=== PATIENT | female | born 1945 | race Caucasian/White ===

== ENCOUNTER 2016-04-16 12:53 | Inpatient (IN) | payer OTHER ==
[2016-04-16] MEDS ORDERED: NS 500 ML IV ONE (13:19)
--- NOTE | 2016-04-16 13:23 | EDPHY ---
H & P HPI/ROS: CHIEF COMPLAINT: Generalized weakness HISTORY OF PRESENT ILLNESS: 70-year-old female with diabetes presents with generalized weakness. 2 week history of gradually increasing generalized weakness. She now is having difficulty getting out of her wheelchair and few days ago required assistance to get out of her car. She has not fallen within the last 2 weeks. She is supposed to use oxygen around the clock, but only uses oxygen at night, because her tends to trip on the oxygen tubing. No recent illness or injury. 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 He usually makes their meals, but they have not been eating much recently. She is receiving twice weekly wound care for ulcerations on her left lower extremity. The wounds seem to be healing and are not worse recently. REVIEW OF SYSTEMS: Constitutional: No fever, no chills Eyes: No visual changes ENT: No sore throat Respiratory: No cough, no shortness of breath Cardiac: problem with thoracic aorta (unable to explain), No chest pain Gastrointestinal: No nausea, no vomiting, no abdominal pain Genitourinary: no dysuria Musculoskeletal: chronic left shoulder pain/injury, has decided against surgical repair Skin: skin ulceration Neurological: No headache Psychiatric: No anxiety Past Medical/Surgical History: Diabetes Hypertension Social History: Smoking Status: Never smoked Physical Exam: General Appearance: Alert, pleasant and talkative Eyes: Pupils equal and round, no conjunctival pallor or injection ENT, Mouth: Mucous membranes moist Neck: Normal inspection Respiratory: Lungs are clear to auscultation Cardiovascular: irregular rhythm Gastrointestinal: Abdomen is obese, soft and nontender Neurological: A&O, motor 5/5 throughout, sensory intact to light touch, gait not assessed Skin: Warm and dry Extremities: bandage left lower extremity, left toes are erythematous Psychiatric: Mood and affect normal Constitutional: Initial Vital Signs Temperature (C) 36.7 C 04/16/16 13:03 Heart Rate 76 04/16/16 13:03 Respiratory Rate 18 04/16/16 13:03 Blood Pressure 114/65 04/16/16 13:03 O2 Sat (%) 88 L 04/16/16 13:03 O2 Delivery Mode Nasal Cannula O2 (L/minute) 3 Allergies/Adverse Reactions: sandyl cream Allergy (Uncoded 04/16/16 12:59) tape Allergy (Uncoded 04/16/16 15:29) Home Medications: Medication Instructions Recorded Acetaminophen [Acetaminophen Extra 500 mg PO HS 04/16/16 Strength] Aspirin EC [Aspirin EC 81 mg (*)] 81 mg PO HS 04/16/16 Atenolol [Tenormin 25 mg (*)] 25 mg PO HS 04/16/16 Atorvastatin Calcium [Lipitor 40 40 mg PO HS 04/16/16 mg (*)] Clopidogrel Bisulfate [Plavix (*)] 75 mg PO HS 04/16/16 Hydrochlorothiazide [HCTZ (*)] 25 mg PO HS 04/16/16 Lantus 100 UNITS/ML (*) 40 units SQ HS 04/16/16 Metformin HCl [Metformin 1000 mg] 1,000 mg PO HS 04/16/16 Novolin R 0 - 14 units SQ BID 04/16/16 amLODIPine BESYLATE [Norvasc 10 mg 10 mg PO HS 04/16/16 (*)] Medical Decision Making - Diagnostics EKG Interpretation: EKG interpreted by me reveals ST, rate 101, lateral non-specific T wave changes. Imaging: Chest x-ray independently reviewed by me reveals a wide mediastinum, otherwise unremarkable. ED Course/Re-evaluation: This pt presents with generalized weakness, and certainly is a fall risk. Despite the results of our testing today, she will clearly require hospital admission for failure to thrive and inability to care for herself. The LE ulceration does not appear to be infected, and the source of her new weakness is otherwise unclear, so she will need labs/CXR/UA to further elucidate the cause of her weakness. Workup reveals a UTI. Urine cx sent and pt given Keflex 500mg orally. Pt informed. Dr. Duffy was consulted for admission. 1520: pt now in rapid Afib. No prior history of atrial fibrillation. Stat EKG reveals atrial fibrillation, with ventricular rate of 145. Diltiazem 10 mg IV ordered, but pt converted back to NSR at 1340 and did not require diltiazem. BP remained adequate. Paroxysmal Afib certainly could contribute to her generalized weakness. She will be placed in the PCU for close monitoring. Differential Diagnosis: includes though not limited to pneumonia, hyponatremia, CVA, ACS, dysrhythmia, cellulitis, wound infection. - Data Points Laboratory Results: Laboratory Results 04/17/16 05:06 04/17/16 05:06 Medications Given: Discontinued Medications Cephalexin HCl (Keflex) 500 mg PO EDNOW ONE PRN Reason: Protocol Stop: 04/16/16 15:07 Last Admin: 04/16/16 15:20 Dose: 500 mg Digoxin (Lanoxin Injections) 250 mcg IVP ONCE ONE Stop: 04/24/16 09:04 Last Admin: 04/24/16 09:30 Dose: 250 mcg Diltiazem HCl (Cardizem 25 Mg/5 Ml Vial) 10 mg IVP EDNOW ONE Stop: 04/16/16 15:28 Last Admin: 04/16/16 17:19 Dose: Not Given Diltiazem HCl (Cardizem 25 Mg/5 Ml Vial) 10 mg IVP ONCE BENJA Stop: 10/20/16 05:59 Last Admin: 04/23/16 06:25 Dose: 10 mg Sodium Chloride (Ns) 500 mls @ 0 mls/hr IV ONCE ONE PRN Reason: As Directed Stop: 04/16/16 13:20 Last Admin: 04/16/16 13:30 Dose: 500 mls Diltiazem HCl 125 mg/ Dextrose 150 mls @ 0 mls/hr IV CONT ONE; Per Protocol PRN Reason: Protocol Stop: 04/16/16 15:28 Last Admin: 04/16/16 17:19 Dose: Not Given Ceftriaxone Sodium/Dextrose (Rocephin 1 Gm (Premix)) 50 mls @ 100 mls/hr IV DAILY [facility] Stop: 05/16/16 16:59 Last Admin: 04/17/16 09:15 Dose: 50 mls Vancomycin/Sodium Chloride (Vancomycin 1 Gm (Premix)) 250 mls @ 250 mls/hr IV Q12H BENAJ PRN Reason: Protocol Stop: 05/17/16 14:59 Last Admin: 04/19/16 04:00 Dose: 250 mls Sodium Chloride (Ns) 500 mls @ 1,500 mls/hr IV ONCE ONE Stop: 04/21/16 10:46 Last Admin: 04/21/16 10:42 Dose: 500 mls Diltiazem HCl 125 mg/ Dextrose 150 mls @ 0 mls/hr IV CONT BENJA; Per Protocol PRN Reason: Protocol Stop: 10/20/16 05:59 Last Admin: 04/23/16 06:42 Dose: 150 mls Sodium Chloride (Ns) 1,000 mls @ 0 mls/hr IV ONCE ONE PRN Reason: As Directed Stop: 04/23/16 08:01 Last Admin: 04/23/16 07:51 Dose: 1,000 mls Sodium Chloride (Ns) 500 mls @ 1,500 mls/hr IV ONCE ONE Stop: 04/23/16 11:01 Last Admin: 04/23/16 10:47 Dose: 500 mls Amiodarone HCl (Amiodarone Hcl) 100 mls @ 600 mls/hr IV ONCE ONE Stop: 04/24/16 10:19 Last Admin: 04/24/16 10:44 Dose: 100 mls Amiodarone HCl (Amiodarone Hcl) 200 mls @ 33.333 mls/hr IV ONCE ONE Stop: 04/24/16 16:09 Last Admin: 04/24/16 11:32 Dose: 200 mls Sodium Chloride (Ns) 500 mls @ 1,500 mls/hr IV ONCE ONE Stop: 04/24/16 10:29 Last Admin: 04/24/16 10:44 Dose: 500 mls Sodium Chloride (Ns) 1,000 mls @ 3,000 mls/hr IV ONCE ONE Stop: 04/24/16 17:50 Last Admin: 04/24/16 18:00 Dose: 1,000 mls Insulin Glargine (Lantus) 40 unit SC [facility] Stop: 10/13/16 20:59 Last Admin: 04/19/16 00:00 Dose: Not Given Insulin Glargine (Lantus) 30 unit SC [facility] Stop: 10/13/16 20:59 Last Admin: 04/19/16 23:15 Dose: 30 units Metformin HCl (Glucophage) 1,000 mg PO [facility] Stop: 10/13/16 20:59 Last Admin: 04/16/16 20:25 Dose: 1,000 mg Morphine Sulfate (Morphine) 4 mg IVP EDNOW ONE Stop: 04/16/16 13:56 Last Admin: 04/16/16 14:00 Dose: 4 mg Morphine Sulfate (Morphine) 2 mg IVP ONCE ONE Stop: 04/21/16 06:31 Last Admin: 04/21/16 06:10 Dose: 2 mg Morphine Sulfate (Morphine) 2 mg IVP ONCE ONE Stop: 04/22/16 06:31 Last Admin: 04/22/16 06:21 Dose: 2 mg Morphine Sulfate (Morphine) 2 mg IVP ONCE ONE Stop: 04/22/16 16:01 Last Admin: 04/22/16 15:45 Dose: 2 mg Morphine Sulfate (Morphine) 2 mg IVP ONCE ONE Stop: 04/22/16 16:31 Last Admin: 04/22/16 16:30 Dose: 2 mg Potassium Chloride (Klor-Con) 40 meq PO ONCE ONE PRN Reason: Protocol Stop: 04/23/16 21:40 Last Admin: 04/23/16 23:02 Dose: 40 meq Departure - Departure Disposition: [facility] Inpatient Acute Clinical Impression: Paroxysmal atrial fibrillation Urinary tract infection Qualifiers: Qualifier Code: (N30.00) Acute cystitis without hematuria Condition: Fair
[2016-04-16 13:25] LABS: % IMMATURE GRANULYOCYTES 0.5 % (0.0-1.1); ABSOLUTE IMMATURE GRANULOCYTES 0.07 10^3/uL (0.00-0.10); ADD DIFF? NO; ADD MORPH? NO; ADD SCAN? NO; ATYPICAL LYMPHOCYTE FLAG 0 (0-99); FRAGMENT RBC FLAG 0 (0-99); HEMATOCRIT 47.5 % (38.0-47.0); HEMOGLOBIN 15.2 g/dL (12.6-16.3); LEFT SHIFT FLG 0 (0-99); LIPEMIA HEMOLYSIS FLAG 80 (0-99); MEAN CELL HEMOGLOBIN 29.3 pg (27.9-34.1); MEAN CELL VOLUME 91.5 fL (81.5-99.8); MEAN PLATELET VOLUME 12.8 fL (8.7-11.7); PLATELET CLUMPS FLAG 10 (0-99); PLATELET COUNT 273 10^3/uL (150-400); RED BLOOD CELL COUNT 5.19 10^6/uL (4.18-5.33); RED CELL DISTRIBUTION WIDTH 15.1 % (11.5-15.2)
--- NOTE | 2016-04-16 14:04 | DX ---
AP Upright and Lateral Views of the Chest - April 16, 2016, at 1:10 p.m. Clinical History: 70-year-old female in the Emergency Department with a suspected infection, meeting sepsis criteria and also complaining of leg weakness and back pain. Comparison Study: None. Findings: Oxygen tubing and telemetry monitoring lead lines are noted. There are mild hypoventilatory features. The AP hypoventilatory change augments the cardiac and mediastinal silhouette. There is mi ld peribronchial thickening. There is no convincing evidence of a focal infiltrate. There is no pleur al effusion, peripheral interstitial edema, or pneumothorax. The patient's arms obscure the anterior and central mediastinal structures on the lateral view. The osseous structures are age-appropriate. Impression: Mild hypoventilatory features, with no convincing focal infiltrate.
[2016-04-16 14:34] LABS: ALANINE AMINOTRANSFERASE 34 IU/L (9-52); ALBUMIN 3.2 g/dL (3.5-5.0); ALKALINE PHOSPHATASE 128 IU/L (38-126); ANION GAP 19 mEq/L (8-20); ASPARTATE AMINOTRANSFERASE 31 IU/L (14-46); BILIRUBIN,TOTAL 0.9 mg/dL (0.1-1.4); BILIRUBIN-CONJUGATED 0.4 mg/dL (0.0-0.5); BILIRUBIN-UNCONJUGATED 0.5 mg/dL (0.0-1.1); CALCIUM 9.5 mg/dL (8.5-10.4); CARBON DIOXIDE 25 mEq/l (22-31); CHLORIDE 99 mEq/L (97-110); CREATININE 1.1 mg/dL (0.6-1.0); GLOMERULAR FILTRATION RATE 49; GLUCOSE 247 mg/dL (70-100); POTASSIUM 4.1 mEq/L (3.5-5.2); SODIUM 139 mEq/L (134-144); TOTAL PROTEIN 6.9 g/dL (6.3-8.2)
[2016-04-16 14:46] LABS: COLOR AMBER; LEUKOCYTE ESTERASE,URINE 3+ (NEGATIVE); NITRITE,URINE NEGATIVE (NEGATIVE)
[2016-04-16 14:51] LABS: BACTERIA 4+ /hpf (NONE SEEN); RBC,URINE 25-50 /hpf (0-3); WBC,URINE 50-182 /hpf (0-3)
--- NOTE | 2016-04-16 14:55 | CPEKG ---
Heart Rate: 101 RR Interval: 594 P-R Interval: 156 QRSD Interval: 78 QT Interval: 356 QTC Interval: 462 P [place]igg[place]: 45 QRS [place]: 14 T Wave [place]: 144 EKG Severity - ABNORMAL ECG - EKG Impression: SINUS TACHYCARDIA EKG Impression: NONSPECIFIC T ABNORMALITIES, LATERAL LEADS Electronically Signed By: Mary Jane Gamino 16-Apr-2016 16:57:05
[2016-04-16] MEDS ORDERED: CEPHALEXIN 500 MG CAP PO ONE (15:06)
--- NOTE | 2016-04-16 15:26 | CPEKG ---
Heart Rate: 145 RR Interval: 414 QRSD Interval: 86 QT Interval: 316 QTC Interval: 491 QRS [place]: 19 T Wave [place]: 169 EKG Severity - ABNORMAL ECG - EKG Impression: ATRIAL FIBRILLATION, V-RATE 103-139 EKG Impression: REPOLARIZATION ABNORMALITY, PROB RATE RELATED Electronically Signed By: Mary Jane Gamino 16-Apr-2016 16:56:51
[2016-04-16] MEDS ORDERED: DILTIAZEM 25 MG/5 ML VIAL IVP ONE (15:27)
[2016-04-16] MEDS ORDERED: DILTIAZEM 125 MG in D5W 125 ML IV ONE (15:27)
[2016-04-16] MEDS ORDERED: ONDANSETRON DISINTEGRATING 4 MG TAB PO PRN (16:17)
[2016-04-16] MEDS ORDERED: ONDANSETRON 4 MG/2 ML VIAL IVP PRN (16:17)
--- NOTE | 2016-04-16 17:10 | GHP ---
[f rep st] HISTORY AND PHYSICAL DATE OF ADMISSION: 04/16/2016 CHIEF COMPLAINT: Weakness. HISTORY OF PRESENT ILLNESS: This is a 70-year-old female with a history of type 2 diabetes and a chr onic left lower leg wound. She gets her care at [facility] in [place] and at [place], and has been getting her wound care there for the last several months. The wound is actually severa l months old. She states over the last several weeks she has been having decreased mobility and over all generalized weakness. She describes it as weakness in her thighs in terms of not being able to s tand up strongly from her wheelchair. She does admit to some urinary retention yesterday, but no dys uria. No fevers or chills. No cough. She denies any heart palpitations. She has not had a history of atrial fibrillation in the past. REVIEW OF SYSTEMS: 10-point review of systems obtained and other than stated above is negative. PAST MEDICAL HISTORY: 1. Type 2 diabetes. 2. Chronic left lower extremity wound. 3. Peripheral vascular disease with an occlusion of some sort in her left leg which they tried to an gioplasty twice. That is the reason she is on Plavix currently. 4. Hypertension. 5. Previous severe cellulitis requiring surgery. It sounds like necrotizing fasciitis actually, on her left thigh. PAST SURGICAL HISTORY: 1. Left thigh surgery for severe cellulitis. 2. Multiple attempts at angioplasty of the left leg. MEDICATIONS: Lantus, Novolin, aspirin, hydrochlorothiazide, atorvastatin, metformin, amlodipine, Melonie vix, atenolol. SOCIAL HISTORY: No smoking. No alcohol. 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 Has a son who lives in the area, and his works at [employer]. FAMILY HISTORY: Positive for diabetes and cancer. PHYSICAL EXAMINATION: VITAL SIGNS: Afebrile. Blood pressure is 165/83, heart rate 104, oxygen satu ration 95% on 2 L. GENERAL: The patient is well developed, in no apparent distress. HEENT: Nonict hyacinth sclerae. Extraocular movements intact. Moist mucous membranes. NECK: Supple. No thyromegaly . LUNGS: Good effort. Clear to auscultation bilaterally. CARDIOVASCULAR: Regular rate and rhythm . No murmurs, gallops. ABDOMEN: Positive bowel sounds. Soft, nontender, nondistended. No hepatos plenomegaly. EXTREMITIES: Left leg shows a large ulceration in the anterior lambert area as well as in the posterior area on the lower calf. Both fairly clean looking without any evidence of infection. She has a faint palpable DP pulse on the right and absent on the left. NEUROLOGIC: Alert and orien krupa x3. Moving all 4 extremities equally. PSYCH: Normal mood and affect. LABS: White count 12, hemoglobin 15, platelets are 273. Sodium 139, potassium 4.1, BUN 32, creatini ne 1.1, glucose 247. UA shows urinary tract infection. EKG when she first came in was normal sinus rhythm and then she went into atrial fibrillation with rapid ventricular response. Heart rate of 140 s, and then when I saw the patient, she was back into normal sinus rhythm. IMPRESSION AND PLAN: 1. Generalized weakness is probably multifactorial, which includes gradual deconditioning due to her leg wound, which she says limits her mobility. She has not been mobile at all over the last weeks t o several months. Urinary tract infection is also probably contributing as well as episodes of atria l fibrillation. Will order physical therapy, and the patient may benefit from a rehab stay. 2. Urinary tract infection. Will treat with ceftriaxone. 3. New onset atrial fibrillation. We will check an echocardiogram. She will be monitored in the U. She does have a higher CHADS score, which would be an indication for anticoagulation, and we will start Eliquis tonight. She is on a small dose of atenolol which I will switch over to metoprolol an d increase the dose. Will also hold her amlodipine in order to see if we can titrate this up a littl e bit to prevent further episodes of atrial fibrillation. 4. Chronic left lower extremity wound. Will get Wound Care to see her. She is considering transfer ring over her care to [facility]. 5. Peripheral vascular disease. Will have her hold her Plavix for now, as she does not have a stent , and will have to think carefully about adding Eliquis to Plavix. We will have to see if we can get old records and see what is the extent of her peripheral vascular disease. 6. Type 2 diabetes. Continue her insulin as before as well as metformin. 7. Hypertension. Will hold her amlodipine to titrate up beta orly. CODE STATUS: Patient is a full code. /[id number]/MODL
[2016-04-16] MEDS: INSULIN LISPRO 100 UNIT/ML SC SCH (18:15)
[2016-04-16] MEDS: ACETAMINOPHEN 325 MG TAB PO PRN (19:43)
[2016-04-16] MEDS: ASPIRIN EC 81 MG TAB PO SCH (20:24)
[2016-04-16] MEDS: APIXABAN 5 MG TAB PO SCH (20:24)
[2016-04-16] MEDS: METOPROLOL TARTRATE 25 MG TAB PO SCH (20:25)
[2016-04-16] MEDS: ATORVASTATIN CALCIUM 40 MG TAB PO SCH (20:25)
[2016-04-16] MEDS: HYDROCHLOROTHIAZIDE 25 MG TAB PO SCH (20:25)
[2016-04-16] MEDS: INSULIN GLARGINE 100 UNIT/ML VIAL SC SCH (20:35)
[2016-04-16] MEDS ORDERED: metFORMIN HCL 500 MG TAB PO SCH (21:00)
[2016-04-17] MEDS: ACETAMINOPHEN 325 MG TAB PO PRN ×2 (02:51→06:50)
[2016-04-17 06:14] LABS: % IMMATURE GRANULYOCYTES 0.4 % (0.0-1.1); ABSOLUTE IMMATURE GRANULOCYTES 0.05 10^3/uL (0.00-0.10); ADD DIFF? NO; ADD MORPH? NO; ADD SCAN? NO; ATYPICAL LYMPHOCYTE FLAG 0 (0-99); FRAGMENT RBC FLAG 0 (0-99); HEMATOCRIT 43.8 % (38.0-47.0); HEMOGLOBIN 14.2 g/dL (12.6-16.3); LEFT SHIFT FLG 0 (0-99); LIPEMIA HEMOLYSIS FLAG 80 (0-99); MEAN CELL HEMOGLOBIN CONCENTR. 32.4 g/dL (32.4-36.7); MEAN CELL VOLUME 92.6 fL (81.5-99.8); MEAN PLATELET VOLUME 12.6 fL (8.7-11.7); PLATELET CLUMPS FLAG 10 (0-99); PLATELET COUNT 223 10^3/uL (150-400); RED BLOOD CELL COUNT 4.73 10^6/uL (4.18-5.33)
[2016-04-17 06:22] LABS: ALANINE AMINOTRANSFERASE 34 IU/L (9-52); ALBUMIN 2.8 g/dL (3.5-5.0); ALKALINE PHOSPHATASE 101 IU/L (38-126); ANION GAP 13 mEq/L (8-20); ASPARTATE AMINOTRANSFERASE 22 IU/L (14-46); BILIRUBIN,TOTAL 0.8 mg/dL (0.1-1.4); CALCIUM 8.9 mg/dL (8.5-10.4); CARBON DIOXIDE 30 mEq/l (22-31); CHLORIDE 101 mEq/L (97-110); CREATININE 0.9 mg/dL (0.6-1.0); GLOMERULAR FILTRATION RATE > 60; GLUCOSE 125 mg/dL (70-100); SODIUM 140 mEq/L (134-144)
[2016-04-17] MEDS: INSULIN LISPRO 100 UNIT/ML SC SCH ×3 (08:59→17:25)
[2016-04-17] MEDS: METOPROLOL TARTRATE 25 MG TAB PO SCH ×2 (09:14→22:15)
[2016-04-17] MEDS: APIXABAN 5 MG TAB PO SCH ×2 (09:14→22:17)
[2016-04-17] MEDS: oxyCODONE IR 5 MG TAB PO PRN ×2 (11:32→16:58)
[2016-04-17] MEDS ORDERED: POLYETHYLENE GLYCOL 3350 17 GM PKT PO PRN (11:34)
[2016-04-17] MEDS ORDERED: BISACODYL 10 MG SUPP PR PRN (11:34)
[2016-04-17] MEDS ORDERED: MAGNESIUM HYDROXIDE 30 ML UDCUP PO PRN (11:34)
[2016-04-17] MEDS ORDERED: LACTULOSE 20 GM/30 ML UDCUP PO PRN (11:34)
--- NOTE | 2016-04-17 13:49 | HOSPPROG ---
Hospitalist Progress Note Assessment/Plan: # Severe sacral/decubitus and LE wounds - pt has been receiving outpt wound care - extensive on exam - consulting Dr. Dahl for surgical eval - consulting ID - as LE wounds have surrounding erythema and are deep - would like recs regarding broader abx - wound care already initiated - specialty bed ordered # UTI - pt with sx and grossly abnormal UA - urine culture sent - empiric Ceftriaxone # New Atrial Fibrillation - suspect this is likely chronic/intermittent TELE ( personally reviewed and interpreted) sinus in 80's oxygen saturations 98% on 3L Chads-vasc2 5 - cont Eliquis - cont Metoprol currently rate controlled # Diabetes type 2 - BS 125-308 - cont glargine - cont SSI - hold metformin # Peripheral vascular disease - certainly complicating patients wound healing - cont statin - surgery consulting for wounds # HTN - currently well controlled - - cont holding norvasc - cont metoprolol # proph - eliquis # diet - diabetic # dispo - > 2MN as requires acute care for serious wounds and atrial fibrillation I have discussed the case with ID and surgery - they will consult for recs regarding this patient's wounds Subjective: tearful and scared Objective: Vital Signs Temp Pulse Resp BP Pulse Ox 36.6 C 74 16 116/67 98 04/17/16 11:54 04/17/16 11:54 04/17/16 11:54 04/17/16 11:54 04/17/16 11:54 Laboratory Results 04/17/16 05:06 04/17/16 05:06 04/16/16 04/17/16 04/18/16 05:59 05:59 05:59 Intake Total 1495 Balance 1495 - Physical Exam Constitutional: chronically ill appearing, obese Eyes: anicteric sclera Ears, Nose, Mouth, Throat: moist mucous membranes Cardiovascular: regular rate and rhythym, systolic murmur Respiratory: no respiratory distress Gastrointestinal: normoactive bowel sounds, soft, non-tender abdomen Genitourinary: no bladder fullness Skin: warm, other (large deep lambert wound and necrotic heel eschar- decubitus wound with necrosis) Musculoskeletal: No asymmetric calves Neurologic: AAOx3 Psychiatric: depressed, flat affect Lymph, Heme, Immunologic: no cervical LAD ICD10 Worksheet Patient Problems: Problems Problem Status Diagnosed Paroxysmal atrial fibrillation Acute Urinary tract infection Acute
--- NOTE | 2016-04-17 15:27 | WOCRNPDOC ---
ALFONSO Advanced Assessment Note - Skin Integrity Problem, Advanced Assess Left Lower Lateral Leg Dressing Type: Allevyn Life Dressing Description: Saturated Exudate Amount: Moderate Exudate Color: Reddish/Yellow Exudate Characteristic(s): Serosanguinous Integumentary Issue Intervention: Dressing Applied Alana Wound Tissue: Raw, Swollen Alana Wound Swelling: Mild Wound Bed Color: Black, Red, Yellow Wound Bed Constitution: Smooth Tissue (75%), Adhered Slough (15%), Unstable Eschar (10%) Wound Edges: Irregular Site Odor: Strong Site Measurement - Head-to-Toe Length X Width X Depth (cm): 5.5cmx9.5cmx0.4cm Skin Integrity Problem Comment: Moderately exudative wound laterally, w/ well- adhered slough and eschar along margins. Alana-wound tissue is raw w/ associated swelling, and entire site is exquisitely painful when touched. Wound has a strong odor, and there is erythema noted throughout LLE. Patient reports seeing a physician for outpatient wound care up at [facility], and that he was using Santyl to debride this wound. She reports that this tx caused subsequent irritation and breakdown of her alana-wound tissue. After speaking with Dr. Wall, I feel this patient will benefit from a surgical consult for this wound as well as several others. I will hold off on ordering any topical debridement until surgical opnion. Left Posterior Lower Leg Dressing Type: Allevyn Life Dressing Description: Clean/Dry, Intact Exudate Amount: None Exudate Characteristic(s): None Integumentary Issue Intervention: Dressing Applied Alana Wound Tissue: Erythema, Shiny, Thin, Hair Loss Alana Wound Swelling: Mild Wound Bed Color: Black, Red Wound Bed Constitution: Smooth Tissue (5%), Stable Eschar (95%) Site Odor: Moderate Site Measurement - Head-to-Toe Length X Width X Depth (cm): [id number] eschar Skin Integrity Problem Comment: Dry eschar-filled wound on posterior LLE, w/ trace smooth tissue along margins. Erythema noted to alana-wound tissue, accompanied by dry, taut, shiny skin. I am unceratin of the etiology of these wounds, as the patient's history is complex. Her wounds throughout the LLE are indicative of both venous and arterial compromise, in addition to complications associated with diabetes. Surgical consult pending. I applied Hypergel to help soften and debride eschar, but surgical intervention will be much more efficacious. liability claims adjusterELIJAH Vogel present and assisting. Left Lateral Heel Diabetic Ulcer Dressing Type: Allevyn Life Dressing Description: Intact Exudate Amount: Scant Exudate Color: Reddish/Yellow Exudate Characteristic(s): Serosanguinous Integumentary Issue Intervention: Dressing Applied Alana Wound Tissue: Calloused Alana Wound Swelling: Mild Wound Bed Color: Black Wound Bed Constitution: Unstable Eschar Wound Edges: Well Defined Site Odor: Moderate Site Measurement - Head-to-Toe Length X Width X Depth (cm): 1.5cmx1.7cmx0.2cm Skin Integrity Problem Comment: Soft, adhered eschar noted in L heel wound. Contrary to the other two wounds on this extremity, the appearance of this wound is much more consistent with a diabetic ulcer. It has clear, well-defined margins surrounded by copious calloused tissue. This wound would also benefit from surgical debridement; consult pending. Pannus Dressing Type: Open to Air Alana Wound Tissue: Intact Alana Wound Swelling: None Wound Bed Color: Red Site Odor: Moderate Site Odor Comment: yeast-like Skin Integrity Problem Comment: Denuded skin noted in pannus fold bilaterally, worse on the right than the left. Patient typically uses powder to keep site dry, but presently it is caked and moist. Advised liability claims adjusterELIJAH Vogel to clean off all the powder and apply interdry sheets in folds to help manage mositure and heal denuded skin. Bilateral Buttock Pressure Injury Dressing Type: Allevyn Life Dressing Description: Intact Exudate Amount: Scant Exudate Color: Reddish/Yellow Exudate Characteristic(s): Serosanguinous Integumentary Issue Intervention: Dressing Applied Alana Wound Tissue: Blanching, Erythema, Raw, Dry, Painful/Tender Alana Wound Swelling: Mild Wound Bed Color: Black, Brown, Red, Yellow Wound Bed Constitution: Smooth Tissue (40% in L wound, 50 % in R wound), Mixed Loose & Adhered Slough/Eschar Wound Edges: Irregular Site Odor: Moderate Site Measurement - Head-to-Toe Length X Width X Depth (cm): L buttock: 9cmx6.5cmx0.2cm; R buttock: 1.5cmx2.5cmx0.2cm Pressure Injury Stage: Unstageable (bilaterally) Pressure Injury Present on Admit: Yes (Noted in H&P) Skin Integrity Problem Comment: Large pressure-related wounds across bilateral buttocks (worse on left than right), slough/eschar-filled, consistent in appearance with unstageable pressure injury. Alana-wound tissue is dry and peeling, w/ no erythema noted at this time. Patient has been seeing wound physican for her left lower leg wounds, but states she was unaware on the wounds on her bottom. She does, however, report that the site has been painful. I supplied liability claims adjusterELIJAH Vogel w/ a larger Allevyn Life sacral dressing to ensure the wound were both adequately covered. The slough/eschar do not appear to be well-adhered, but patient was too tender during assessment and I was unable to mechanically debride w/ NS and gauze. Surgical consult is pending. Specialty P500 bed was ordered by RN this afternoon. I will follow-up with this patient tomorrow after surgical consult. Right Medial Distal Buttock Pressure Injury Dressing Type: Allevyn Life Dressing Description: Intact Exudate Amount: None Exudate Characteristic(s): None Integumentary Issue Intervention: Dressing Applied Alana Wound Tissue: Erythema, Non-blanching, Raw, Dry Alana Wound Swelling: Mild Wound Bed Color: Purple Site Measurement - Head-to-Toe Length X Width X Depth (cm): [id number] Pressure Injury Stage: Deep Tissue Injury (DTI) Pressure Injury Present on Admit: Yes (documented in H&P) Skin Integrity Problem Comment: Dark purple ecchymosis noted on distal aspect of medial R buttock (distal to unstageable wound), consistent in appearance with suspected deep tissue injury. Site covered, along with other pressure injuries on patient's buttocks, with larger Allevyn Life dressing supplied by wound care. P500 mattress ordered to alleviate pressure to site.
[2016-04-17] MEDS: PIPERACILLIN/TAZO 4.5 GM/DEX 100 ML IV SCH (15:59)
--- NOTE | 2016-04-17 16:13 | ECHO ---
[id number] + + [address] : : [place] [address] : : [phone] + + Adult Echocardiographic Report + ----+ :Name: Sanjeev JAMES Date: 04/17/2016 02:32 PM : : Hospital Admission Number: [id number] Location: 253: :: 1945 Gender: Female : :Age: 70 yrs Race: WH : :Reason For Study: Atrial Fibrillation : + ----+ MMode/2D Measurements & Calculations LVIDd: 3.2 cm EDV(Teich): 41.6 ml Ao root diam: 3.5 cm LVOT diam: 2.3 cm LA dimension: 4.1 cm LVOT area: 4.3 cm2 Normal Measurement Values: + + :LVIDd (3.5-5.7cm) IVSd (0.6-1.1cm) LVPWd (0.6-1.1cm) Aortic Root (2.0-3.7cm)Left Atrium (1.5-4.0cm): :LV Vol(d) (76-115ml) LV Vol(s) (29-48ml) Ejec Fraction (50-65%)PV Gómez (0.6- 1.2m/s) TV Gómez (0.4-1.0m/s) : :MV E Góemz (0.8-1.0m/s)MV A Gómez (0.3-1.0m/s)LVOT Gómez (0.7-1.2m/s) Asc Ao Gómez ( 0.9-1.8m/s) : + + Doppler Measurements & Calculations MV E max gómez: Ao mean P.2 mmHgLV V1 max: SV(LVOT): 63.7 cm/sec Ao V2 mean: 89.3 cm/sec 103.0 ml MV A max gómez: 125.7 cm/sec LV V1 max P.6 cm/sec Ao V2 VTI: 34.1 cm 3.2 mmHg MV E/A: 0.58 BRENDA(I,D): 3.0 cm2 LV V1 mean P.7 mmHg LV V1 mean: 59.8 cm/sec LV V1 VTI: 23.8 cm Left Ventricle The left ventricular cavity is small. There is mild to moderate concentric left ventricular hypertrophy. The left ventricle is hyperdynamic. Ejection Fraction = 70-75%. There is Doppler evidence for diastolic dysfunction. No regional wall motion abnormalities noted. Right Ventricle The right ventricle is normal in size and function. Atria The left atrial size is normal. Right atrial size is normal. The interatrial septum is intact with no evidence for an atrial septal defect. Mitral Valve There is moderate mitral annular calcification. There is no evidence of mitral valve prolapse. There is no mitral valve stenosis. Tricuspid Valve Normal tricuspid valve. There is mild tricuspid regurgitation. Aortic Valve There is moderate to severe aortic valve calcification. AV max PG is 13mmHG. AV mean PG is 7mmHG. Pulmonic Valve The pulmonic valve is normal in structure and function. There is no pulmonic valvular regurgitation. Great Vessels The aortic root is normal size. Pericardium/Pleural There is no pericardial effusion. Conclusion A complete two-dimensional transthoracic echocardiogram was performed (2D, M-mode, Doppler and color flow Doppler). There is mild to moderate concentric left ventricular hypertrophy. The left ventricular cavity is small. The left ventricle is hyperdynamic. Ejection Fraction = 70-75%. There is Doppler evidence for diastolic dysfunction. There is mild tricuspid regurgitation. There is moderate to severe aortic valve calcification. AV max PG is 13mmHG. AV mean PG is 7mmHG. Final Reading Physician: Jasmin Wilder signed on 04/17/2016 04:13 PM Ordering Physician: Fe Duffy Performed By: Socorro Holt, KAYLACS
--- NOTE | 2016-04-17 16:24 | GCON ---
[f rep st] CONSULTATION INFECTIOUS DISEASE CONSULTATION DATE OF CONSULTATION: 04/17/2016 REFERRING PHYSICIAN: Nita Wall MD REASON FOR CONSULTATION: Urinary tract infection, chronic wounds, for further evaluation and management. CHIEF COMPLAINT: Weakness. HISTORY OF PRESENT ILLNESS: This is a 70-year-old female with a past medical history significant for type 2 diabetes mellitus, peripheral vascular disease, chronic lower extremity wounds, who was admitted yesterday after several weeks of complaints of weakness. According to the patient and her son at the bedside, she was apparently able to walk around with her walker, get to doctors' appointments and get around her house without too much difficulty. However, the past 2 to 3 weeks she is having increasingly more difficulties with standing up, walking, and managing on her own. She complains of extreme weakness involving her lower extremities as well as her sort of trunk region where she is unable to really stand up or be in an upright position for long, to the point now that she is in a wheelchair. She has denied any fevers, shaking chills or night sweats recently. She has had some issues with urinary retention in the last day or 2 prior to admission, and prior to that some issues with urinary incontinence. She denies any dysuria, hematuria. She has been following with a wound care clinic up in [place] for her lower extremity wounds. She states that recently, perhaps 1 month ago, she was placed on antibiotics for 5-7 days for her wounds. She states it was cultured, and she was placed on amoxicillin. On admission, she was noted to be afebrile. She had some brief tachycardia noted on admission with elevated blood pressures. White cell count was elevated to 12.9 with a left shift. She had a urinalysis done, which had 3+ leukocyte esterase, negative for nitrates, and 50- 182 urine WBCs. There was 4+ bacteria seen. Cultures are currently growing out gram-negative rods at greater than 100,000. She had chest x-ray without any focal evidence of infiltrate. She was started empirically on ceftriaxone. She does feel a little bit better today. Her white blood cell count improved only slightly to 12.1. Infectious Disease is now consulted for further evaluation and opinion regarding the above. REVIEW OF SYSTEMS: GENERAL: Denied any chills or drenching night sweats. HEAD : Denies any headaches. EYES: No changes in vision. ENT: No sore throat, difficulty swallowing, ear pain, ear drainage. CARDIOVASCULAR: Denies any chest pain. RESPIRATORY: Denies any shortness of breath, cough or sputum production. She is normally on O2 via the nasal cannula at 2 L. ABDOMEN: Denies any abdominal pain, nausea, vomiting, diarrhea. URINARY: As above. BACK: Has some chronic back pain which is not increased outside of her baseline. EXTREMITIES: Denies any other joint pains or muscle aches at present. SKIN: Chronic lower extremity wounds as mentioned above. Rest of the 10-point review of systems was essentially negative except for the above. PAST MEDICAL HISTORY: Significant for type 2 diabetes mellitus, hypertension, peripheral vascular disease, chronic left lower extremity wound, followed by the [facility]. History of severe cellulitis involving her left thigh, which she states was due to a flesh-eating bacteria. She had surgery done, and this was in [place] in 2000. PAST SURGICAL HISTORY: Left thigh surgery for possible necrotizing fascitis in 2000 in [place]. Multiple attempts at angioplasty of the left leg. SOCIAL HISTORY: She is a nonsmoker. Does not drink alcohol. She lives with her . Her son lives nearby. FAMILY HISTORY: Significant for diabetes mellitus and cancer. PHYSICAL EXAMINATION: VITAL SIGNS: Temperature current 36.6, pulse 94, respiratory rate 16, saturation 98% on 3 L O2 via nasal cannula. Blood pressure 116/67. GENERAL: The patient is resting in bed in no acute respiratory distress, awake, alert, and oriented x3. HEAD/EYES: No conjunctival injection or petechiae noted. Oropharynx is clear. No posterior pharyngeal erythema or thrush. CARDIOVASCULAR: S1, S2, regular rate and rhythm. No murmurs appreciated. RESPIRATORY: Poor inspiratory effort. No obvious rhonchi appreciated. ABDOMEN: Obese. Positive bowel sounds in all 4 quadrants. Soft, nontender, nondistended. EXTREMITIES: No lower extremity edema. MUSCULOSKELETAL: No obvious joint effusions. SKIN: She has intertrigo under the abdominal fold. Moderate size, necrotic-looking wound at her left lower leg, slightly lateral. She has other smaller wounds just adjacent to that which have some purulent drainage noted. There is some mild erythema surrounding those wounds. The area is also foul-smelling. LABORATORY: Reviewed. ASSESSMENT: 1. Gram-negative urinary tract infection. 2. Chronic lower extremity wounds which are foul-smelling with some mild periwound erythema. PLAN: Currently on ceftriaxone. Given foul-smelling wounds with some periwound erythema and some mild purulent drainage, would broaden antibiotics to vancomycin and Zosyn, for now. Staphylococcus species including Methicillin Resistant Staphylococcus aureus, Streptococcus, Gram Negatives including Pseudomonas all in consideration. Will discontinue ceftriaxone. Check C- reactive protein. May need additional imaging to further evaluate. Await urine cultures to better direct antimicrobial therapy. Appreciate Wound Care's evaluation. Await surgical evaluation as well. I thank you very much for allowing us this opportunity to care for your patient in consultation. /[id number]/MODL MTDD
[2016-04-17] MEDS: VANCOMYCIN HCL/NORMAL SALINE 250 ML IV SCH (16:59)
[2016-04-17] MEDS ORDERED: PIPERACILLIN/TAZO 4.5 GM/DEX 100 ML IV SCH (18:00)
[2016-04-17] MEDS ORDERED: IOPAMIDOL (ISOVUE 370) 100 ML BTL IV ONE (18:57)
--- NOTE | 2016-04-17 22:15 | CT ---
CTA Aortogram and Runoff History: Nonhealing ulcer left leg times several months, history of multiple angioplasties Technique: 100 mL Isovue-370 injected intravenously with the power injector. [address] per formed from above the aortic arch bottom of the feet. Delayed imaging is repeated through the lower l egs. Multiplanar reconstructions are obtained and reviewed. A 3 dimensional model is created on the [employer] workstation and reviewed and photographed by myself. Findings: Chest: The thoracic aorta is normal in size but associated with mural calcification. There is triple vessel coronary artery disease. Heart size is normal. Abdomen: The abdominal aorta is normal in size but associated with heavy mural calcification. There a re calcified plaques associated with each proximal renal artery. The kidneys are atrophic and flow-li miting stenoses could possibly be present involving the bilateral single renal arteries. There is a p ossible flow-limiting stenosis associated with the proximal celiac axis that may be related to the ar humble ligament. There is a nonlimiting stenosis of the proximal SMA. The ALYSSA remains patent but is as sociated with multiple calcified plaques within it. There is sludge in the gallbladder. There is stea tosis of the liver. Pelvis: The common, external and internal internal iliac are reason are heavily calcified, but patent . There is a Kirk catheter in the decompressed urinary bladder. There appears to be a "Lippe's loop" shaped appliance in the cervix. Left leg: There is heavy calcification throughout the arteries of the left leg. This makes evaluation difficult. There is a tight stenosis in the proximal the superficial femoral vein followed by a argelia ral centimeter long stenosis in the upper 3rd of the superficial femoral vein. There is some contrast in the distal superficial femoral vein but there is certainly evidence 4 reconstitution of the dista l popliteal vein. There is contrast in the trifurcation vessels which courses down into the foot. The re is a gas-filled soft tissue ulceration in the posterior lower leg and ankle. Right leg: Heavy calcification throughout the superficial femoral artery with contrast present in the superficial femoral artery, popliteal artery and both the tibialis and anterior and peroneal arterie s. The tibialis posterior artery is heavily calcified and occluded throughout the majority of its yoana gth. Impression: The study is extremely difficult to quantify, due to heavy atherosclerotic calcification throughout the atherosclerotic vascular system. There is however a long segment of proximal left supe rficial femoral artery occlusion versus high-grade stenosis with reconstitution distally. Recommend c onsultation with interventional radiology to consider a conventional catheter angiogram to be followe d by possible intervention, if appropriate. Dr Orion Villa can be reached at [phone]. Dr. Neda Castellanos can be reached at [phone]. Alternatively Interventional Radiology can be called for a consultation with the first available inte rventional radiologist.
[2016-04-17] MEDS: HYDROCHLOROTHIAZIDE 25 MG TAB PO SCH (22:16)
[2016-04-17] MEDS: ASPIRIN EC 81 MG TAB PO SCH (22:16)
[2016-04-17] MEDS: SENNOSIDES/DOCUSATE SODIUM TAB PO SCH (22:17)
[2016-04-17] MEDS: ATORVASTATIN CALCIUM 40 MG TAB PO SCH (22:17)
[2016-04-17] MEDS: INSULIN GLARGINE 100 UNIT/ML VIAL SC SCH (22:46)
[2016-04-18] MEDS: PIPERACILLIN/TAZO 4.5 GM/DEX 100 ML IV SCH ×5 (00:12→23:51)
[2016-04-18] MEDS: VANCOMYCIN HCL/NORMAL SALINE 250 ML IV SCH ×3 (02:23→17:22)
[2016-04-18] MEDS: oxyCODONE IR 5 MG TAB PO PRN ×4 (04:29→20:17)
[2016-04-18 05:05] LABS: % IMMATURE GRANULYOCYTES 0.4 % (0.0-1.1); ABSOLUTE IMMATURE GRANULOCYTES 0.05 10^3/uL (0.00-0.10); ADD DIFF? NO; ADD MORPH? NO; ADD SCAN? NO; ATYPICAL LYMPHOCYTE FLAG 0 (0-99); FRAGMENT RBC FLAG 0 (0-99); HEMATOCRIT 42.3 % (38.0-47.0); HEMOGLOBIN 13.5 g/dL (12.6-16.3); LEFT SHIFT FLG 0 (0-99); LIPEMIA HEMOLYSIS FLAG 80 (0-99); MEAN CELL HEMOGLOBIN 29.5 pg (27.9-34.1); MEAN CELL HEMOGLOBIN CONCENTR. 31.9 g/dL (32.4-36.7); MEAN CELL VOLUME 92.6 fL (81.5-99.8); MEAN PLATELET VOLUME 12.4 fL (8.7-11.7); PLATELET CLUMPS FLAG 0 (0-99); PLATELET COUNT 222 10^3/uL (150-400); RED BLOOD CELL COUNT 4.57 10^6/uL (4.18-5.33)
[2016-04-18 05:22] LABS: ALANINE AMINOTRANSFERASE 34 IU/L (9-52); ALBUMIN 2.6 g/dL (3.5-5.0); ALKALINE PHOSPHATASE 96 IU/L (38-126); ANION GAP 8 mEq/L (8-16); ASPARTATE AMINOTRANSFERASE 21 IU/L (14-46); BILIRUBIN,TOTAL 0.7 mg/dL (0.1-1.4); CALCIUM 8.6 mg/dL (8.5-10.4); CARBON DIOXIDE 30 mEq/l (22-31); CHLORIDE 102 mEq/L (97-110); CREATININE 1.2 mg/dL (0.6-1.0); GLOMERULAR FILTRATION RATE 44; GLUCOSE 164 mg/dL (70-100); POTASSIUM 3.9 mEq/L (3.5-5.2); SODIUM 140 mEq/L (134-144); TOTAL PROTEIN 5.8 g/dL (6.3-8.2)
[2016-04-18] MEDS: SENNOSIDES/DOCUSATE SODIUM TAB PO SCH ×2 (09:41→20:17)
[2016-04-18] MEDS: METOPROLOL TARTRATE 25 MG TAB PO SCH ×2 (09:42→20:17)
[2016-04-18] MEDS: APIXABAN 5 MG TAB PO SCH ×2 (09:43→20:17)
[2016-04-18] MEDS: INSULIN LISPRO 100 UNIT/ML SC SCH ×3 (09:45→17:53)
[2016-04-18 10:09] LABS: HEMOGLOBIN A1C 8.1 % (4.0-6.0)
[2016-04-18] MEDS ORDERED: IOPAMIDOL (ISOVUE-300) 150 ML BTL IV ONE (15:35)
--- NOTE | 2016-04-18 16:20 | PCMIDPN ---
Assessment/Plan: Assessment: 1. Urinary tract infection. Patient with pyuria, symptoms and greater than 100, 000 colony-forming units of gram-negative amina in her urine. Currently on both vancomycin and Zosyn. The Zosyn should cover this isolate. Will monitor for identification and sensitivity panel. 2. Left lower extremity chronic ulcerations with signs of supparation. The vancomycin and Zosyn empiric antibiotic regimen is most likely covering what ever secondary bacterial process is ongoing. The underlying issue is poor arterial supply to the left lower extremity. She had a CT angiogram runoff which showed significant vascular problems. Awaiting for evaluation by Interventional or vascular surgery as to options. In conversation with this patient she has previously been told by other cardiothoracic and vascular surgeons that she needs intervention to the left lower extremity. However she has numerous family members with diabetic vasculopathy who have had poor outcomes ultimately. This is affecting her decisions. She needs her son to confer with her regarding the proper decision going forward. Plan: 1. Continue both vancomycin and Zosyn. 2. Follow culture results. 3. Follow wound appearance. 4. Obtain vascular an interventional opinions regarding CT angiogram with runoff. 04/18/16 17:05 04/18/16 17:05 Subjective: Patient is resting comfortably in her hospital bed. Was participating with physical therapy just before this interview. She has difficulty with transfers. This is mostly due to pain in her left leg. The pain in the leg in the open wounds though have contributed significantly to deconditioning. No fevers or chills. Objective: Vancomycin # 1 Zosyn # 1 Vital Signs Temp Pulse Resp BP Pulse Ox 97.7 C H 60 12 131/74 H 96 04/18/16 16:06 04/18/16 16:06 04/18/16 16:06 04/18/16 15:58 04/18/16 16:06 Laboratory Results 04/18/16 04:16 04/18/16 04:16 04/17/16 04/18/16 04/19/16 05:59 05:59 05:59 Intake Total 1300 Output Total 1025 Balance 275 C-Reactive Protein 168.4 mg/L (<10.0) H 04/17/16 05:06 - Physical Exam General Appearance: WD/WN, alert, no apparent distress, obese, non-toxic Respiratory: lungs clear, normal breath sounds, No respiratory distress Cardiac/Chest: regular rate, rhythm, No tachycardia Extremities: non-tender, No normal inspection Skin: normal color, warm/dry, No rash Neuro/Psych: alert, normal mood/affect ICD10 Worksheet Patient Problems: Problems Problem Status Diagnosed Paroxysmal atrial fibrillation Acute Urinary tract infection Acute
--- NOTE | 2016-04-18 17:10 | HOSPPROG ---
Hospitalist Progress Note Assessment/Plan: # Severe sacral/decubitus and LE wounds - pt has been receiving outpt wound care - extensive on exam CTA runoff ( personally reviewed and interpreted) significant atherosclerotic disease - consulting Dr. Dahl for surgical eval- and recs regarding revascularization - continue vancomycin and Zosyn which ID started - wound care already initiated - specialty bed ordered # UTI - pt with sx and grossly abnormal UA- urine culture with greater than 100 ,000 gram-negative rods - continue antibiotics and await sensitivities # New Atrial Fibrillation - suspect this is likely chronic/intermittent TELE ( personally reviewed and interpreted) sinus in 80's oxygen saturations 96% on RA Chads-vasc2 5 - cont Eliquis - cont Metoprol currently rate controlled # Diabetes type 2 - BS 125- to 272 - cont glargine - cont SSI - hold metformin # Peripheral vascular disease - certainly complicating patients wound healing- imaging as referenced above - cont statin - surgery consulting # HTN - currently well controlled - - cont holding norvasc - cont metoprolol # proph - eliquis # diet - diabetic # dispo - > 2MN as requires acute care for serious wounds and atrial fibrillation I have discussed the case with surgery - they will review imaging and make recommendations regarding revascularization and wound debridement Subjective: patient tearful Objective: Vital Signs Temp Pulse Resp BP Pulse Ox 97.7 C H 60 12 131/74 H 96 04/18/16 16:06 04/18/16 16:06 04/18/16 16:06 04/18/16 15:58 04/18/16 16:06 Laboratory Results 04/18/16 04:16 04/18/16 04:16 04/17/16 04/18/16 04/19/16 05:59 05:59 05:59 Intake Total 1300 Output Total 1025 Balance 275 - Physical Exam Constitutional: obese Eyes: anicteric sclera Ears, Nose, Mouth, Throat: dry mucous membranes Cardiovascular: regular rate and rhythym, systolic murmur Respiratory: no respiratory distress, no rales or rhonchi Gastrointestinal: normoactive bowel sounds, soft, non-tender abdomen Genitourinary: no bladder fullness Skin: warm, normal color Musculoskeletal: No asymmetric calves Neurologic: AAOx3 Psychiatric: depressed, No agitated Lymph, Heme, Immunologic: no cervical LAD ICD10 Worksheet Patient Problems: Problems Problem Status Diagnosed Paroxysmal atrial fibrillation Acute Urinary tract infection Acute
--- NOTE | 2016-04-18 18:30 | IR ---
Right Brachial Venography Imaging Guided Peripherally Inserted Central Catheter History: Urinary tract infection, weakness. Technique: Following informed consent, the right arm was prepped and draped in sterile fashion. All elements of maximal sterile barrier technique, including cap, mask, sterile gown, sterile gloves, la rge sterile sheet, hand hygiene, and 2% chlorhexidine for cutaneous antisepsis, followed. Ultrasound transducer was placed in sterile sleeve and sterile coupling gel was used. Ultrasound evaluation of potential access sites was performed. After successfully identifying a patent vessel of adequate si ze, 1% Xylocaine was used for local anesthetic. Ultrasound guidance was used to puncture the brachia l vein with a 21-gauge needle. 0.018 measuring wire would not pass centrally beyond the right axilla . A skin macie with scalpel blade was followed by removing the access needle. A 5.5-Cymraes peel-away sheath was followed by hand injection of half-strength contrast and right upper extremity venography was obtained. The dilator and the peel-away sheath were pulled back while observing injection of gonzalez lf-strength contrast fluoroscopically until the tip of the dilator exited small tributary vein and al lowed access to main branch of the right brachial vein. 0.018 measuring wire was passed centrally, f ollowed by a 5-Cymraes double-lumen central catheter, trimmed to 41 cm length. The tip of the cathete r was positioned centrally and the guide wire removed. AP fluoroscopic spot image was obtained in in spiration. The catheter irrigated easily. The hub of the catheter was secured to the skin using a S tatLock adhesive device, and a sterile dressing was applied. Fluoroscopy time in minutes: 0.9. Estimated exposure in mGy: 30.7. Findings: Venography demonstrates initial malposition of tip of the dilator into an unsuitable tribu tary vein of the right brachial vein. After repositioning the dilator, central catheterization is suc cessful . The tip of the central catheter terminates at the junction of the superior vena cava and th e right atrium. Impression: 5-Cymraes double lumen peripherally inserted central catheter is ready to use. - - - - - - - - - - - - - - - - - - - - - - - - - - - - - - - - - - - - - - - - - (Cross-cutting measures: Current medications were listed in the medical record, including all known prescriptions, [id number] medications, herbal medications, and nutritional supplements. The pa tient does not smoke.)
--- NOTE | 2016-04-18 18:30 | IR ---
Right Brachial Venography Imaging Guided Peripherally Inserted Central Catheter History: Urinary tract infection, weakness. Technique: Following informed consent, the right arm was prepped and draped in sterile fashion. All elements of maximal sterile barrier technique, including cap, mask, sterile gown, sterile gloves, la rge sterile sheet, hand hygiene, and 2% chlorhexidine for cutaneous antisepsis, followed. Ultrasound transducer was placed in sterile sleeve and sterile coupling gel was used. Ultrasound evaluation of potential access sites was performed. After successfully identifying a patent vessel of adequate si ze, 1% Xylocaine was used for local anesthetic. Ultrasound guidance was used to puncture the brachia l vein with a 21-gauge needle. 0.018 measuring wire would not pass centrally beyond the right axilla . A skin macie with scalpel blade was followed by removing the access needle. A 5.5-Ghanaian peel-away sheath was followed by hand injection of half-strength contrast and right upper extremity venography was obtained. The dilator and the peel-away sheath were pulled back while observing injection of gonzalez lf-strength contrast fluoroscopically until the tip of the dilator exited small tributary vein and al lowed access to main branch of the right brachial vein. 0.018 measuring wire was passed centrally, f ollowed by a 5-Ghanaian double-lumen central catheter, trimmed to 41 cm length. The tip of the cathete r was positioned centrally and the guide wire removed. AP fluoroscopic spot image was obtained in in spiration. The catheter irrigated easily. The hub of the catheter was secured to the skin using a S tatLock adhesive device, and a sterile dressing was applied. Fluoroscopy time in minutes: 0.9. Estimated exposure in mGy: 30.7. Findings: Venography demonstrates initial malposition of tip of the dilator into an unsuitable tribu tary vein of the right brachial vein. After repositioning the dilator, central catheterization is suc cessful . The tip of the central catheter terminates at the junction of the superior vena cava and th e right atrium. Impression: 5-Ghanaian double lumen peripherally inserted central catheter is ready to use. - - - - - - - - - - - - - - - - - - - - - - - - - - - - - - - - - - - - - - - - - (Cross-cutting measures: Current medications were listed in the medical record, including all known prescriptions, [id number]-qymkwhl medications, herbal medications, and nutritional supplements. The pa tient does not smoke.)
[2016-04-18] MEDS: ATORVASTATIN CALCIUM 40 MG TAB PO SCH (20:16)
[2016-04-18] MEDS: ASPIRIN EC 81 MG TAB PO SCH (20:17)
[2016-04-18] MEDS: HYDROCHLOROTHIAZIDE 25 MG TAB PO SCH (20:18)
--- NOTE | 2016-04-18 20:18 | SOAPPROG ---
SOAP Progress Note Assessment/Plan: Assessment: 70 DIABETIC FEMALE WITH MULTIPLE LEFT LEG ULCERATIONS AND NONHEALING WOUNDS EXACERBATED BY PVD CTA SHOWS ONLY ANT TIB RUNOFF BELOW OCCLUDED POP RISKS AND OPTIONS FULLY DISCUSSED Plan: EVAL FOR FEM-TIB BYPASS FOR LIMB SALVAGE 04/18/16 20:15 Objective: Vital Signs Temp Pulse Resp BP Pulse Ox 39.2 C H 80 18 158/74 H 94 04/18/16 19:52 04/18/16 19:31 04/18/16 19:31 04/18/16 19:31 04/18/16 19:31 Laboratory Results 04/18/16 04:16 04/18/16 04:16 04/17/16 04/18/16 04/19/16 05:59 05:59 05:59 Intake Total 1300 500 Output Total 1025 600 Balance 275 -100 ICD10 Worksheet Patient Problems: Problems Problem Status Diagnosed Paroxysmal atrial fibrillation Acute Urinary tract infection Acute
[2016-04-18] MEDS: ACETAMINOPHEN 325 MG TAB PO PRN (20:24)
[2016-04-18] MEDS: INSULIN GLARGINE 100 UNIT/ML VIAL SC SCH (23:46)
[2016-04-19] MEDS: oxyCODONE IR 5 MG TAB PO PRN ×3 (01:04→23:07)
[2016-04-19] MEDS: PIPERACILLIN/TAZO 4.5 GM/DEX 100 ML IV SCH ×4 (02:05→18:39)
[2016-04-19] MEDS: VANCOMYCIN HCL/NORMAL SALINE 250 ML IV SCH (04:00)
[2016-04-19 04:21] LABS: HEMATOCRIT 41.2 % (38.0-47.0); HEMOGLOBIN 13.2 g/dL (12.6-16.3); MEAN CELL VOLUME 93.6 fL (81.5-99.8); RED BLOOD CELL COUNT 4.4 10^6/uL (4.18-5.33)
[2016-04-19 04:31] LABS: ANION GAP 9 mEq/L (8-16); CALCIUM 8.6 mg/dL (8.5-10.4); CARBON DIOXIDE 29 mEq/l (22-31); CHLORIDE 98 mEq/L (97-110); CREATININE 1.1 mg/dL (0.6-1.0); GLOMERULAR FILTRATION RATE 49; GLUCOSE 100 mg/dL (70-100); POTASSIUM 3.4 mEq/L (3.5-5.2); SODIUM 136 mEq/L (134-144)
[2016-04-19] MEDS: METOPROLOL TARTRATE 25 MG TAB PO SCH ×2 (08:10→20:21)
[2016-04-19] MEDS: ACETAMINOPHEN 325 MG TAB PO PRN ×2 (08:16→23:07)
[2016-04-19] MEDS: SENNOSIDES/DOCUSATE SODIUM TAB PO SCH ×2 (08:17→20:21)
[2016-04-19] MEDS: APIXABAN 5 MG TAB PO SCH ×2 (08:17→20:21)
--- NOTE | 2016-04-19 11:30 | HOSPPROG ---
Hospitalist Progress Note Assessment/Plan: # Severe sacral/decubitus and LE wounds - pt has been receiving outpt wound care - extensive on exam CTA runoff ( personally reviewed and interpreted) significant atherosclerotic disease - consulting Dr. Dahl and Willard for surgical eval- and recs regarding revascularization - continue vancomycin and Zosyn which ID started - wound care already initiated - specialty bed ordered # UTI - pt with sx and grossly abnormal UA- urine culture with greater than 100 ,000 E.coli x2 - both summers sensitive - continue antibiotics and await sensitivities # Acute Fever - Tmax 39.2 overnight - blood cultures drawn - cont current Abx # New Atrial Fibrillation - suspect this is likely chronic/intermittent TELE ( personally reviewed and interpreted) remains sinus in 80's oxygen saturations 96% on 2L Chads-vasc2 5 - cont Eliquis - cont Metoprol currently rate controlled # Diabetes type 2 - BS 100- to 272- more in the 100's - cont glargine - cont SSI - cont hold metformin # Peripheral vascular disease - certainly complicating patients wound healing- imaging as referenced above - cont statin - surgery consulting # HTN - currently well controlled - - cont holding norvasc - cont metoprolol # proph - eliquis # diet - diabetic # dispo - > 2MN as requires acute care for serious wounds and atrial fibrillation I have discussed the case with RN - family is interested in palliative care consult to help clarify complicated medical decisions ahead Subjective: tearful - having pain post dressing change Objective: Vital Signs Temp Pulse Resp BP Pulse Ox 36.7 C 82 18 132/80 H 95 04/19/16 09:54 04/19/16 08:10 04/19/16 04:26 04/19/16 08:10 04/19/16 04:26 Laboratory Results 04/19/16 04:05 04/19/16 04:05 04/18/16 04/19/16 04/20/16 05:59 05:59 05:59 Intake Total 1300 1305 Output Total 1025 900 Balance 275 405 - Physical Exam Constitutional: chronically ill appearing, obese Eyes: anicteric sclera Ears, Nose, Mouth, Throat: moist mucous membranes Cardiovascular: regular rate and rhythym, systolic murmur Respiratory: no respiratory distress, no rales or rhonchi Gastrointestinal: normoactive bowel sounds, soft, non-tender abdomen Genitourinary: no bladder fullness Skin: warm, normal color Musculoskeletal: asymmetric calves Neurologic: AAOx3 Psychiatric: depressed, flat affect Lymph, Heme, Immunologic: no cervical LAD ICD10 Worksheet Patient Problems: Problems Problem Status Diagnosed Paroxysmal atrial fibrillation Acute Urinary tract infection Acute
[2016-04-19] MEDS: INSULIN LISPRO 100 UNIT/ML SC SCH ×3 (11:41→18:42)
--- NOTE | 2016-04-19 14:50 | US ---
Ultrasound Saphenous Vein Mapping History: Preoperative evaluation for open heart surgery, coronary artery disease. Technique: The superficial saphenous veins of each lower extremity are mapped on the skin using an in delible marker. Branch points are noted. Greater saphenous vein diameter measurements: Right leg: Groin -0.6 x 4 mm, Thigh -3.6 x 2.8 mm, knee -3.7 x 2.4 mm, calf -2.4 x 1.9 mm, ankle -3 x 2.4 mm Left leg: Groin -6.4 x 5.6 mm, thigh -4.8 x 3.7 mm, knee -5 x 3.5 mm, calf 3.7 x 2.7 mm, ankle 3.9 x 3 mm Impression: Bilateral greater saphenous vein diameters described above.
--- NOTE | 2016-04-19 15:44 | PCMIDPN ---
Assessment/Plan: Assessment: 1. Urinary tract infection. Patient with pyuria, symptoms and greater than 100, 000 colony-forming units of widely sensitive E coli in her urine. Currently on both vancomycin and Zosyn. The Zosyn should cover this isolate. 2. Left lower extremity chronic ulcerations with signs of supparation. The vancomycin and Zosyn empiric antibiotic regimen is most likely covering what ever secondary bacterial process is ongoing. The underlying issue is poor arterial supply to the left lower extremity. She had a CT angiogram runoff which showed significant vascular problems. Awaiting for evaluation by Interventional or vascular surgery as to options. In conversation with this patient she has previously been told by other cardiothoracic and vascular surgeons that she needs intervention to the left lower extremity. However she has numerous family members with diabetic vasculopathy who have had poor outcomes ultimately. This is affecting her decisions. She needs her son to confer with her regarding the proper decision going forward. 3. Fever. Unexpected given this is 2 days into her treatment for urinary tract infection and she has been afebrile to this point. Some concern that this may be drug fever due to vancomycin. She has no history of resistant g positives. We will discontinue the vancomycin and proceed onward with Zosyn monotherapy Plan: 1. Continue Zosyn. 2. Discontinue vancomycin. 3. Follow wound appearance. 4. Obtain vascular an interventional opinions regarding CT angiogram with runoff. Subjective: Patient is resting comfortably in bed. She has no new complaints other than fever overnight. She states that her leg is a bit less tender today. Objective: Vancomycin #2 Zosyn #2 Vital Signs Temp Pulse Resp BP Pulse Ox 36.5 C 78 20 147/74 H 98 04/19/16 12:09 04/19/16 12:09 04/19/16 12:09 04/19/16 12:09 04/19/16 12:09 Laboratory Results 04/19/16 04:05 04/19/16 04:05 04/18/16 04/19/16 04/20/16 05:59 05:59 05:59 Intake Total 1300 1305 Output Total 1025 900 Balance 275 405 C-Reactive Protein 168.4 mg/L (<10.0) H 04/17/16 05:06 - Physical Exam General Appearance: WD/WN, alert, no apparent distress, non-toxic Respiratory: lungs clear, normal breath sounds, No respiratory distress Cardiac/Chest: regular rate, rhythm, No tachycardia Extremities: No non-tender, No normal inspection (Left lower extremity with tenderness the calf distally. Multiple ulcerations. Stable in appearance.) Skin: normal color, warm/dry, No rash Neuro/Psych: alert, normal mood/affect, oriented x 3 ICD10 Worksheet Patient Problems: Problems Problem Status Diagnosed Paroxysmal atrial fibrillation Acute Urinary tract infection Acute
[2016-04-19] MEDS ORDERED: VANCOMYCIN HCL/NORMAL SALINE 250 ML IV SCH (16:00)
[2016-04-19] MEDS: HYDROCHLOROTHIAZIDE 25 MG TAB PO SCH (20:20)
[2016-04-19] MEDS: ASPIRIN EC 81 MG TAB PO SCH (20:20)
[2016-04-19] MEDS: ATORVASTATIN CALCIUM 40 MG TAB PO SCH (20:21)
[2016-04-19] MEDS: INSULIN GLARGINE 100 UNIT/ML VIAL SC SCH ×2 (23:15)
[2016-04-20] MEDS: PIPERACILLIN/TAZO 4.5 GM/DEX 100 ML IV SCH ×5 (00:08→23:46)
[2016-04-20] MEDS: oxyCODONE IR 5 MG TAB PO PRN ×4 (03:12→20:30)
[2016-04-20] MEDS: INSULIN LISPRO 100 UNIT/ML SC SCH ×3 (08:24→19:01)
[2016-04-20] MEDS: SENNOSIDES/DOCUSATE SODIUM TAB PO SCH ×2 (10:26→20:13)
[2016-04-20] MEDS: APIXABAN 5 MG TAB PO SCH ×2 (10:26→20:13)
[2016-04-20] MEDS: METOPROLOL TARTRATE 25 MG TAB PO SCH ×2 (10:26→20:13)
--- NOTE | 2016-04-20 10:52 | PCMIDPN ---
Assessment/Plan: 1. Diabetic foot infection, left lower extremity ulcerations: Ulcerations are extremely malodorous, with devitalized tissues/eschar. They will not heal without revascularization, but this surgery is very high risk. From what I understand, there is to be a family meeting today to discuss bypass versus amputation. I did send a culture from the pretibial wound to make sure that MRSA is not involved in this infection as the vancomycin was discontinued yesterday. Fevers almost certainly related to this infection in the lower extremity. Continue Zosyn as is. 2. Urinary tract infection secondary to pansensitive E coli: Covered with Zosyn. Denies back pain. I think an upper tract infection/ pyelonephritis seems less likely. 04/20/16 10:49 Subjective: Tearful. Denies rigors or shaking chills. No diarrhea. Admits to picking her skin. Objective: Zosyn 4.5 g IV q.6 hours day 3. Status post vancomycin x2 days, discontinued yesterday T-max 39.3degrees Vital Signs Temp Pulse Resp BP Pulse Ox 36.6 C 64 19 123/74 H 95 04/20/16 07:44 04/20/16 07:44 04/20/16 07:44 04/20/16 07:44 04/20/16 07:44 Laboratory Results 04/19/16 04:05 04/19/16 04:05 04/19/16 04/20/16 04/21/16 05:59 05:59 05:59 Intake Total 1305 300 Output Total 900 300 Balance 405 0 C-Reactive Protein 168.4 mg/L (<10.0) H 04/17/16 05:06 Blood cultures negative Urine culture with E coli, pansensitive - Physical Exam General Appearance: obese, other (Tearful) EENT: No scleral icterus, No thrush Extremities: other (Left lower extremity, heel and pretibial area notable for very large ulcerations that are deep with significant devitalized tissue/black eschar. There quite malodorous and actively bleeding. Surrounding cellulitis component appears better per nursing staff and wound care nurse. Very painful.) Skin: other (Patient also has a butterfly shaped large ulceration along both buttocks with necrosis. Many superficial ulcerations that are scabbed over on her arms where she has picked. None appear infected.) ICD10 Worksheet Patient Problems: Problems Problem Status Diagnosed Paroxysmal atrial fibrillation Acute Urinary tract infection Acute
--- NOTE | 2016-04-20 12:51 | HOSPPROG ---
Hospitalist Progress Note Assessment/Plan: # Severe sacral/decubitus and LE wounds - pt has been receiving outpt wound care - extensive on exam CTA runoff - significant atherosclerotic disease - consulting Dr. Dahl and Willard for surgical eval- decision seems to be between surgery or hospice - continue Zosyn - wound care already initiated - specialty bed ordered # UTI - pt with sx and grossly abnormal UA- urine culture with greater than 100 ,000 E.coli x2 - both summers sensitive - continue antibiotics # Acute Fever - Tmax 39.3 overnight recurred at similar time of evening 2100 - possibly drug fever - blood cultures NGTD - vancomycin dc'd - cont zosyn # New Atrial Fibrillation - suspect this is likely chronic/intermittent TELE ( personally reviewed and interpreted) remains sinus in 80's oxygen saturations 95% on 3L Chads-vasc2 5 - cont Eliquis - cont Metoprol currently rate controlled # Diabetes type 2 - BS 115- to 244- - cont glargine - cont SSI - cont hold metformin # Peripheral vascular disease - certainly complicating patients wound healing- imaging as referenced above - cont statin - surgery consulting # HTN - currently well controlled - - cont holding norvasc - cont metoprolol # proph - eliquis # diet - diabetic # dispo - > 2MN as requires acute care for serious wounds and atrial fibrillation I have discussed the case with Palliative care - patient and family concerned that surgery may only delay the inevitable outcome - considering hospice Subjective: alot of pain Objective: Vital Signs Temp Pulse Resp BP Pulse Ox 36.6 C 95 14 130/80 H 95 04/20/16 11:38 04/20/16 11:38 04/20/16 11:38 04/20/16 11:38 04/20/16 11:38 Laboratory Results 04/19/16 04:05 04/19/16 04:05 04/19/16 04/20/16 04/21/16 05:59 05:59 05:59 Intake Total 1305 300 Output Total 900 300 Balance 405 0 - Physical Exam Constitutional: chronically ill appearing, obese Eyes: anicteric sclera Ears, Nose, Mouth, Throat: moist mucous membranes Cardiovascular: regular rate and rhythym Respiratory: no respiratory distress, no rales or rhonchi Gastrointestinal: normoactive bowel sounds, soft, non-tender abdomen Genitourinary: no bladder fullness Skin: warm, normal color Musculoskeletal: No asymmetric calves Neurologic: AAOx3 Psychiatric: depressed, flat affect Lymph, Heme, Immunologic: no cervical LAD ICD10 Worksheet Patient Problems: Problems Problem Status Diagnosed Paroxysmal atrial fibrillation Acute Urinary tract infection Acute
--- NOTE | 2016-04-20 13:40 | WOCRNPDOC ---
SENA[facility] Advanced Assessment Note - Skin Integrity Problem, Advanced Assess Left Lateral Heel Diabetic Ulcer Dressing Type: Allevyn Life Dressing Description: Intact Exudate Amount: Minimal Exudate Color: Reddish/Yellow Exudate Characteristic(s): Serosanguinous Integumentary Issue Intervention: Visualized Under Dressing Alana Wound Tissue: Erythema, Swollen, Dry Alana Wound Swelling: Mild Wound Bed Color: Black Wound Bed Constitution: Unstable Eschar Site Odor: Slight Skin Integrity Problem Comment: Wound remains necrotic, eschar-filled. Site is too tender to mechanically debride. Continue w/ Therhoney gel to soften eschar. Bilateral Buttock Pressure Injury Dressing Type: Allevyn Life (large sacral) Dressing Description: Intact Exudate Amount: Minimal Exudate Color: Reddish/Yellow Exudate Characteristic(s): Serosanguinous Integumentary Issue Intervention: Dressing Changed Alana Wound Tissue: Erythema, Swollen Alana Wound Swelling: Mild Wound Bed Color: Black, Red, Yellow Wound Bed Constitution: Smooth Tissue, Mixed Loose & Adhered Slough/Eschar Wound Edges: Irregular Site Odor: Slight Pressure Injury Stage: Unstageable Skin Integrity Problem Comment: Wound on L buttock remains slough/eschar-filled , with increased eschar since previous assessment. Wound on R buttock has decreased slough, w/ smooth tissue noted in approximately 50% of wound. Continue w/ Allevyn dressing and P500 mattress, both of which appear to be helping. Reinforced the importance of off-loading site continuously. Left Lower Lateral Leg Dressing Type: Kerlix, Non-Bordered Foam Dressing Description: Saturated Exudate Amount: Moderate Exudate Color: Brown, Reddish/Yellow Exudate Characteristic(s): Serosanguinous Integumentary Issue Intervention: Visualized Under Dressing Alana Wound Tissue: Erythema, Raw, Thin Alana Wound Swelling: Moderate Wound Bed Color: Black, Red, Yellow Wound Bed Constitution: Smooth Tissue, Mixed Loose & Adhered Slough/Eschar Wound Edges: Irregular Site Odor: Strong, Foul Skin Integrity Problem Comment: Wound unchanged since previous assessment, though alana-wound erythema and swelling are decreased. This is a highly exudative wound, w/ a strong, foul-smelling odor. Site remains very tender/ painful. Patient and family still trying to decide about possible surgical intervention. In the interim, orders changed to help manage exudate and odor. Site cultured by Dr. Mary Zaman today during assessment. Left Posterior Lower Leg Dressing Type: Allevyn Life (not ordered) Dressing Description: Saturated Exudate Amount: Minimal Exudate Color: Reddish/Yellow Exudate Characteristic(s): Serosanguinous Integumentary Issue Intervention: Dressing Changed Alana Wound Tissue: Erythema, Dry Alana Wound Swelling: Mild Wound Bed Color: Black, Red Wound Bed Constitution: Smooth Tissue (along margins 10%), Unstable Eschar (90%) Site Odor: Strong, Foul Skin Integrity Problem Comment: Allevyn Life dressing on wound instead of Telfa as ordered. Wound was wet and had a foul odor. Remains eschar-filled throughout. Changed dressing to Povidone-iodine swab and Telfa in an attempt to dry the wound and stabilize eschar.
--- NOTE | 2016-04-20 14:35 | PDPCPN ---
Palliative Care Progress Note Assessment/Plan: Referring provider: Dr Wall Reason for consult: Complex medical decision making Symptom control HPI: Kristen Silva (Marg) is a 70 yo female with PMH DM, PVD, PAD, and chronic leg wound admitted to the hospital for decreased mobility and generalized weakness. On admission found to have UTI and new a fib. Wound care involved with severe sacral decubs as well as severe left lower leg wound. Surgery consulted for possible options of fem-TIB bypass. Palliative care consulted per patient and family wishes. Met with BENITEZ Cheatham, ricarda Wynn over the phone at the bedside with Shahida. 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 She feels over the past 7 months she has declined physically with her medical problems and has been having a harder time trying to care for him and herself at home. She states she has had 3 brothers from diabetes and feels like she will from the same in the same way. She values quality of life which to her means being able to interact with her family. She has 2 grandchildren who she wants to see grow up. But she would not want to exist as a "vegetable". It would be a very poor quality of life to her if she just existed in bed and was unable to move or interact. She had some fears including not being in control of her body as well as the unknowns of surgery and pain. Discussed her questions and fears. Her family feels they would not want her to go through surgery only to have her decline and . They do not want to put her through pain and suffering at the end of life. Discussed the medical interventions being offered and Shahida and her family feel they need more information on the risks/benefits of the surgery. She was told at [facility] that they would use an artificial graft for a bypass and would like to understand more about [facility] recommendation of a [place] graft for bypass. Assessment: Physical: - Pain: mostly with wound care changes - morphing IV PRN at least 15 minutes before wound care - tylenol PRN for other pain - constipation - at risk with opiates continue bowel regimen with senna and colace Emotional/psychological: tearful at times but feels well supported by family Advanced Care Planning: Is patient decisional?: Yes Code Status: DNR POA: ricarda Wynn is MDPOA. Plan: Needs more information from surgery regarding option. She does not want to "exist as a vegetable". She wants to live but not if it means going through surgeries to have a bad outcome anyways. Subjective: I'm trying to do well Objective: Social History: to Luis for 50 years. 1 son Kingsley involved and local. Medication list reviewed ROS: General: fatigue, weakness ENT: negative Resp: negative GI: negative : negative MS: leg pain Skin: multiple decubs as well as severe left lower leg wounds Neuro: negative Psych: tearful at times Functional assessment: PPS: 50% Functional status: dependent on ADLs Vital Signs Temp Pulse Resp BP Pulse Ox 36.6 C 95 14 130/80 H 95 04/20/16 11:38 04/20/16 11:38 04/20/16 11:38 04/20/16 11:38 04/20/16 11:38 Microbiology 04/20/16 10:49 Gram Stain - Final Leg - Swab Laboratory Results 04/19/16 04:05 04/19/16 04:05 04/19/16 04/20/16 04/21/16 05:59 05:59 05:59 Intake Total 1305 300 Output Total 900 300 Balance 405 0 Physical Exam - Physical Exam General Appearance: alert, no apparent distress Respiratory: No respiratory distress, No accessory muscle use Skin: normal color, warm/dry Extremities: pedal edema Neuro/Psych: alert, oriented x 3 ICD10 Worksheet Patient Problems: Problems Problem Status Diagnosed Palliative care encounter Acute Paroxysmal atrial fibrillation Acute Urinary tract infection Acute - ICD10 Problem Qualifiers (1) Palliative care encounter
--- NOTE | 2016-04-20 15:37 | SOAPPROG ---
SOAP Progress Note Assessment/Plan: Assessment: 70yo female with multiple left lower leg wounds, buttock ulcer, multiple medical problems including Afibb, diabetes, recent fever, UTI Palliative care meeting took place today, according to reports patient and family discussing options of bypass vs amputation vs hospice. PE awake alert Left leg dressing not removed, viewed yesterday. Pt has wounds over left lateral and left posterior leg. Ultrasound demonstrates veins adequate for bypass Plan: Dr Lamar left message with MD Tucker POA, awaiting call back to discuss options further 04/20/16 15:35 04/20/16 15:38 Objective: Vital Signs Temp Pulse Resp BP Pulse Ox 36.6 C 95 14 130/80 H 95 04/20/16 11:38 04/20/16 11:38 04/20/16 11:38 04/20/16 11:38 04/20/16 11:38 Microbiology 04/20/16 10:49 Gram Stain - Final Leg - Swab Laboratory Results 04/19/16 04:05 04/19/16 04:05 04/19/16 04/20/16 04/21/16 05:59 05:59 05:59 Intake Total 1305 300 Output Total 900 300 Balance 405 0 ICD10 Worksheet Patient Problems: Problems Problem Status Diagnosed Palliative care encounter Acute Paroxysmal atrial fibrillation Acute Urinary tract infection Acute
[2016-04-20] MEDS: ACETAMINOPHEN 325 MG TAB PO PRN (17:16)
[2016-04-20] MEDS: HYDROCHLOROTHIAZIDE 25 MG TAB PO SCH (20:13)
[2016-04-20] MEDS: ASPIRIN EC 81 MG TAB PO SCH (20:13)
[2016-04-20] MEDS: ATORVASTATIN CALCIUM 40 MG TAB PO SCH (20:13)
[2016-04-20] MEDS: ALTEPLASE 2 MG VIAL IVP PRN (23:46)
[2016-04-20] MEDS: INSULIN GLARGINE 100 UNITS/ML SYRINGE SC SCH (23:46)
[2016-04-21] MEDS: ACETAMINOPHEN 325 MG TAB PO PRN (04:40)
[2016-04-21] MEDS: PIPERACILLIN/TAZO 4.5 GM/DEX 100 ML IV SCH ×4 (05:55→23:38)
[2016-04-21] MEDS: ALTEPLASE 2 MG VIAL IVP PRN (05:55)
[2016-04-21 06:48] LABS: HEMATOCRIT 39.8 % (38.0-47.0); MEAN CELL HEMOGLOBIN CONCENTR. 32.7 g/dL (32.4-36.7); MEAN CELL VOLUME 91.9 fL (81.5-99.8); RED BLOOD CELL COUNT 4.33 10^6/uL (4.18-5.33); RED CELL DISTRIBUTION WIDTH 14.8 % (11.5-15.2)
[2016-04-21] MEDS: oxyCODONE IR 5 MG TAB PO PRN ×2 (07:40→15:29)
[2016-04-21 07:51] LABS: ANION GAP 11 mEq/L (8-16); CALCIUM 8.6 mg/dL (8.5-10.4); CARBON DIOXIDE 32 mEq/l (22-31); CHLORIDE 94 mEq/L (97-110); CREATININE 1.4 mg/dL (0.6-1.0); GLOMERULAR FILTRATION RATE 37; GLUCOSE 82 mg/dL (70-100); POTASSIUM 3.1 mEq/L (3.5-5.2); SODIUM 137 mEq/L (134-144)
[2016-04-21] MEDS: INSULIN LISPRO 100 UNIT/ML SC SCH ×3 (08:35→18:25)
[2016-04-21] MEDS: APIXABAN 5 MG TAB PO SCH ×2 (09:53→20:07)
[2016-04-21] MEDS: METOPROLOL TARTRATE 25 MG TAB PO SCH ×2 (09:54→20:07)
[2016-04-21] MEDS: SENNOSIDES/DOCUSATE SODIUM TAB PO SCH ×2 (09:54→20:06)
--- NOTE | 2016-04-21 10:10 | HOSPPROG ---
Hospitalist Progress Note Assessment/Plan: DIAGNOSIS: 1. ACUTE THE WOUND INFECTIONS IN THE LEG WITH NECROSIS AND PURULENCE, RESPONDING POORLY SO FAR ANTIBIOTICS THE 2. PERIPHERAL VASCULAR DISEASE WITH SEVERE COMPROMISE IN ARTERIAL SUPPLY TO THE LEG 3. ACUTE RENAL FAILURE, WORSENING, UNCERTAIN ETIOLOGY BUT PRESUMED HEMODYNAMIC 4. TYPE 2 DIABETES MELLITUS, CURRENTLY WITH GOOD CONTROL 5. HYPOKALEMIA, LIKELY DUE TO HER DIURETIC PLANS: -will review antibiotic therapy with Dr. Watson this morning; for now I think we need to resume resume vancomycin and she may need to have consideration for coverage of resistant gram-negative -Continue wound care for now -Dr. Toney and I met with the patient at the bedside and to get a reviewed with her are concerned that without revascularization and aggressive surgical debridements she could end up with amputation or could possibly even not survive this infection. Dr. Dahl will with speaking to the patient's son this morning. Our recommendation at this time is to proceed the the with making plans to do revascularization this week, with possible wound debridement in the interim. The patient does state that as at this time that she would like to go on living, and she would like to try and heal her leg up and would view and amputation as very unfavorable. -will give some saline bolus followed by infusion of saline with potassium and follow renal function and potassium closely -continue coverage for urinary tract infection with E coli -continue rate control and anticoagulation for AFib. Rob is a good idea at this time particular his were looking at surgeries -continue management of blood sugars SUBJECTIVE: The patient continues to have significant pain at her leg wounds, otherwise feels well OBJECTIVE Vitals reviewed: T-max 39.2degrees last evening 38.7 today site monitor: Sinus rhythm with a brief bout of SVT Exam: alert oriented skin warm dry pale resps not labored lungs clear BSs heart regular abd soft nondistended nontender, bowel sounds present limbs her wounds continued to have some purulent drainage and slough with markedly foul odor, some necrotic tissue at the base of the wound on the posterior aspect of her ankle iv site ok CULTURE DATA: -Urine with sensitive E coli -Wound with non lactose fermenting gram-negative rods still pending LABORATORY DATA: -creatinine rising further 1.4 potassium low at 3.1 -white count remains elevated 10,000 Objective: Vital Signs Temp Pulse Resp BP Pulse Ox 36.6 C 80 19 117/70 97 04/21/16 07:40 04/21/16 07:40 04/21/16 07:40 04/21/16 07:40 04/21/16 07:40 Microbiology 04/20/16 10:49 Gram Stain - Final Leg - Swab Laboratory Results 04/21/16 06:40 04/21/16 06:40 04/20/16 04/21/16 04/22/16 06:59 06:59 06:59 Intake Total 300 980 Output Total 300 Balance 0 980 ICD10 Worksheet Patient Problems: Problems Problem Status Diagnosed Palliative care encounter Acute Paroxysmal atrial fibrillation Acute Urinary tract infection Acute
[2016-04-21] MEDS ORDERED: NS 500 ML IV ONE (10:27)
[2016-04-21] MEDS: NS W/ 20 KCl/L 1,000 ML IV SCH (11:24)
--- NOTE | 2016-04-21 11:31 | SOAPPROG ---
SOAP Progress Note Assessment/Plan: Assessment: 70 yo with co-morbidities, wounds on the left lower extremity. She has single vessel runoff. She has two failed endovascular attempts I recommend fem to anterior tib bypass with vein by dr sullivan on saturday. I discussed this with Shahida and her son Kingsley She spiked a fever last evening. If fever persists, then I will take her for wound debridement tomorrow. I will see her early tomorrow and evaluate timing for debridement (Sat vs ) . I have asked her not to eat breakfast S: Tearful but wants to pursue treatment to spend time with her grandaughters O: Leg recently wrapped. When I last saw her she had a wound anteriorly that had slough but granulation tissue. The posterior wound was dry and necrotic. She also has a wound by her malleolus Plan: 04/21/16 11:31 04/21/16 11:31 Objective: Vital Signs Temp Pulse Resp BP Pulse Ox 36.5 C 78 23 H 144/79 H 96 04/21/16 11:20 04/21/16 11:20 04/21/16 11:20 04/21/16 11:20 04/21/16 11:20 Microbiology 04/20/16 10:49 Gram Stain - Final Leg - Swab Laboratory Results 04/21/16 06:40 04/21/16 06:40 04/20/16 04/21/16 04/22/16 05:59 05:59 05:59 Intake Total 300 980 500 Output Total 300 Balance 0 980 500 ICD10 Worksheet Patient Problems: Problems Problem Status Diagnosed Palliative care encounter Acute Paroxysmal atrial fibrillation Acute Urinary tract infection Acute
--- NOTE | 2016-04-21 17:54 | PCMIDPN ---
Assessment/Plan: Assessment/Plan: * Left lower extremity necrotic skin and soft tissue infection: Suspect ongoing fever due to necrotic skin and soft tissue infection. Continue Zosyn. Will add daptomycin for MRSA coverage in the setting of elevated creatinine. Check baseline CPK with daptomycin use and will hold Lipitor given increased risk of myositis when daptomycin and statin use concomitantly. Follow-up wound culture as available. Agree with plans for soft tissue debridement as this likely will be necessary to see infection resolution. Complicated by underlying peripheral vascular disease. * UTI: Coverage with Zosyn for E coli. 04/21/16 17:51 Subjective: Complains of left lower extremity pain. Objective: Vital Signs Temp Pulse Resp BP Pulse Ox 36.6 C 85 15 101/55 L 89 L 04/21/16 15:46 04/21/16 15:46 04/21/16 15:46 04/21/16 15:46 04/21/16 15:46 Microbiology 04/20/16 10:49 Gram Stain - Final Leg - Swab Laboratory Results 04/21/16 06:40 04/21/16 06:40 04/20/16 04/21/16 04/22/16 05:59 05:59 05:59 Intake Total 337 695 5624 Output Total 300 Balance 0 980 1250 C-Reactive Protein 168.4 mg/L (<10.0) H 04/17/16 05:06 Zosyn # for Wound with growth of non lactose fermenting gram-negative amina Blood cultures no growth Urine culture with growth of summers susceptible E coli Tm 39.2 - Physical Exam General Appearance: alert, no apparent distress, obese EENT: pharynx normal, No scleral icterus Respiratory: lungs clear, No respiratory distress Cardiac/Chest: regular rate, rhythm Extremities: inflammation (Left lower extremity with several necrotic wounds with overlying black eschar which is foul smelling) Abdomen: non-tender, No distended - Line/s RUE PICC Lines: No drainage, No erythema ICD10 Worksheet Patient Problems: Problems Problem Status Diagnosed Palliative care encounter Acute Paroxysmal atrial fibrillation Acute Urinary tract infection Acute
[2016-04-21] MEDS: DAPTOmycin 600 MG in NS 100 ML IV SCH (19:55)
[2016-04-21] MEDS: ASPIRIN EC 81 MG TAB PO SCH (20:07)
[2016-04-21] MEDS: INSULIN GLARGINE 100 UNITS/ML SYRINGE SC SCH (23:36)
[2016-04-22] MEDS: oxyCODONE IR 5 MG TAB PO PRN ×2 (04:31→22:35)
[2016-04-22] MEDS: NS W/ 20 KCl/L 1,000 ML IV SCH ×2 (06:22→15:19)
[2016-04-22] MEDS: PIPERACILLIN/TAZO 4.5 GM/DEX 100 ML IV SCH ×3 (06:22→18:35)
[2016-04-22 08:37] LABS: ANION GAP 8 mEq/L (8-16); CARBON DIOXIDE 31 mEq/l (22-31); CHLORIDE 99 mEq/L (97-110); CREATININE 1.5 mg/dL (0.6-1.0); GLOMERULAR FILTRATION RATE 34; GLUCOSE 81 mg/dL (70-100); POTASSIUM 3.5 mEq/L (3.5-5.2); SODIUM 138 mEq/L (134-144)
[2016-04-22] MEDS: DAPTOmycin 600 MG in NS 100 ML IV SCH (09:07)
[2016-04-22] MEDS: INSULIN LISPRO 100 UNIT/ML SC SCH ×3 (09:07→18:49)
[2016-04-22] MEDS: SENNOSIDES/DOCUSATE SODIUM TAB PO SCH ×2 (09:07→20:13)
[2016-04-22] MEDS: METOPROLOL TARTRATE 25 MG TAB PO SCH ×2 (09:07→20:13)
[2016-04-22] MEDS ORDERED: BUPIVACAINE 0.5% 30 ML SDV ONE (09:57)
[2016-04-22] MEDS ORDERED: fentaNYL 100 MCG/2 ML INJ ONE ×2 (11:09→11:31)
[2016-04-22] MEDS ORDERED: ONDANSETRON 4 MG/2 ML VIAL ONE (11:09)
[2016-04-22] MEDS ORDERED: LIDOCAINE 2% 5 ML SDV ONE (11:10)
[2016-04-22] MEDS ORDERED: PROPOFOL 200 MG/20 ML VIAL ONE (11:12)
[2016-04-22] MEDS ORDERED: PHENYLEPHRINE 10 MG/ML SDV ONE (11:17)
[2016-04-22] MEDS ORDERED: CALCIUM CHLORIDE 1 GM/10 ML INJ ONE (11:37)
--- NOTE | 2016-04-22 13:39 | POSTOPPROG ---
Post Op Note Date of Operation: 04/22/16 Surgeon: Ashleigh Dahl Anesthesiologist: Inna Anesthesia: GET(General Endotracheal) Pre-op Diagnosis: left lower extremity wounds Post-op Diagnosis: same Indication: 70 yo with PVD and lower extremity wounds Procedure: debridement skin soft tissue to the level of the achilles 180 sq cm Findings: necrotic tissue Inf/Abcess present in the surg proc area at time of surgery?: Yes Depth: Deep Incisional (Fascial) EBL: Minimal Drains: Wound Vac Specimen(s): none
--- NOTE | 2016-04-22 16:50 | WOCRNPDOC ---
WOCRN Advanced Assessment Note - Skin Integrity Problem, Advanced Assess Left Anterior Lower Leg Diabetic Ulcer Dressing Type: Black Vac Foam (x1), Wound Vac Dressing Description: Intact, Saturated Exudate Amount: Minimal Exudate Characteristic(s): Bloody Integumentary Issue Intervention: Dressing Changed Skin Integrity Problem Comment: Entire vac dressing changed with Dr. Dahl. One piece of black medium simplace to this wound bed. Left Posterior Lower Leg Diabetic Ulcer Dressing Type: Black Vac Foam (x3), White Vac Foam (x2), Wound Vac Dressing Description: Intact, Saturated Exudate Amount: Moderate Exudate Characteristic(s): Bloody Integumentary Issue Intervention: Dressing Changed Wound Bed Constitution: Tendon, Muscle, Subcutaneous Fat Skin Integrity Problem Comment: Dressing clotted and saturated with blood. Change dressing with Dr. Dahl. Draped alana wound and then x2 pieces of white foam to cover exposed achilles that was then covered with one large block of black foam and 3 smaller pieces. This was bridged to anterior and heel wounds. Left Lateral Heel Diabetic Ulcer Dressing Type: Black Vac Foam (x1), Wound Vac Dressing Description: Intact, Saturated Exudate Amount: Minimal Exudate Characteristic(s): Bloody Integumentary Issue Intervention: Dressing Changed Alana Wound Tissue: Erythema Wound Bed Constitution: Smooth Tissue Skin Integrity Problem Comment: Draped alana wound after skin prep application. One piece of black foam to wound bed, bridged to posterior wound which was also connected to anterior wound. Vac was restarted at - 125 mm Hg continous suction. After a few patches a good seal was acheived and drainage was visibly moving both through tubing and through foam. Next vac change in OR. Not due until Saturday, however the vac may be changed prior to that.
--- NOTE | 2016-04-22 18:15 | PCMIDPN ---
Assessment/Plan: Assessment/Plan: * Left lower extremity necrotic skin and soft tissue infection status post debridement and wound VAC placement: Wound culture showing growth of Morganella. Continue daptomycin and Zosyn. Follow clinical response post debridement. Overall fever curve less prominent today. Hold statin while on daptomycin. * UTI: Coverage with Zosyn for E coli. 04/22/16 18:12 04/22/16 18:13 Subjective: Patient feels fatigued. Status debridement of necrotic soft tissue today with wound VAC placement. Objective: Vital Signs Temp Pulse Resp BP Pulse Ox 36.8 C 79 16 122/62 H 97 04/22/16 13:20 04/22/16 13:20 04/22/16 13:20 04/22/16 13:20 04/22/16 13:20 Microbiology 04/20/16 10:49 Gram Stain - Final Leg - Swab Wound Culture - Final Morganella Morganii Laboratory Results 04/21/16 06:40 04/22/16 06:30 04/21/16 04/22/16 04/23/16 05:59 05:59 05:59 Intake Total 980 1550 740 Output Total 15 Balance 980 1550 725 C-Reactive Protein 168.4 mg/L (<10.0) H 04/17/16 05:06 Daptomycin # 2 Zosyn # 5 Wound cultures with growth of Morganella Blood cultures no growth - Physical Exam General Appearance: alert, no apparent distress, obese EENT: pharynx normal Respiratory: lungs clear, No respiratory distress Cardiac/Chest: regular rate, rhythm, systolic murmur Extremities: inflammation (Left lower extremity with wound VAC in place over prior areas of necrotic wound) Abdomen: non-tender, No distended ICD10 Worksheet Patient Problems: Problems Problem Status Diagnosed Palliative care encounter Acute Paroxysmal atrial fibrillation Acute Urinary tract infection Acute
--- NOTE | 2016-04-22 19:44 | GOP ---
[f rep st] OPERATIVE REPORT DATE OF OPERATION: 04/22/2016 SURGEON: Ashleigh Dahl MD ANESTHESIA: General. ANESTHESIOLOGIST: Dr. Rafi Ketih. PREOPERATIVE DIAGNOSIS: Peripheral vascular disease with chronic wounds to the left lower extremity. POSTOPERATIVE DIAGNOSIS: Peripheral vascular disease with chronic wounds to the left lower extremity. PROCEDURE PERFORMED: Excisional debridement of skin and soft tissue to the level of the tendon, 180 sq cm, with application of wound VAC. FINDINGS: large wounds to the level of the tendon SPECIMENS: None. INDICATIONS: The patient is a 70-year-old woman with severe peripheral vascular disease. She has dry necrosis of the posterior leg wound. She has exudate on the anterior wound, and she also has a wound below her left lateral malleolus that tunnels onto the plantar surface. She has been spiking fevers up to 38.7. For this reason, debridement was indicated DESCRIPTION OF PROCEDURE: The patient was brought into the operating room, placed supine on the table, and general anesthesia was administered. Her leg was prepped with Betadine. I excised the necrotic tissue. The anterior wound measured 11.5 x 6 x 0.3, and there was healthy granulation tissue at the base of it. Hemostasis was achieved with electrocautery. The posterior wound tracked considerably cephalad. There was necrotic tissue down to the level of the Achilles tendon. This measured 17 x 6 x 0.5 cm. The heel wound had necrotic fat, and it measured 4 x 5 x 1 cm. In each of these wounds hemostasis was achieved. A wound VAC was applied. She was awakened in the operating room , extubated, transferred to PACU in stable condition. /[id number]/MODL MTDD
[2016-04-22] MEDS: INSULIN GLARGINE 100 UNITS/ML SYRINGE SC SCH (20:11)
[2016-04-22] MEDS: APIXABAN 5 MG TAB PO SCH (20:13)
[2016-04-22] MEDS: ASPIRIN EC 81 MG TAB PO SCH (20:13)
--- NOTE | 2016-04-22 22:45 | GCON ---
[f rep st] CONSULTATION DATE OF CONSULTATION: 04/16/2016 CHIEF COMPLAINT: Left lower extremity wound. HISTORY OF PRESENT ILLNESS: The patient is a 70-year-old woman who has been seen at the [facility] in [place]. She had been having wound care there in the past. She was admitte d to [facility] due to overall generalized weakness. I was consulted due to the woun ds on her left lower extremity. I reviewed an incredibly large stack of documents from the [facility], which included a CTA with runoff which showed bilateral diffuse calcification of the supe rficial femoral and popliteal arteries, with the left proximal SFA being occluded. She does have rec onstitution in the left lower extremity. She had had an angiogram which showed again the left proxim al SFA occlusion with reconstitution. There is 90% stenosis of the popliteal. There was 3-vessel ru noff to the ankle, but the AT is the dominant inflow. The PT has diffuse moderate disease. There we re attempts of antegrade crossing of the SFA. There was also attempt at retrograde tracking, which a lso failed. Vascular surgery of a femoral [id number] popliteal bypass was discussed; however, polo chester declined this and was trying to get approved for HBO therapy. PAST MEDICAL HISTORY: 1. Type 2 diabetes. 2. Chronic left lower extremity wounds. 3. Peripheral vascular disease. 4. Hypertension. PAST SURGICAL HISTORY: Left thigh surgery for cellulitis. MEDICATIONS: Lantus, Novolin, aspirin, hydrochlorothiazide, atorvastatin, metformin, amlodipine, Melonie vix, atenolol. SOCIAL HISTORY: She denies tobacco use. No alcohol use. 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 He has dementia. FAMILY HISTORY: Diabetes and cancer. REVIEW OF SYSTEMS: A 10-point review of systems is positive for weakness, fevers, pain in the left l ower extremity. Otherwise, 10-point review of systems negative. PHYSICAL EXAM: VITAL SIGNS: She is afebrile. Her blood pressure is in the 160s/80s. She is slight ly tachycardic. Her O2 saturation is 95% on 2 L. GENERAL: Obese woman sitting up in bed. She is n ot in apparent distress. HEENT: Normocephalic. No gross hearing deficits. Mucous membranes moist. Pupils equal and round. No scleral icterus. LUNGS: Clear to auscultation bilaterally. No increa sed work of breathing. CARDIAC: Regular rate. ABDOMEN : Bowel sounds present. Soft, nontender, n ondistended. EXTREMITIES: Her left leg shows a large anterior wound that has some necrotic edges, b ut overall the base of the wound is healthy. She has a large necrotic area on the posterior leg, and her heel has an unstageable ulcer. Her anterior tibial artery is dopplerable, but I am unable to do ppler either a PT or a DP. The right lower extremity has some edema, and the pulses are dopplerable. IMPRESSION: The patient is a 70-year-old woman with severe peripheral vascular disease and chronic w ounds to her left lower extremity. Will order a CTA with runoff to her legs, and if there appears to be an area that can be surgically bypassed I will consult Dr. Lamar. If not, I do believe that she will need amputation, likely above the knee, in order to heal these wounds. We also discussed wound debridement. /[id number]/MODL
[2016-04-23] MEDS: PIPERACILLIN/TAZO 4.5 GM/DEX 100 ML IV SCH ×4 (00:31→18:04)
[2016-04-23] MEDS: ACETAMINOPHEN 325 MG TAB PO PRN ×2 (05:05→16:39)
[2016-04-23] MEDS ORDERED: DILTIAZEM 25 MG/5 ML VIAL IVP SCH (06:00)
[2016-04-23] MEDS: DILTIAZEM 125 MG in D5W 125 ML IV SCH ×2 (06:25→06:42)
[2016-04-23] MEDS ORDERED: NS 1,000 ML IV ONE (08:00)
[2016-04-23 08:48] LABS: % IMMATURE GRANULYOCYTES 0.6 % (0.0-1.1); ABSOLUTE IMMATURE GRANULOCYTES 0.06 10^3/uL (0.00-0.10); ADD DIFF? NO; ADD MORPH? NO; ADD SCAN? YES; FRAGMENT RBC FLAG 0 (0-99); HEMATOCRIT 30.7 % (38.0-47.0); HEMOGLOBIN 9.5 g/dL (12.6-16.3); LEFT SHIFT FLG 10 (0-99); LIPEMIA HEMOLYSIS FLAG 80 (0-99); MEAN CELL HEMOGLOBIN 29.5 pg (27.9-34.1); MEAN CELL HEMOGLOBIN CONCENTR. 30.9 g/dL (32.4-36.7); MEAN CELL VOLUME 95.3 fL (81.5-99.8); MEAN PLATELET VOLUME 12.6 fL (8.7-11.7); PLATELET CLUMPS FLAG 10 (0-99); PLATELET COUNT 113 10^3/uL (150-400); RED BLOOD CELL COUNT 3.22 10^6/uL (4.18-5.33); RED CELL DISTRIBUTION WIDTH 15.5 % (11.5-15.2)
[2016-04-23 08:49] LABS: ATYPICAL LYMPHOCYTE FLAG 120 (0-99)
--- NOTE | 2016-04-23 09:01 | HOSPPROG ---
Hospitalist Progress Note Assessment/Plan: DIAGNOSIS: # ACUTE SEPSIS WITH HYPOTENSION TACHYCARDIA FEVER IN SETTING OF INFECTION # ACUTE THE WOUND INFECTIONS IN THE LEG WITH NECROSIS AND PURULENCE, RESPONDING POORLY SO FAR ANTIBIOTICS THE # PERIPHERAL VASCULAR DISEASE WITH SEVERE COMPROMISE IN ARTERIAL SUPPLY TO THE LEG # ACUTE RENAL FAILURE, WORSENING, UNCERTAIN ETIOLOGY BUT PRESUMED HEMODYNAMIC # TYPE 2 DIABETES MELLITUS, CURRENTLY WITH GOOD CONTROL # HYPOKALEMIA, LIKELY DUE TO HER DIURETIC PLANS: -aggressive fluid resuscitation -check chemistries and lactate per protocol -follow closely and proceed w treatments per protocol -continue current antibiotics, review w Dr Watson -Continue wound care -continue coverage for urinary tract infection with E coli -continue rate control and anticoagulation for AFib. Eliquis at this time as were looking at surgeries -continue management of blood sugars SUBJECTIVE: The has less pain at her leg wounds, otherwise feels well no sob or nausea, not lightheaded OBJECTIVE Vitals reviewed: T-max 38.7 degrees this am She has become hypotensive this am, 71/40s after fluid bolus right now, and with some tachycardia electronic device monitor: a fib tachycardic 130s Exam: alert oriented, looks comfortable skin warm dry pale but no cyanosis or mottling resps not labored lungs clear BSs heart regular abd soft nondistended nontender, bowel sounds present L leg wound vacc in place, little fluid, not bleeding iv site ok CULTURE DATA: -Urine with sensitive E coli -Wound with Morganella morganii, sensitive LABORATORY DATA: -pending at this time Objective: Vital Signs Temp Pulse Resp BP Pulse Ox 36.7 C 85 18 71/36 L 92 04/23/16 07:33 04/23/16 07:33 04/23/16 07:33 04/23/16 07:33 04/23/16 07:33 Microbiology 04/20/16 10:49 Gram Stain - Final Leg - Swab Wound Culture - Final Morganella Morganii 04/22/16 04/23/16 04/24/16 06:59 06:59 06:59 Intake Total 1550 990 Output Total 15 Balance 1550 975 ICD10 Worksheet Patient Problems: Problems Problem Status Diagnosed Palliative care encounter Acute Paroxysmal atrial fibrillation Acute Urinary tract infection Acute
[2016-04-23 09:05] LABS: ANION GAP 6 mEq/L (8-16); CALCIUM 6.1 mg/dL (8.5-10.4); CARBON DIOXIDE 25 mEq/l (22-31); CHLORIDE 110 mEq/L (97-110); CREATININE 1.3 mg/dL (0.6-1.0); GLOMERULAR FILTRATION RATE 40; GLUCOSE 66 mg/dL (70-100); POTASSIUM 2.9 mEq/L (3.5-5.2); SODIUM 141 mEq/L (134-144)
[2016-04-23] MEDS: APIXABAN 5 MG TAB PO SCH (09:07)
[2016-04-23] MEDS: INSULIN LISPRO 100 UNIT/ML SC SCH ×3 (09:07→18:06)
[2016-04-23] MEDS: SENNOSIDES/DOCUSATE SODIUM TAB PO SCH ×2 (09:08→21:58)
[2016-04-23] MEDS: METOPROLOL TARTRATE 25 MG TAB PO SCH (09:08)
[2016-04-23] MEDS: DAPTOmycin 600 MG in NS 100 ML IV SCH (09:09)
[2016-04-23 09:43] LABS: SCAN POSITIVE
--- NOTE | 2016-04-23 09:50 | SOAPPROG ---
SOAP Progress Note Assessment/Plan: Assessment: 70yo female with multiple left lower leg wounds, buttock ulcer, multiple medical problems including Afibb, diabetes, recent fever, UTI Palliative care meeting took place today, according to reports patient and family discussing options of bypass vs amputation vs hospice. PE awake alert Left leg dressing not removed, viewed yesterday. Pt has wounds over left lateral and left posterior leg. Ultrasound demonstrates veins adequate for bypass Plan: Dr Lamar left message with MD Tucker POA, awaiting call back to discuss options further 04/20/16 15:35 04/20/16 15:38 04/23/16 09:49 70yo female s/p wound debridement and VAC placement POD 1, sepsis likely from wound infections on daptomycin, DM, a-fibb on eliquis hypotensive this AM, undergoing fluid resuscitation per medicine, pain in leg well controlled per patient PE appears comfortable, alert Chest CTA B/L Left leg wound VAC in place over 3 wounds. no signs of leak, foot slightly cooler to touch than R foot. Plan continue fluids per medicine will need OR VAC change 1-2 days pt desires left leg bypass surgery if an option. 04/23/16 09:50 04/23/16 10:00 Objective: Vital Signs Temp Pulse Resp BP Pulse Ox 36.7 C 112 H 22 H 85/55 L 97 04/23/16 07:33 04/23/16 09:10 04/23/16 09:10 04/23/16 09:10 04/23/16 09:10 Microbiology 04/20/16 10:49 Gram Stain - Final Leg - Swab Wound Culture - Final Morganella Morganii Laboratory Results 04/23/16 08:35 04/23/16 08:35 04/22/16 04/23/16 04/24/16 05:59 05:59 05:59 Intake Total 1550 990 Output Total 15 Balance 1550 975 ICD10 Worksheet Patient Problems: Problems Problem Status Diagnosed Palliative care encounter Acute Paroxysmal atrial fibrillation Acute Urinary tract infection Acute
[2016-04-23 09:53] LABS: PLATELET ESTIMATE ADEQUATE (ADEQ); TOXIC VACUOLIZATION PRESENT
[2016-04-23] MEDS ORDERED: NS 500 ML IV ONE (10:42)
[2016-04-23] MEDS: diphenhydrAMINE 25 MG CAP PO PRN (10:48)
[2016-04-23] MEDS: NS W/ 20 KCl/L 1,000 ML IV SCH (12:01)
--- NOTE | 2016-04-23 12:44 | SOAPPROG ---
SOAP Progress Note Assessment/Plan: Assessment: s/p excisional debridement LLE wounds 04/[address] Dahl Wound vac to suction, intact No surrounding erythema. Plan OR with Dr. Lamar for fem-ant tib bypass Objective: Vital Signs Temp Pulse Resp BP Pulse Ox 36.4 C 85 16 116/60 100 04/23/16 11:30 04/23/16 11:30 04/23/16 11:30 04/23/16 11:30 04/23/16 11:30 Microbiology 04/20/16 10:49 Gram Stain - Final Leg - Swab Wound Culture - Final Morganella Morganii Laboratory Results 04/23/16 08:35 04/23/16 08:35 04/22/16 04/23/16 04/24/16 05:59 05:59 05:59 Intake Total 9232 718 8993 Output Total 15 Balance 5684 497 6441 ICD10 Worksheet Patient Problems: Problems Problem Status Diagnosed Palliative care encounter Acute Paroxysmal atrial fibrillation Acute Urinary tract infection Acute
--- NOTE | 2016-04-23 14:03 | PCMIDPN ---
Assessment/Plan: Assessment: 1. Urinary tract infection. Patient with pyuria, symptoms and greater than 100, 000 colony-forming units of widely sensitive E coli in her urine. Currently on Zosyn that covers this isolate. 2. Left lower extremity chronic ulcerations with signs of supparation. The daptoomycin and Zosyn antibiotic regimen is most likely covering what ever secondary bacterial process is ongoing. The underlying issue is poor arterial supply to the left lower extremity. Patient is leaning towards revascularization procedure to the left lower extremity. 3. Fever. Again overnight. Unclear etiology. Suspect the generalized ischemia to the left lower extremity is allowing the ongoing infection there to persist and cause intermittent fevers. Suspect this may be alleviated once blood flow was reestablished. Plan: 1. Continue Zosyn. 2. Continue daptomycin.. 3. Follow wound appearance. 04/23/16 16:32 04/23/16 16:32 Subjective: Patient is sitting in her hospital bed. Still has left leg pain although it is well controlled with pain medications. Had a fever overnight. No specific new symptoms. Objective: Daptomycin #3 Zosyn #6 Vital Signs Temp Pulse Resp BP Pulse Ox 36.4 C 85 16 116/60 100 04/23/16 11:30 04/23/16 11:30 04/23/16 11:30 04/23/16 11:30 04/23/16 11:30 Microbiology 04/20/16 10:49 Gram Stain - Final Leg - Swab Wound Culture - Final Morganella Morganii Laboratory Results 04/23/16 08:35 04/23/16 08:35 04/22/16 04/23/16 04/24/16 05:59 05:59 05:59 Intake Total 8292 544 2096 Output Total 15 Balance 7168 917 0723 C-Reactive Protein 168.4 mg/L (<10.0) H 04/17/16 05:06 - Physical Exam General Appearance: WD/WN, alert, no apparent distress, non-toxic Respiratory: lungs clear, normal breath sounds Cardiac/Chest: regular rate, rhythm, No tachycardia Extremities: non-tender, normal inspection Skin: normal color, warm/dry, No rash Neuro/Psych: alert, normal mood/affect, oriented x 3 ICD10 Worksheet Patient Problems: Problems Problem Status Diagnosed Palliative care encounter Acute Paroxysmal atrial fibrillation Acute Urinary tract infection Acute
[2016-04-23] MEDS ORDERED: PROTOCOL POTASSIUM 1 DOSE MISC PRN (20:43)
[2016-04-23] MEDS ORDERED: POTASSIUM CL 10 MEQ TAB PO ONE (21:39)
[2016-04-23] MEDS: ATORVASTATIN CALCIUM 40 MG TAB PO SCH (23:02)
[2016-04-23] MEDS: ASPIRIN EC 81 MG TAB PO SCH (23:02)
[2016-04-23] MEDS: oxyCODONE IR 5 MG TAB PO PRN (23:07)
[2016-04-24] MEDS: PIPERACILLIN/TAZO 4.5 GM/DEX 100 ML IV SCH ×5 (00:57→23:24)
[2016-04-24] MEDS: INSULIN GLARGINE 100 UNITS/ML SYRINGE SC SCH ×2 (01:56→23:16)
[2016-04-24] MEDS: METOPROLOL TARTRATE 25 MG TAB PO SCH ×3 (01:56→21:42)
[2016-04-24] MEDS: NS W/ 20 KCl/L 1,000 ML IV SCH (05:50)
[2016-04-24] MEDS: diphenhydrAMINE 25 MG CAP PO PRN (06:13)
[2016-04-24 06:35] LABS: POTASSIUM 4.3 mEq/L (3.5-5.2)
[2016-04-24] MEDS: SENNOSIDES/DOCUSATE SODIUM TAB PO SCH ×2 (08:24→23:03)
[2016-04-24] MEDS: D50W 25 GM/50 ML SYR IVP PRN ×2 (08:24→18:26)
[2016-04-24] MEDS: INSULIN LISPRO 100 UNIT/ML SC SCH ×3 (08:24→18:04)
[2016-04-24] MEDS: DAPTOmycin 600 MG in NS 100 ML IV SCH (08:27)
--- NOTE | 2016-04-24 08:30 | SOAPPROG ---
SOAP Progress Note Assessment/Plan: Assessment: 70 DIABETIC FEMALE WITH MULTIPLE LEFT LEG ULCERATIONS AND NONHEALING WOUNDS EXACERBATED BY PVD CTA SHOWS ONLY ANT TIB RUNOFF BELOW OCCLUDED POP RISKS AND OPTIONS FULLY DISCUSSED Plan: EVAL FOR FEM-TIB BYPASS FOR LIMB SALVAGE 04/18/16 20:15 04/24/16 08:30 pt seems to want bypass if feasible/ afebrile/ plan catheter angio today Objective: Vital Signs Temp Pulse Resp BP Pulse Ox 36.3 C 118 H 19 102/50 L 98 04/24/16 07:49 04/24/16 07:49 04/24/16 07:49 04/24/16 07:49 04/24/16 07:49 Microbiology 04/18/16 22:00 Blood Culture - Final Blood 04/18/16 21:00 Blood Culture - Final Blood Laboratory Results 04/23/16 08:35 04/24/16 06:00 04/23/16 04/24/16 04/25/16 05:59 05:59 05:59 Intake Total 990 3925 Output Total 15 Balance 970 3921 ICD10 Worksheet Patient Problems: Problems Problem Status Diagnosed Palliative care encounter Acute Paroxysmal atrial fibrillation Acute Urinary tract infection Acute
[2016-04-24] MEDS ORDERED: DIGOXIN 500 MCG/2 ML AMP IVP ONE (09:03)
--- NOTE | 2016-04-24 09:23 | PCMIDPN ---
Assessment/Plan: Assessment: Plan: Objective: Vital Signs Temp Pulse Resp BP Pulse Ox 36.4 C 128 H 16 92/54 L 99 04/24/16 08:45 04/24/16 08:45 04/24/16 08:45 04/24/16 08:45 04/24/16 08:45 Microbiology 04/18/16 22:00 Blood Culture - Final Blood 04/18/16 21:00 Blood Culture - Final Blood Laboratory Results 04/23/16 08:35 04/24/16 06:00 04/23/16 04/24/16 04/25/16 05:59 05:59 05:59 Intake Total 990 3925 Output Total 15 Balance 975 3925 C-Reactive Protein 168.4 mg/L (<10.0) H 04/17/16 05:06 ICD10 Worksheet Patient Problems: Problems Problem Status Diagnosed Palliative care encounter Acute Paroxysmal atrial fibrillation Acute Urinary tract infection Acute
[2016-04-24] MEDS ORDERED: AMIODARONE HCL 100 ML IV ONE (10:10)
[2016-04-24] MEDS ORDERED: AMIODARONE HCL 200 ML IV ONE (10:10)
[2016-04-24] MEDS ORDERED: NS 500 ML IV ONE (10:10)
--- NOTE | 2016-04-24 10:39 | HOSPPROG ---
Hospitalist Progress Note Assessment/Plan: DIAGNOSIS: # HYPOTENSION, POSSIBLY DUE TO RAPID AFIB -yesterday she had hypotension associated with rapid atrial fibrillation. This was poorly responsive to IV fluids but did respond to a spontaneous conversion back to sinus rhythm. This morning she has gone back to rapid atrial fibrillation and once again her blood pressure has dropped with this. # ACUTE WOUND INFECTIONS IN THE LEG WITH NECROSIS AND PURULENCE, S/P DEBRIDEMENT OF ONE AT L ACHILLES AREA; -she will require revascularization to be able to clip heal these wounds and clear infection # PERIPHERAL VASCULAR DISEASE WITH SEVERE COMPROMISE IN ARTERIAL SUPPLY TO THE LEG # ACUTE RENAL FAILURE -stabilizing # TYPE 2 DIABETES MELLITUS, -currently with good control overall but 1 episode of low sugar this morning # HYPOKALEMIA, LIKELY DUE TO HER DIURETIC -improved with replacement PLANS: -I have reviewed with Dr. Salty Mitchell in detail this morning -I have given her 1 dose of digoxin and will start her on amiodarone at this time along with some saline bolus -She is on scheduled to go to OR today for venous graft bypass to the left leg -recheck chemistries -continue current antibiotics, review w Dr Watson -Continue wound care -Eliquis on hold at this time for surgery -continue close monitoring and management of blood sugars SUBJECTIVE: This morning has notably increased pain in her left ankle and foot She was a little bit diaphoretic earlier this morning but this is resolved after some treatment for low sugar No other acute discomforts The nurse notes that she is back in atrial fibrillation with rapid ventricular response this morning OBJECTIVE Vitals reviewed: T-max 38.7 last evening but normal times today; currently irregular pulse in the 130s and blood pressures in the low 90s to upper 80s systolic monitoring analyst: a fib tachycardic 130s Exam: alert oriented, looks comfortable skin warm dry pale but no cyanosis or mottling resps not labored lungs clear BSs heart regular abd soft nondistended nontender, bowel sounds present L leg wound vacc in place, little fluid, not bleeding; no definite signs of ischemia or cellulitis at the left foot and ankle iv site ok CULTURE DATA: -Urine with sensitive E coli -Wound with Morganella morganii, sensitive LABORATORY DATA: -fingerstick this morning at 56 was treated with some D50 after which was 100 Objective: Vital Signs Temp Pulse Resp BP Pulse Ox 37.3 C 136 H 30 H 87/64 L 97 04/24/16 09:31 04/24/16 09:48 04/24/16 09:48 04/24/16 09:48 04/24/16 09:48 Microbiology 04/18/16 22:00 Blood Culture - Final Blood 04/18/16 21:00 Blood Culture - Final Blood Laboratory Results 04/23/16 08:35 04/24/16 06:00 04/23/16 04/24/16 04/25/16 06:59 06:59 06:59 Intake Total 990 3925 Output Total 15 Balance 975 3925 ICD10 Worksheet Patient Problems: Problems Problem Status Diagnosed Palliative care encounter Acute Paroxysmal atrial fibrillation Acute Urinary tract infection Acute
--- NOTE | 2016-04-24 14:00 | PCMIDPN ---
Assessment/Plan: Assessment/Plan: 1. Necrotic infected LLE wound infection: - CX with MOrganella, but likely polymicrobial -Wound vac on at present. -Vascular studies in progress -Currenlty on Dapto + zosyn. cpk on 04/21 stable, Last Creatinine 1.3 on . -s/p debridement on 04/22 2. E. coli UTI: - covered by zosyn meds dapto 600m daily- 04/21 zosyn 4.5gm q6- 04/17 Subjective: Afebrile. Feels a little better but is having more leg pain this morning. wound vac was not changed yesterday. Denies sob, abd pain or diarrhea. Objective: Vital Signs Temp Pulse Resp BP Pulse Ox 37.3 C 109 H 17 93/55 L 100 04/24/16 11:26 04/24/16 11:26 04/24/16 11:26 04/24/16 11:26 04/24/16 11:26 Microbiology 04/18/16 22:00 Blood Culture - Final Blood 04/18/16 21:00 Blood Culture - Final Blood Laboratory Results 04/23/16 08:35 04/24/16 06:00 04/23/16 04/24/16 04/25/16 05:59 05:59 05:59 Intake Total 990 3925 Output Total 15 Balance 975 3925 C-Reactive Protein 168.4 mg/L (<10.0) H 04/17/16 05:06 - Physical Exam General Appearance: alert, no apparent distress Respiratory: lungs clear Cardiac/Chest: irregularly irregular Extremities: No swelling Abdomen: normal bowel sounds, non-tender, soft, No distended Skin: other (LLE: wound vac noted. no periwound erythema noted. ) ICD10 Worksheet Patient Problems: Problems Problem Status Diagnosed Palliative care encounter Acute Paroxysmal atrial fibrillation Acute Urinary tract infection Acute
[2016-04-24 14:23] LABS: ANION GAP 9 mEq/L (8-16); CALCIUM 6.7 mg/dL (8.5-10.4); CARBON DIOXIDE 23 mEq/l (22-31); CHLORIDE 104 mEq/L (97-110); CREATININE 2.2 mg/dL (0.6-1.0); GLOMERULAR FILTRATION RATE 22; GLUCOSE 192 mg/dL (70-100); INR 1.76 (0.83-1.16); POTASSIUM 4.2 mEq/L (3.5-5.2); PROTIME(PATIENT) 20.6 SEC (12.0-15.0); SODIUM 136 mEq/L (134-144)
[2016-04-24 14:24] LABS: APTT 44.9 SEC (23.0-38.0)
[2016-04-24 15:55] LABS: % IMMATURE GRANULYOCYTES 0.9 % (0.0-1.1); ABSOLUTE IMMATURE GRANULOCYTES 0.12 10^3/uL (0.00-0.10); ADD DIFF? NO; ADD MORPH? NO; ADD SCAN? NO; ATYPICAL LYMPHOCYTE FLAG 80 (0-99); FRAGMENT RBC FLAG 0 (0-99); HEMATOCRIT 31.2 % (38.0-47.0); HEMOGLOBIN 9.8 g/dL (12.6-16.3); LEFT SHIFT FLG 10 (0-99); LIPEMIA HEMOLYSIS FLAG 80 (0-99); MEAN CELL HEMOGLOBIN 30.2 pg (27.9-34.1); MEAN CELL HEMOGLOBIN CONCENTR. 31.4 g/dL (32.4-36.7); MEAN CELL VOLUME 96.3 fL (81.5-99.8); PLATELET CLUMPS FLAG 0 (0-99); PLATELET COUNT 140 10^3/uL (150-400); RED BLOOD CELL COUNT 3.24 10^6/uL (4.18-5.33); RED CELL DISTRIBUTION WIDTH 16.1 % (11.5-15.2)
[2016-04-24] MEDS ORDERED: NS 1,000 ML IV ONE (17:31)
[2016-04-24] MEDS ORDERED: AMIODARONE HCL 540 MG in D5W 300 ML IV ONE (17:31)
[2016-04-24] MEDS: ATORVASTATIN CALCIUM 40 MG TAB PO SCH (21:42)
[2016-04-24] MEDS: ASPIRIN EC 81 MG TAB PO SCH (21:42)
[2016-04-24] MEDS: APIXABAN 5 MG TAB PO SCH (21:42)
[2016-04-24] MEDS: D5W NS 1,000 ML IV SCH (22:02)
[2016-04-24 22:35] LABS: POTASSIUM 4.6 mEq/L (3.5-5.2)
[2016-04-24] MEDS ORDERED: INSULIN GLARGINE 100 UNITS/ML SYRINGE SC ONE (23:30)
[2016-04-25 02:42] LABS: EOSMR EOSINOPHILS NO EOS SEEN (NO EOS SEEN); EOSMR EPITHELIAL CELLS MANY EPITH CELLS; EOSMR PMNS MODERATE PMN CELLS
[2016-04-25 02:43] LABS: EOSMR RBCS FEW RBCS
[2016-04-25 04:33] LABS: % IMMATURE GRANULYOCYTES 0.9 % (0.0-1.1); ABSOLUTE IMMATURE GRANULOCYTES 0.13 10^3/uL (0.00-0.10); ADD DIFF? NO; ADD MORPH? NO; ADD SCAN? NO; ATYPICAL LYMPHOCYTE FLAG 80 (0-99); FRAGMENT RBC FLAG 10 (0-99); HEMATOCRIT 30.7 % (38.0-47.0); HEMOGLOBIN 9.5 g/dL (12.6-16.3); LEFT SHIFT FLG 10 (0-99); LIPEMIA HEMOLYSIS FLAG 80 (0-99); MEAN CELL HEMOGLOBIN 29.6 pg (27.9-34.1); MEAN CELL HEMOGLOBIN CONCENTR. 30.9 g/dL (32.4-36.7); MEAN CELL VOLUME 95.6 fL (81.5-99.8); MEAN PLATELET VOLUME 12.6 fL (8.7-11.7); PLATELET CLUMPS FLAG 0 (0-99); PLATELET COUNT 158 10^3/uL (150-400); RED BLOOD CELL COUNT 3.21 10^6/uL (4.18-5.33); RED CELL DISTRIBUTION WIDTH 16.5 % (11.5-15.2)
[2016-04-25 04:40] LABS: ANION GAP 7 mEq/L (8-16); CARBON DIOXIDE 23 mEq/l (22-31); CHLORIDE 110 mEq/L (97-110); CREATININE 2.5 mg/dL (0.6-1.0); GLOMERULAR FILTRATION RATE 19; GLUCOSE 125 mg/dL (70-100); POTASSIUM 4.4 mEq/L (3.5-5.2); SODIUM 140 mEq/L (134-144)
[2016-04-25] MEDS: PIPERACILLIN/TAZO 4.5 GM/DEX 100 ML IV SCH (05:30)
[2016-04-25] MEDS: D5W NS 1,000 ML IV SCH ×2 (06:51→14:29)
--- NOTE | 2016-04-25 07:53 | GCON ---
[f rep st] CONSULTATION NEPHROLOGY CONSULTATION. REASON FOR CONSULT: Acute kidney injury on chronic kidney disease. HISTORY OF PRESENT ILLNESS: This is a pleasant chronically-ill 70-year-old female with a past medica l history significant notably for type 2 diabetes and peripheral vascular disease, who originally pre sented to the hospital on the with weakness, and now presents with acute kidney injury. History was obtained from Dr. Butts, the patient and the medical record. The patient is a reasonably good historian. At the time of presentation, the patient appeared to have a urinary tract infection, and also had wor sening of longstanding chronic left lower extremity wounds. The patient has known arterial insuffici ency to her left lower extremity, and has undergone previous failed angioplasty attempts. She did un dergo an aortogram with runoff on the . This did demonstrate a long segment of left superficial femoral artery occlusion, as well as limited runoff. The patient's creatinine, which appears to be a baseline in the low 1s, remained stable following this procedure. The patient was undergoing further evaluation for potential femoral tibial bypass, as well as treatme nt of her infections, when she developed paroxysmal atrial fibrillation. This was also associated wi th hypotension. The patient underwent cardiology consultation and was started on an amiodarone drip. Additionally, she was given IV fluids. Presently, her blood pressure has improved from its keon o f 80s and is currently 118 systolic. In listening to her, she does appear to be back in normal sinus rhythm. In conjunction with her atrial fibrillation and hypotension, her creatinine increased from 1.3 to 2.2 in 24 hours of time. She did have hypokalemia, which may have contributed to her atrial f ibrillation. The patient also notably has a calcium level of 6.7. As related to the above issues, w e are asked by Dr. Butts to assist the patient's renal diagnosis and management. PAST MEDICAL HISTORY: 1. Diabetes type 2. 2. Peripheral vascular disease. 3. Chronic left lower extremity wound and infection. 4. Hypertension. 5. History of necrotizing fasciitis. 6. Left carotid endarterectomy. PAST SURGICAL HISTORY: 1. Left thigh surgery for debridement. 2. Multiple attempts at angioplasty of the left lower extremity. CURRENT MEDICATIONS: Amiodarone drip, Eliquis 5 mg b.i.d., aspirin 81 mg daily, atorvastatin 40 mg d aily, Colace p.r.n., daptomycin 600 mg daily, hydrochlorothiazide 25 mg daily, insulin as prescribed, lactulose p.r.n., metoprolol 25 mg b.i.d., morphine p.r.n., ondansetron p.r.n., oxycodone p.r.n., Zo syn IV q.6 hours, potassium p.r.n., senna p.r.n. FAMILY HISTORY: Noncontributory. SOCIAL HISTORY: The patient lives in [place] with her . 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 She does not smoke cigarettes or drink alcohol. REVIEW OF SYSTEMS: A 12-systems review was obtained. She notes having a left carotid endarterectomy . She does note issues with her left lower extremity edema. Otherwise, a 12-point review of systems is negative. PHYSICAL EXAMINATION: GENERAL: At time of exam, the patient is appropriate and alert. VITAL SIGNS: Temperature afebrile, pulse 88, blood pressure 118/59. EYES: Sclerae are clear. Oropharynx clear . NECK: No lymphadenopathy, thyromegaly. No carotid bruits. LUNGS: Diminished with a few rales i n her left base, otherwise, clear. CARDIOVASCULAR: Regular rate and rhythm without gallops or rubs. ABDOMEN: Nontender. No organomegaly. /RECTAL: Deferred. EXTREMITIES: The patient was noted for having a wound VAC on her left lower extremity. She does have 1+ bilateral lower extremity edema . INTEGUMENT: Notable for erythema on the left lower extremity. NEURO: No focal findings. LABORATORY STUDIES: Sodium 136, potassium 4.2, chloride 104, bicarb 23, creatinine 2.2, white count 14, hematocrit 31.2, platelets 140. IMPRESSION AND PLAN: 1. Acute kidney injury. The patient has acute kidney injury superimposed on chronic kidney disease. This does coincide with hypotension, which was associated with the development of paroxysmal atrial fibrillation with rapid ventricular response. At present, the patient is now in regular rate and rh ythm, and her heart rate has slowed. I do believe the patient had hemodynamically mediated acute kid patricia injury, but certainly she may have developed acute tubular necrosis. We will continue to monitor her urine output and her creatinine levels. I did review the pathophysiology of this with the patie nt. We will plan on following her on a serial basis. We will check a bladder scan for a postvoid re sidual. In future days, we will reassess her urinalysis and assess her for proteinuria. 2. Atrial fibrillation. This has improved on an amiodarone drip. She is anticoagulated. 3. Medications. With the patient's return to sinus rhythm, I am hoping her renal function will impr ove. If not, she will require dosage adjustment of her Zosyn. 4. Anemia. This appears stable, although it has decreased significantly from admission. We will co ntinue to monitor this. 5. Preop. We should allow the patient's renal function to improve prior to her fem-tib bypass proce dure. Thank you for allowing us to participate in this pleasant lady's care. We will continue to follow camille senior closely with you. /[id number]/MODL
[2016-04-25] MEDS: INSULIN LISPRO 100 UNIT/ML SC SCH ×3 (09:00→19:07)
[2016-04-25] MEDS: SENNOSIDES/DOCUSATE SODIUM TAB PO SCH ×2 (09:56→21:10)
[2016-04-25] MEDS: DAPTOmycin 600 MG in NS 100 ML IV SCH (10:05)
--- NOTE | 2016-04-25 10:08 | SOAPPROG ---
SOAP Progress Note Assessment/Plan: Assessment: 70yo female with multiple left lower leg wounds, buttock ulcer, multiple medical problems including Afibb, diabetes, recent fever, UTI Palliative care meeting took place today, according to reports patient and family discussing options of bypass vs amputation vs hospice. PE awake alert Left leg dressing not removed, viewed yesterday. Pt has wounds over left lateral and left posterior leg. Ultrasound demonstrates veins adequate for bypass Plan: Dr Lamar left message with MD Tucker POA, awaiting call back to discuss options further 04/20/16 15:35 04/20/16 15:38 04/23/16 09:49 70yo female s/p wound debridement and VAC placement POD 1, sepsis likely from wound infections on daptomycin, DM, a-fibb on eliquis hypotensive this AM, undergoing fluid resuscitation per medicine, pain in leg well controlled per patient PE appears comfortable, alert Chest CTA B/L Left leg wound VAC in place over 3 wounds. no signs of leak, foot slightly cooler to touch than R foot. Plan continue fluids per medicine will need OR VAC change 1-2 days pt desires left leg bypass surgery if an option. 04/23/16 09:50 04/23/16 10:00 04/25/16 10:05 unable to angiogram yesterday due to renal failure will [facility] faxed release to [phone] Phone, Fax Objective: Vital Signs Temp Pulse Resp BP Pulse Ox 36.8 C 78 14 97/52 L 97 04/25/16 08:00 04/25/16 08:00 04/25/16 08:00 04/25/16 08:00 04/25/16 08:00 Microbiology 04/18/16 22:00 Blood Culture - Final Blood 04/18/16 21:00 Blood Culture - Final Blood Laboratory Results 04/25/16 04:10 04/25/16 04:10 04/24/16 04/25/16 04/26/16 05:59 05:59 05:59 Intake Total 3925 4247 Balance 3925 4247 PT 20.6 SEC (12.0-15.0) H 04/24/16 13:45 INR 1.76 (0.83-1.16) H 04/24/16 13:45 ICD10 Worksheet Patient Problems: Problems Problem Status Diagnosed Palliative care encounter Acute Paroxysmal atrial fibrillation Acute Urinary tract infection Acute
[2016-04-25] MEDS ORDERED: fentaNYL 100 MCG/2 ML INJ ONE (11:19)
[2016-04-25] MEDS ORDERED: PROPOFOL/EMULSION 500 MG/50 ML BOTTLE IV ONE (11:19)
--- NOTE | 2016-04-25 11:42 | HOSPPROG ---
Hospitalist Progress Note Assessment/Plan: DIAGNOSIS: # HYPOTENSION, DUE TO RAPID AFIB -this is resolved now w conversion to NSR # A FIB, RAPID VENTRICULAR RESPONSE -now converted to NSR on amiodarone # ACUTE WOUND INFECTIONS IN THE LEG WITH NECROSIS AND PURULENCE, S/P DEBRIDEMENT OF ONE AT L ACHILLES AREA; -she will require revascularization to be able to clip heal these wounds and clear infection -Morganella morganii in wound cultures # PERIPHERAL VASCULAR DISEASE WITH SEVERE COMPROMISE IN ARTERIAL SUPPLY TO THE LEG -was having severe ankle pain yesterday with cooler foot, now no pain and foot is warmer with good BPs # ACUTE RENAL FAILURE -stabilizing # TYPE 2 DIABETES MELLITUS, -currently with good control overall but 1 episode of low sugar this morning # HYPOKALEMIA, LIKELY DUE TO HER DIURETIC -improved with replacement PLANS: -I have reviewed with Dr. Leonel Watson, and Dr Salty Lamar in detail this morning -continue current antibiotics -will switch to po amiodarone today -Dr Lamar is attempting to get films from a prior angiography; if he can see what he needs there he may be able to proceed to surgery this week w/o new study -wound vacc changed today by Dr Dahl -follow renal function closely, hopefully will resolved quickly w better BP; avoid nephrotoxins -Continue wound care -if ok w Dr Dahl will resume eliquis until decision made to proceed w surgery -continue close monitoring and management of blood sugars SUBJECTIVE: much less pain in L foot today no other acute sxs She has converted to NSR as of last night OBJECTIVE Vitals reviewed: T-max 37.6, otherwise stable radiation monitor: NSR 70s now Exam: alert oriented, looks comfortable skin warm dry pale but no cyanosis or mottling resps not labored lungs clear BSs heart regular abd soft nondistended nontender, bowel sounds present L leg wound vacc in place, little fluid, not bleeding iv site ok CULTURE DATA: -Urine with sensitive E coli -Wound with Morganella morganii, sensitive LABORATORY DATA: -creat up slightly higher at 2.5, otherwise stable Objective: Vital Signs Temp Pulse Resp BP Pulse Ox 36.8 C 78 14 97/52 L 97 04/25/16 08:00 04/25/16 08:00 04/25/16 08:00 04/25/16 08:00 04/25/16 08:00 Microbiology 04/18/16 22:00 Blood Culture - Final Blood 04/18/16 21:00 Blood Culture - Final Blood Laboratory Results 04/25/16 04:10 04/25/16 04:10 04/24/16 04/25/16 04/26/16 06:59 06:59 06:59 Intake Total 3926 4246 Balance 3925 4241 PT 20.6 SEC (12.0-15.0) H 04/24/16 13:45 INR 1.76 (0.83-1.16) H 04/24/16 13:45 ICD10 Worksheet Patient Problems: Problems Problem Status Diagnosed Palliative care encounter Acute Paroxysmal atrial fibrillation Acute Urinary tract infection Acute
--- NOTE | 2016-04-25 11:51 | PCMIDPN ---
Assessment/Plan: Assessment/Plan: * Left lower extremity necrotic skin and soft tissue infection status post debridement and wound VAC placement: Wounds examined during wound VAC change. No surrounding cellulitis although some areas of devitalized tissue present. Consideration for vascular bypass later this week if creatinine stabilizes. Continue daptomycin and Zosyn which have been dose adjusted for acute renal failure. Hold statin while on daptomycin to avoid increased risk of myositis. * Acute renal failure: Dr. Alas note reviewed. Urine eosinophils are negative. Dose adjustment of antibiotics as outlined above. 04/25/16 11:48 Subjective: Patient under conscious sedation for wound VAC change. Interim clinical course reviewed. Objective: Vital Signs Temp Pulse Resp BP Pulse Ox 36.8 C 78 14 97/52 L 97 04/25/16 08:00 04/25/16 08:00 04/25/16 08:00 04/25/16 08:00 04/25/16 08:00 Microbiology 04/18/16 22:00 Blood Culture - Final Blood 04/18/16 21:00 Blood Culture - Final Blood Laboratory Results 04/25/16 04:10 04/25/16 04:10 04/24/16 04/25/16 04/26/16 05:59 05:59 05:59 Intake Total 3925 4247 Balance 3925 4247 C-Reactive Protein 168.4 mg/L (<10.0) H 04/17/16 05:06 - Physical Exam General Appearance: other (Sedated) Extremities: inflammation (Wounds examined as wound VAC change being performed; no areas of surrounding cellulitis; scattered areas of devitalized tissue present) - Line/s RUE PICC Lines: No drainage, No erythema ICD10 Worksheet Patient Problems: Problems Problem Status Diagnosed Palliative care encounter Acute Paroxysmal atrial fibrillation Acute Urinary tract infection Acute
[2016-04-25] MEDS: AMIODARONE HCL 200 MG TAB PO SCH (12:25)
[2016-04-25] MEDS: APIXABAN 5 MG TAB PO SCH ×2 (12:26→21:08)
[2016-04-25] MEDS: METOPROLOL TARTRATE 25 MG TAB PO SCH ×2 (12:26→21:07)
[2016-04-25] MEDS: PIPERACILLIN/TAZO 2.25 GM/DEX 50 ML IV SCH ×2 (12:28→19:07)
--- NOTE | 2016-04-25 12:32 | POSTOPPROG ---
Post Op Note Date of Operation: 04/25/16 Surgeon: Ashleigh Dahl Care Program Resident: gabriel Anesthesiologist: haider Anesthesia: IV Sedation Pre-op Diagnosis: chronic wounds LLE Post-op Diagnosis: same Indication: 70yo F c chronic wounds of LLE, s/p debridement with vac change on 04/22 Procedure: wound vac change at bedside with sedation Findings: dessicated wound bed. achilles exposed. no bone exposed Inf/Abcess present in the surg proc area at time of surgery?: Yes Depth: Superfical (Skin SQ) EBL: Minimal Drains: Wound Vac
--- NOTE | 2016-04-25 13:25 | WOCRNPDOC ---
[facility] Advanced Assessment Note - Skin Integrity Problem, Advanced Assess Left Lateral Heel Diabetic Ulcer Dressing Type: Black Vac Foam (x1) Dressing Description: Clean/Dry, Intact Exudate Amount: None Site Measurement - Head-to-Toe Length X Width X Depth (cm): 3x5x1 Skin Integrity Problem Comment: One piece of small black foam to wound bed. Bridged by Dr. Dahl to lateral/posterior left leg wound. Vac restarted at -125 mm Hg continuous suction. Left Lower Leg Surgical Wound/Incision Dressing Type: Black Vac Foam (x4), White Vac Foam (x2) Dressing Description: Clean/Dry, Intact Exudate Amount: None Integumentary Issue Intervention: Dressing Changed Noemí Wound Swelling: Mild Wound Bed Color: Black, Brown, Red, Martínez, White Wound Bed Constitution: Smooth Tissue, Tendon Wound Edges: Attached Site Measurement - Head-to-Toe Length X Width X Depth (cm): 16.5x12x0.5 Skin Integrity Problem Comment: Vac change with Dr. Dahl, and Deborah NIETO at the bedside with sedation. Wound bed now dessicated, as opposed to Saturday when it was bleeding quite a bit. Achilles tendon 90% martínez. White foam dried out and adhered. Flushed with ns. Skin prep and drape noemí wound. 2 pieces of white foam to cover achilles and then two pieces of black foam to cover . Bridged to heel wound. Vac re-started at - 125 mm Hg continuous suction with no leaks.
--- NOTE | 2016-04-25 18:32 | SOAPPROG ---
SOAP Progress Note Assessment/Plan: Assessment: 70 DIABETIC FEMALE WITH MULTIPLE LEFT LEG ULCERATIONS AND NONHEALING WOUNDS EXACERBATED BY PVD CTA SHOWS ONLY ANT TIB RUNOFF BELOW OCCLUDED POP RISKS AND OPTIONS FULLY DISCUSSED Plan: EVAL FOR FEM-TIB BYPASS FOR LIMB SALVAGE 04/18/16 20:15 04/24/16 08:30 pt seems to want bypass if feasible/ afebrile/ plan catheter angio today 04/25/16 18:30 still awaiting angio disc but likely needs fem-tib bypass/ ? when to schedule Objective: Vital Signs Temp Pulse Resp BP Pulse Ox 36.8 C 68 17 93/58 L 97 04/25/16 16:00 04/25/16 16:00 04/25/16 16:00 04/25/16 16:00 04/25/16 16:00 Laboratory Results 04/25/16 04:10 04/25/16 17:55 04/24/16 04/25/16 04/26/16 05:59 05:59 05:59 Intake Total 3925 4247 650 Balance 3925 4247 650 PT 20.6 SEC (12.0-15.0) H 04/24/16 13:45 INR 1.76 (0.83-1.16) H 04/24/16 13:45 ICD10 Worksheet Patient Problems: Problems Problem Status Diagnosed Palliative care encounter Acute Paroxysmal atrial fibrillation Acute Urinary tract infection Acute
[2016-04-25] MEDS: oxyCODONE IR 5 MG TAB PO PRN (19:08)
[2016-04-25] MEDS: ASPIRIN EC 81 MG TAB PO SCH (21:08)
--- NOTE | 2016-04-25 21:22 | SOAPPROG ---
SOAP Progress Note Assessment/Plan: Assessment: 1. DAVID. Creat rising despite aggressive fluid. Likely ischemic atn. D/C IVF. Hopefully will recover soon with rx of af/hypotension. 2. AF/RVR. Rate controlled on amiodarone, metoprolol. BP better but still dropping into 90s. Decrease metoprolol if able. 3. PVD. LLE nonhealing wound. For fe- bypass. Continue wound vac, abx. Plan: 04/25/16 21:20 04/25/16 21:22 Subjective: No complaints. Objective: Vital Signs Temp Pulse Resp BP Pulse Ox 36.6 C 74 17 125/50 H 98 04/25/16 19:44 04/25/16 21:07 04/25/16 19:44 04/25/16 21:07 04/25/16 19:44 Laboratory Results 04/25/16 04:10 04/25/16 17:55 04/24/16 04/25/16 04/26/16 05:59 05:59 05:59 Intake Total 3925 4247 2410 Balance 3925 4247 2410 PT 20.6 SEC (12.0-15.0) H 04/24/16 13:45 INR 1.76 (0.83-1.16) H 04/24/16 13:45 Tired, obese, mildly increased wob RRR, I/ NADJA Coarse breath sounds in bases Abdom soft, nt L calf wound vac Tr LE edema ICD10 Worksheet Patient Problems: Problems Problem Status Diagnosed Palliative care encounter Acute Paroxysmal atrial fibrillation Acute Urinary tract infection Acute
[2016-04-25] MEDS: INSULIN GLARGINE 100 UNITS/ML SYRINGE SC SCH (22:55)
[2016-04-26] MEDS: PIPERACILLIN/TAZO 2.25 GM/DEX 50 ML IV SCH ×4 (00:26→19:51)
[2016-04-26] MEDS: oxyCODONE IR 5 MG TAB PO PRN ×2 (05:05→19:49)
[2016-04-26 05:36] LABS: ALBUMIN 1.7 g/dL (3.5-5.0); ANION GAP 7 mEq/L (8-16); CALCIUM 6.9 mg/dL (8.5-10.4); CARBON DIOXIDE 21 mEq/l (22-31); CHLORIDE 113 mEq/L (97-110); CREATININE 3.2 mg/dL (0.6-1.0); GLOMERULAR FILTRATION RATE 14; GLUCOSE 91 mg/dL (70-100); POTASSIUM 4.6 mEq/L (3.5-5.2); SODIUM 141 mEq/L (134-144)
--- NOTE | 2016-04-26 09:10 | SOAPPROG ---
SOAP Progress Note Assessment/Plan: Assessment: 70yo female with multiple left lower leg wounds, buttock ulcer, multiple medical problems including Afibb, diabetes, recent fever, UTI Palliative care meeting took place today, according to reports patient and family discussing options of bypass vs amputation vs hospice. PE awake alert Left leg dressing not removed, viewed yesterday. Pt has wounds over left lateral and left posterior leg. Ultrasound demonstrates veins adequate for bypass Plan: Dr Lamar left message with MD Tucker POA, awaiting call back to discuss options further 04/20/16 15:35 04/20/16 15:38 04/23/16 09:49 70yo female s/p wound debridement and VAC placement POD 1, sepsis likely from wound infections on daptomycin, DM, a-fibb on eliquis hypotensive this AM, undergoing fluid resuscitation per medicine, pain in leg well controlled per patient PE appears comfortable, alert Chest CTA B/L Left leg wound VAC in place over 3 wounds. no signs of leak, foot slightly cooler to touch than R foot. Plan continue fluids per medicine will need OR VAC change 1-2 days pt desires left leg bypass surgery if an option. 04/23/16 09:50 04/23/16 10:00 04/25/16 10:05 unable to angiogram yesterday due to renal failure will try to obtain films from [facility] called and faxed release to [phone] Phone, Fax 04/26/16 09:07 s/p bedside wound VAC change yesterday. Pain controlled, creatinine increased to 3.2 PE awake, alert, laying still in bed Left leg VAC in place over lower ext, no signs of leak, +doppler dorsalis pedis pulse weak. Plan saw pt with Dr Lamar will call [facility] to confirm angio films are on the way. If creatinine improves possible bypass surgery next week. Objective: Vital Signs Temp Pulse Resp BP Pulse Ox 36.7 C 74 16 136/78 H 97 04/26/16 08:00 04/26/16 08:00 04/26/16 08:00 04/26/16 08:00 04/26/16 08:00 Laboratory Results 04/25/16 04:10 04/26/16 05:00 04/25/16 04/26/16 04/27/16 05:59 05:59 05:59 Intake Total 4247 2710 Balance 4240 2710 PT 20.6 SEC (12.0-15.0) H 04/24/16 13:45 INR 1.76 (0.83-1.16) H 04/24/16 13:45 ICD10 Worksheet Patient Problems: Problems Problem Status Diagnosed Palliative care encounter Acute Paroxysmal atrial fibrillation Acute Urinary tract infection Acute
[2016-04-26] MEDS: SENNOSIDES/DOCUSATE SODIUM TAB PO SCH ×2 (09:38→22:08)
[2016-04-26] MEDS: METOPROLOL TARTRATE 25 MG TAB PO SCH ×2 (09:39→22:03)
[2016-04-26] MEDS: APIXABAN 5 MG TAB PO SCH ×2 (09:39→22:03)
[2016-04-26] MEDS: AMIODARONE HCL 200 MG TAB PO SCH (09:39)
--- NOTE | 2016-04-26 10:24 | SOAPPROG ---
SOAP Progress Note Assessment/Plan: Assessment: 70 yo with co-morbidities, wounds on the left lower extremity. S/P debridement and vac placement She has single vessel runoff. She has two failed endovascular attempts I recommend fem to anterior tib bypass with vein by dr sullivan - he has ordered an angiogram but her creatinine is rising so this is not prudent at this time we will continue wound VAC changes 3 times a week. Yesterday the wounds were clean but the Achilles tendon was desiccated and somewhat necrotic. I will change the VAC again tomorrow S: In good spirits O: Vac in place. Minimal erythema, edema improved Plan: 04/21/16 11:31 04/21/16 11:31 04/26/16 10:21 Objective: Vital Signs Temp Pulse Resp BP Pulse Ox 36.7 C 74 16 136/78 H 97 04/26/16 08:00 04/26/16 08:00 04/26/16 08:00 04/26/16 08:00 04/26/16 08:00 Laboratory Results 04/25/16 04:10 04/26/16 05:00 04/25/16 04/26/16 04/27/16 05:59 05:59 05:59 Intake Total 4247 2710 Balance 4247 2710 PT 20.6 SEC (12.0-15.0) H 04/24/16 13:45 INR 1.76 (0.83-1.16) H 04/24/16 13:45 ICD10 Worksheet Patient Problems: Problems Problem Status Diagnosed Palliative care encounter Acute Paroxysmal atrial fibrillation Acute Urinary tract infection Acute
--- NOTE | 2016-04-26 10:41 | GOP ---
[f rep st] OPERATIVE REPORT DATE OF OPERATION: 04/25/2016 SURGEON: Ashleigh Dahl MD COMPLIANCE LEAD: MIRIAM Julio ANESTHESIA: IV sedation. ANESTHESIOLOGIST: Kye Ny MD PREOPERATIVE DIAGNOSIS: Peripheral vascular disease with chronic wounds to the left lower extremity. POSTOPERATIVE DIAGNOSIS: Peripheral vascular disease with chronic wounds to the left lower extremity . PROCEDURE PERFORMED: Wound VAC change at bedside with sedation. FINDINGS: Desiccated wound bed, Achilles tendon exposed with some necrosis. No bone exposed. SPECIMENS: None. ESTIMATED BLOOD LOSS: Minimal. INDICATIONS: The patient is a 70-year-old with peripheral vascular disease and wounds. I took her t o the operating room on April 22, 2016, for debridement of skin, soft tissue, to the level of the tendon. We are doing bedside wound VAC change. DESCRIPTION OF PROCEDURE: The patient was in bed. A time-out was performed. IV anesthesia was give n. We took down the wound VAC. The anterior wound measures 16.5 x 12 x 0.5. The Achilles tendon wa s somewhat necrotic. The wound was desiccated. The heel wound measures 3 x 5 x 1. This was healthy subcutaneous tissue. A new wound VAC was applied. She was recovered at bedside. /[id number]/MODL
[2016-04-26] MEDS: INSULIN LISPRO 100 UNIT/ML SC SCH ×3 (10:46→19:45)
--- NOTE | 2016-04-26 12:32 | SOAPPROG ---
SOAP Progress Note Assessment/Plan: Assessment: 1. DAVID. Creat rising despite aggressive fluid. Likely ischemic atn. D/C IVF. Hopefully will recover soon with rx of af/hypotension. Unable to track UOP/wts. Will place justice. Has received significant volume. Resp status ok today. Assess need for dialysis daily. 2. AF/RVR. Rate controlled on amiodarone, metoprolol. BP better but still dropping into low 100s. Decrease metoprolol. 3. PVD. LLE nonhealing wound. For angio and feb-tib bypass when creat better. Continue wound vac, abx. 4. Hypophosphatemia. P 1.8. Na phos not on formulary. Will order skim milk tid. Repeat in am. Plan: 04/25/16 21:20 04/25/16 21:22 04/26/16 12:31 04/26/16 12:32 04/26/16 12:32 04/26/16 12:37 Subjective: C/o some pain in her left calf. Objective: Vital Signs Temp Pulse Resp BP Pulse Ox 36.6 C 64 18 86/62 L 99 04/26/16 11:53 04/26/16 11:53 04/26/16 11:53 04/26/16 11:53 04/26/16 11:53 Laboratory Results 04/25/16 04:10 04/26/16 05:00 04/25/16 04/26/16 04/27/16 05:59 05:59 05:59 Intake Total 4247 2710 Balance 4247 2710 PT 20.6 SEC (12.0-15.0) H 04/24/16 13:45 INR 1.76 (0.83-1.16) H 04/24/16 13:45 Deconditioned, obese, tired wf in bed RRR, II/ NADJA Coarse L basilar breath sounds Abdom obese, nontender Tr sacral, 1+ LE edema L calf wound with vac in place; michael on ICD10 Worksheet Patient Problems: Problems Problem Status Diagnosed Palliative care encounter Acute Paroxysmal atrial fibrillation Acute Urinary tract infection Acute
--- NOTE | 2016-04-26 15:15 | WOCRNPDOC ---
ALFONSO Advanced Assessment Note - Skin Integrity Problem, Advanced Assess Left Sacrum Pressure Injury Dressing Type: Allevyn Life Dressing Description: Clean/Dry, Intact Exudate Amount: None Integumentary Issue Intervention: Visualized Under Dressing Noemí Wound Tissue: Erythema Wound Bed Color: Brown, Red, Yellow Wound Bed Constitution: Granulation Tissue (40%), Mixed Loose & Adhered Slough/ Eschar (60%) Site Measurement - Head-to-Toe Length X Width X Depth (cm): 6x4x0 Pressure Injury Stage: Unstageable Pressure Injury Present on Admit: Yes Skin Integrity Problem Comment: Wound dried and necrosis strongly adhered. Slough now begining to change to eschar in some places. Will remoisturize wound bed to begin autolytic debridement. Orders updated. Discussed with Samina NAVA. Right Sacrum Pressure Injury Dressing Type: Allevyn Life Dressing Description: Clean/Dry, Intact Exudate Amount: None Integumentary Issue Intervention: Visualized Under Dressing Noemí Wound Tissue: Ecchymotic, Erythema Wound Bed Color: Red, Yellow Wound Bed Constitution: Granulation Tissue (20%), Adhered Slough (80%) Wound Edges: Attached Site Measurement - Head-to-Toe Length X Width X Depth (cm): 3x1.5x0.1 Pressure Injury Stage: Unstageable Skin Integrity Problem Comment: Unstagable pressure injury distal to a dark area (resembles a DTI but may not be, as it has not evolved since being assessed a week ago) with a partial thickness opening. Measured the two together as they are only seperated by a small amount of skin. Will also begin autolytic debridment on unstagable wound. Will reassess on Monday 04/30.
--- NOTE | 2016-04-26 16:00 | PCMIDPN ---
Assessment/Plan: Assessment: 1. Left lower extremity chronic ulcerations with signs of supparation. The daptoomycin and Zosyn antibiotic regimen is most likely covering what ever secondary bacterial process is ongoing. The underlying issue is poor arterial supply to the left lower extremity. Patient is leaning towards revascularization procedure to the left lower extremity. Plan: 1. Continue Zosyn at renally impaired dose. 2. Continue daptomycin. 3. Follow wound appearance. Subjective: Patient resting in bed. Awaiting potential revascularization procedures. Kidney dysfunction on going. Objective: Daptomycin # 6 Zosyn # 9 Vital Signs Temp Pulse Resp BP Pulse Ox 36.6 C 64 18 86/62 L 99 04/26/16 11:53 04/26/16 11:53 04/26/16 11:53 04/26/16 11:53 04/26/16 11:53 Laboratory Results 04/25/16 04:10 04/26/16 05:00 04/25/16 04/26/16 04/27/16 05:59 05:59 05:59 Intake Total 4247 2710 Output Total 400 Balance 4247 2710 -400 C-Reactive Protein 168.4 mg/L (<10.0) H 04/17/16 05:06 - Physical Exam General Appearance: WD/WN, alert, no apparent distress, non-toxic Respiratory: lungs clear, normal breath sounds, No respiratory distress Cardiac/Chest: regular rate, rhythm, No tachycardia Extremities: non-tender, No normal inspection (Left lower extremity with scattered ulcerations.) Skin: normal color, warm/dry, No rash Neuro/Psych: alert, normal mood/affect, oriented x 3 ICD10 Worksheet Patient Problems: Problems Problem Status Diagnosed Palliative care encounter Acute Paroxysmal atrial fibrillation Acute Urinary tract infection Acute
--- NOTE | 2016-04-26 16:52 | HOSPPROG ---
Hospitalist Progress Note Assessment/Plan: DIAGNOSIS: # HYPOTENSION, DUE TO RAPID AFIB -this is resolved now w conversion to NSR # A FIB, RAPID VENTRICULAR RESPONSE -now converted to NSR on amiodarone # ACUTE WOUND INFECTIONS IN THE LEG WITH NECROSIS AND PURULENCE, S/P DEBRIDEMENT OF ONE AT L ACHILLES AREA; -she will require revascularization to be able to heal these wounds and clear infection -Morganella morganii in wound cultures # PERIPHERAL VASCULAR DISEASE WITH SEVERE COMPROMISE IN ARTERIAL SUPPLY TO THE LEG # ACUTE RENAL FAILURE -creatinine worse again today, will need to continue to aggressively manage blood pressures # TYPE 2 DIABETES MELLITUS, -overall in reasonable range so far # HYPOKALEMIA, LIKELY DUE TO HER DIURETIC -improved with replacement PLANS: -continue current antibiotics -continue po amiodarone -Dr Lamar is attempting to get films from a prior angiography; if he can see what he needs there he may be able to proceed to surgery w/o new study -wound vacc changed 04/[address] Dahl -follow renal function closely; avoid nephrotoxins -Continue wound care -if ok w Dr Dahl will resume eliquis until decision made to proceed w surgery -continue close monitoring and management of blood sugars SUBJECTIVE: much less pain in L foot today no other acute sxs She has converted to NSR as of last night OBJECTIVE Vitals reviewed: T-max 36.8, otherwise stable tanning solution maker: NSR 70s now Exam: alert oriented, looks comfortable skin warm dry pale but no cyanosis or mottling resps not labored lungs clear BSs heart regular abd soft nondistended nontender, bowel sounds present L leg wound vacc in place, little fluid, not bleeding iv site ok CULTURE DATA: -Urine with sensitive E coli -Wound with Morganella morganii, sensitive LABORATORY DATA: -reviewed by me today Objective: Vital Signs Temp Pulse Resp BP Pulse Ox 36.6 C 64 18 86/62 L 99 04/26/16 11:53 04/26/16 11:53 04/26/16 11:53 04/26/16 11:53 04/26/16 11:53 Laboratory Results 04/25/16 04:10 04/26/16 05:00 04/25/16 04/26/16 04/27/16 06:59 06:59 06:59 Intake Total 4247 2710 Output Total 400 Balance 4247 2710 -400 PT 20.6 SEC (12.0-15.0) H 04/24/16 13:45 INR 1.76 (0.83-1.16) H 04/24/16 13:45 ICD10 Worksheet Patient Problems: Problems Problem Status Diagnosed Palliative care encounter Acute Paroxysmal atrial fibrillation Acute Urinary tract infection Acute
--- NOTE | 2016-04-26 21:49 | GCON ---
[f rep st] CONSULTATION DATE OF CONSULTATION: 04/18/2016 HISTORY: The patient is a 70-year-old diabetic female with multiple left leg ulcerations and nonheal ing wounds, with a large eschar over the entire back of her lower left leg. The situation is exacerb ated by significant peripheral vascular disease. A CTA shows only a significant anterior tibial runo ff below the occluded popliteal artery on the left. She has apparently had multiple attempts at lisa oplasty at the [facility], and she has an angiogram there that is not available to us but suggested t he possibility of an open popliteal and anterior tibial artery. Her leg wounds are quite old, have b een present for several months. PAST HISTORY: Chronic leg wounds and peripheral vascular disease, with superficial femoral artery oc clusion on the left. She has type 2 diabetes and hypertension. Has had previous cellulitis requirin g debridement. PRESENT MEDICATIONS: Lantus, Novolin, aspirin, hydrochlorothiazide, Lipitor, metformin, amlodipine, Plavix, and atenolol. REVIEW OF SYSTEMS: Reveals she does not smoke. Denies any alcohol use. PHYSICAL EXAMINATION: GENERAL: An alert, cooperative, uncomfortable 70-year-old female, in no acute distress. She is quite overweight. VITAL SIGNS: She is afebrile. HEAD AND NECK: Exam reveals no icterus or significant adenopathy, and no bruits. CARDIAC: Exam reveals a regular rhythm. CHEST: Clear to auscultation and percussion. ABDOMEN: Soft. She is overweight. Does have bowel sounds. She is nontender. EXTREMITIES: Reveal decreased or absent pedal pulses. She does have femoral pul ses. She has a large anterior lambert ulceration, and a large eschar on the posterior aspect of her low er leg. She does have a positive dorsalis pedis pulse with Doppler. NEUROLOGIC: Exam is physiologi c. IMPRESSION: Severe peripheral vascular disease. She will most likely need some revascularization to save her leg. These extensive wounds will not likely heal without revascularization; however, her v essels are quite calcified secondary to her diabetes, and she may have a difficult time with a bypass , which would also be difficult because of her size and weight. I would recommend evaluation for byp ass if we can obtain an angiogram, or obtain her old angiogram from [facility]. Ri sks and options have been fully discussed. She understands and wishes to proceed with that keon n. We have discussed the significant risks to her leg if bypass is unsuccessful. /[id number]/MODL
[2016-04-26] MEDS: INSULIN GLARGINE 100 UNITS/ML SYRINGE SC SCH (22:02)
[2016-04-26] MEDS: ASPIRIN EC 81 MG TAB PO SCH (22:03)
[2016-04-27] MEDS: PIPERACILLIN/TAZO 2.25 GM/DEX 50 ML IV SCH ×4 (00:29→20:13)
[2016-04-27 06:36] LABS: ALBUMIN 1.8 g/dL (3.5-5.0); ANION GAP 6 mEq/L (8-16); CALCIUM 7.3 mg/dL (8.5-10.4); CARBON DIOXIDE 21 mEq/l (22-31); CHLORIDE 112 mEq/L (97-110); CREATININE 3.7 mg/dL (0.6-1.0); GLOMERULAR FILTRATION RATE 12; GLUCOSE 42 mg/dL (70-100); POTASSIUM 4.5 mEq/L (3.5-5.2); SODIUM 139 mEq/L (134-144)
[2016-04-27] MEDS: INSULIN LISPRO 100 UNIT/ML SC SCH ×3 (08:45→18:00)
[2016-04-27] MEDS ORDERED: PROPOFOL 200 MG/20 ML VIAL ONE (08:50)
[2016-04-27] MEDS ORDERED: fentaNYL 100 MCG/2 ML INJ ONE (08:50)
[2016-04-27] MEDS: D50W 25 GM/50 ML SYR IVP PRN (08:51)
[2016-04-27] MEDS: DAPTOmycin 600 MG in NS 100 ML IV SCH (09:26)
--- NOTE | 2016-04-27 10:30 | WOCRNPDOC ---
SEANCRJamil Advanced Assessment Note - Skin Integrity Problem, Advanced Assess Left Lateral Heel Diabetic Ulcer Dressing Type: Black Vac Foam, Wound Vac Dressing Description: Intact Exudate Amount: Minimal Exudate Color: Red Exudate Characteristic(s): Bloody Integumentary Issue Intervention: Dressing Changed Noemí Wound Tissue: Erythema Noemí Wound Swelling: Mild Site Measurement - Head-to-Toe Length X Width X Depth (cm): 2.8x4x0.9cm Skin Integrity Problem Comment: Vac dressing change at the bedside w/ Dr. Dahl and EMILIA Julio, while patient under monitored sedation. 1 piece of black vac foam placed and bridged to left lateral surgical wound. Left Lower Leg Surgical Wound/Incision Dressing Type: Black Vac Foam (2 pieces), White Vac Foam (2 pieces), Wound Vac Dressing Description: Intact Exudate Amount: Minimal Exudate Color: Red Exudate Characteristic(s): Serosanguinous Integumentary Issue Intervention: Dressing Changed Noemí Wound Tissue: Erythema Noemí Wound Swelling: Mild Wound Bed Constitution: Smooth Tissue, Tendon, Mixed Loose & Adhered Slough/ Eschar Site Measurement - Head-to-Toe Length X Width X Depth (cm): [id number] Skin Integrity Problem Comment: Per Dr. Dahl, wound improved since previous assessment on 04/25. Exposed tendon moist and intact, w/ no dessication noted. Noemí-wound prepped and draped. 2 pieces of white vac foam placed over exposed tendon, followed by 2 pieces of black foam. Vac settings continue at 125mmHg, low continuous suction.
[2016-04-27] MEDS: METOPROLOL TARTRATE 25 MG TAB PO SCH ×2 (10:32→20:13)
[2016-04-27] MEDS: SENNOSIDES/DOCUSATE SODIUM TAB PO SCH ×2 (10:32→22:40)
[2016-04-27] MEDS: AMIODARONE HCL 200 MG TAB PO SCH (10:34)
[2016-04-27] MEDS: APIXABAN 5 MG TAB PO SCH (10:34)
--- NOTE | 2016-04-27 11:46 | GOP ---
[f rep st] OPERATIVE REPORT DATE OF OPERATION: 04/27/2016 SURGEON: Ashleigh Dahl MD VETERINARY ASSISTANT: MIRIAM Julio. ANESTHESIA: IV sedation. ANESTHESIOLOGIST: Dr. Tyshawn lazo PREOPERATIVE DIAGNOSIS: Peripheral vascular disease with chronic wounds to the left lower extremity. POSTOPERATIVE DIAGNOSIS: Peripheral vascular disease with chronic wounds to the left lower extremity. PROCEDURE PERFORMED: Wound vacuum-assisted closure change at bedside with sedation. FINDINGS: The Achilles is no longer necrotic. No bone exposed. Healthier tissue. SPECIMENS: None. ESTIMATED BLOOD LOSS: None. INDICATIONS: The patient is a 70-year-old with peripheral vascular disease and wounds. I took her to the operating room, April 22, 2016, for debridement skin and soft tissue to the level of the tendon. We are doing wound VAC changes at bedside with sedation due to the size of the wounds and the pain associated with the changes. DESCRIPTION OF PROCEDURE: The patient was in bed. A time-out was performed. IV anesthesia was given. I took down the wound VAC. The wounds were not measured but were similar in size to two days prior. The Achilles tendon was no longer necrotic. The wounds were healthier. A new wound VAC was applied. She was recovered at bedside. /[id number]/MODL MTDD
--- NOTE | 2016-04-27 13:07 | SOAPPROG ---
SOAP Progress Note Assessment/Plan: Assessment: 1. DAVID. Creat still rising. Off IVF. Likely ischemic atn. UOP ok. No acute need for dialysis. Resp status ok today. Assess need for dialysis daily. Hopefully will avoid this. 2. AF/RVR. Rate controlled on amiodarone, metoprolol. BP better after decrease of metoprolol. 3. PVD. LLE nonhealing wound. For angio and feb-tib bypass when creat better. Continue wound vac, abx. 4. Hypophosphatemia. P better at 1.8. Na phos not on formulary. Continue skim milk tid. Repeat in am. Plan: Subjective: Reports having a rough morning due to wound vac change. Denies sob, n/v. Objective: Vital Signs Temp Pulse Resp BP Pulse Ox 36.3 C 70 12 120/66 97 04/27/16 11:53 04/27/16 11:53 04/27/16 11:53 04/27/16 11:53 04/27/16 11:53 Laboratory Results 04/25/16 04:10 04/27/16 05:45 04/26/16 04/27/16 04/28/16 05:59 05:59 05:59 Intake Total 2710 1275 Output Total 800 Balance 2710 475 PT 20.6 SEC (12.0-15.0) H 04/24/16 13:45 INR 1.76 (0.83-1.16) H 04/24/16 13:45 Tearful. Obese, mildly labored breathing, on 3 L NC O2 RRR, II/ NADJA Coarse bibasilar crackles Abdom obese, nontender 1+ sacral/LE edema L calf wound vac ICD10 Worksheet Patient Problems: Problems Problem Status Diagnosed Palliative care encounter Acute Paroxysmal atrial fibrillation Acute Urinary tract infection Acute
--- NOTE | 2016-04-27 16:13 | PCMIDPN ---
Assessment/Plan: Assessment: 1. Left lower extremity chronic ulcerations with signs of supparation. The daptomycin and Zosyn antibiotic regimen is most likely covering what ever secondary bacterial process is ongoing. The underlying issue is poor arterial supply to the left lower extremity. Patient is agreeable to revascularization procedure to the left lower extremity however her acute renal failure secondary to the hypotension upon her presentation is keeping her from getting a current arteriogram. Plan: 1. Continue Zosyn at renally impaired dose. 2. Continue daptomycin. 3. Follow wound appearance. 04/27/16 16:11 Subjective: Patient is resting comfortably in her hospital bed. Has no particular new complaints. No fevers or chills. Objective: Daptomycin #7 Zosyn #10 Vital Signs Temp Pulse Resp BP Pulse Ox 37.2 C 75 17 137/73 H 95 04/27/16 15:34 04/27/16 15:34 04/27/16 15:34 04/27/16 15:34 04/27/16 15:34 Laboratory Results 04/25/16 04:10 04/27/16 05:45 04/26/16 04/27/16 04/28/16 05:59 05:59 05:59 Intake Total 2710 1275 Output Total 800 Balance 2710 475 C-Reactive Protein 168.4 mg/L (<10.0) H 04/17/16 05:06 - Physical Exam General Appearance: WD/WN, alert, no apparent distress, obese, non-toxic Respiratory: lungs clear, normal breath sounds, No respiratory distress Cardiac/Chest: regular rate, rhythm, No tachycardia Extremities: No non-tender, No normal inspection (Left lower extremity with scattered ulcerations.) Skin: normal color, warm/dry, No rash Neuro/Psych: alert, normal mood/affect ICD10 Worksheet Patient Problems: Problems Problem Status Diagnosed Palliative care encounter Acute Paroxysmal atrial fibrillation Acute Urinary tract infection Acute
[2016-04-27] MEDS ORDERED: INSULIN GLARGINE 100 UNITS/ML SYRINGE SC SCH (17:03)
--- NOTE | 2016-04-27 17:09 | HOSPPROG ---
Hospitalist Progress Note Assessment/Plan: This patient with longstanding multiple diabetic complications comes into the hospital with significant purulent necrotic infected wounds in her left ankle and foot. She has significant peripheral vascular disease in that limb. We have organisms identified in cultures, antibiotics and place, status post debridements and ongoing wound VAC care. She has suffered a complication of acute renal failure possibly ATN related to hypotension probably caused by rapid atrial fibrillation. She is now stabilized hemodynamically and converted to sinus rhythm on amiodarone, but her creatinine remains elevated. There is consideration for attempts at revascularization surgically if/when her renal function improves. CONSULTANTS: Dr. Salty Lamar and Ashleigh Dahl Nephrology service Infectious disease service DIAGNOSIS: # ACUTE WOUND INFECTIONS IN THE LEG WITH NECROSIS AND PURULENCE, -status post debridements, wound VAC in place -Morganella morganii in wound cultures # PERIPHERAL VASCULAR DISEASE WITH SEVERE COMPROMISE IN ARTERIAL SUPPLY TO THE LEG -the hope is to perform revascularization here to improve her chances of healing her wounds and prevent recurrence with potential limb loss # ACUTE RENAL FAILURE ? ATN -creatinine fluctuating somewhat, higher today than yesterday but less than 2 days ago # HYPOTENSION, DUE TO RAPID AFIB -this is resolved now w conversion to NSR # A FIB, RAPID VENTRICULAR RESPONSE -now converted to NSR on amiodarone # TYPE 2 DIABETES MELLITUS, -more trouble with hypoglycemia today likely due to her renal situation; she is eating well # HYPOKALEMIA, LIKELY DUE TO HER DIURETIC -improved with replacement PLANS: -continue current antibiotics -continue po amiodarone -Dr Lamar is attempting to get films from a prior angiography; if he can see what he needs there he may be able to avoid repeat angiography -wound vacc changed 04/[address] Dahl -follow renal function closely; avoid nephrotoxins -Continue wound care -due to renal failure some of her medications have been changed including stopping Eliquis and starting IV heparin and re-dosing of some other medicines today -her hypoglycemia during the day today is likely partly related to her renal disease. I have decreased significantly her insulin dosing and will follow closely I have root reviewed her care in detail today with Dr. Ashleigh Dahl The family has requested palliative consultation and this is now scheduled for SaturdayApril 30. They are not at this point definitely committed to making any changes but do want information and they are concerned that this may be along hard approach for her, which certainly is true. SUBJECTIVE: no pain in L foot today no other acute sxs OBJECTIVE Vitals reviewed: T-max 36.8, otherwise stable manager monitoring: NSR 70s now Exam: alert oriented, looks comfortable skin warm dry pale but no cyanosis or mottling resps not labored lungs clear BSs heart regular abd soft nondistended nontender, bowel sounds present L leg wound vacc in place, little fluid, not bleeding iv site ok CULTURE DATA: -Urine with sensitive E coli -Wound with Morganella morganii, sensitive LABORATORY DATA: -reviewed by me today Objective: Vital Signs Temp Pulse Resp BP Pulse Ox 37.2 C 75 17 137/73 H 95 04/27/16 15:34 04/27/16 15:34 04/27/16 15:34 04/27/16 15:34 04/27/16 15:34 Laboratory Results 04/25/16 04:10 04/27/16 05:45 04/26/16 04/27/16 04/28/16 06:59 06:59 06:59 Intake Total 2710 1275 Output Total 800 Balance 2710 475 PT 20.6 SEC (12.0-15.0) H 04/24/16 13:45 INR 1.76 (0.83-1.16) H 04/24/16 13:45 ICD10 Worksheet Patient Problems: Problems Problem Status Diagnosed Palliative care encounter Acute Paroxysmal atrial fibrillation Acute Urinary tract infection Acute
[2016-04-27] MEDS: ALTEPLASE 2 MG VIAL IVP PRN ×2 (18:37→18:49)
[2016-04-27] MEDS: ASPIRIN EC 81 MG TAB PO SCH (20:13)
[2016-04-27 21:10] LABS: GLUCOSE 152 mg/dL (70-100)
[2016-04-28] MEDS: PIPERACILLIN/TAZO 2.25 GM/DEX 50 ML IV SCH ×3 (04:39→20:40)
[2016-04-28 05:03] LABS: APTT 41.7 SEC (23.0-38.0); INR 1.89 (0.83-1.16); PROTIME(PATIENT) 21.8 SEC (12.0-15.0)
[2016-04-28 05:05] LABS: % IMMATURE GRANULYOCYTES 1.2 % (0.0-1.1); ABSOLUTE IMMATURE GRANULOCYTES 0.13 10^3/uL (0.00-0.10); ADD DIFF? NO; ADD MORPH? NO; ADD SCAN? NO; ATYPICAL LYMPHOCYTE FLAG 70 (0-99); FRAGMENT RBC FLAG 20 (0-99); HEMATOCRIT 30.6 % (38.0-47.0); HEMOGLOBIN 9.4 g/dL (12.6-16.3); LEFT SHIFT FLG 20 (0-99); LIPEMIA HEMOLYSIS FLAG 80 (0-99); MEAN CELL HEMOGLOBIN 29.3 pg (27.9-34.1); MEAN CELL HEMOGLOBIN CONCENTR. 30.7 g/dL (32.4-36.7); MEAN CELL VOLUME 95.3 fL (81.5-99.8); MEAN PLATELET VOLUME 12.2 fL (8.7-11.7); PLATELET CLUMPS FLAG 10 (0-99); PLATELET COUNT 233 10^3/uL (150-400); RED BLOOD CELL COUNT 3.21 10^6/uL (4.18-5.33); RED CELL DISTRIBUTION WIDTH 16.9 % (11.5-15.2)
[2016-04-28 05:21] LABS: ALBUMIN 1.7 g/dL (3.5-5.0); ANION GAP 7 mEq/L (8-16); CALCIUM 7.1 mg/dL (8.5-10.4); CARBON DIOXIDE 23 mEq/l (22-31); CHLORIDE 111 mEq/L (97-110); CREATININE 4.1 mg/dL (0.6-1.0); GLOMERULAR FILTRATION RATE 11; GLUCOSE 69 mg/dL (70-100); POTASSIUM 4.4 mEq/L (3.5-5.2); SODIUM 141 mEq/L (134-144)
[2016-04-28] MEDS ORDERED: HEPARIN/DEXTROSE 500 ML IV SCH ×2 (09:00)
[2016-04-28] MEDS ORDERED: HEPARIN 10,000 UNIT/10 ML MDV IVP PRN ×2 (09:00)
--- NOTE | 2016-04-28 09:41 | SOAPPROG ---
SOAP Progress Note Assessment/Plan: Assessment: 70 DIABETIC FEMALE WITH MULTIPLE LEFT LEG ULCERATIONS AND NONHEALING WOUNDS EXACERBATED BY PVD CTA SHOWS ONLY ANT TIB RUNOFF BELOW OCCLUDED POP RISKS AND OPTIONS FULLY DISCUSSED Plan: EVAL FOR FEM-TIB BYPASS FOR LIMB SALVAGE 04/18/16 20:15 04/24/16 08:30 pt seems to want bypass if feasible/ afebrile/ plan catheter angio today 04/25/16 18:30 still awaiting angio disc but likely needs fem-tib bypass/ ? when to schedule 04/28/16 09:41 afebrile/ wound vac in place/ await medical stabilization for fem distal bypass Objective: Vital Signs Temp Pulse Resp BP Pulse Ox 36.9 C 67 15 135/65 H 95 04/28/16 07:43 04/28/16 07:43 04/28/16 07:43 04/28/16 07:43 04/28/16 07:43 Laboratory Results 04/28/16 04:30 04/28/16 04:30 04/27/16 04/28/16 04/29/16 05:59 05:59 05:59 Intake Total 1275 1670 Output Total 800 800 Balance 475 870 PT 21.8 SEC (12.0-15.0) H 04/28/16 04:30 INR 1.89 (0.83-1.16) H 04/28/16 04:30 ICD10 Worksheet Patient Problems: Problems Problem Status Diagnosed Palliative care encounter Acute Paroxysmal atrial fibrillation Acute Urinary tract infection Acute
[2016-04-28] MEDS: INSULIN LISPRO 100 UNIT/ML SC SCH ×3 (10:38→17:07)
[2016-04-28] MEDS: SENNOSIDES/DOCUSATE SODIUM TAB PO SCH ×2 (10:38→21:43)
[2016-04-28] MEDS: METOPROLOL TARTRATE 25 MG TAB PO SCH ×2 (10:59→21:32)
[2016-04-28] MEDS: AMIODARONE HCL 200 MG TAB PO SCH (10:59)
--- NOTE | 2016-04-28 11:53 | HOSPPROG ---
Hospitalist Progress Note Assessment/Plan: This patient with longstanding multiple diabetic complications comes into the hospital with significant purulent necrotic infected wounds in her left ankle and foot. She has significant peripheral vascular disease in that limb. We have organisms identified in cultures, antibiotics and place, status post debridements and ongoing wound VAC care. She has suffered a complication of acute renal failure possibly ATN related to hypotension probably caused by rapid atrial fibrillation. She is now stabilized hemodynamically and converted to sinus rhythm on amiodarone, but her creatinine remains elevated. There is consideration for attempts at revascularization surgically if/when her renal function improves. CONSULTANTS: Dr. Salty Lamar and Ashleigh Dahl Nephrology service Infectious disease service DIAGNOSIS: # ACUTE WOUND INFECTIONS IN THE LEG WITH NECROSIS AND PURULENCE, -status post debridements, wound VAC in place -Morganella morganii in wound cultures # PERIPHERAL VASCULAR DISEASE WITH SEVERE COMPROMISE IN ARTERIAL SUPPLY TO THE LEG -the hope is to perform revascularization here to improve her chances of healing her wounds and prevent recurrence with potential limb loss # ACUTE RENAL FAILURE ? ATN -creatinine fluctuating somewhat, higher today than yesterday but less than 2 days ago * waiting for improvement * nephrology is following # HYPOTENSION, DUE TO RAPID AFIB -this is resolved now w conversion to NSR # A FIB, RAPID VENTRICULAR RESPONSE -now converted to NSR on amiodarone * on heparin drip # TYPE 2 DIABETES MELLITUS, - a.m. blood sugar still pretty low * will decrease Lantus to 5 units daily # HYPOKALEMIA, LIKELY DUE TO HER DIURETIC -improved with replacement PLANS: Subjective: no new complaints Objective: Vital Signs Temp Pulse Resp BP Pulse Ox 36.9 C 67 15 135/65 H 95 04/28/16 07:43 04/28/16 07:43 04/28/16 07:43 04/28/16 07:43 04/28/16 07:43 Laboratory Results 04/28/16 04:30 04/28/16 04:30 04/27/16 04/28/16 04/29/16 05:59 05:59 05:59 Intake Total 1275 1670 286 Output Total 800 800 Balance 475 870 286 PT 21.8 SEC (12.0-15.0) H 04/28/16 04:30 INR 1.89 (0.83-1.16) H 04/28/16 04:30 - Physical Exam Constitutional: no apparent distress, appears nourished, not in pain Eyes: anicteric sclera, EOMI Ears, Nose, Mouth, Throat: moist mucous membranes, hearing normal Cardiovascular: regular rate and rhythym, systolic murmur, edema ( left leg) Respiratory: no respiratory distress, no rales or rhonchi Gastrointestinal: normoactive bowel sounds, soft, non-tender abdomen, no palpable masses Skin: warm Musculoskeletal: other ( left leg wound VAC in place with some edema) Neurologic: AAOx3 Psychiatric: interacting appropriately, not anxious, not encephalopathic, thought process linear ICD10 Worksheet Patient Problems: Problems Problem Status Diagnosed Palliative care encounter Acute Paroxysmal atrial fibrillation Acute Urinary tract infection Acute
[2016-04-28 13:40] LABS: INR 1.69 (0.83-1.16); PROTIME(PATIENT) 19.9 SEC (12.0-15.0)
[2016-04-28 13:49] LABS: APTT 38.4 SEC (23.0-38.0)
--- NOTE | 2016-04-28 14:22 | SOAPPROG ---
SOAP Progress Note Assessment/Plan: Assessment: 1. DAVID. Creat still rising. Off IVF. -Likely ischemic ATN. Possibly related to resolved AF vs concurrent infection which is improving -UOP ok. -Lytes OK -No acute need for dialysis yet -Resp status ok today. -Assess need for dialysis daily. Hopefully will avoid this. 2. AF/RVR. Rate controlled on amiodarone, metoprolol. BP better after decrease of metoprolol. 3. PVD. LLE nonhealing wound. For angio and feb-tib bypass when creat better. Continue wound vac, abx. 4. Hypophosphatemia. d/w pharmacy, will order 30mmol Na Phos. Also ok to continue skim milk tid. Repeat in am. Plan: 04/28/16 14:17 04/28/16 14:24 Subjective: Feels well. Has good appetite. No N/V or other c/o. Objective: Vital Signs Temp Pulse Resp BP Pulse Ox 36.8 C 69 24 H 91/55 L 98 04/28/16 11:40 04/28/16 11:40 04/28/16 11:40 04/28/16 11:40 04/28/16 11:40 Laboratory Results 04/28/16 04:30 04/28/16 04:30 04/27/16 04/28/16 04/29/16 05:59 05:59 05:59 Intake Total 1275 1670 286 Output Total 800 800 Balance 475 870 286 PT 21.8 SEC (12.0-15.0) H 04/28/16 04:30 INR 1.89 (0.83-1.16) H 04/28/16 04:30 Physical Exam - Physical Exam General Appearance: WD/WN Respiratory: lungs clear, normal breath sounds Cardiac/Chest: regular rate, rhythm Abdomen: non-tender, soft Skin: other (no edema, LLE wound) ICD10 Worksheet Patient Problems: Problems Problem Status Diagnosed Palliative care encounter Acute Paroxysmal atrial fibrillation Acute Urinary tract infection Acute
--- NOTE | 2016-04-28 14:27 | PCMIDPN ---
Assessment/Plan: Assessment/Plan: 1. Necrotic infected LLE wound infection: - CX with Morganella, but likely polymicrobial -Wound vac on at present. -Vascular studies in progress -Currenlty on Dapto + zosyn renally dosed. cpk on 04/21 stable. -s/p debridement on 04/22 -awaiting revascularization-on hold given other medical issues ongoing. 2. E. coli UTI: - s/p treatment. meds dapto 600m q48- 04/21 zosyn 2.25gm q8- 04/17 Subjective: Intermittent low grade temps. Pt breathing easy. O2 via nc at 2L. Denies feeling short of breathing, cough or sputum production. Denies abd pain. has loose stools. Legs sensitive to touch. Objective: Vital Signs Temp Pulse Resp BP Pulse Ox 36.8 C 69 24 H 91/55 L 98 04/28/16 11:40 04/28/16 11:40 04/28/16 11:40 04/28/16 11:40 04/28/16 11:40 Laboratory Results 04/28/16 04:30 04/28/16 04:30 04/27/16 04/28/16 04/29/16 05:59 05:59 05:59 Intake Total 1275 1670 286 Output Total 800 800 Balance 475 870 286 C-Reactive Protein 168.4 mg/L (<10.0) H 04/17/16 05:06 - Physical Exam General Appearance: alert, no apparent distress Respiratory: lungs clear Cardiac/Chest: regular rate, rhythm Extremities: swelling Abdomen: normal bowel sounds, non-tender, soft, No distended Skin: other (LLE: wound vacs noted. no periwound cellulitis as such.) ICD10 Worksheet Patient Problems: Problems Problem Status Diagnosed Palliative care encounter Acute Paroxysmal atrial fibrillation Acute Urinary tract infection Acute
[2016-04-28] MEDS ORDERED: D5W IV ONE (14:30)
[2016-04-28] MEDS ORDERED: SODIUM PHOS IV ONE (14:30)
[2016-04-28 20:26] LABS: APTT 36.5 SEC (23.0-38.0)
[2016-04-28] MEDS: INSULIN GLARGINE 100 UNITS/ML SYRINGE SC SCH (21:24)
[2016-04-28] MEDS: ASPIRIN EC 81 MG TAB PO SCH (21:32)
[2016-04-29] MEDS: PIPERACILLIN/TAZO 2.25 GM/DEX 50 ML IV SCH ×3 (04:15→19:46)
[2016-04-29 05:44] LABS: % IMMATURE GRANULYOCYTES 1.2 % (0.0-1.1); ABSOLUTE IMMATURE GRANULOCYTES 0.12 10^3/uL (0.00-0.10); ADD DIFF? NO; ADD MORPH? NO; ADD SCAN? NO; ATYPICAL LYMPHOCYTE FLAG 60 (0-99); FRAGMENT RBC FLAG 20 (0-99); HEMATOCRIT 29.1 % (38.0-47.0); HEMOGLOBIN 9.2 g/dL (12.6-16.3); LEFT SHIFT FLG 10 (0-99); LIPEMIA HEMOLYSIS FLAG 80 (0-99); MEAN CELL HEMOGLOBIN 29.5 pg (27.9-34.1); MEAN CELL HEMOGLOBIN CONCENTR. 31.6 g/dL (32.4-36.7); MEAN CELL VOLUME 93.3 fL (81.5-99.8); MEAN PLATELET VOLUME 11.5 fL (8.7-11.7); PLATELET CLUMPS FLAG 20 (0-99); PLATELET COUNT 239 10^3/uL (150-400); RED BLOOD CELL COUNT 3.12 10^6/uL (4.18-5.33); RED CELL DISTRIBUTION WIDTH 17.3 % (11.5-15.2)
[2016-04-29 06:44] LABS: ALBUMIN 1.7 g/dL (3.5-5.0); ANION GAP 8 mEq/L (8-16); CALCIUM 7.1 mg/dL (8.5-10.4); CARBON DIOXIDE 22 mEq/l (22-31); CHLORIDE 112 mEq/L (97-110); CREATININE 4.5 mg/dL (0.6-1.0); GLOMERULAR FILTRATION RATE 10; GLUCOSE 140 mg/dL (70-100); POTASSIUM 4.6 mEq/L (3.5-5.2); SODIUM 142 mEq/L (134-144)
[2016-04-29] MEDS: INSULIN LISPRO 100 UNIT/ML SC SCH ×3 (08:24→18:13)
[2016-04-29] MEDS: AMIODARONE HCL 200 MG TAB PO SCH (09:05)
[2016-04-29] MEDS: METOPROLOL TARTRATE 25 MG TAB PO SCH ×2 (09:05→19:46)
[2016-04-29] MEDS: DAPTOmycin 600 MG in NS 100 ML IV SCH (10:15)
[2016-04-29] MEDS: SENNOSIDES/DOCUSATE SODIUM TAB PO SCH ×2 (10:16→19:57)
--- NOTE | 2016-04-29 13:57 | HOSPPROG ---
Hospitalist Progress Note Assessment/Plan: This patient with longstanding multiple diabetic complications comes into the hospital with significant purulent necrotic infected wounds in her left ankle and foot. She has significant peripheral vascular disease in that limb. We have organisms identified in cultures, antibiotics and place, status post debridements and ongoing wound VAC care. She has suffered a complication of acute renal failure possibly ATN related to hypotension probably caused by rapid atrial fibrillation. She is now stabilized hemodynamically and converted to sinus rhythm on amiodarone, but her creatinine remains elevated. There is consideration for attempts at revascularization surgically if/when her renal function improves. CONSULTANTS: Dr. Salty Lamar and Ashleigh Dahl Nephrology service Infectious disease service DIAGNOSIS: # ACUTE WOUND INFECTIONS IN THE LEG WITH NECROSIS AND PURULENCE, -status post debridements, wound VAC in place -Morganella morganii in wound cultures # PERIPHERAL VASCULAR DISEASE WITH SEVERE COMPROMISE IN ARTERIAL SUPPLY TO THE LEG -the hope is to perform revascularization here to improve her chances of healing her wounds and prevent recurrence with potential limb loss # ACUTE RENAL FAILURE ? ATN * slightly worse creatinine * waiting for improvement * nephrology is following # HYPOTENSION, DUE TO RAPID AFIB -this is resolved now w conversion to NSR # A FIB, RAPID VENTRICULAR RESPONSE -now converted to NSR on amiodarone * on heparin drip * not sure why anti factor 10 a still so elevated - restart heparin when it decreases # TYPE 2 DIABETES MELLITUS, * will decrease Lantus to 5 units daily - a.m. blood sugar little bit higher today # HYPOKALEMIA, LIKELY DUE TO HER DIURETIC -improved with replacement PLANS: Subjective: no events or complaints Objective: Vital Signs Temp Pulse Resp BP Pulse Ox 36.7 C 71 17 133/60 H 100 04/29/16 11:41 04/29/16 11:41 04/29/16 11:41 04/29/16 11:41 04/29/16 11:41 Laboratory Results 04/29/16 05:30 04/29/16 05:30 04/28/16 04/29/16 04/30/16 05:59 05:59 05:59 Intake Total 1670 747 Output Total 800 750 Balance 870 -3 PT 19.9 SEC (12.0-15.0) H 04/28/16 12:55 INR 1.69 (0.83-1.16) H 04/28/16 12:55 - Physical Exam Constitutional: no apparent distress, appears nourished, not in pain Eyes: anicteric sclera, EOMI Ears, Nose, Mouth, Throat: moist mucous membranes, hearing normal Cardiovascular: regular rate and rhythym Respiratory: no respiratory distress, no rales or rhonchi, reduced air movement Gastrointestinal: normoactive bowel sounds, soft, non-tender abdomen, no palpable masses Skin: warm Musculoskeletal: other ( left leg with wound VAC) Neurologic: AAOx3 Psychiatric: interacting appropriately, not anxious, not encephalopathic, thought process linear ICD10 Worksheet Patient Problems: Problems Problem Status Diagnosed Palliative care encounter Acute Paroxysmal atrial fibrillation Acute Urinary tract infection Acute
[2016-04-29 14:18] LABS: APTT 35.7 SEC (23.0-38.0)
--- NOTE | 2016-04-29 17:04 | SOAPPROG ---
SOAP Progress Note Assessment/Plan: Assessment: 1. DAVID. Creat still rising. Off IVF. -Likely ischemic ATN. Possibly related to resolved AF vs concurrent infection which is improving -UOP ok. -Lytes OK -No acute need for dialysis yet -Resp status ok today. -Assess need for dialysis daily. Hopefully will avoid this. 2. AF/RVR. Rate controlled on amiodarone, metoprolol. BP better after decrease of metoprolol. 3. PVD. LLE nonhealing wound. For angio and feb-tib bypass when creat better. Continue wound vac, abx. 4. Hypophosphatemia - Improved s/p replacement with IV NaPhos. Also ok to continue skim milk tid. Repeat in am. Plan: 04/29/16 17:01 04/29/16 17:03 Subjective: Leg pain better today. Objective: Vital Signs Temp Pulse Resp BP Pulse Ox 36.7 C 71 16 139/61 H 99 04/29/16 16:20 04/29/16 16:20 04/29/16 16:20 04/29/16 16:20 04/29/16 16:20 Laboratory Results 04/29/16 05:30 04/29/16 05:30 04/28/16 04/29/16 04/30/16 05:59 05:59 05:59 Intake Total 1670 747 Output Total 800 750 Balance 870 -3 PT 19.9 SEC (12.0-15.0) H 04/28/16 12:55 INR 1.69 (0.83-1.16) H 04/28/16 12:55 Physical Exam - Physical Exam General Appearance: WD/WN, alert, no apparent distress Respiratory: lungs clear Cardiac/Chest: regular rate, rhythm Abdomen: non-tender, soft Extremities: swelling (trace b/l LE), other (wound vac in place LLE) ICD10 Worksheet Patient Problems: Problems Problem Status Diagnosed Palliative care encounter Acute Paroxysmal atrial fibrillation Acute Urinary tract infection Acute
[2016-04-29] MEDS: ASPIRIN EC 81 MG TAB PO SCH (19:46)
[2016-04-29] MEDS: INSULIN GLARGINE 100 UNITS/ML SYRINGE SC SCH (21:21)
[2016-04-30] MEDS: PIPERACILLIN/TAZO 2.25 GM/DEX 50 ML IV SCH ×3 (04:30→21:06)
[2016-04-30 04:56] LABS: % IMMATURE GRANULYOCYTES 1.2 % (0.0-1.1); ABSOLUTE IMMATURE GRANULOCYTES 0.12 10^3/uL (0.00-0.10); ADD DIFF? NO; ADD MORPH? NO; ADD SCAN? NO; ATYPICAL LYMPHOCYTE FLAG 60 (0-99); FRAGMENT RBC FLAG 20 (0-99); HEMATOCRIT 26.8 % (38.0-47.0); HEMOGLOBIN 8.5 g/dL (12.6-16.3); LEFT SHIFT FLG 0 (0-99); LIPEMIA HEMOLYSIS FLAG 80 (0-99); MEAN CELL HEMOGLOBIN 29.7 pg (27.9-34.1); MEAN CELL HEMOGLOBIN CONCENTR. 31.7 g/dL (32.4-36.7); MEAN CELL VOLUME 93.7 fL (81.5-99.8); MEAN PLATELET VOLUME 11.3 fL (8.7-11.7); PLATELET CLUMPS FLAG 0 (0-99); PLATELET COUNT 251 10^3/uL (150-400); RED BLOOD CELL COUNT 2.86 10^6/uL (4.18-5.33); RED CELL DISTRIBUTION WIDTH 17.2 % (11.5-15.2)
[2016-04-30 05:14] LABS: ALBUMIN 1.7 g/dL (3.5-5.0); ANION GAP 8 mEq/L (8-16); CALCIUM 7.1 mg/dL (8.5-10.4); CARBON DIOXIDE 23 mEq/l (22-31); CHLORIDE 111 mEq/L (97-110); CREATININE 4.5 mg/dL (0.6-1.0); GLOMERULAR FILTRATION RATE 10; GLUCOSE 104 mg/dL (70-100); POTASSIUM 4.9 mEq/L (3.5-5.2); SODIUM 142 mEq/L (134-144)
[2016-04-30] MEDS: METOPROLOL TARTRATE 25 MG TAB PO SCH ×3 (09:27→21:14)
[2016-04-30] MEDS: AMIODARONE HCL 200 MG TAB PO SCH (09:27)
[2016-04-30] MEDS: SENNOSIDES/DOCUSATE SODIUM TAB PO SCH ×2 (09:28→21:07)
[2016-04-30] MEDS: INSULIN LISPRO 100 UNIT/ML SC SCH ×3 (09:37→17:16)
--- NOTE | 2016-04-30 11:46 | SOAPPROG ---
SOAP Progress Note Assessment/Plan: Assessment: 1. DAVID - -Non-oliguric -Creat now has reached plateau. Off IVF and good PO intake -Likely ischemic ATN. Possibly related to resolved AF vs concurrent infection which is improving -Lytes OK -No acute need for dialysis -Resp status ok. -Hopefully she will maintain stable renal function and begin to improve; still vulnerable for worsening again if infection/vasculopathy worsen 2. AF/RVR. Rate controlled on amiodarone, metoprolol. BP better after decrease of metoprolol. 3. PVD. LLE nonhealing wound. For angio and feb-tib bypass when creat better. Continue wound vac, abx. 4. Hypophosphatemia - Improved s/p replacement with IV NaPhos. Encourage improved PO intake Plan: 04/30/16 11:45 04/30/16 11:46 Subjective: No changes overnight or new complaints today. Objective: Vital Signs Temp Pulse Resp BP Pulse Ox 36.4 C 69 18 133/59 H 93 04/30/16 11:26 04/30/16 11:26 04/30/16 11:26 04/30/16 11:26 04/30/16 11:26 Laboratory Results 04/30/16 04:25 04/30/16 04:25 04/29/16 04/30/16 05/01/16 05:59 05:59 05:59 Intake Total 747 1100 236 Output Total 750 725 Balance -3 375 236 PT 19.9 SEC (12.0-15.0) H 04/28/16 12:55 INR 1.69 (0.83-1.16) H 04/28/16 12:55 Physical Exam - Physical Exam General Appearance: WD/WN, alert, no apparent distress Respiratory: normal breath sounds Cardiac/Chest: regular rate, rhythm Abdomen: non-tender, soft Extremities: swelling (trace, LLE wound vac in place) ICD10 Worksheet Patient Problems: Problems Problem Status Diagnosed Palliative care encounter Acute Paroxysmal atrial fibrillation Acute Urinary tract infection Acute
--- NOTE | 2016-04-30 13:50 | WOCRNPDOC ---
WOEVEL[facility] Advanced Assessment Note - Skin Integrity Problem, Advanced Assess Left Sacrum Pressure Injury Dressing Type: Hydrocolloid Dressing Description: Soiled (fecal matter around dressing) Exudate Amount: Scant Exudate Color: Reddish/Yellow Exudate Characteristic(s): Serosanguinous Integumentary Issue Intervention: Dressing Changed Noemí Wound Tissue: Blanching, Erythema, Scarred Noemí Wound Swelling: Mild Wound Bed Color: Black, [place], Red, Yellow Wound Bed Constitution: Granulation Tissue (5%), Smooth Tissue (25%), Mixed Loose & Adhered Slough/Eschar (70%) Wound Edges: Irregular Site Odor: None Site Measurement - Head-to-Toe Length X Width X Depth (cm): 5.5cmx4.1cmx slough Pressure Injury Stage: Unstageable Pressure Injury Present on Admit: Yes Skin Integrity Problem Comment: Wound remains slough/eschar-filled, w/ smooth and granulation tissue noted along the margins. While necrotic tissue is responding to the honey gel, it remains adhered in places, and patient is unable to tolerate any attempts to mechanically debride. Noemí-wound skin is blanching and intact, w/ copious scar tissue present indicative of prior injury. Right Sacrum Pressure Injury Dressing Type: Hydrocolloid Dressing Description: Soiled Exudate Amount: Scant Exudate Color: Reddish/Yellow Exudate Characteristic(s): Serosanguinous Integumentary Issue Intervention: Dressing Changed, Hydrogel Applied Noemí Wound Tissue: Blanching, Erythema, Scarred Noemí Wound Swelling: Mild Wound Bed Color: Red Wound Bed Constitution: Smooth Tissue Site Odor: None Site Measurement - Head-to-Toe Length X Width X Depth (cm): 1cmx0.4cmx0.1cm Skin Integrity Problem Comment: No slough noted in wound bed this assessment. Wound is 100% smooth tissue. Noemí-wound skin remains blanching and intact.DC'd order for hydrocolloid and honey, and applied hydrogel and an Allevyn instead. construction equipment technician Camila present and assisting.
--- NOTE | 2016-04-30 15:56 | HOSPPROG ---
Hospitalist Progress Note Assessment/Plan: This patient with longstanding multiple diabetic complications comes into the hospital with significant purulent necrotic infected wounds in her left ankle and foot. She has significant peripheral vascular disease in that limb. We have organisms identified in cultures, antibiotics and place, status post debridements and ongoing wound VAC care. She has suffered a complication of acute renal failure possibly ATN related to hypotension probably caused by rapid atrial fibrillation. She is now stabilized hemodynamically and converted to sinus rhythm on amiodarone, but her creatinine remains elevated. There is consideration for attempts at revascularization surgically if/when her renal function improves. CONSULTANTS: Dr. Salty Lamar and Ashleigh Dahl Nephrology service Infectious disease service DIAGNOSIS: # ACUTE WOUND INFECTIONS IN THE LEG WITH NECROSIS AND PURULENCE, -status post debridements, wound VAC in place -Morganella morganii in wound cultures # PERIPHERAL VASCULAR DISEASE WITH SEVERE COMPROMISE IN ARTERIAL SUPPLY TO THE LEG -the hope is to perform revascularization here to improve her chances of healing her wounds and prevent recurrence with potential limb loss # ACUTE RENAL FAILURE ? ATN * slightly worse creatinine * waiting for improvement * nephrology is following # HYPOTENSION, DUE TO RAPID AFIB -this is resolved now w conversion to NSR # A FIB, RAPID VENTRICULAR RESPONSE -now converted to NSR on amiodarone * on heparin drip * not sure why anti factor 10 a still so elevated - restart heparin when it decreases # TYPE 2 DIABETES MELLITUS, * will decrease Lantus to 5 units daily - a.m. blood sugar little bit higher today # HYPOKALEMIA, LIKELY DUE TO HER DIURETIC -improved with replacement Subjective: no new complaints Objective: Vital Signs Temp Pulse Resp BP Pulse Ox 36.4 C 69 18 133/59 H 93 04/30/16 11:26 04/30/16 11:26 04/30/16 11:26 04/30/16 11:26 04/30/16 11:26 Laboratory Results 04/30/16 04:25 04/30/16 04:25 04/29/16 04/30/16 05/01/16 05:59 05:59 05:59 Intake Total 747 1100 236 Output Total 750 725 Balance -3 375 236 PT 19.9 SEC (12.0-15.0) H 04/28/16 12:55 INR 1.69 (0.83-1.16) H 12/24/16 12:55 - Physical Exam Constitutional: no apparent distress, appears nourished, not in pain Eyes: anicteric sclera, EOMI Ears, Nose, Mouth, Throat: moist mucous membranes Cardiovascular: regular rate and rhythym Respiratory: no respiratory distress Skin: warm Neurologic: AAOx3 Psychiatric: interacting appropriately, not anxious, not encephalopathic, thought process linear ICD10 Worksheet Patient Problems: Problems Problem Status Diagnosed Palliative care encounter Acute Paroxysmal atrial fibrillation Acute Urinary tract infection Acute
--- NOTE | 2016-04-30 16:04 | PCMIDPN ---
Assessment/Plan: Assessment/Plan: 1. Necrotic infected LLE wound infection: - CX with Morganella, but likely polymicrobial -Wound vac on at present. -Vascular studies in progress -Currenlty on Dapto + zosyn renally dosed. cpk on 04/21 stable. Will recheck cpk /lft in am. -s/p debridement on 04/22 -awaiting revascularization-on hold given other medical issues ongoing. 2. E. coli UTI: - s/p treatment. meds dapto 600m q48- 04/21=----#10 zosyn 2.25gm q8- 04/17----#14 Subjective: AFebrile. Feeling better today overall. denies sob, cough. O2 theo nc. denies abd pain or diarrhea. less pain involving the LE wounds today. Objective: Vital Signs Temp Pulse Resp BP Pulse Ox 36.4 C 69 18 133/59 H 93 04/30/16 11:26 04/30/16 11:26 04/30/16 11:26 04/30/16 11:26 04/30/16 11:26 Laboratory Results 04/30/16 04:25 04/30/16 04:25 04/29/16 04/30/16 05/01/16 05:59 05:59 05:59 Intake Total 747 1100 236 Output Total 750 725 Balance -3 375 236 C-Reactive Protein 168.4 mg/L (<10.0) H 04/17/16 05:06 - Physical Exam General Appearance: alert, no apparent distress Respiratory: lungs clear Cardiac/Chest: regular rate, rhythm, systolic murmur Abdomen: normal bowel sounds, non-tender, soft, No distended Skin: other (wound vac LLE) ICD10 Worksheet Patient Problems: Problems Problem Status Diagnosed Palliative care encounter Acute Paroxysmal atrial fibrillation Acute Urinary tract infection Acute
[2016-04-30] MEDS: ASPIRIN EC 81 MG TAB PO SCH (21:06)
[2016-04-30] MEDS: INSULIN GLARGINE 100 UNITS/ML SYRINGE SC SCH (21:06)
[2016-05-01] MEDS: PIPERACILLIN/TAZO 2.25 GM/DEX 50 ML IV SCH ×3 (05:00→20:27)
[2016-05-01 05:32] LABS: % IMMATURE GRANULYOCYTES 1.1 % (0.0-1.1); ABSOLUTE IMMATURE GRANULOCYTES 0.12 10^3/uL (0.00-0.10); ADD DIFF? NO; ADD MORPH? NO; ADD SCAN? NO; ATYPICAL LYMPHOCYTE FLAG 50 (0-99); FRAGMENT RBC FLAG 10 (0-99); HEMATOCRIT 27.1 % (38.0-47.0); HEMOGLOBIN 8.6 g/dL (12.6-16.3); LEFT SHIFT FLG 10 (0-99); LIPEMIA HEMOLYSIS FLAG 80 (0-99); MEAN CELL HEMOGLOBIN CONCENTR. 31.7 g/dL (32.4-36.7); MEAN CELL VOLUME 94.4 fL (81.5-99.8); MEAN PLATELET VOLUME 11.3 fL (8.7-11.7); PLATELET CLUMPS FLAG 10 (0-99); PLATELET COUNT 261 10^3/uL (150-400); RED BLOOD CELL COUNT 2.87 10^6/uL (4.18-5.33); RED CELL DISTRIBUTION WIDTH 17.3 % (11.5-15.2)
[2016-05-01 05:52] LABS: ALANINE AMINOTRANSFERASE 36 IU/L (9-52); ALBUMIN 1.8 g/dL (3.5-5.0); ALKALINE PHOSPHATASE 132 IU/L (38-126); ANION GAP 9 mEq/L (8-16); ASPARTATE AMINOTRANSFERASE 28 IU/L (14-46); BILIRUBIN,TOTAL 0.3 mg/dL (0.1-1.4); CALCIUM 7.4 mg/dL (8.5-10.4); CARBON DIOXIDE 21 mEq/l (22-31); CHLORIDE 112 mEq/L (97-110); CREATININE 4.6 mg/dL (0.6-1.0); GLOMERULAR FILTRATION RATE 9; GLUCOSE 109 mg/dL (70-100); POTASSIUM 4.9 mEq/L (3.5-5.2); SODIUM 142 mEq/L (134-144); TOTAL PROTEIN 5.3 g/dL (6.3-8.2)
[2016-05-01] MEDS: INSULIN LISPRO 100 UNIT/ML SC SCH ×3 (09:04→19:46)
[2016-05-01] MEDS: DAPTOmycin 600 MG in NS 100 ML IV SCH (09:12)
[2016-05-01] MEDS: METOPROLOL TARTRATE 25 MG TAB PO SCH ×2 (09:13→20:28)
[2016-05-01] MEDS: AMIODARONE HCL 200 MG TAB PO SCH (09:13)
[2016-05-01] MEDS: SENNOSIDES/DOCUSATE SODIUM TAB PO SCH ×2 (09:15→21:13)
--- NOTE | 2016-05-01 09:38 | SOAPPROG ---
SOAP Progress Note Assessment/Plan: Assessment: s/p excisional debridement LLE wounds 04/[address] Dahl Wound vac to suction, intact. Vac change tomorrow No surrounding erythema. Plan OR with Dr. Lamar for fem-ant tib bypass when medically stable Objective: Vital Signs Temp Pulse Resp BP Pulse Ox 36.9 C 119 H 16 115/74 99 05/01/16 08:11 05/01/16 08:11 05/01/16 08:11 05/01/16 08:11 05/01/16 08:11 Laboratory Results 05/01/16 05:00 05/01/16 05:00 04/30/16 05/01/16 05/02/16 05:59 05:59 05:59 Intake Total 1100 972 Output Total 725 850 Balance 375 122 PT 19.9 SEC (12.0-15.0) H 04/28/16 12:55 INR 1.69 (0.83-1.16) H 04/28/16 12:55 ICD10 Worksheet Patient Problems: Problems Problem Status Diagnosed Palliative care encounter Acute Paroxysmal atrial fibrillation Acute Urinary tract infection Acute
--- NOTE | 2016-05-01 11:19 | SOAPPROG ---
SOAP Progress Note Assessment/Plan: Assessment:Plan: ARF-baseline creatinine around 1 to 1.1 -plateaued -stable at 4.6 today with good urine output -expect that this will decline in next 24 hours -electrolyte and volume status okay -BP okay -continue supportive care 05/01/16 11:18 Subjective: no complaints Objective: Vital Signs Temp Pulse Resp BP Pulse Ox 36.9 C 119 H 16 115/74 99 05/01/16 08:11 05/01/16 08:11 05/01/16 08:11 05/01/16 08:11 05/01/16 08:11 Laboratory Results 05/01/16 05:00 05/01/16 05:00 04/30/16 05/01/16 05/02/16 05:59 05:59 05:59 Intake Total 1100 972 Output Total 725 850 Balance 375 122 PT 19.9 SEC (12.0-15.0) H 04/28/16 12:55 INR 1.69 (0.83-1.16) H 04/28/16 12:55 Physical Exam - Physical Exam General Appearance: alert, no apparent distress, obese EENT: normal ENT inspection Neck: normal inspection Respiratory: lungs clear, normal breath sounds, decreased breath sounds (at bases), No respiratory distress Cardiac/Chest: irregularly irregular Abdomen: normal bowel sounds Extremities: other (unchanged) ICD10 Worksheet Patient Problems: Problems Problem Status Diagnosed Palliative care encounter Acute Paroxysmal atrial fibrillation Acute Urinary tract infection Acute
[2016-05-01] MEDS: PNEUMOC 13-VAL CONJ-DIP CRM/PF 0.5 ML SYR IM ONE ×2 (13:23→19:48)
[2016-05-01] MEDS: FLU VACC TS 2016-17(65YR+)/PF 0.5 ML SYR (FLUZONE HIGH DOSE) IM ONE ×2 (13:26→19:47)
[2016-05-01] MEDS: INSULIN GLARGINE 100 UNITS/ML SYRINGE SC SCH (20:27)
[2016-05-01] MEDS: ASPIRIN EC 81 MG TAB PO SCH (20:28)
--- NOTE | 2016-05-01 20:42 | HOSPPROG ---
Hospitalist Progress Note Assessment/Plan: This patient with longstanding multiple diabetic complications comes into the hospital with significant purulent necrotic infected wounds in her left ankle and foot. She has significant peripheral vascular disease in that limb. We have organisms identified in cultures, antibiotics and place, status post debridements and ongoing wound VAC care. She has suffered a complication of acute renal failure possibly ATN related to hypotension probably caused by rapid atrial fibrillation. She is now stabilized hemodynamically and converted to sinus rhythm on amiodarone, but her creatinine remains elevated. There is consideration for attempts at revascularization surgically if/when her renal function improves. CONSULTANTS: Dr. Salty Lamar and Ashleigh Dahl Nephrology service Infectious disease service DIAGNOSIS: # ACUTE WOUND INFECTIONS IN THE LEG WITH NECROSIS AND PURULENCE, -status post debridements, wound VAC in place -Morganella morganii in wound cultures # PERIPHERAL VASCULAR DISEASE WITH SEVERE COMPROMISE IN ARTERIAL SUPPLY TO THE LEG -the hope is to perform revascularization here to improve her chances of healing her wounds and prevent recurrence with potential limb loss # ACUTE RENAL FAILURE ? ATN * slightly worse creatinine * waiting for improvement * nephrology is following # HYPOTENSION, DUE TO RAPID AFIB -this is resolved now w conversion to NSR # A FIB, RAPID VENTRICULAR RESPONSE -now converted to NSR on amiodarone * on heparin drip * not sure why anti factor 10 a still so elevated - restart heparin when it decreases # TYPE 2 DIABETES MELLITUS, * will decrease Lantus to 5 units daily - a.m. blood sugar little bit higher today # HYPOKALEMIA, LIKELY DUE TO HER DIURETIC -improved with replacement Subjective: no new complaints Objective: Vital Signs Temp Pulse Resp BP Pulse Ox 36.7 C 78 20 167/74 H 96 05/01/16 20:00 05/01/16 20:00 05/01/16 20:00 05/01/16 20:00 05/01/16 20:00 Laboratory Results 05/01/16 05:00 05/01/16 05:00 04/30/16 05/01/16 05/02/16 05:59 05:59 05:59 Intake Total 5324 055 6033 Output Total 725 850 550 Balance 375 122 510 PT 19.9 SEC (12.0-15.0) H 04/28/16 12:55 INR 1.69 (0.83-1.16) H 04/28/16 12:55 - Physical Exam Constitutional: no apparent distress, appears nourished, not in pain Eyes: anicteric sclera, EOMI Cardiovascular: regular rate and rhythym, no murmur, rub, or gallop Respiratory: no respiratory distress, no rales or rhonchi, clear to auscultation Neurologic: AAOx3 Psychiatric: interacting appropriately, not anxious, not encephalopathic, thought process linear ICD10 Worksheet Patient Problems: Problems Problem Status Diagnosed Palliative care encounter Acute Paroxysmal atrial fibrillation Acute Urinary tract infection Acute
[2016-05-02] MEDS: PIPERACILLIN/TAZO 2.25 GM/DEX 50 ML IV SCH ×3 (03:58→21:30)
[2016-05-02 04:15] LABS: % IMMATURE GRANULYOCYTES 1.1 % (0.0-1.1); ADD DIFF? NO; ADD MORPH? NO; ADD SCAN? NO; ATYPICAL LYMPHOCYTE FLAG 30 (0-99); FRAGMENT RBC FLAG 0 (0-99); HEMATOCRIT 25.8 % (38.0-47.0); LEFT SHIFT FLG 0 (0-99); LIPEMIA HEMOLYSIS FLAG 80 (0-99); MEAN CELL HEMOGLOBIN 29.4 pg (27.9-34.1); MEAN CELL VOLUME 94.9 fL (81.5-99.8); MEAN PLATELET VOLUME 11.4 fL (8.7-11.7); PLATELET CLUMPS FLAG 0 (0-99); PLATELET COUNT 250 10^3/uL (150-400); RED BLOOD CELL COUNT 2.72 10^6/uL (4.18-5.33); RED CELL DISTRIBUTION WIDTH 17.5 % (11.5-15.2)
[2016-05-02 04:58] LABS: ALBUMIN 1.7 g/dL (3.5-5.0); ANION GAP 8 mEq/L (8-16); CALCIUM 7.5 mg/dL (8.5-10.4); CARBON DIOXIDE 22 mEq/l (22-31); CHLORIDE 111 mEq/L (97-110); CREATININE 4.6 mg/dL (0.6-1.0); GLOMERULAR FILTRATION RATE 9; GLUCOSE 122 mg/dL (70-100); POTASSIUM 4.8 mEq/L (3.5-5.2); SODIUM 141 mEq/L (134-144)
[2016-05-02] MEDS: SENNOSIDES/DOCUSATE SODIUM TAB PO SCH ×2 (07:11→21:43)
[2016-05-02] MEDS: AMIODARONE HCL 200 MG TAB PO SCH (08:49)
[2016-05-02] MEDS: METOPROLOL TARTRATE 25 MG TAB PO SCH ×2 (08:49→21:20)
--- NOTE | 2016-05-02 09:11 | SOAPPROG ---
SOAP Progress Note Assessment/Plan: Assessment: s/p excisional debridement LLE wounds 04/[address] Dahl Wound vac change today at bedside with sedation. Consent signed in chart. NPO No surrounding erythema. Vac to suction Plan OR with Dr. Lamar for fem-ant tib bypass when medically stable Comorbidities managed by hospitalists Objective: Vital Signs Temp Pulse Resp BP Pulse Ox 36.3 C 67 18 150/89 H 95 05/02/16 07:26 05/02/16 07:26 05/02/16 07:26 05/02/16 07:26 05/02/16 07:26 Laboratory Results 05/02/16 04:00 05/02/16 04:00 05/01/16 05/02/16 05/03/16 05:59 05:59 05:59 Intake Total 972 1270 Output Total 850 810 Balance 122 460 PT 19.9 SEC (12.0-15.0) H 04/28/16 12:55 INR 1.69 (0.83-1.16) H 04/28/16 12:55 ICD10 Worksheet Patient Problems: Problems Problem Status Diagnosed Palliative care encounter Acute Paroxysmal atrial fibrillation Acute Urinary tract infection Acute
[2016-05-02] MEDS: INSULIN LISPRO 100 UNIT/ML SC SCH ×3 (09:31→19:29)
--- NOTE | 2016-05-02 11:47 | SOAPPROG ---
SOAP Progress Note Assessment/Plan: Assessment: 1. Nonoliguric DAVID Preceded by hemodynamic event, thought to be ischemic ATN, but can't absolutely rule out interstitial nephritis. Cr plateaued, non oliguric, lytes ok. No indications for dialysis. Reviewed with Kristen. 2. Plan of care At this point, would hope to provide supportive care and allow time for renal recovery prior to bypass surgery. However, this depends on stability of infection and ischemia to LLE. If revascularization becomes urgent, may need to consider interim dialysis. 3. HTN At goal 4. Anemia Hg has dropped. Will follow. Procrit initiated. Plan: 05/02/16 11:43 05/02/16 11:47 Objective: Vital Signs Temp Pulse Resp BP Pulse Ox 36.3 C 82 16 134/62 H 97 05/02/16 11:24 05/02/16 11:24 05/02/16 11:24 05/02/16 11:24 05/02/16 11:24 Laboratory Results 05/02/16 04:00 05/02/16 04:00 05/01/16 05/02/16 05/03/16 05:59 05:59 05:59 Intake Total 972 1270 Output Total 850 810 Balance 122 460 PT 19.9 SEC (12.0-15.0) H 04/28/16 12:55 INR 1.69 (0.83-1.16) H 04/28/16 12:55 Physical Exam - Physical Exam General Appearance: alert, no apparent distress Respiratory: decreased breath sounds Cardiac/Chest: regular rate, rhythm Extremities: pedal edema Neuro/Psych: alert, normal mood/affect ICD10 Worksheet Patient Problems: Problems Problem Status Diagnosed Palliative care encounter Acute Paroxysmal atrial fibrillation Acute Urinary tract infection Acute
[2016-05-02 12:24] LABS: LEUKOCYTE ESTERASE,URINE 3+ (NEGATIVE); NITRITE,URINE NEGATIVE (NEGATIVE)
[2016-05-02 12:34] LABS: BACTERIA 1+ /hpf (NONE SEEN); MUCUS TRACE /lpf (NONE-1+); RBC,URINE 15-25 /hpf (0-3); WBC,URINE 50-182 /hpf (0-3)
[2016-05-02 12:35] LABS: COLOR PALE YELLOW
[2016-05-02 14:58] LABS: YEAST PRESENT /hpf (NONE SEEN)
[2016-05-02 15:10] LABS: EOSMR EOSINOPHILS FEW EOS (NO EOS SEEN); EOSMR EPITHELIAL CELLS NO EPITH CELLS SEEN; EOSMR RBCS FEW RBCS
[2016-05-02 15:11] LABS: EOSMR PMNS MODERATE PMN CELLS
--- NOTE | 2016-05-02 16:18 | PCMIDPN ---
Assessment/Plan: Assessment: 1. Left lower extremity chronic ulcerations with signs of supparation. The daptomycin and Zosyn antibiotic regimen is most likely covering what ever secondary bacterial process is ongoing. The underlying issue is poor arterial supply to the left lower extremity. Patient is agreeable to revascularization procedure to the left lower extremity however her acute renal failure secondary to the hypotension upon her presentation is keeping her from getting a current arteriogram. Surgeries in process of trying to obtain most recent arteriogram from [facility]. Plan: 1. Continue Zosyn at renally impaired dose. 2. Continue daptomycin. 3. Follow wound care. Subjective: Patient is resting comfortably in bed. No new complaints. Seems to be coming to terms with the severity of her condition with regards to the vascular supply to her left leg. Left foot is still exquisitely painful with the smallest movement. Objective: Daptomycin #12 Zosyn #15 Vital Signs Temp Pulse Resp BP Pulse Ox 36.6 C 115 H 18 125/88 H 96 05/02/16 16:00 05/02/16 16:00 05/02/16 16:00 05/02/16 16:00 05/02/16 16:00 Laboratory Results 05/02/16 04:00 05/02/16 04:00 05/01/16 05/02/16 05/03/16 05:59 05:59 05:59 Intake Total 972 1270 Output Total 850 810 Balance 122 460 C-Reactive Protein 168.4 mg/L (<10.0) H 04/17/16 05:06 - Physical Exam General Appearance: WD/WN, alert, no apparent distress, obese, non-toxic Respiratory: lungs clear, normal breath sounds, No respiratory distress Cardiac/Chest: regular rate, rhythm, No tachycardia Extremities: normal inspection, No non-tender Skin: normal color, warm/dry, No rash Neuro/Psych: alert, normal mood/affect, oriented x 3 ICD10 Worksheet Patient Problems: Problems Problem Status Diagnosed Palliative care encounter Acute Paroxysmal atrial fibrillation Acute Urinary tract infection Acute
--- NOTE | 2016-05-02 17:11 | HOSPPROG ---
Hospitalist Progress Note Assessment/Plan: This patient with longstanding multiple diabetic complications comes into the hospital with significant purulent necrotic infected wounds in her left ankle and foot. She has significant peripheral vascular disease in that limb. We have organisms identified in cultures, antibiotics and place, status post debridements and ongoing wound VAC care. She has suffered a complication of acute renal failure possibly ATN related to hypotension probably caused by rapid atrial fibrillation. She is now stabilized hemodynamically and converted to sinus rhythm on amiodarone, but her creatinine remains elevated. There is consideration for attempts at revascularization surgically if/when her renal function improves. CONSULTANTS: Dr. Salty Lamar and Ashleigh Dahl Nephrology service Infectious disease service DIAGNOSIS: # ACUTE WOUND INFECTIONS IN THE LEG WITH NECROSIS AND PURULENCE, -status post debridements, wound VAC in place -Morganella morganii in wound cultures # PERIPHERAL VASCULAR DISEASE WITH SEVERE COMPROMISE IN ARTERIAL SUPPLY TO THE LEG -the hope is to perform revascularization here to improve her chances of healing her wounds and prevent recurrence with potential limb loss * Dr. Lamar is trying to get angiogram results from [place] to see if there is a bypass site that he can use * however cannot get operation until kidney function improves. Nephrology is has thought about dialyzing her to try to get surgery done * family seems to be more leaning towards palliative types of approaches though # ACUTE RENAL FAILURE ? ATN * creatinine at keon * waiting for improvement * nephrology is following # HYPOTENSION, DUE TO RAPID AFIB -this is resolved now w conversion to NSR # A FIB, RAPID VENTRICULAR RESPONSE -now converted to NSR on amiodarone * was on heparin drip but antifactor Xa was quite elevated. Rechecking now. * May not restart heparin. She is in normal sinus rhythm. Will start DVT prophylaxis dosing of heparin. # TYPE 2 DIABETES MELLITUS, * blood sugars look pretty good # HYPOKALEMIA, LIKELY DUE TO HER DIURETIC -improved with replacement # DVT prophylaxis * start heparin Subjective: no new complaints Objective: Vital Signs Temp Pulse Resp BP Pulse Ox 36.6 C 115 H 18 125/88 H 96 05/02/16 16:00 05/02/16 16:00 05/02/16 16:00 05/02/16 16:00 05/02/16 16:00 Laboratory Results 05/02/16 04:00 05/02/16 04:00 05/01/16 05/02/16 05/03/16 05:59 05:59 05:59 Intake Total 972 1270 Output Total 850 810 Balance 122 460 PT 19.9 SEC (12.0-15.0) H 04/28/16 12:55 INR 1.69 (0.83-1.16) H 04/28/16 12:55 - Physical Exam Constitutional: no apparent distress, appears nourished, not in pain Eyes: anicteric sclera, EOMI Ears, Nose, Mouth, Throat: moist mucous membranes, hearing normal, ears appear normal Cardiovascular: regular rate and rhythym Respiratory: no respiratory distress Gastrointestinal: normoactive bowel sounds, soft, non-tender abdomen, no palpable masses Skin: warm Musculoskeletal: other ( left leg wound VAC) Psychiatric: interacting appropriately, not anxious, not encephalopathic, thought process linear ICD10 Worksheet Patient Problems: Problems Problem Status Diagnosed Palliative care encounter Acute Paroxysmal atrial fibrillation Acute Urinary tract infection Acute
[2016-05-02] MEDS: EPOETIN ALFA 10,000 UNIT/ML VIAL SC SCH (17:15)
[2016-05-02] MEDS ORDERED: BUPIVACAINE 0.5% 30 ML SDV MISC ONE (18:00)
[2016-05-02] MEDS ORDERED: PROPOFOL 200 MG/20 ML VIAL ONE ×2 (18:02)
[2016-05-02] MEDS: INSULIN GLARGINE 100 UNITS/ML SYRINGE SC SCH (21:19)
[2016-05-02] MEDS: ASPIRIN EC 81 MG TAB PO SCH (21:20)
[2016-05-02] MEDS: HEPARIN 5,000 UNIT/0.5 ML SYR SC SCH (21:31)
[2016-05-02] MEDS ORDERED: HEPARIN 20,000 UNIT/ML VIAL SC SCH (22:00)
[2016-05-03] MEDS: PIPERACILLIN/TAZO 2.25 GM/DEX 50 ML IV SCH ×2 (04:40→12:08)
[2016-05-03 05:01] LABS: % IMMATURE GRANULYOCYTES 1.1 % (0.0-1.1); ADD DIFF? NO; ADD MORPH? NO; ADD SCAN? NO; ATYPICAL LYMPHOCYTE FLAG 10 (0-99); FRAGMENT RBC FLAG 0 (0-99); HEMATOCRIT 25.1 % (38.0-47.0); LEFT SHIFT FLG 10 (0-99); LIPEMIA HEMOLYSIS FLAG 80 (0-99); MEAN CELL HEMOGLOBIN 29.6 pg (27.9-34.1); MEAN CELL HEMOGLOBIN CONCENTR. 31.9 g/dL (32.4-36.7); MEAN PLATELET VOLUME 11.1 fL (8.7-11.7); PLATELET CLUMPS FLAG 10 (0-99); PLATELET COUNT 270 10^3/uL (150-400); RED CELL DISTRIBUTION WIDTH 17.4 % (11.5-15.2)
[2016-05-03 05:15] LABS: ALBUMIN 1.8 g/dL (3.5-5.0); ANION GAP 8 mEq/L (8-16); CALCIUM 7.7 mg/dL (8.5-10.4); CARBON DIOXIDE 22 mEq/l (22-31); CHLORIDE 110 mEq/L (97-110); CREATININE 4.7 mg/dL (0.6-1.0); GLOMERULAR FILTRATION RATE 9; GLUCOSE 100 mg/dL (70-100); POTASSIUM 4.7 mEq/L (3.5-5.2); SODIUM 140 mEq/L (134-144)
[2016-05-03] MEDS: DAPTOmycin 600 MG in NS 100 ML IV SCH (08:25)
[2016-05-03] MEDS: oxyCODONE IR 5 MG TAB PO PRN ×2 (08:26→19:27)
[2016-05-03] MEDS: INSULIN LISPRO 100 UNIT/ML SC SCH ×3 (09:42→18:50)
[2016-05-03] MEDS: SENNOSIDES/DOCUSATE SODIUM TAB PO SCH ×2 (09:44→21:20)
[2016-05-03] MEDS: HEPARIN 5,000 UNIT/0.5 ML SYR SC SCH ×3 (10:00→21:09)
--- NOTE | 2016-05-03 10:26 | PCMIDPN ---
Assessment/Plan: # Severe LLE vascular disease with necrotic ulcer, Infected wound. No active cellulitis on exam today # Renal Failure, CrCl 14 Recommendation 1. Reviewed past micro. Even though patient received some MRSA coverage prior to wound culture, doubt with poor vascular supply this organism would be cleared therefore will discontinue daptomycin based on culture data. Also rec'd almost 14 days of coverage 2. Continued standard dose Zosyn for CrCl <20 Microbiology 04/20 Wound cx: Morganella 04/18 blood cultures (2): Negative [facility] Records (in physical chart) 01/10 Wound cx: GBS, E coli (summers-s) 01/25 Wound cx: E coli (summers-S), Providencia (Amp, Cefazolin-R), CoNS Medications Daptomycin 600 mg IV Q 48, 04/21, #13 Zosyn 2.25 g IV Q 8, 04/25, #8 s/p Vancomycin 04/17-04/19 Subjective: Patient is very sleepy but with exam of left lower extremity she moans in pain Denies diarrhea Objective: Vital Signs Temp Pulse Resp BP Pulse Ox 36.3 C 72 17 142/84 H 99 05/03/16 07:19 05/03/16 07:19 05/03/16 07:19 05/03/16 07:19 05/03/16 07:19 Laboratory Results 05/03/16 04:30 05/03/16 04:30 05/02/16 05/03/16 05/04/16 05:59 05:59 05:59 Intake Total 1270 350 Output Total 810 1030 Balance 460 -680 C-Reactive Protein 168.4 mg/L (<10.0) H 04/17/16 05:06 - Physical Exam General Appearance: obese, other (Chronically ill-appearing) EENT: dry mucous membranes, poor dentition Respiratory: other (Decreased breath sounds in the bases), No accessory muscle use Neck: supple (thick) Cardiac/Chest: regular rate, rhythm Extremities: pedal edema, other (Wound VAC in place in left lower extremity with tenderness to palpation, no skin erythema was noted), No erythema Abdomen: non-tender, soft Pelvic Exam: justice Skin: warm/dry, pallor, rash (Diffuse vitiligo) Neuro/Psych: alert - Line/s RUE PICC Lines: No drainage, No erythema ICD10 Worksheet Patient Problems: Problems Problem Status Diagnosed Palliative care encounter Acute Paroxysmal atrial fibrillation Acute Urinary tract infection Acute
--- NOTE | 2016-05-03 11:08 | SOAPPROG ---
SOAP Progress Note Assessment/Plan: Assessment: 70yo female with multiple left lower leg wounds, buttock ulcer, multiple medical problems including Afibb, diabetes, recent fever, UTI Palliative care meeting took place today, according to reports patient and family discussing options of bypass vs amputation vs hospice. PE awake alert Left leg dressing not removed, viewed yesterday. Pt has wounds over left lateral and left posterior leg. Ultrasound demonstrates veins adequate for bypass Plan: Dr aLmar left message with MD Tucker POA, awaiting call back to discuss options further 04/20/16 15:35 04/20/16 15:38 04/23/16 09:49 70yo female s/p wound debridement and VAC placement POD 1, sepsis likely from wound infections on daptomycin, DM, a-fibb on eliquis hypotensive this AM, undergoing fluid resuscitation per medicine, pain in leg well controlled per patient PE appears comfortable, alert Chest CTA B/L Left leg wound VAC in place over 3 wounds. no signs of leak, foot slightly cooler to touch than R foot. Plan continue fluids per medicine will need OR VAC change 1-2 days pt desires left leg bypass surgery if an option. 04/23/16 09:50 04/23/16 10:00 04/25/16 10:05 unable to angiogram yesterday due to renal failure will try to obtain films from [place] called and faxed release to [phone] Phone, Fax 04/26/16 09:07 s/p bedside wound VAC change yesterday. Pain controlled, creatinine increased to 3.2 PE awake, alert, laying still in bed Left leg VAC in place over lower ext, no signs of leak, +doppler dorsalis pedis pulse weak. Plan saw pt with Dr Lamar will call [facility] to confirm angio films are on the way. If creatinine improves possible bypass surgery next week. 05/03/16 11:02 s/p VAC change bedside last night, significant area of necrosis over achilles noted, pt tolerated with sedation PE sleeping Left leg VAC in place, no leak, no significant discharge Plan to OR Saturday for VAC change, debridement Objective: Vital Signs Temp Pulse Resp BP Pulse Ox 36.3 C 72 17 142/84 H 99 05/03/16 07:19 05/03/16 07:19 05/03/16 07:19 05/03/16 07:19 05/03/16 07:19 Laboratory Results 05/03/16 04:30 05/03/16 04:30 05/02/16 05/03/16 05/04/16 05:59 05:59 05:59 Intake Total 1270 350 Output Total 810 1030 Balance 460 -680 PT 19.9 SEC (12.0-15.0) H 04/28/16 12:55 INR 1.69 (0.83-1.16) H 04/28/16 12:55 ICD10 Worksheet Patient Problems: Problems Problem Status Diagnosed Palliative care encounter Acute Paroxysmal atrial fibrillation Acute Urinary tract infection Acute
[2016-05-03] MEDS: METOPROLOL TARTRATE 25 MG TAB PO SCH ×2 (12:13→21:08)
[2016-05-03] MEDS: AMIODARONE HCL 200 MG TAB PO SCH (12:13)
--- NOTE | 2016-05-03 14:37 | HOSPPROG ---
Hospitalist Progress Note Assessment/Plan: 70-year-old female admitted 04/2013 with a severe wound infection and removed her left ankle and foot. Patient is new to me today. Summary of her medical condition and problems are as follows: This patient with longstanding multiple diabetic complications comes into the hospital with significant purulent necrotic infected wounds in her left ankle and foot. She has significant peripheral vascular disease in that limb. We have organisms identified in cultures, antibiotics and place, status post debridements and ongoing wound VAC care. She has suffered a complication of acute renal failure possibly ATN related to hypotension probably caused by rapid atrial fibrillation. She is now stabilized hemodynamically and converted to sinus rhythm on amiodarone, but her creatinine remains elevated. There is consideration for attempts at revascularization surgically if/when her renal function improves. CONSULTANTS: Dr. Salty Lamar and Ashleigh Dahl Nephrology service Infectious disease service# Severe LLE vascular disease with necrotic ulcer, Infected wound. No active cellulitis on exam today # Renal Failure, CrCl 14 DIAGNOSIS: # ACUTE WOUND INFECTIONS IN THE LEG WITH NECROSIS AND PURULENCE, -status post debridements, wound VAC in place -Morganella morganii in wound cultures -per ID the daptomycin will be stopped at this time and we will continue with Zosyn renally adjusted doses. # PERIPHERAL VASCULAR DISEASE WITH SEVERE COMPROMISE IN ARTERIAL SUPPLY TO THE LEG -the hope is to perform revascularization here to improve her chances of healing her wounds and prevent recurrence with potential limb loss * Dr. Lamar is trying to get angiogram results from [place] to see if there is a bypass site that he can use * however cannot get operation until kidney function improves. Nephrology is has thought about dialyzing her to try to get surgery done * family seems to be more leaning towards palliative types of approaches though * Vascular evaluation is pending through Dr. Lamar. # ACUTE RENAL FAILURE ? ATN * creatinine at keon * waiting for improvement * nephrology is following # HYPOTENSION, DUE TO RAPID AFIB -this is resolved now w conversion to NSR # A FIB, RAPID VENTRICULAR RESPONSE -now converted to NSR on amiodarone * was on heparin drip but antifactor Xa was quite elevated. Rechecking now. * May not restart heparin. She is in normal sinus rhythm. Will start DVT prophylaxis dosing of heparin. # TYPE 2 DIABETES MELLITUS, * blood sugars look pretty good # HYPOKALEMIA, LIKELY DUE TO HER DIURETIC -improved with replacement # DVT prophylaxis * start heparin Plan: Obtain final vascular evaluation from vascular surgery and consider palliative care findings. The patient could be discharged in 1-2 days to an SNF Subjective: No complaints at this time denies chest pain shortness of breath cough fever or abdominal pain. Objective: Vital Signs Temp Pulse Resp BP Pulse Ox 36.3 C 72 14 131/68 H 99 05/03/16 11:12 05/03/16 11:12 05/03/16 11:12 05/03/16 11:12 05/03/16 11:12 Laboratory Results 05/03/16 04:30 05/03/16 04:30 05/02/16 05/03/16 05/04/16 05:59 05:59 05:59 Intake Total 1270 350 Output Total 810 1030 Balance 460 -680 PT 19.9 SEC (12.0-15.0) H 04/28/16 12:55 INR 1.69 (0.83-1.16) H 04/28/16 12:55 - Time Spent With Patient Time Spent with Patient: greater than 35 minutes Time Spent with Patient: Greater than 35 minutes spent on this patients care, greater than 50% of time spent counseling, educating, and coordinating care regarding the above mentioned plan. - Physical Exam Constitutional: no apparent distress, obese Eyes: PERRL, anicteric sclera Ears, Nose, Mouth, Throat: moist mucous membranes, hearing normal Cardiovascular: regular rate and rhythym, no murmur, rub, or gallop Respiratory: no respiratory distress, reduced air movement, other (Reduced air movement secondary to obesity.) Gastrointestinal: normoactive bowel sounds, soft, non-tender abdomen, no palpable masses, other (Obesity with significant pannus formation.) Genitourinary: no bladder fullness Skin: warm Neurologic: AAOx3, CN II-XII Intact Psychiatric: interacting appropriately ICD10 Worksheet Patient Problems: Problems Problem Status Diagnosed Palliative care encounter Acute Paroxysmal atrial fibrillation Acute Urinary tract infection Acute
--- NOTE | 2016-05-03 16:37 | SOAPPROG ---
SOAP Progress Note Assessment/Plan: Assessment/Plan: DAVID: likely had ATN innitially with hypotension in setting of afib. Her Cr is relatively plateaued, 4.7 from 4.6 yesterday and 4.5 earlier this week. She has good UOP on HCTZ. Noted that she has peripheral eosinophilia for several days, which is better predictor of AIN than urine eos. Noted that her course of peripheral eosinophilia follows her course of Zosyn. - Would recommend changing Zosyn to another antibiotic in case she now has AIN that is preventing her renal recovery. - No need for HD at this time. - Will continue to monitor renal parameters. HTN: controlled on current meds, will continue to monitor. Anemia: got epo yesterday. Subjective: No acute events overnight. Pt is having good UOP, denies pain, breathing comfortably, has no other complaints. Objective: Vital Signs Temp Pulse Resp BP Pulse Ox 36.8 C 97 17 120/66 99 05/03/16 15:36 05/03/16 15:36 05/03/16 15:36 05/03/16 15:36 05/03/16 15:36 Laboratory Results 05/03/16 04:30 05/03/16 04:30 05/02/16 05/03/16 05/04/16 05:59 05:59 05:59 Intake Total 1270 350 240 Output Total 810 1030 Balance 460 -680 240 PT 19.9 SEC (12.0-15.0) H 04/28/16 12:55 INR 1.69 (0.83-1.16) H 04/28/16 12:55 General: alert and oriented, no acute distress Eyes: EOMI, PERRL OP: Clear CV: RRR Resp: CTA bilat, nonlabored respirations Abd; Soft, NT/ND Ext: +1 edema BLE Neuro: CN II-XII grossly intact, no asterixis Psych: cooperative, appropriate mood and affect ICD10 Worksheet Patient Problems: Problems Problem Status Diagnosed Palliative care encounter Acute Paroxysmal atrial fibrillation Acute Urinary tract infection Acute
[2016-05-03] MEDS: ASPIRIN EC 81 MG TAB PO SCH (21:08)
[2016-05-03] MEDS: INSULIN GLARGINE 100 UNITS/ML SYRINGE SC SCH (21:09)
[2016-05-04 04:52] LABS: % IMMATURE GRANULYOCYTES 1.3 % (0.0-1.1); ABSOLUTE IMMATURE GRANULOCYTES 0.13 10^3/uL (0.00-0.10); ADD DIFF? NO; ADD MORPH? NO; ADD SCAN? NO; ATYPICAL LYMPHOCYTE FLAG 10 (0-99); FRAGMENT RBC FLAG 10 (0-99); HEMATOCRIT 25.2 % (38.0-47.0); LEFT SHIFT FLG 0 (0-99); LIPEMIA HEMOLYSIS FLAG 80 (0-99); MEAN CELL HEMOGLOBIN 29.6 pg (27.9-34.1); MEAN CELL HEMOGLOBIN CONCENTR. 31.7 g/dL (32.4-36.7); MEAN CELL VOLUME 93.3 fL (81.5-99.8); MEAN PLATELET VOLUME 10.9 fL (8.7-11.7); PLATELET CLUMPS FLAG 0 (0-99); PLATELET COUNT 282 10^3/uL (150-400); RED CELL DISTRIBUTION WIDTH 17.6 % (11.5-15.2)
[2016-05-04 05:10] LABS: ALBUMIN 1.9 g/dL (3.5-5.0); ANION GAP 8 mEq/L (8-16); CALCIUM 7.8 mg/dL (8.5-10.4); CARBON DIOXIDE 22 mEq/l (22-31); CHLORIDE 112 mEq/L (97-110); CREATININE 4.4 mg/dL (0.6-1.0); GLOMERULAR FILTRATION RATE 10; GLUCOSE 76 mg/dL (70-100); POTASSIUM 4.7 mEq/L (3.5-5.2); SODIUM 142 mEq/L (134-144)
[2016-05-04] MEDS ORDERED: POLYMYXIN B SULFATE 500,000 UNIT/10 ML SYR IRR ONE (07:49)
[2016-05-04] MEDS ORDERED: BUPIVACAINE 0.5% 30 ML SDV ONE (07:49)
[2016-05-04] MEDS ORDERED: BACITRACIN 50,000 UNITS/10 ML SYR IRR ONE (07:50)
[2016-05-04] MEDS: oxyCODONE IR 5 MG TAB PO PRN ×2 (08:24→20:13)
[2016-05-04] MEDS: AMIODARONE HCL 200 MG TAB PO SCH (08:24)
[2016-05-04] MEDS: METOPROLOL TARTRATE 25 MG TAB PO SCH ×2 (08:24→20:11)
[2016-05-04] MEDS: ERTAPENEM 0.5 GM in NS 50 ML IV SCH (08:27)
[2016-05-04] MEDS: INSULIN LISPRO 100 UNIT/ML SC SCH ×3 (08:27→18:10)
[2016-05-04] MEDS: SENNOSIDES/DOCUSATE SODIUM TAB PO SCH ×2 (08:27→20:11)
--- NOTE | 2016-05-04 10:17 | SOAPPROG ---
SOAP Progress Note Assessment/Plan: Assessment/Plan: DAVID: likely had ATN initially with hypotension in setting of afib. Her Cr was still increasing slowly up to 4.7, in the setting of peripheral eosinophilia for several days. Peripheral eosinophilia is a better predictor of AIN than urine eos, and her course of peripheral eosinophilia follows her course of Zosyn. Pt is now off Zosyn and Cr is down today from 4.7 to 4.4, has good UOP and electrolytse all ok. - Thank you for changing her abx, appreciate assistance from ID. - No need for HD at this time. - Will continue to monitor renal parameters, expect her to continue to recover. HTN: controlled on current meds, will continue to monitor. Anemia: got epo two days ago. Hgb stable, will monitor. Subjective: No acute events overnight. Pt states she feels well, breathing comfortably, no pain, has no complaints this am. Switched abx overnight from Zosyn to Ertapenem. Objective: Vital Signs Temp Pulse Resp BP Pulse Ox 36.6 C 108 H 15 111/77 95 05/04/16 07:18 05/04/16 07:18 05/04/16 07:18 05/04/16 07:18 05/04/16 07:18 Laboratory Results 05/04/16 04:40 05/04/16 04:40 05/03/16 05/04/16 05/05/16 05:59 05:59 05:59 Intake Total 350 640 Output Total 1030 900 Balance -680 -260 PT 19.9 SEC (12.0-15.0) H 04/28/16 12:55 INR 1.69 (0.83-1.16) H 04/28/16 12:55 General: alert and oriented, no acute distress Eyes: EOMI, PERRL OP: Clear CV: RRR Resp: CTA bilat, nonlabored respirations Abd; Soft, NT/ND Ext: +1 edema BLE Neuro: CN II-XII grossly intact Psych: cooperative, appropriate mood and affect ICD10 Worksheet Patient Problems: Problems Problem Status Diagnosed Palliative care encounter Acute Paroxysmal atrial fibrillation Acute Urinary tract infection Acute
[2016-05-04] MEDS ORDERED: PROPOFOL 200 MG/20 ML VIAL ONE (15:23)
[2016-05-04] MEDS ORDERED: fentaNYL 100 MCG/2 ML INJ ONE (15:23)
[2016-05-04] MEDS ORDERED: PHENYLEPHRINE HCL 100 MCG/ML SYR ONE (15:44)
--- NOTE | 2016-05-04 16:24 | POSTOPPROG ---
Post Op Note Date of Operation: 05/04/16 Surgeon: César Dunlap Staff Design Engineer: Manuel Anesthesiologist: Warm Anesthesia: GET(General Endotracheal) Pre-op Diagnosis: chronic LLE wound Post-op Diagnosis: same Indication: necrotic tissue Procedure: debridement of LLE wound with VAC placement Findings: Necrotic wound edges, portions of Achilles necrotic as well Inf/Abcess present in the surg proc area at time of surgery?: No EBL: Minimal Drains: Wound Vac
--- NOTE | 2016-05-04 16:31 | HOSPPROG ---
Hospitalist Progress Note Assessment/Plan: 70-year-old female admitted 04/2013 with a severe wound infection and removed her left ankle and foot. Patient is new to me today. Summary of her medical condition and problems are as follows: This patient with longstanding multiple diabetic complications comes into the hospital with significant purulent necrotic infected wounds in her left ankle and foot. She has significant peripheral vascular disease in that limb. We have organisms identified in cultures, antibiotics and place, status post debridements and ongoing wound VAC care. She has suffered a complication of acute renal failure possibly ATN related to hypotension probably caused by rapid atrial fibrillation. She is now stabilized hemodynamically and converted to sinus rhythm on amiodarone, but her creatinine remains elevated. There is consideration for attempts at revascularization surgically if/when her renal function improves. CONSULTANTS: Dr. Salty Lamar and Ashleigh Dahl Nephrology service Infectious disease service# Severe LLE vascular disease with necrotic ulcer, Infected wound. No active cellulitis on exam today # DAVID: likely had ATN initially with hypotension in setting of afib. Her Cr was still increasing slowly up to 4.7, in the setting of peripheral eosinophilia for several days. Peripheral eosinophilia is a better predictor of AIN than urine eos, and her course of peripheral eosinophilia follows her course of Zosyn. Pt is now off Zosyn and Cr is down today from 4.7 to 4.4, has good UOP and electrolytse all ok. - Thank you for changing her abx, appreciate assistance from ID. - No need for HD at this time. - Will continue to monitor renal parameters, expect her to continue to recover. DIAGNOSIS: # ACUTE WOUND INFECTIONS IN THE LEG WITH NECROSIS AND PURULENCE, -status post debridements, wound VAC in place -Morganella morganii in wound cultures -per ID the daptomycin will be stopped at this time and we will continue with Zosyn renally adjusted doses. # PERIPHERAL VASCULAR DISEASE WITH SEVERE COMPROMISE IN ARTERIAL SUPPLY TO THE LEG -the hope is to perform revascularization here to improve her chances of healing her wounds and prevent recurrence with potential limb loss * Dr. Lamar is trying to get angiogram results from [place] to see if there is a bypass site that he can use * however cannot get operation until kidney function improves. Nephrology is has thought about dialyzing her to try to get surgery done * family seems to be more leaning towards palliative types of approaches though * Vascular evaluation is pending through Dr. Lamar. # ACUTE RENAL FAILURE ? ATN initially due to hypotension in the setting of atrial fibrillation with RVR. Her creatinine increased to 4.7 she has been noted to have peripheral eosinophilia. 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 Yesterday the Zosyn was stopped and Invanz was started. # HYPOTENSION, DUE TO RAPID AFIB -this is resolved now w conversion to NSR # A FIB, RAPID VENTRICULAR RESPONSE -now converted to NSR on amiodarone * was on heparin drip but antifactor Xa was quite elevated. Rechecking now. * May not restart heparin. She is in normal sinus rhythm. Will start DVT prophylaxis dosing of heparin. # TYPE 2 DIABETES MELLITUS, * blood sugars look pretty good # HYPOKALEMIA, LIKELY DUE TO HER DIURETIC -improved with replacement # DVT prophylaxis * start heparin Plan: Obtain final vascular evaluation from vascular surgery and consider palliative care findings. The patient could be discharged in 1-2 days to an SNF Subjective: no complaints Objective: Vital Signs Temp Pulse Resp BP Pulse Ox 36.6 C 108 H 15 111/77 95 05/04/16 07:18 05/04/16 07:18 05/04/16 07:18 05/04/16 07:18 05/04/16 07:18 Laboratory Results 05/04/16 04:40 05/04/16 04:40 05/03/16 05/04/16 05/05/16 05:59 05:59 05:59 Intake Total 350 640 Output Total 1030 900 Balance -680 -260 PT 19.9 SEC (12.0-15.0) H 04/28/16 12:55 INR 1.69 (0.83-1.16) H 04/28/16 12:55 - Time Spent With Patient Time Spent with Patient: greater than 35 minutes Time Spent with Patient: Greater than 35 minutes spent on this patients care, greater than 50% of time spent counseling, educating, and coordinating care regarding the above mentioned plan. - Physical Exam Constitutional: no apparent distress Eyes: PERRL Ears, Nose, Mouth, Throat: moist mucous membranes Cardiovascular: regular rate and rhythym, no murmur, rub, or gallop Respiratory: no respiratory distress, no rales or rhonchi, clear to auscultation Gastrointestinal: normoactive bowel sounds, soft, non-tender abdomen, no palpable masses Skin: warm Psychiatric: interacting appropriately ICD10 Worksheet Patient Problems: Problems Problem Status Diagnosed Palliative care encounter Acute Paroxysmal atrial fibrillation Acute Urinary tract infection Acute
--- NOTE | 2016-05-04 17:10 | GOP ---
[f rep st] OPERATIVE REPORT DATE OF OPERATION: 05/04/2016 SURGEON: César Dunlap MD CALENDER SUPERVISOR: EMILIA Stroud. ANESTHESIA: General endotracheal per . Warm PREOPERATIVE DIAGNOSIS: Chronic left lower extremity wound. POSTOPERATIVE DIAGNOSIS: Chronic left lower extremity wound. PROCEDURE PERFORMED: Incision and drainage with debridement of left lower extremity wound with wound VAC placement. FINDINGS: Majority of the Achilles tendon was necrotic. Some of the wound edges were also necrotic. These were debrided back to good healing healthy tissue. SPECIMENS: None. ESTIMATED BLOOD LOSS: 10 cc. DESCRIPTION OF PROCEDURE: The patient and her family member were greeted in the preoperative suite. Once again, risks, benefits, and alternatives were discussed. The patient was then brought back to the operative suite, placed on the OR table in the supine position. After all anesthesia machines we re on and functioning, [employer] time-out was performed. The left lower extremity wa s then widely prepped and draped in typical sterile fashion. I 1st turned my attention toward the an terior portion of the extremity where the lateral wound edges were noted to be necrotic. These were sharply debrided using a 10 blade scalpel back to good viable bleeding tissue. Hemostasis was achiev ed with a combination of electrocautery and gentle pressure. I then turned my attention toward the p osterior aspect. The wound on the bottom of the heel required no debridement. However, superior to this the majority of decubitus tendon was noted to be necrotic and this was debrided back to good hea lthy bleeding tissue. Again some of the surrounding wound edges were noted to be necrotic as well. These were debrided in kind. After achieving hemostasis, in a similar fashion, I fashioned a wound V AC to cover all the areas. All of the tendons were protected with Xeroform gauze. The VAC was then trimmed appropriately with all skin edges appropriately protected. The VAC was then allowed to lay o n the open wound. Drapes were appropriately placed and the VAC was attached to suction noting no naima ks and appropriate coverage of all areas. It was then placed back to the wound VAC at 125 mmHg. The patient was then extubated and transferred off the OR table back to her hospital bed and transported to the postanesthesia unit in satisfactory condition. DRAINS: Wound VAC. COUNTS: All counts reported as correct. /[id number]/MODL
[2016-05-04] MEDS: HEPARIN 5,000 UNIT/0.5 ML SYR SC SCH (18:05)
[2016-05-04] MEDS: INSULIN GLARGINE 100 UNITS/ML SYRINGE SC SCH (20:09)
[2016-05-04] MEDS: ASPIRIN EC 81 MG TAB PO SCH (20:11)
[2016-05-05] MEDS: HEPARIN 5,000 UNIT/0.5 ML SYR SC SCH ×4 (01:40→21:11)
[2016-05-05 05:56] LABS: % IMMATURE GRANULYOCYTES 1.3 % (0.0-1.1); ABSOLUTE IMMATURE GRANULOCYTES 0.14 10^3/uL (0.00-0.10); ABSOLUTE NRBC COUNT 0.03 10^3/uL (0-0.01); ADD DIFF? NO; ADD MORPH? NO; ADD SCAN? NO; ATYPICAL LYMPHOCYTE FLAG 10 (0-99); FRAGMENT RBC FLAG 10 (0-99); HEMATOCRIT 25.3 % (38.0-47.0); HEMOGLOBIN 8.1 g/dL (12.6-16.3); LEFT SHIFT FLG 10 (0-99); LIPEMIA HEMOLYSIS FLAG 80 (0-99); MEAN CELL HEMOGLOBIN 29.9 pg (27.9-34.1); MEAN CELL VOLUME 93.4 fL (81.5-99.8); MEAN PLATELET VOLUME 11.2 fL (8.7-11.7); NRBC-AUTO% 0.3 % (0.0-0.2); PLATELET CLUMPS FLAG 0 (0-99); PLATELET COUNT 324 10^3/uL (150-400); RED BLOOD CELL COUNT 2.71 10^6/uL (4.18-5.33); RED CELL DISTRIBUTION WIDTH 17.6 % (11.5-15.2)
[2016-05-05 06:27] LABS: ANION GAP 10 mEq/L (8-16); CALCIUM 8.1 mg/dL (8.5-10.4); CARBON DIOXIDE 23 mEq/l (22-31); CHLORIDE 111 mEq/L (97-110); CREATININE 4.3 mg/dL (0.6-1.0); GLOMERULAR FILTRATION RATE 10; GLUCOSE 69 mg/dL (70-100); SODIUM 144 mEq/L (134-144)
[2016-05-05] MEDS: AMIODARONE HCL 200 MG TAB PO SCH (07:53)
[2016-05-05] MEDS: SENNOSIDES/DOCUSATE SODIUM TAB PO SCH ×2 (07:53→21:12)
[2016-05-05] MEDS: METOPROLOL TARTRATE 25 MG TAB PO SCH ×2 (07:53→21:12)
[2016-05-05] MEDS: INSULIN LISPRO 100 UNIT/ML SC SCH ×3 (07:54→18:08)
[2016-05-05] MEDS: oxyCODONE IR 5 MG TAB PO PRN ×2 (08:01→13:46)
[2016-05-05] MEDS: ERTAPENEM 0.5 GM in NS 50 ML IV SCH (08:06)
--- NOTE | 2016-05-05 10:36 | SOAPPROG ---
SOAP Progress Note Assessment/Plan: Assessment: 1. Nonoliguric DAVID Preceded by hemodynamic event, thought to be ischemic ATN, but can't absolutely rule out interstitial nephritis. Cr plateaued, non oliguric, lytes ok. Cr now falling. Volume up; she should begin to mobilize this. 2. Plan of care At this point, would hope to provide supportive care and allow time for renal recovery prior to bypass surgery. However, this depends on stability of infection and ischemia to LLE. If revascularization becomes urgent, may need to consider interim dialysis. She undewent debridement yesterday 3. HTN At goal 4. Anemia Hg low but stable. She is on GISELLA. Objective: Vital Signs Temp Pulse Resp BP Pulse Ox 36.4 C 115 H 16 112/61 93 05/05/16 08:14 05/05/16 08:14 05/05/16 04:00 05/05/16 08:14 05/05/16 08:14 Laboratory Results 05/05/16 05:35 05/05/16 05:35 05/04/16 05/05/16 05/06/16 05:59 05:59 05:59 Intake Total 640 1100 Output Total 900 1170 Balance -260 -70 PT 19.9 SEC (12.0-15.0) H 04/28/16 12:55 INR 1.69 (0.83-1.16) H 04/28/16 12:55 Physical Exam - Physical Exam General Appearance: no apparent distress Respiratory: other (Rales LLL; encouraged incentive spirometry) Cardiac/Chest: irregularly irregular Abdomen: soft Extremities: pedal edema Neuro/Psych: oriented x 3 ICD10 Worksheet Patient Problems: Problems Problem Status Diagnosed Palliative care encounter Acute Paroxysmal atrial fibrillation Acute Urinary tract infection Acute
--- NOTE | 2016-05-05 10:49 | SOAPPROG ---
SOAP Progress Note Assessment/Plan: Assessment/Plan 70yo F s/p multiple LLE debridements. Had good bleeding tissue yesterday, necrotic Achilles mostly removed. VAC holding suction with minimal output in canister. Plan to cont LLE floats, re-examine foot Saturday, poss will need repeat OR versus bedside change. 05/05/16 10:47 Subjective: No events overnight. VAC continues to hold suction, pain minimal Objective: Vital Signs Temp Pulse Resp BP Pulse Ox 36.4 C 115 H 16 112/61 93 05/05/16 08:14 05/05/16 08:14 05/05/16 04:00 05/05/16 08:14 05/05/16 08:14 Laboratory Results 05/05/16 05:35 05/05/16 05:35 05/04/16 05/05/16 05/06/16 05:59 05:59 05:59 Intake Total 640 1100 Output Total 900 1170 Balance -260 -70 PT 19.9 SEC (12.0-15.0) H 04/28/16 12:55 INR 1.69 (0.83-1.16) H 04/28/16 12:55 ICD10 Worksheet Patient Problems: Problems Problem Status Diagnosed Palliative care encounter Acute Paroxysmal atrial fibrillation Acute Urinary tract infection Acute
--- NOTE | 2016-05-05 15:49 | HOSPPROG ---
Hospitalist Progress Note Assessment/Plan: 70-year-old female admitted 04/2013 with a severe wound infection and removed her left ankle and foot. Patient is new to me today. Summary of her medical condition and problems are as follows: This patient with longstanding multiple diabetic complications comes into the hospital with significant purulent necrotic infected wounds in her left ankle and foot. She has significant peripheral vascular disease in that limb. We have organisms identified in cultures, antibiotics and place, status post debridements and ongoing wound VAC care. She has suffered a complication of acute renal failure possibly ATN related to hypotension probably caused by rapid atrial fibrillation. She is now stabilized hemodynamically and converted to sinus rhythm on amiodarone. There is consideration for attempts at revascularization surgically if/when her renal function improves. Per recent wound care notes the wound VAC was changed on 05/04 with findings of a necrotic Achilles tendon which was mostly removed. Plan is to continue wound care and a wound VAC change in approximately 2-3 days. Revascularization remains a possibility. CONSULTANTS: Dr. Salty Lamar and Ashleigh Dahl Nephrology service Infectious disease service# Severe LLE vascular disease with necrotic ulcer, Infected wound. No active cellulitis on exam today # DAVID: likely had ATN initially with hypotension in setting of afib. Her Cr was still increasing slowly up to 4.7, in the setting of peripheral eosinophilia for several days. Peripheral eosinophilia is a better predictor of AIN than urine eos, and her course of peripheral eosinophilia follows her course of Zosyn. Pt is now off Zosyn on Invanz and Cr is down today from 4.7 to 4.4, has good UOP and electrolytse all ok. DIAGNOSIS: # ACUTE WOUND INFECTIONS IN THE LEG WITH NECROSIS AND PURULENCE, -status post debridements, wound VAC in place -Morganella morganii in wound cultures -per ID the daptomycin will be stopped at this time and we will continue with Zosyn renally adjusted doses. # PERIPHERAL VASCULAR DISEASE WITH SEVERE COMPROMISE IN ARTERIAL SUPPLY TO THE LEG -the hope is to perform revascularization here to improve her chances of healing her wounds and prevent recurrence with potential limb loss * Dr. Lamar is trying to get angiogram results from [place] to see if there is a bypass site that he can use * however cannot get operation until kidney function improves. Nephrology is has thought about dialyzing her to try to get surgery done * family seems to be more leaning towards palliative types of approaches though * Vascular evaluation is pending through Dr. Lamar. # ACUTE RENAL FAILURE ? ATN initially due to hypotension in the setting of atrial fibrillation with RVR. Her creatinine increased to 4.7 she has been noted to have peripheral eosinophilia. 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 Zosyn was stopped, Invanz started, and the creatinine is improving. # sacral decubitus ulceration stage II. Daily wound care # HYPOTENSION, DUE TO RAPID AFIB -this is resolved now w conversion to NSR # A FIB, RAPID VENTRICULAR RESPONSE -now converted to NSR on amiodarone # TYPE 2 DIABETES MELLITUS, * blood sugars look pretty good # HYPOKALEMIA, LIKELY DUE TO HER DIURETIC -improved with replacement # DVT prophylaxis * start heparin Plan: Continue wound VAC change in 2-3 days. There is still a consideration of a possible revascularization. Disposition: Unclear at this time with no specific date Subjective: No complaints. No chest pain shortness of breath or abdominal pain. Objective: Vital Signs Temp Pulse Resp BP Pulse Ox 36.4 C 113 H 12 106/56 L 96 05/05/16 12:28 05/05/16 12:28 05/05/16 12:28 05/05/16 12:28 05/05/16 12:28 Laboratory Results 05/05/16 05:35 05/05/16 05:35 05/04/16 05/05/16 05/06/16 05:59 05:59 05:59 Intake Total 640 1100 60 Output Total 900 1170 Balance -260 -70 60 PT 19.9 SEC (12.0-15.0) H 04/28/16 12:55 INR 1.69 (0.83-1.16) H 04/28/16 12:55 - Time Spent With Patient Time Spent with Patient: greater than 35 minutes Time Spent with Patient: Greater than 35 minutes spent on this patients care, greater than 50% of time spent counseling, educating, and coordinating care regarding the above mentioned plan. - Physical Exam Constitutional: no apparent distress, chronically ill appearing Eyes: PERRL Ears, Nose, Mouth, Throat: moist mucous membranes, hearing normal Cardiovascular: regular rate and rhythym, systolic murmur Respiratory: no respiratory distress, no rales or rhonchi, clear to auscultation , reduced air movement Gastrointestinal: normoactive bowel sounds, soft, non-tender abdomen, no palpable masses, other (Obesity noted with pannus formation) Genitourinary: no bladder fullness Skin: warm Musculoskeletal: generalized weakness Neurologic: AAOx3, CN II-XII Intact Psychiatric: interacting appropriately ICD10 Worksheet Patient Problems: Problems Problem Status Diagnosed Palliative care encounter Acute Paroxysmal atrial fibrillation Acute Urinary tract infection Acute
[2016-05-05] MEDS: ASPIRIN EC 81 MG TAB PO SCH (21:11)
[2016-05-05] MEDS: INSULIN GLARGINE 100 UNITS/ML SYRINGE SC SCH (21:11)
[2016-05-06 05:57] LABS: % IMMATURE GRANULYOCYTES 1.8 % (0.0-1.1); ABSOLUTE IMMATURE GRANULOCYTES 0.17 10^3/uL (0.00-0.10); ABSOLUTE NRBC COUNT 0.02 10^3/uL (0-0.01); ADD DIFF? NO; ADD MORPH? NO; ADD SCAN? NO; ATYPICAL LYMPHOCYTE FLAG 20 (0-99); FRAGMENT RBC FLAG 10 (0-99); HEMOGLOBIN 7.7 g/dL (12.6-16.3); LEFT SHIFT FLG 10 (0-99); LIPEMIA HEMOLYSIS FLAG 80 (0-99); MEAN CELL HEMOGLOBIN 30.1 pg (27.9-34.1); MEAN CELL HEMOGLOBIN CONCENTR. 32.1 g/dL (32.4-36.7); MEAN CELL VOLUME 93.8 fL (81.5-99.8); MEAN PLATELET VOLUME 11.1 fL (8.7-11.7); NRBC-AUTO% 0.2 % (0.0-0.2); PLATELET CLUMPS FLAG 0 (0-99); PLATELET COUNT 318 10^3/uL (150-400); RED BLOOD CELL COUNT 2.56 10^6/uL (4.18-5.33); RED CELL DISTRIBUTION WIDTH 17.6 % (11.5-15.2)
[2016-05-06 06:16] LABS: ALBUMIN 1.9 g/dL (3.5-5.0); ANION GAP 7 mEq/L (8-16); CALCIUM 8.2 mg/dL (8.5-10.4); CARBON DIOXIDE 24 mEq/l (22-31); CHLORIDE 111 mEq/L (97-110); GLOMERULAR FILTRATION RATE 11; GLUCOSE 83 mg/dL (70-100); POTASSIUM 4.7 mEq/L (3.5-5.2); SODIUM 142 mEq/L (134-144)
[2016-05-06] MEDS: INSULIN LISPRO 100 UNIT/ML SC SCH ×3 (09:11→17:36)
[2016-05-06] MEDS: oxyCODONE IR 5 MG TAB PO PRN ×2 (09:12→19:23)
--- NOTE | 2016-05-06 09:56 | SOAPPROG ---
SOAP Progress Note Assessment/Plan: Assessment/Plan 70yo F s/p multiple LLE debridements. VAC with minimal drainage in canister. Pain appropriate. Will need VAC changed tomorrow vs Tues. Patient had significant pain with movement and will likely need OR for change, will discuss and make plans accordingly. 05/05/16 10:47 05/06/16 09:55 Subjective: pain controlled, no overnight issues Objective: Vital Signs Temp Pulse Resp BP Pulse Ox 36.6 C 75 16 150/66 H 91 L 05/06/16 07:22 05/06/16 07:22 05/06/16 07:22 05/06/16 07:22 05/06/16 07:22 Laboratory Results 05/06/16 05:30 05/06/16 05:30 05/05/16 05/06/16 05/07/16 05:59 05:59 05:59 Intake Total 1100 360 Output Total 1170 925 Balance -70 -565 PT 19.9 SEC (12.0-15.0) H 04/28/16 12:55 INR 1.69 (0.83-1.16) H 04/28/16 12:55 ICD10 Worksheet Patient Problems: Problems Problem Status Diagnosed Palliative care encounter Acute Paroxysmal atrial fibrillation Acute Urinary tract infection Acute
--- NOTE | 2016-05-06 10:17 | SOAPPROG ---
SOAP Progress Note Assessment/Plan: Assessment: 1. Nonoliguric DAVID Cr peaked in Mid 4's, she has remained non oliguric. ATN precipitated by hypotension from Afib with RVR. Now in NSR, and Cr is falling. Would allow additional recovery prior to attempting bypass surgery. She is total body volume increased with LE edema. We may wish to begin some diuretics in next 48 hours. 3. HTN BP is drifting up. Will be permissive of this now. 3. Anemia Hg down slightly. She is on high dose epo. 4. Remains on antibx. Wound care per general surgery. 05/06/16 10:14 05/06/16 10:16 Subjective: Doing better Objective: Vital Signs Temp Pulse Resp BP Pulse Ox 36.6 C 75 16 150/66 H 91 L 05/06/16 07:22 05/06/16 07:22 05/06/16 07:22 05/06/16 07:22 05/06/16 07:22 Laboratory Results 05/06/16 05:30 05/06/16 05:30 05/05/16 05/06/16 05/07/16 05:59 05:59 05:59 Intake Total 1100 360 Output Total 1170 925 Balance -70 -565 PT 19.9 SEC (12.0-15.0) H 04/28/16 12:55 INR 1.69 (0.83-1.16) H 04/28/16 12:55 Physical Exam - Physical Exam General Appearance: no apparent distress Respiratory: normal breath sounds Cardiac/Chest: regular rate, rhythm Abdomen: soft Extremities: other (2+ hip edema) ICD10 Worksheet Patient Problems: Problems Problem Status Diagnosed Palliative care encounter Acute Paroxysmal atrial fibrillation Acute Urinary tract infection Acute
[2016-05-06] MEDS: ERTAPENEM 0.5 GM in NS 50 ML IV SCH (10:56)
[2016-05-06] MEDS: AMIODARONE HCL 200 MG TAB PO SCH (11:00)
[2016-05-06] MEDS: HEPARIN 5,000 UNIT/0.5 ML SYR SC SCH ×3 (11:00→21:01)
[2016-05-06] MEDS: METOPROLOL TARTRATE 25 MG TAB PO SCH ×2 (11:02→20:53)
[2016-05-06] MEDS: SENNOSIDES/DOCUSATE SODIUM TAB PO SCH ×2 (11:03→20:54)
--- NOTE | 2016-05-06 11:12 | PCMIDPN ---
Assessment/Plan: Assessment: 1. Left lower extremity chronic ulcerations with signs of supparation. The is covering any secondary process at this point. No further signs of worsening infection. The underlying issue is poor arterial supply to the left lower extremity. Patient remains agreeable to revascularization procedure to the left lower extremity and her creatinine is finally starting to normalize after the presumed ATN insult. Plan: 1. Continue ertapenem at renally impaired dose. 2. Follow wound care. 05/06/16 11:08 05/06/16 11:09 Subjective: Patient is resting in bed. She is somewhat tearful. When asked why she said she was on top of the world after hearing that her kidneys are starting to improve however she is sad about the fact that her kidneys may need some more time to fully be able to tolerate revascularization surgery. No active fevers or chills. Objective: Ertapenem # 3 Vital Signs Temp Pulse Resp BP Pulse Ox 36.6 C 75 16 150/66 H 91 L 05/06/16 07:22 05/06/16 07:22 05/06/16 07:22 05/06/16 07:22 05/06/16 07:22 Laboratory Results 05/06/16 05:30 05/06/16 05:30 05/05/16 05/06/16 05/07/16 05:59 05:59 05:59 Intake Total 1100 360 Output Total 1170 925 Balance -70 -565 C-Reactive Protein 168.4 mg/L (<10.0) H 04/17/16 05:06 - Physical Exam General Appearance: WD/WN, alert, no apparent distress, obese, non-toxic Respiratory: lungs clear, normal breath sounds, No respiratory distress Cardiac/Chest: regular rate, rhythm, No tachycardia Extremities: No non-tender, No normal inspection Skin: normal color, warm/dry, No rash Neuro/Psych: alert, normal mood/affect, oriented x 3 ICD10 Worksheet Patient Problems: Problems Problem Status Diagnosed Palliative care encounter Acute Paroxysmal atrial fibrillation Acute Urinary tract infection Acute
--- NOTE | 2016-05-06 16:02 | HOSPPROG ---
Hospitalist Progress Note Assessment/Plan: 70-year-old female admitted 04/2016 with a severe wound infection and removed her left ankle and foot. Patient is new to me today. Summary of her medical condition and problems are as follows: DIAGNOSIS: ACUTE WOUND INFECTIONS IN THE LEG WITH NECROSIS AND PURULENCE, -status post debridements, wound VAC in place -Morganella morganii in wound cultures on ertapenem PERIPHERAL VASCULAR DISEASE WITH SEVERE COMPROMISE IN ARTERIAL SUPPLY TO THE LEG -the hope is to perform revascularization here to improve her chances of healing her wounds and prevent recurrence with potential limb loss * Dr. Lamar is trying to get angiogram results from [place] to see if there is a bypass site that he can use angiogram report from [facility] is in chart, unclear if amenable to bypass * however cannot get operation until kidney function improves. Nephrology is has thought about dialyzing her to try to get surgery done ACUTE RENAL FAILURE ? ATN initially due to hypotension in the setting of atrial fibrillation with RVR. improving sacral decubitus ulceration stage II. Daily wound care HYPOTENSION, DUE TO RAPID AFIB -this is resolved now w conversion to NSR on amiodarone on tele, intermittent AF (interp by me) A FIB, RAPID VENTRICULAR RESPONSE -now converted to NSR on amiodarone TYPE 2 DIABETES MELLITUS, * blood sugars look at goal HYPOKALEMIA, LIKELY DUE TO HER DIURETIC -improved with replacement DVT prophylaxis * start heparin sc tid Subjective: spent 35' at bedside discussing case w patient and son Objective: Vital Signs Temp Pulse Resp BP Pulse Ox 36.6 C 75 16 147/67 H 93 05/06/16 12:27 05/06/16 12:27 05/06/16 12:27 05/06/16 12:27 05/06/16 12:27 Laboratory Results 05/06/16 05:30 05/06/16 05:30 05/05/16 05/06/16 05/07/16 05:59 05:59 05:59 Intake Total 1100 360 Output Total 1170 925 Balance -70 -565 PT 19.9 SEC (12.0-15.0) H 04/28/16 12:55 INR 1.69 (0.83-1.16) H 04/28/16 12:55 - Physical Exam Constitutional: no apparent distress, appears nourished Eyes: PERRL, anicteric sclera Ears, Nose, Mouth, Throat: moist mucous membranes, hearing normal Cardiovascular: regular rate and rhythym, no murmur, rub, or gallop Respiratory: no respiratory distress, no rales or rhonchi Gastrointestinal: normoactive bowel sounds, soft, non-tender abdomen Genitourinary: justice in urethra Skin: warm, normal color Musculoskeletal: other (wound vac LLE) Neurologic: AAOx3 ICD10 Worksheet Patient Problems: Problems Problem Status Diagnosed Palliative care encounter Acute Paroxysmal atrial fibrillation Acute Urinary tract infection Acute
[2016-05-06] MEDS: ASPIRIN EC 81 MG TAB PO SCH (20:53)
[2016-05-06] MEDS: INSULIN GLARGINE 100 UNITS/ML SYRINGE SC SCH (21:01)
[2016-05-07 04:54] LABS: % IMMATURE GRANULYOCYTES 2.8 % (0.0-1.1); ABSOLUTE IMMATURE GRANULOCYTES 0.23 10^3/uL (0.00-0.10); ABSOLUTE NRBC COUNT 0.04 10^3/uL (0-0.01); ADD DIFF? NO; ADD MORPH? NO; ADD SCAN? NO; ATYPICAL LYMPHOCYTE FLAG 20 (0-99); FRAGMENT RBC FLAG 0 (0-99); HEMATOCRIT 23.6 % (38.0-47.0); HEMOGLOBIN 7.6 g/dL (12.6-16.3); LEFT SHIFT FLG 20 (0-99); LIPEMIA HEMOLYSIS FLAG 80 (0-99); MEAN CELL HEMOGLOBIN 30.3 pg (27.9-34.1); MEAN CELL HEMOGLOBIN CONCENTR. 32.2 g/dL (32.4-36.7); MEAN PLATELET VOLUME 10.8 fL (8.7-11.7); NRBC-AUTO% 0.5 % (0.0-0.2); PLATELET CLUMPS FLAG 0 (0-99); PLATELET COUNT 317 10^3/uL (150-400); RED BLOOD CELL COUNT 2.51 10^6/uL (4.18-5.33); RED CELL DISTRIBUTION WIDTH 17.7 % (11.5-15.2)
[2016-05-07 05:17] LABS: ALBUMIN 1.8 g/dL (3.5-5.0); ANION GAP 9 mEq/L (8-16); CALCIUM 8.1 mg/dL (8.5-10.4); CARBON DIOXIDE 24 mEq/l (22-31); CHLORIDE 112 mEq/L (97-110); CREATININE 3.6 mg/dL (0.6-1.0); GLOMERULAR FILTRATION RATE 12; GLUCOSE 174 mg/dL (70-100); POTASSIUM 4.7 mEq/L (3.5-5.2); SODIUM 145 mEq/L (134-144)
[2016-05-07] MEDS: SENNOSIDES/DOCUSATE SODIUM TAB PO SCH ×2 (08:30→21:28)
[2016-05-07] MEDS: INSULIN LISPRO 100 UNIT/ML SC SCH ×3 (08:30→19:23)
[2016-05-07] MEDS: ERTAPENEM 0.5 GM in NS 50 ML IV SCH (08:39)
[2016-05-07] MEDS: AMIODARONE HCL 200 MG TAB PO SCH (08:43)
[2016-05-07] MEDS: ACETAMINOPHEN 325 MG TAB PO PRN (08:43)
[2016-05-07] MEDS: METOPROLOL TARTRATE 25 MG TAB PO SCH ×2 (08:45→21:29)
[2016-05-07] MEDS: HEPARIN 5,000 UNIT/0.5 ML SYR SC SCH ×3 (08:46→21:28)
--- NOTE | 2016-05-07 09:55 | SOAPPROG ---
SOAP Progress Note Assessment/Plan: Assessment: 1. Nonoliguric DAVID Ischemic ATN, Cr peaked 4.6, now in recovery phase. 3. HTN BP is drifting up. Will be permissive of this now. 3. Anemia Hg drifting down slowly. She is on high dose epo. 4. Remains on antibx. Wound care per general surgery. 5. Ultimate goal is revascularization. Nursing appropriately notes that her overall condition is poor, and has concerns about benefit and recovery. Her options are not ideal. I called and discussed with son who has the same concerns. Our goal will be for patient, son, and surgery to have a meeting discussing expected outcomes and recovery of a surgical revascularization. 6. Pt is depressed. She may need some additional treatment for this. 05/07/16 09:57 Subjective: Tearful Objective: Vital Signs Temp Pulse Resp BP Pulse Ox 36.5 C 75 12 153/77 H 98 05/07/16 07:30 05/07/16 07:30 05/07/16 07:30 05/07/16 07:30 05/07/16 07:30 Laboratory Results 05/07/16 04:44 05/07/16 04:44 05/06/16 05/07/16 05/08/16 05:59 05:59 05:59 Intake Total 360 600 Output Total 925 1100 Balance -565 -500 PT 19.9 SEC (12.0-15.0) H 04/28/16 12:55 INR 1.69 (0.83-1.16) H 04/28/16 12:55 Physical Exam - Physical Exam General Appearance: mild distress Respiratory: lungs clear Cardiac/Chest: regular rate, rhythm Abdomen: soft Extremities: pedal edema Neuro/Psych: depressed affect ICD10 Worksheet Patient Problems: Problems Problem Status Diagnosed Palliative care encounter Acute Paroxysmal atrial fibrillation Acute Urinary tract infection Acute
--- NOTE | 2016-05-07 11:08 | SOAPPROG ---
SOAP Progress Note Assessment/Plan: Assessment/Plan 70yo F s/p multiple LLE debridements. VAC continues to hold suction appropriately. Will not tolerate change at bedside and I did discuss bedside change with anesthesia but given holiday and multiple scheduled cases would not be available until evening and I am not going to keep her NPO for change that we can do tomorrow. Angiogram reviewed (dictation only) but does show at least one vessel target in LLE although calcified, would want imaging to review prior to any intervention. Will make NPO at midnight for planned sedation and VAC change tomorrow when more staff available. 05/05/16 10:47 05/06/16 09:55 05/07/16 11:04 Subjective: No appetite, having some pain in LLE. Her mental status is a little diminished today as she thinks she is at a college campus tour Objective: Vital Signs Temp Pulse Resp BP Pulse Ox 36.5 C 75 12 153/77 H 98 05/07/16 07:30 05/07/16 07:30 05/07/16 07:30 05/07/16 07:30 05/07/16 07:30 Laboratory Results 05/07/16 04:44 05/07/16 04:44 05/06/16 05/07/16 05/08/16 05:59 05:59 05:59 Intake Total 360 600 Output Total 925 1100 Balance -565 -500 PT 19.9 SEC (12.0-15.0) H 04/28/16 12:55 INR 1.69 (0.83-1.16) H 04/28/16 12:55 ICD10 Worksheet Patient Problems: Problems Problem Status Diagnosed Palliative care encounter Acute Paroxysmal atrial fibrillation Acute Urinary tract infection Acute
--- NOTE | 2016-05-07 15:15 | HOSPPROG ---
Hospitalist Progress Note Assessment/Plan: 70-year-old female admitted 04/2016 with a severe wound infection and removed her left ankle and foot. Patient is new to me today. Summary of her medical condition and problems are as follows: DIAGNOSIS: ACUTE WOUND INFECTIONS IN THE LEG WITH NECROSIS AND PURULENCE, -status post debridements, wound VAC in place -Morganella morganii in wound cultures on ertapenem PERIPHERAL VASCULAR DISEASE WITH SEVERE COMPROMISE IN ARTERIAL SUPPLY TO THE LEG -the hope is to perform revascularization here to improve her chances of healing her wounds and prevent recurrence with potential limb loss * Dr. Lamar is trying to get angiogram results from [place] to see if there is a bypass site that he can use angiogram report from [facility] is in chart, unclear if amenable to bypass * however cannot get operation until kidney function improves. Nephrology is has thought about dialyzing her to try to get surgery done ACUTE RENAL FAILURE ? ATN initially due to hypotension in the setting of atrial fibrillation with RVR. improving sacral decubitus ulceration stage II. Daily wound care HYPOTENSION, DUE TO RAPID AFIB -this is resolved now w conversion to NSR on amiodarone on tele, intermittent AF (interp by me) A FIB, RAPID VENTRICULAR RESPONSE -now converted to NSR on amiodarone TYPE 2 DIABETES MELLITUS, * blood sugars look at goal HYPOKALEMIA, LIKELY DUE TO HER DIURETIC -improved with replacement DVT prophylaxis * start heparin sc tid Subjective: case d/w Drs. Dunlap and Bishop. tele: sinus (intero by me) Objective: Vital Signs Temp Pulse Resp BP Pulse Ox 36.8 C 66 11 L 143/69 H 96 05/07/16 11:46 05/07/16 11:46 05/07/16 11:46 05/07/16 11:46 05/07/16 11:46 Laboratory Results 05/07/16 04:44 05/07/16 04:44 05/06/16 05/07/16 05/08/16 05:59 05:59 05:59 Intake Total 360 600 Output Total 925 1100 Balance -565 -500 PT 19.9 SEC (12.0-15.0) H 04/28/16 12:55 INR 1.69 (0.83-1.16) H 04/28/16 12:55 - Physical Exam Constitutional: no apparent distress, appears nourished Eyes: PERRL, anicteric sclera Ears, Nose, Mouth, Throat: moist mucous membranes, hearing normal Cardiovascular: regular rate and rhythym, no murmur, rub, or gallop Respiratory: no respiratory distress, no rales or rhonchi Gastrointestinal: normoactive bowel sounds, soft, non-tender abdomen Genitourinary: justice in urethra Skin: warm Musculoskeletal: other (wound vac LLE) Neurologic: AAOx3 Psychiatric: interacting appropriately ICD10 Worksheet Patient Problems: Problems Problem Status Diagnosed Palliative care encounter Acute Paroxysmal atrial fibrillation Acute Urinary tract infection Acute
[2016-05-07] MEDS: FUROSEMIDE 40 MG TAB PO SCH (16:05)
[2016-05-07] MEDS: ASPIRIN EC 81 MG TAB PO SCH (21:28)
[2016-05-07] MEDS: INSULIN GLARGINE 100 UNITS/ML SYRINGE SC SCH (21:28)
[2016-05-08 04:46] LABS: ANION GAP 9 mEq/L (8-16); CALCIUM 8.2 mg/dL (8.5-10.4); CARBON DIOXIDE 26 mEq/l (22-31); CHLORIDE 111 mEq/L (97-110); CREATININE 3.5 mg/dL (0.6-1.0); GLOMERULAR FILTRATION RATE 13; GLUCOSE 102 mg/dL (70-100); POTASSIUM 4.6 mEq/L (3.5-5.2); SODIUM 146 mEq/L (134-144)
[2016-05-08] MEDS: INSULIN LISPRO 100 UNIT/ML SC SCH ×3 (09:16→21:05)
[2016-05-08] MEDS: SENNOSIDES/DOCUSATE SODIUM TAB PO SCH ×2 (09:17→21:08)
[2016-05-08] MEDS: FUROSEMIDE 40 MG TAB PO SCH ×2 (09:17→15:29)
[2016-05-08] MEDS: ERTAPENEM 0.5 GM in NS 50 ML IV SCH (09:30)
[2016-05-08] MEDS: METOPROLOL TARTRATE 25 MG TAB PO SCH ×2 (09:31→21:09)
[2016-05-08] MEDS ORDERED: fentaNYL 100 MCG/2 ML INJ ONE (09:47)
[2016-05-08] MEDS ORDERED: PROPOFOL 200 MG/20 ML VIAL ONE ×2 (09:48)
[2016-05-08] MEDS ORDERED: LIDOCAINE 2% 5 ML SDV ONE (09:48)
[2016-05-08] MEDS ORDERED: PHENYLEPHRINE HCL 100 MCG/ML SYR ONE (10:01)
--- NOTE | 2016-05-08 11:12 | WOCRNPDOC ---
ALFONSO Advanced Assessment Note - Skin Integrity Problem, Advanced Assess Left Sacrum Pressure Injury Dressing Type: Allevyn Life, Hydrocolloid Dressing Description: Soiled Exudate Amount: Scant Exudate Color: Reddish/Yellow Exudate Characteristic(s): Serosanguinous Integumentary Issue Intervention: Dressing Applied Alana Wound Tissue: Blanching, Erythema Alana Wound Swelling: Mild Wound Bed Color: [place], Red, Yellow Wound Bed Constitution: Granulation Tissue (20%), Smooth Tissue (60%), Mixed Loose & Adhered Slough/Eschar (20% adhered slough/eschar) Wound Edges: Epithelizing Site Odor: None Site Measurement - Head-to-Toe Length X Width X Depth (cm): 4.8cmx3.8cmx0.2cm (w / 2 discrete areas of adhered slough/eschar where wound depth remains unknown). Pressure Injury Stage: Unstageable Pressure Injury Present on Admit: Yes Skin Integrity Problem Comment: Dr. Dahl cut away some of the loose slough/ eschar in wound, leaving two, discrete well-attached islands medially. Wound dimensions smaller than previous assessment, and 80% of this wound is mixed smooth and granulation tissues. While the two areas of slough/eschar still render the wound unstageable, the remainder of the wound bed is a partial- thickness wound w/ epithelializing margins. Continue w/ hydrocolloid, as it is clearly effective in debriding this wound. Right Sacrum Pressure Injury Dressing Type: Allevyn Life, Hydrocolloid Dressing Description: Soiled Exudate Amount: Scant Exudate Characteristic(s): Clear Integumentary Issue Intervention: Dressing Applied Alana Wound Tissue: Blanching, Erythema Alana Wound Swelling: Mild Wound Bed Color: [place], Red Wound Bed Constitution: Smooth Tissue Wound Edges: Epithelizing Site Odor: None Site Measurement - Head-to-Toe Length X Width X Depth (cm): 0.7cmx0.4cmx0.1cm Pressure Injury Stage: Stage 2 Pressure Injury Present on Admit: Yes (Wound was previously slough-filled and unstageable.) Skin Integrity Problem Comment: Wound w/ 100% smooth tissue, epithelializing along margins. Partial-thickness tissue loss noted. Wound appearance presently consistent w/ a stage II injury, where it was previously slough-filled and unstageable. Blanching erythema alana-wound, surrounding skin presently intact.
[2016-05-08] MEDS: HEPARIN 5,000 UNIT/0.5 ML SYR SC SCH ×3 (11:43→21:08)
[2016-05-08] MEDS: AMIODARONE HCL 200 MG TAB PO SCH (11:43)
--- NOTE | 2016-05-08 12:03 | SOAPPROG ---
SOAP Progress Note Assessment/Plan: Assessment:Plan: ARF-baseline creatinine around 1 to 1.1 -stable at 3.5 overnite -peaked 4.7 05/03/2016 -now with good urine output -electrolyte and volume status okay -BP okay -2500 urine output on lasix 40mg PO Bid -I would like to see the creatinine back to her baseline prior to surgery, but this really may not be feasible given the ongoing wound problems she has 05/08/16 12:02 Subjective: preoccupied with the cartoons on the TV, denies any new complaints Objective: Vital Signs Temp Pulse Resp BP Pulse Ox 36.6 C 73 13 141/83 H 88 L 05/08/16 11:53 05/08/16 11:53 05/08/16 11:53 05/08/16 11:53 05/08/16 11:53 Laboratory Results 05/07/16 04:44 05/08/16 04:15 05/07/16 05/08/16 05/09/16 05:59 05:59 05:59 Intake Total 600 450 Output Total 1100 2500 Balance -500 -2050 PT 19.9 SEC (12.0-15.0) H 04/28/16 12:55 INR 1.69 (0.83-1.16) H 04/28/16 12:55 Physical Exam - Physical Exam General Appearance: alert, no apparent distress EENT: normal ENT inspection Neck: normal inspection Respiratory: decreased breath sounds (bilaterally 1/4) Cardiac/Chest: systolic murmur, irregularly irregular Abdomen: normal bowel sounds, non-tender Extremities: other (per surgery) ICD10 Worksheet Patient Problems: Problems Problem Status Diagnosed Palliative care encounter Acute Paroxysmal atrial fibrillation Acute Urinary tract infection Acute
--- NOTE | 2016-05-08 12:31 | GOP ---
[f rep st] OPERATIVE REPORT DATE OF OPERATION: 05/08/2016 SURGEON: Ashleigh Dahl MD FEED BLENDER: MIRIAM Julio ANESTHESIA: Monitored anesthesia care with IV sedation. ANESTHESIOLOGIST: Aman Palacios. PREOPERATIVE DIAGNOSIS: Peripheral vascular disease with ulcers to the left lower extremity and sacral decubitus ulcer. POSTOPERATIVE DIAGNOSIS: Peripheral vascular disease with ulcers to the left lower extremity and sacral decubitus ulcer. PROCEDURE PERFORMED: Debridement of sacral decubitus ulcer, slough, and wound VAC placement, left lower extremity. FINDINGS: tendon is healthy SPECIMENS: None. ESTIMATED BLOOD LOSS: Zero. INDICATIONS: The patient is a 70-year-old, with diabetes, peripheral vascular disease, and developed pressure ulcers as well as ulcers from her peripheral vascular disease. DESCRIPTION OF PROCEDURE: The patient was in her room and a time-out was performed. IV sedation was performed. I removed the wound VAC. I prepped the skin. I applied a new wound VAC. The wounds are extensive. There was exposed Achilles tendon. A barrier was placed over the tendon and the wound VAC was reapplied. There was no obvious necrotic tissue. On her sacrum the leathery slough had softened quite a bit. I was able to trim another portion of this. Dressing was applied. /[id number]/MODL MTDD
--- NOTE | 2016-05-08 15:25 | HOSPPROG ---
Hospitalist Progress Note Assessment/Plan: 70-year-old female admitted 04/2016 with a severe wound infection and removed her left ankle and foot. Patient is new to me today. Summary of her medical condition and problems are as follows: DIAGNOSIS: ACUTE WOUND INFECTIONS IN THE LEG WITH NECROSIS AND PURULENCE, -status post debridements, wound VAC in place -Morganella morganii in wound cultures on ertapenem PERIPHERAL VASCULAR DISEASE WITH SEVERE COMPROMISE IN ARTERIAL SUPPLY TO THE LEG -the hope is to perform revascularization here to improve her chances of healing her wounds and prevent recurrence with potential limb loss * Dr. Lamar is trying to get angiogram results from [place] to see if there is a bypass site that he can use angiogram report from [facility] is in chart, unclear if amenable to bypass * however cannot get operation until kidney function improves. Nephrology is has thought about dialyzing her to try to get surgery done ACUTE RENAL FAILURE ? ATN initially due to hypotension in the setting of atrial fibrillation with RVR. improving sacral decubitus ulceration stage II. Daily wound care HYPOTENSION, DUE TO RAPID AFIB -this is resolved now w conversion to NSR on amiodarone on tele, intermittent AF (interp by me) A FIB, RAPID VENTRICULAR RESPONSE -now converted to NSR on amiodarone TYPE 2 DIABETES MELLITUS, * blood sugars look at goal HYPOKALEMIA, LIKELY DUE TO HER DIURETIC -improved with replacement DVT prophylaxis * start heparin sc tid Subjective: case discussed w dr hdez Objective: Vital Signs Temp Pulse Resp BP Pulse Ox 36.6 C 73 13 141/83 H 88 L 05/08/16 11:53 05/08/16 11:53 05/08/16 11:53 05/08/16 11:53 05/08/16 11:53 Laboratory Results 05/07/16 04:44 05/08/16 04:15 05/07/16 05/08/16 05/09/16 05:59 05:59 05:59 Intake Total 600 450 Output Total 1100 2500 Balance -500 -2049 PT 19.9 SEC (12.0-15.0) H 04/28/16 12:55 INR 1.69 (0.83-1.16) H 04/28/16 12:55 - Physical Exam Constitutional: no apparent distress, appears nourished Eyes: PERRL, anicteric sclera Ears, Nose, Mouth, Throat: moist mucous membranes, hearing normal Cardiovascular: regular rate and rhythym, no murmur, rub, or gallop Respiratory: no respiratory distress, no rales or rhonchi Gastrointestinal: normoactive bowel sounds Genitourinary: No justice in urethra Skin: warm, normal color Musculoskeletal: full muscle strength ICD10 Worksheet Patient Problems: Problems Problem Status Diagnosed Palliative care encounter Acute Paroxysmal atrial fibrillation Acute Urinary tract infection Acute
[2016-05-08] MEDS: oxyCODONE IR 5 MG TAB PO PRN (15:28)
--- NOTE | 2016-05-08 18:14 | PCMIDPN ---
Assessment/Plan: Assessment/Plan: * Left lower extremity necrotic skin and soft tissue infection status post debridement and wound VAC placement: Post wound VAC change earlier today without active necrosis noted. Wound findings reviewed with Dr. Dahl. Has received 3 weeks of antibiotic therapy at this point. Will discontinue ertapenem and observe off antibiotics with primary issue being vascular supply. * Acute renal failure: Now off Zosyn in event any contribution of AIN. 05/08/16 18:10 05/08/16 18:16 Subjective: Patient without specific complaints. Status post wound VAC change earlier today without active necrosis or skin and soft tissue infection noted. Objective: Vital Signs Temp Pulse Resp BP Pulse Ox 36.8 C 71 11 L 171/75 H 97 05/08/16 16:45 05/08/16 16:45 05/08/16 16:45 05/08/16 16:45 05/08/16 16:45 Laboratory Results 05/07/16 04:44 05/08/16 04:15 05/07/16 05/08/16 05/09/16 05:59 05:59 05:59 Intake Total 600 450 Output Total 1100 2500 Balance -500 -2050 C-Reactive Protein 168.4 mg/L (<10.0) H 04/17/16 05:06 Ertapenem # 5 (antibiotics # 21) - Physical Exam General Appearance: alert, no apparent distress, obese EENT: No scleral icterus Extremities: inflammation (Left lower extremity with wound VAC in place; no active cellulitis present at VAC margins; remains tender around VAC margins) Abdomen: non-tender, No distended ICD10 Worksheet Patient Problems: Problems Problem Status Diagnosed Palliative care encounter Acute Paroxysmal atrial fibrillation Acute Urinary tract infection Acute
[2016-05-08] MEDS: INSULIN GLARGINE 100 UNITS/ML SYRINGE SC SCH (21:08)
[2016-05-08] MEDS: ASPIRIN EC 81 MG TAB PO SCH (21:09)
[2016-05-09] MEDS: INSULIN LISPRO 100 UNIT/ML SC SCH ×3 (07:53→18:02)
[2016-05-09] MEDS: HEPARIN 5,000 UNIT/0.5 ML SYR SC SCH ×3 (08:27→21:46)
[2016-05-09] MEDS: FUROSEMIDE 40 MG TAB PO SCH ×2 (08:30→15:30)
[2016-05-09] MEDS: METOPROLOL TARTRATE 25 MG TAB PO SCH ×2 (08:30→21:46)
[2016-05-09] MEDS: AMIODARONE HCL 200 MG TAB PO SCH (08:30)
[2016-05-09] MEDS: SENNOSIDES/DOCUSATE SODIUM TAB PO SCH ×2 (09:05→21:45)
[2016-05-09] MEDS: EPOETIN ALFA 10,000 UNIT/ML VIAL SC SCH (12:07)
--- NOTE | 2016-05-09 12:42 | SOAPPROG ---
SOAP Progress Note Assessment/Plan: Assessment: 70yo F s/p excisional debridement LLE wounds 04/[address] Dahl and 05/[address] Dunlap Plan OR with Dr. Lamar for fem-ant tib bypass when renal function improved Will likely DC to LTAC until ready for surgery Continue wound vac change MWF OK to DC IV antibiotics per Dr. Dahl Encouraged PT/OT, standing and ambulation Comorbidities managed by hospitalists Seen with Dr. Dahl No current complaints Laying in bed, comfortable, NAD LLE wound vac to suction without surrounding erythema Objective: Vital Signs Temp Pulse Resp BP Pulse Ox 36.7 C 83 18 127/70 H 97 05/09/16 11:20 05/09/16 11:20 05/09/16 11:20 05/09/16 11:20 05/09/16 11:20 Laboratory Results 05/07/16 04:44 05/08/16 05/09/16 05/10/16 05:59 05:59 05:59 Intake Total 450 200 Output Total 2500 3500 1700 Balance -2050 -3300 -1700 PT 19.9 SEC (12.0-15.0) H 04/28/16 12:55 INR 1.69 (0.83-1.16) H 04/28/16 12:55 ICD10 Worksheet Patient Problems: Problems Problem Status Diagnosed Palliative care encounter Acute Paroxysmal atrial fibrillation Acute Urinary tract infection Acute
[2016-05-09 12:50] LABS: ALBUMIN 2.1 g/dL (3.5-5.0); ANION GAP 9 mEq/L (8-16); CALCIUM 8.4 mg/dL (8.5-10.4); CARBON DIOXIDE 29 mEq/l (22-31); CHLORIDE 106 mEq/L (97-110); GLOMERULAR FILTRATION RATE 15; GLUCOSE 124 mg/dL (70-100); POTASSIUM 4.5 mEq/L (3.5-5.2); SODIUM 144 mEq/L (134-144)
--- NOTE | 2016-05-09 14:00 | SOAPPROG ---
SOAP Progress Note Assessment/Plan: Assessment: DAVID, improving Family having discussion now regarding limits of care Plan: No urgent HD needs continue therapies Family discussion underway 05/09/16 13:58 Subjective: Alert and cooperative talkative no new complaints Objective: Vital Signs Temp Pulse Resp BP Pulse Ox 36.7 C 83 18 127/70 H 97 05/09/16 11:20 05/09/16 11:20 05/09/16 11:20 05/09/16 11:20 05/09/16 11:20 Laboratory Results 05/09/16 11:59 05/08/16 05/09/16 05/10/16 05:59 05:59 05:59 Intake Total 450 200 Output Total 2500 3500 1700 Balance -2050 -3300 -1700 PT 19.9 SEC (12.0-15.0) H 04/28/16 12:55 INR 1.69 (0.83-1.16) H 04/28/16 12:55 Physical Exam - Physical Exam General Appearance: alert, obese Respiratory: No rhonchi, No wheezing Cardiac/Chest: edema Abdomen: non-tender Neuro/Psych: alert, normal mood/affect, oriented x 3 ICD10 Worksheet Patient Problems: Problems Problem Status Diagnosed Palliative care encounter Acute Paroxysmal atrial fibrillation Acute Urinary tract infection Acute
--- NOTE | 2016-05-09 14:02 | HOSPPROG ---
Hospitalist Progress Note Assessment/Plan: 70-year-old female admitted 04/2016 with a severe wound infection and removed her left ankle and foot. Patient is new to me today. Summary of her medical condition and problems are as follows: nutrition: albumin of 2.1 suggestive of poor nutritional status 1. check prealbumin 2. dietary consults 3. suspect she may need peg for nutrional support given poor po intake ACUTE WOUND INFECTIONS IN THE LEG WITH NECROSIS AND PURULENCE, -status post debridements, wound VAC in place off abc PERIPHERAL VASCULAR DISEASE WITH SEVERE COMPROMISE IN ARTERIAL SUPPLY TO THE LEG angiogram reviewed by dr sullivan- anatomy amenable to bypass recovery on renal funstion and improved nutritional status before surgery ACUTE RENAL FAILURE ? ATN initially due to hypotension in the setting of atrial fibrillation with RVR. improving sacral decubitus ulceration stage II. Daily wound care HYPOTENSION, DUE TO RAPID AFIB -this is resolved now w conversion to NSR on amiodarone on tele, intermittent AF (interp by me) A FIB, RAPID VENTRICULAR RESPONSE -now converted to NSR on amiodarone TYPE 2 DIABETES MELLITUS, * blood sugars look at goal HYPOKALEMIA, LIKELY DUE TO HER DIURETIC -improved with replacement DVT prophylaxis * start heparin sc tid Subjective: 65' spent w patuent and family discussing options Objective: Vital Signs Temp Pulse Resp BP Pulse Ox 36.7 C 83 18 127/70 H 97 05/09/16 11:20 05/09/16 11:20 05/09/16 11:20 05/09/16 11:20 05/09/16 11:20 Laboratory Results 05/09/16 11:59 05/08/16 05/09/16 05/10/16 05:59 05:59 05:59 Intake Total 450 200 Output Total 2500 3500 1700 Balance -205 -3300 -1700 PT 19.9 SEC (12.0-15.0) H 04/28/16 12:55 INR 1.69 (0.83-1.16) H 04/28/16 12:55 - Physical Exam Constitutional: no apparent distress, appears nourished Eyes: PERRL, anicteric sclera Ears, Nose, Mouth, Throat: moist mucous membranes, hearing normal Cardiovascular: regular rate and rhythym, no murmur, rub, or gallop Respiratory: no respiratory distress, no rales or rhonchi Gastrointestinal: normoactive bowel sounds, soft, non-tender abdomen Genitourinary: No justice in urethra Skin: warm, normal color Musculoskeletal: No full muscle strength Neurologic: No AAOx3 ICD10 Worksheet Patient Problems: Problems Problem Status Diagnosed Palliative care encounter Acute Paroxysmal atrial fibrillation Acute Urinary tract infection Acute
[2016-05-09 14:13] LABS: % IMMATURE GRANULYOCYTES 1.1 % (0.0-1.1); ABSOLUTE IMMATURE GRANULOCYTES 0.11 10^3/uL (0.00-0.10); ABSOLUTE NRBC COUNT 0.02 10^3/uL (0-0.01); ADD DIFF? NO; ADD MORPH? NO; ADD SCAN? NO; ATYPICAL LYMPHOCYTE FLAG 10 (0-99); FRAGMENT RBC FLAG 10 (0-99); HEMATOCRIT 27.2 % (38.0-47.0); HEMOGLOBIN 8.7 g/dL (12.6-16.3); LEFT SHIFT FLG 10 (0-99); LIPEMIA HEMOLYSIS FLAG 80 (0-99); MEAN CELL HEMOGLOBIN 30.5 pg (27.9-34.1); MEAN CELL VOLUME 95.4 fL (81.5-99.8); NRBC-AUTO% 0.2 % (0.0-0.2); PLATELET CLUMPS FLAG 0 (0-99); PLATELET COUNT 356 10^3/uL (150-400); RED BLOOD CELL COUNT 2.85 10^6/uL (4.18-5.33); RED CELL DISTRIBUTION WIDTH 18.6 % (11.5-15.2)
--- NOTE | 2016-05-09 15:15 | PDPCPN ---
Palliative Care Progress Note Assessment/Plan: HPI: Kristen Silva (Marg) is a 70 yo female with PMH DM, PVD, PAD, and chronic leg wound admitted to the hospital for decreased mobility and generalized weakness. On admission found to have UTI and new a fib. Wound care involved with severe sacral decubs as well as severe left lower leg wound. Surgery consulted with option for bypass once medically stable. Hospitalization has been complicated acute kidney injury, acute encephalopathy, and deconditioning. Palliative care consulted per patient and family wishes. Met with son Kingsley, BENITEZ Cheatham, Dr Leyva, Vinita connelllain outside of the room. Dr Leyva clearly discussed all options with son including bypass, amputation or hospice care. Kingsley is conflicted on what is best for Shahida as he feels she does not want to slowly decline but also that she wants to live. Discussed the course of surgery will include time for recovery of her current medical problems and better nutritional support. Then discussed the above with Shahida at her bedside. Shahida was overwhelmed with her options and stated "if surgery would lead me to a useful life" then she would want surgery. She was not able to clearly state what "useful life" meant to her. From previous discussions what matters most to her is spending time with her family. Shahida stated she wants to try rehab and eating more as she wants to have the chance of surgery. She was unable to fully understand the risks/benefits or needs of a PEG at this time. We agreed with Shahida and Kingsley to continue this discussion tomorrow but her goals are very clear in wanting to try surgery. Assessment: Physical: - Pain: mostly with wound care changes - morphing IV PRN at least 15 minutes before wound care - tylenol PRN for other pain - constipation - at risk with opiates continue bowel regimen with senna and colace Emotional/psychological: tearful at times but feels well supported by family Advanced Care Planning: Is patient decisional?: No Code Status: DNR POA: son Kingsley is MDPOA. Plan: Goals seem most consistent with wanting a chance for surgery for a " useful life". This would mean PEG tube wtih LTAC stay. Hospice does not seem in line with her or her son's wishes at this moment but they understand they can change their mind at anytime. Subjective: I'm ok Objective: Vital Signs Temp Pulse Resp BP Pulse Ox 36.7 C 83 18 127/70 H 97 05/09/16 11:20 05/09/16 11:20 05/09/16 11:20 05/09/16 11:20 05/09/16 11:20 Laboratory Results 05/09/16 13:46 05/09/16 11:59 05/08/16 05/09/16 05/10/16 05:59 05:59 05:59 Intake Total 450 200 Output Total 2500 3500 1700 Balance -2050 -3300 -1700 PT 19.9 SEC (12.0-15.0) H 04/28/16 12:55 INR 1.69 (0.83-1.16) H 04/28/16 12:55 Physical Exam - Physical Exam General Appearance: alert, no apparent distress Respiratory: No respiratory distress, No accessory muscle use Skin: normal color, warm/dry Extremities: pedal edema Neuro/Psych: alert, disoriented to time ICD10 Worksheet Patient Problems: Problems Problem Status Diagnosed Palliative care encounter Acute Paroxysmal atrial fibrillation Acute Urinary tract infection Acute - ICD10 Problem Qualifiers (1) Palliative care encounter
[2016-05-09] MEDS: ACETAMINOPHEN 325 MG TAB PO PRN (21:45)
[2016-05-09] MEDS: INSULIN GLARGINE 100 UNITS/ML SYRINGE SC SCH (23:45)
[2016-05-10] MEDS: ASPIRIN EC 81 MG TAB PO SCH ×2 (01:44→23:34)
--- NOTE | 2016-05-10 07:41 | SOAPPROG ---
SOAP Progress Note Assessment/Plan: Assessment: 70 DIABETIC FEMALE WITH MULTIPLE LEFT LEG ULCERATIONS AND NONHEALING WOUNDS EXACERBATED BY PVD CTA SHOWS ONLY ANT TIB RUNOFF BELOW OCCLUDED POP RISKS AND OPTIONS FULLY DISCUSSED Plan: EVAL FOR FEM-TIB BYPASS FOR LIMB SALVAGE 04/18/16 20:15 04/24/16 08:30 pt seems to want bypass if feasible/ afebrile/ plan catheter angio today 04/25/16 18:30 still awaiting angio disc but likely needs fem-tib bypass/ ? when to schedule 04/28/16 09:41 afebrile/ wound vac in place/ await medical stabilization for fem distal bypass 05/10/16 07:40 discussed yesterday with pt and son about option of fem-pop today, tomorrow or early next week/ they will discuss Objective: Vital Signs Temp Pulse Resp BP Pulse Ox 36.6 C 66 18 136/67 H 98 05/10/16 04:00 05/10/16 04:00 05/10/16 04:00 05/10/16 04:00 05/10/16 04:00 Laboratory Results 05/09/16 13:46 05/09/16 11:59 05/09/16 05/10/16 05/11/16 05:59 05:59 05:59 Intake Total 200 1180 Output Total 3500 4650 Balance -3300 -3470 PT 19.9 SEC (12.0-15.0) H 04/28/16 12:55 INR 1.69 (0.83-1.16) H 04/28/16 12:55 ICD10 Worksheet Patient Problems: Problems Problem Status Diagnosed Palliative care encounter Acute Paroxysmal atrial fibrillation Acute Urinary tract infection Acute
[2016-05-10] MEDS: FUROSEMIDE 40 MG TAB PO SCH ×3 (08:48→16:17)
[2016-05-10] MEDS: SENNOSIDES/DOCUSATE SODIUM TAB PO SCH (08:49)
[2016-05-10] MEDS: METOPROLOL TARTRATE 25 MG TAB PO SCH ×2 (08:50→23:34)
[2016-05-10] MEDS: AMIODARONE HCL 200 MG TAB PO SCH (08:50)
[2016-05-10] MEDS: oxyCODONE IR 5 MG TAB PO PRN ×3 (08:51→23:34)
--- NOTE | 2016-05-10 09:40 | SOAPPROG ---
SOAP Progress Note Assessment/Plan: Assessment: 70 yo with co-morbidities, wounds on the left lower extremity. S/P debridement and vac placement She has single vessel runoff. She has two failed endovascular attempts Dr. Lamar is discussing timing of bypass. we will continue wound VAC changes 3 times a week. Saturday the wounds were clean I will change the VAC again tomorrow S: In good spirits O: Vac in place. Minimal erythema, edema improved Plan: 04/21/16 11:31 04/21/16 11:31 04/26/16 10:21 05/10/16 09:39 Objective: Vital Signs Temp Pulse Resp BP Pulse Ox 36.6 C 68 20 151/69 H 98 05/10/16 08:00 05/10/16 08:00 05/10/16 08:00 05/10/16 08:00 05/10/16 08:00 Laboratory Results 05/09/16 13:46 05/09/16 11:59 05/09/16 05/10/16 05/11/16 05:59 05:59 05:59 Intake Total 200 1180 Output Total 3500 4650 800 Balance -3300 -3470 -800 PT 19.9 SEC (12.0-15.0) H 04/28/16 12:55 INR 1.69 (0.83-1.16) H 04/28/16 12:55 ICD10 Worksheet Patient Problems: Problems Problem Status Diagnosed Palliative care encounter Acute Paroxysmal atrial fibrillation Acute Urinary tract infection Acute
[2016-05-10] MEDS: INSULIN LISPRO 100 UNIT/ML SC SCH ×3 (10:41→16:33)
--- NOTE | 2016-05-10 12:59 | HOSPPROG ---
Hospitalist Progress Note Assessment/Plan: 70-year-old female admitted 04/2016 with a severe wound infection and removed her left ankle and foot. Patient is new to me today. Summary of her medical condition and problems are as follows: nutrition: albumin of 2.1 suggestive of poor nutritional status 1. check prealbumin 2. dietary consults 3. suspect she may need feeding tube for nutrional support given poor po intake ACUTE WOUND INFECTIONS IN THE LEG WITH NECROSIS AND PURULENCE, -status post debridements, wound VAC in place off abc PERIPHERAL VASCULAR DISEASE WITH SEVERE COMPROMISE IN ARTERIAL SUPPLY TO THE LEG angiogram reviewed by dr sullivan- anatomy amenable to bypass surgery today or tomorrow ACUTE RENAL FAILURE ? ATN initially due to hypotension in the setting of atrial fibrillation with RVR. improving sacral decubitus ulceration stage II. Daily wound care HYPOTENSION, DUE TO RAPID AFIB -this is resolved now w conversion to NSR on amiodarone on tele, intermittent AF (interp by me) A FIB, RAPID VENTRICULAR RESPONSE -now converted to NSR on amiodarone TYPE 2 DIABETES MELLITUS, * blood sugars look at goal HYPOKALEMIA, LIKELY DUE TO HER DIURETIC -improved with replacement DVT prophylaxis * start heparin sc tid Subjective: case d/w dr sullivan. surgery today or tomorrow Objective: Vital Signs Temp Pulse Resp BP Pulse Ox 36.4 C 67 16 134/58 H 95 05/10/16 11:52 05/10/16 11:52 05/10/16 11:52 05/10/16 11:52 05/10/16 11:52 Laboratory Results 05/09/16 13:46 05/09/16 11:59 05/09/16 05/10/16 05/11/16 05:59 05:59 05:59 Intake Total 200 1180 Output Total 3500 4650 800 Balance -3300 -3470 -800 PT 19.9 SEC (12.0-15.0) H 04/28/16 12:55 INR 1.69 (0.83-1.16) H 04/28/16 12:55 - Physical Exam Constitutional: no apparent distress, appears nourished Eyes: PERRL, anicteric sclera Ears, Nose, Mouth, Throat: moist mucous membranes, hearing normal Cardiovascular: regular rate and rhythym, no murmur, rub, or gallop, systolic murmur Respiratory: no respiratory distress, no rales or rhonchi Gastrointestinal: normoactive bowel sounds, soft, non-tender abdomen Genitourinary: No justice in urethra Skin: warm, normal color, mottled Musculoskeletal: full muscle strength, no muscle tenderness Neurologic: AAOx3, sensation intact bilaterally ICD10 Worksheet Patient Problems: Problems Problem Status Diagnosed Palliative care encounter Acute Paroxysmal atrial fibrillation Acute Urinary tract infection Acute
[2016-05-10] MEDS: HEPARIN 5,000 UNIT/0.5 ML SYR SC SCH ×2 (13:12→16:15)
[2016-05-10 13:18] LABS: ANION GAP 8 mEq/L (8-16); CALCIUM 8.4 mg/dL (8.5-10.4); CARBON DIOXIDE 36 mEq/l (22-31); CHLORIDE 101 mEq/L (97-110); CREATININE 2.8 mg/dL (0.6-1.0); GLOMERULAR FILTRATION RATE 17; GLUCOSE 98 mg/dL (70-100); POTASSIUM 3.9 mEq/L (3.5-5.2); SODIUM 145 mEq/L (134-144)
--- NOTE | 2016-05-10 13:36 | SOAPPROG ---
SOAP Progress Note Assessment/Plan: Assessment: DAVID, improving. Creat down again to 2.8 nonhealing wounds failed vascular intervention x 2 in the past discussion with Dr. Lamar and Palliative care, she wants to proceed with vascular bypass surg, possibly today Plan: No urgent HD needs continue therapies possible vasc bypass later today pt understands risks and wishes to proceed 05/09/16 13:58 05/10/16 13:32 Subjective: family at bedside denies cp sob nausea or vomiting no significant pain today spirits reasonably good Objective: Vital Signs Temp Pulse Resp BP Pulse Ox 36.4 C 67 16 134/58 H 95 05/10/16 11:52 05/10/16 11:52 05/10/16 11:52 05/10/16 11:52 05/10/16 11:52 Laboratory Results 05/09/16 13:46 05/10/16 12:45 05/09/16 05/10/16 05/11/16 05:59 05:59 05:59 Intake Total 200 1180 Output Total 3500 4650 800 Balance -3300 -3470 -800 PT 19.9 SEC (12.0-15.0) H 04/28/16 12:55 INR 1.69 (0.83-1.16) H 04/28/16 12:55 Physical Exam - Physical Exam General Appearance: alert, no apparent distress, obese Respiratory: No rhonchi, No wheezing Cardiac/Chest: regular rate, rhythm, edema, No gallop, No friction rub Abdomen: non-tender, soft, No distended Extremities: swelling Neuro/Psych: alert, oriented x 3 ICD10 Worksheet Patient Problems: Problems Problem Status Diagnosed Palliative care encounter Acute Paroxysmal atrial fibrillation Acute Urinary tract infection Acute
[2016-05-10] MEDS ORDERED: ceFAZolin 2 GM/DEXTROSE 100 ML IV ONE (15:30)
[2016-05-11] MEDS: INSULIN GLARGINE 100 UNITS/ML SYRINGE SC SCH ×2 (00:40→22:08)
[2016-05-11] MEDS: HEPARIN 5,000 UNIT/0.5 ML SYR SC SCH ×2 (00:40→10:32)
[2016-05-11] MEDS: SENNOSIDES/DOCUSATE SODIUM TAB PO SCH ×3 (00:40→22:07)
[2016-05-11 04:01] LABS: ANION GAP 8 mEq/L (8-16); CALCIUM 8.2 mg/dL (8.5-10.4); CARBON DIOXIDE 37 mEq/l (22-31); CHLORIDE 98 mEq/L (97-110); CREATININE 2.7 mg/dL (0.6-1.0); GLOMERULAR FILTRATION RATE 17; GLUCOSE 125 mg/dL (70-100); SODIUM 143 mEq/L (134-144)
[2016-05-11] MEDS ORDERED: ceFAZolin 2 GM/DEXTROSE 100 ML IV ONE ×2 (06:00→13:30)
[2016-05-11] MEDS ORDERED: IOTHALAMATE MEG (CONRAY) 50 ML VIAL IV ONE (07:59)
[2016-05-11] MEDS ORDERED: THROMBIN (RECOMBINANT) 20,000 UNIT SPRAY TP ONE (07:59)
[2016-05-11] MEDS ORDERED: PROTAMINE SULFATE 50 MG/5 ML VIAL IVP ONE (07:59)
[2016-05-11] MEDS ORDERED: PAPAVERINE HCL 60 MG/2 ML SDV ONE (08:00)
[2016-05-11] MEDS ORDERED: BUPIVACAINE 0.5% 30 ML SDV ONE (08:00)
[2016-05-11] MEDS: METOPROLOL TARTRATE 25 MG TAB PO SCH ×2 (09:52→22:07)
[2016-05-11] MEDS: AMIODARONE HCL 200 MG TAB PO SCH (09:53)
[2016-05-11] MEDS: INSULIN LISPRO 100 UNIT/ML SC SCH ×3 (10:31→21:58)
--- NOTE | 2016-05-11 11:39 | SOAPPROG ---
SOAP Progress Note Assessment/Plan: Assessment: DAVID, improving. Creat down again to 2.7 today nonhealing wounds failed vascular intervention x 2 in the past discussion with Dr. Lamar and Palliative care, she wants to proceed with vascular bypass surg, possibly today Plan: No urgent HD needs continue therapies possible vasc bypass later today pt understands risks and wishes to proceed 05/09/16 13:58 05/10/16 13:32 05/11/16 11:36 Subjective: anxious about surgery denies nausea vomiting SOB or pain no abd discomfort spirits good Objective: Vital Signs Temp Pulse Resp BP Pulse Ox 36.8 C 105 H 14 101/75 94 05/11/16 07:57 05/11/16 07:57 05/11/16 07:57 05/11/16 07:57 05/11/16 07:57 Laboratory Results 05/09/16 13:46 05/11/16 03:30 05/10/16 05/11/16 05/12/16 05:59 05:59 05:59 Intake Total 1180 440 Output Total 4650 4200 Balance -3470 -3760 PT 19.9 SEC (12.0-15.0) H 04/28/16 12:55 INR 1.69 (0.83-1.16) H 04/28/16 12:55 Physical Exam - Physical Exam General Appearance: alert, obese Respiratory: No rhonchi, No wheezing Cardiac/Chest: regular rate, rhythm, edema, No friction rub Abdomen: normal bowel sounds, non-tender, soft Skin: other (nonhealing ulcers) Extremities: swelling Neuro/Psych: alert, oriented x 3, other (a little anxious about surgery) ICD10 Worksheet Patient Problems: Problems Problem Status Diagnosed Palliative care encounter Acute Paroxysmal atrial fibrillation Acute Urinary tract infection Acute
[2016-05-11] MEDS: oxyCODONE IR 5 MG TAB PO PRN (12:19)
[2016-05-11] MEDS ORDERED: SUGAMMADEX SODIUM 200 MG/2 ML VIAL IVP ONE (13:19)
[2016-05-11] MEDS ORDERED: ROCURONIUM 50 MG/5 ML VIAL ONE (13:19)
[2016-05-11] MEDS ORDERED: LIDOCAINE 2% 100 MG/5 ML SYR IVP ONE (13:19)
[2016-05-11] MEDS ORDERED: ONDANSETRON 4 MG/2 ML VIAL ONE (13:19)
[2016-05-11] MEDS ORDERED: HYDROmorphONE/DILAUDID 2 MG/ML SYR ONE (13:19)
[2016-05-11] MEDS ORDERED: DEXAMETHASONE 4 MG/ML VIAL ONE (13:19)
[2016-05-11] MEDS ORDERED: fentaNYL 100 MCG/2 ML INJ ONE (13:19)
[2016-05-11] MEDS ORDERED: PROPOFOL 200 MG/20 ML VIAL ONE (13:20)
[2016-05-11] MEDS ORDERED: MIDAZOLAM 2 MG/2 ML VIAL ONE (14:10)
[2016-05-11] MEDS ORDERED: PHENYLEPHRINE HCL 100 MCG/ML SYR ONE ×2 (14:40→15:59)
[2016-05-11] MEDS ORDERED: HEPARIN 10,000 UNIT/10 ML MDV ONE (16:02)
[2016-05-11] MEDS ORDERED: LABETALOL HCL 5 MG/ML 20 ML MDV ONE (18:52)
--- NOTE | 2016-05-11 18:53 | POSTOPPROG ---
Post Op Note Date of Operation: 05/11/16 Surgeon: Salty Lamar Cell Changer: Manish Hernández Anesthesiologist: Dr Palm Anesthesia: GET(General Endotracheal) Pre-op Diagnosis: vascular disease, lower ext wounds Post-op Diagnosis: same Indication: poor wound healing Procedure: left femoral artery bypass, graft Findings: calcified vessels Inf/Abcess present in the surg proc area at time of surgery?: No Depth: Deep Incisional (Fascial) EBL: 50-100
--- NOTE | 2016-05-11 19:54 | HOSPPROG ---
Hospitalist Progress Note Assessment/Plan: This patient with longstanding multiple diabetic complications comes into the hospital with significant purulent necrotic infected wounds in her left ankle and foot. She has significant peripheral vascular disease in that limb. We have organisms identified in cultures, antibiotics and place, status post debridements and ongoing wound VAC care. She has suffered a complication of acute renal failure possibly ATN related to hypotension probably caused by rapid atrial fibrillation. She is now stabilized hemodynamically and converted to sinus rhythm on amiodarone, but her creatinine remains elevated. There is consideration for attempts at revascularization surgically if/when her renal function improves. CONSULTANTS: Dr. Salty Lamar and [facility] Nephrology service Infectious disease service 70-year-old female admitted 04/2016 with a ischemic leg wound infection. Summary of her medical condition and problems are as follows: nutrition: albumin of 2.1 suggestive of poor nutritional status 1. check prealbumin 2. dietary consults 3. suspect she may need feeding tube for nutrional support given poor po intake ACUTE WOUND INFECTIONS IN THE LEG WITH NECROSIS AND PURULENCE, -status post debridements, wound VAC in place off abc PERIPHERAL VASCULAR DISEASE WITH SEVERE COMPROMISE IN ARTERIAL SUPPLY TO THE LEG angiogram reviewed by dr lamar- anatomy amenable to bypass surgery today ACUTE RENAL FAILURE ? ATN initially due to hypotension in the setting of atrial fibrillation with RVR. improving sacral decubitus ulceration stage II. Daily wound care HYPOTENSION, DUE TO RAPID AFIB -this is resolved now w conversion to NSR on amiodarone on tele, intermittent AF (interp by me) A FIB, RAPID VENTRICULAR RESPONSE -now converted to NSR on amiodarone TYPE 2 DIABETES MELLITUS, * blood sugars look at goal HYPOKALEMIA, LIKELY DUE TO HER DIURETIC -improved with replacement DVT prophylaxis * start heparin sc tid Subjective: no events or new complaints. going to surgery Objective: Vital Signs Temp Pulse Resp BP Pulse Ox 36.8 C 76 12 137/64 H 99 05/11/16 18:37 05/11/16 18:37 05/11/16 18:56 05/11/16 19:10 05/11/16 19:10 Laboratory Results 05/09/16 13:46 05/11/16 03:30 05/10/16 05/11/16 05/12/16 05:59 05:59 05:59 Intake Total 1180 440 550 Output Total 4650 4200 300 Balance -3470 -3760 250 PT 19.9 SEC (12.0-15.0) H 04/28/16 12:55 INR 1.69 (0.83-1.16) H 04/28/16 12:55 - Physical Exam Constitutional: no apparent distress Eyes: anicteric sclera Ears, Nose, Mouth, Throat: moist mucous membranes Respiratory: no respiratory distress Neurologic: AAOx3 ICD10 Worksheet Patient Problems: Problems Problem Status Diagnosed Palliative care encounter Acute Paroxysmal atrial fibrillation Acute Urinary tract infection Acute
[2016-05-11] MEDS: ASPIRIN EC 81 MG TAB PO SCH (22:07)
--- NOTE | 2016-05-12 09:17 | SOAPPROG ---
SOAP Progress Note Assessment/Plan: Assessment: 70yo female with multiple left lower leg wounds, buttock ulcer, multiple medical problems including Afibb, diabetes, recent fever, UTI Palliative care meeting took place today, according to reports patient and family discussing options of bypass vs amputation vs hospice. PE awake alert Left leg dressing not removed, viewed yesterday. Pt has wounds over left lateral and left posterior leg. Ultrasound demonstrates veins adequate for bypass Plan: Dr Lamar left message with MD Tucker POA, awaiting call back to discuss options further 04/20/16 15:35 04/20/16 15:38 04/23/16 09:49 70yo female s/p wound debridement and VAC placement POD 1, sepsis likely from wound infections on daptomycin, DM, a-fibb on eliquis hypotensive this AM, undergoing fluid resuscitation per medicine, pain in leg well controlled per patient PE appears comfortable, alert Chest CTA B/L Left leg wound VAC in place over 3 wounds. no signs of leak, foot slightly cooler to touch than R foot. Plan continue fluids per medicine will need OR VAC change 1-2 days pt desires left leg bypass surgery if an option. 04/23/16 09:50 04/23/16 10:00 04/25/16 10:05 unable to angiogram yesterday due to renal failure will try to obtain films from [employer] called and faxed release to [phone] Phone, Fax 04/26/16 09:07 s/p bedside wound VAC change yesterday. Pain controlled, creatinine increased to 3.2 PE awake, alert, laying still in bed Left leg VAC in place over lower ext, no signs of leak, +doppler dorsalis pedis pulse weak. Plan saw pt with Dr Lamar will call [facility] to confirm angio films are on the way. If creatinine improves possible bypass surgery next week. 05/03/16 11:02 s/p VAC change bedside last night, significant area of necrosis over achilles noted, pt tolerated with sedation PE sleeping Left leg VAC in place, no leak, no significant discharge Plan to OR Saturday for VAC change, debridement 05/12/16 09:15 s/p surgery yesterday. Feels much better overall, pain controlled. PE awake alert Left leg VAC in place, bandages dry, DP present upon doppler exam. Foot warm to touch Plan Wound VAC change at bedside Saturday morning with anesthesia, 8am pt can be transferred to PCU but must be in PCU or ICU for bedisde change tomorrow, NOT MED SURG BED. Objective: Vital Signs Temp Pulse Resp BP Pulse Ox 36.3 C 68 16 122/62 H 97 05/12/16 04:00 05/12/16 04:00 05/12/16 04:00 05/12/16 04:00 05/12/16 04:00 Laboratory Results 05/09/16 13:46 05/11/16 03:30 05/11/16 05/12/16 05/13/16 05:59 05:59 05:59 Intake Total 440 550 Output Total 4200 300 Balance -3760 250 PT 19.9 SEC (12.0-15.0) H 04/28/16 12:55 INR 1.69 (0.83-1.16) H 04/28/16 12:55 ICD10 Worksheet Patient Problems: Problems Problem Status Diagnosed Palliative care encounter Acute Paroxysmal atrial fibrillation Acute Urinary tract infection Acute
[2016-05-12] MEDS ORDERED: AMIODARONE HCL 200 MG TAB PO SCH (09:40)
--- NOTE | 2016-05-12 09:47 | HOSPPROG ---
Hospitalist Progress Note Assessment/Plan: 70-year-old female admitted 04/2016 with a ischemic leg wound infection. Summary of her medical condition and problems are as follows: * left lower leg wound and infection due to ischemia * status post debridements, wound VAC in place * completed antibiotics * severe peripheral vascular disease * status post femoral artery bypass * seems to be doing well * acute renal failure due to ATN from hypotension during atrial fibrillation * improving slowly * sacral decubitus ulceration stage II. Daily wound care * afib * in sinus rhythm * will decrease amiodarone to 200 mg daily. has been on 400 mg daily for over 2 weeks * protein calorie malnutrition * type 2 diabetes * blood sugars look at goal DVT prophylaxis * start heparin sc tid Subjective: Had surgery yesterday. Leg feels better with less pain Objective: Vital Signs Temp Pulse Resp BP Pulse Ox 36.3 C 68 16 122/62 H 97 05/12/16 04:00 05/12/16 04:00 05/12/16 04:00 05/12/16 04:00 05/12/16 04:00 Laboratory Results 05/09/16 13:46 05/11/16 03:30 05/11/16 05/12/16 05/13/16 05:59 05:59 05:59 Intake Total 440 550 Output Total 4200 300 Balance -3760 250 PT 19.9 SEC (12.0-15.0) H 04/28/16 12:55 INR 1.69 (0.83-1.16) H 04/28/16 12:55 - Physical Exam Constitutional: no apparent distress, appears nourished, not in pain Eyes: anicteric sclera, EOMI Ears, Nose, Mouth, Throat: moist mucous membranes, hearing normal, ears appear normal Cardiovascular: regular rate and rhythym Respiratory: no respiratory distress Gastrointestinal: normoactive bowel sounds, soft, non-tender abdomen, no palpable masses Musculoskeletal: other ( left lower leg wound VAC in place, left foot warm) Psychiatric: interacting appropriately, not anxious, not encephalopathic, thought process linear ICD10 Worksheet Patient Problems: Problems Problem Status Diagnosed Palliative care encounter Acute Paroxysmal atrial fibrillation Acute Urinary tract infection Acute
[2016-05-12] MEDS: INSULIN LISPRO 100 UNIT/ML SC SCH ×3 (09:49→18:32)
[2016-05-12] MEDS: SENNOSIDES/DOCUSATE SODIUM TAB PO SCH ×2 (09:50→20:31)
[2016-05-12] MEDS: METOPROLOL TARTRATE 25 MG TAB PO SCH ×2 (09:51→20:31)
[2016-05-12] MEDS ORDERED: AMIODARONE HCL 100 ML IV ONE (10:42)
[2016-05-12] MEDS ORDERED: NS 500 ML IV ONE ×2 (10:42→14:10)
[2016-05-12 11:16] LABS: % IMMATURE GRANULYOCYTES 0.7 % (0.0-1.1); ABSOLUTE IMMATURE GRANULOCYTES 0.07 10^3/uL (0.00-0.10); ADD DIFF? NO; ADD MORPH? NO; ADD SCAN? NO; ATYPICAL LYMPHOCYTE FLAG 0 (0-99); FRAGMENT RBC FLAG 10 (0-99); HEMATOCRIT 26.5 % (38.0-47.0); HEMOGLOBIN 8.4 g/dL (12.6-16.3); LEFT SHIFT FLG 0 (0-99); LIPEMIA HEMOLYSIS FLAG 80 (0-99); MEAN CELL HEMOGLOBIN 29.5 pg (27.9-34.1); MEAN CELL HEMOGLOBIN CONCENTR. 31.7 g/dL (32.4-36.7); MEAN PLATELET VOLUME 11.1 fL (8.7-11.7); PLATELET CLUMPS FLAG 0 (0-99); PLATELET COUNT 318 10^3/uL (150-400); RED BLOOD CELL COUNT 2.85 10^6/uL (4.18-5.33); RED CELL DISTRIBUTION WIDTH 18.6 % (11.5-15.2)
[2016-05-12] MEDS: HEPARIN 5,000 UNIT/0.5 ML SYR SC SCH ×3 (11:19→21:45)
[2016-05-12 11:29] LABS: ANION GAP 9 mEq/L (8-16); CALCIUM 7.7 mg/dL (8.5-10.4); CARBON DIOXIDE 34 mEq/l (22-31); CHLORIDE 97 mEq/L (97-110); CREATININE 2.7 mg/dL (0.6-1.0); GLOMERULAR FILTRATION RATE 17; GLUCOSE 210 mg/dL (70-100); POTASSIUM 4.2 mEq/L (3.5-5.2); SODIUM 140 mEq/L (134-144)
[2016-05-12] MEDS ORDERED: AMIODARONE HCL 540 MG in D5W 300 ML IV ONE ×2 (14:15→20:00)
[2016-05-12] MEDS ORDERED: AMIODARONE HCL 200 ML IV ONE (14:16)
--- NOTE | 2016-05-12 14:22 | SOAPPROG ---
SOAP Progress Note Assessment/Plan: Assessment: 1)DAVID- suspected ATN -Cr stable 2.7 today, good UOP over past few days but less so today (overall Cr trend improved) -at risk for worsening with recent vascular surgery- follow Cr -would give back some fluids today, hold diuretics today- getting 1 L now 2)Chronic ischemic LLE wound s/p fem bypass, wound vac in 3)rising bicarb-?over-diuresis vs CO2 retention -would give back some IVF now -consider blood gas if no improvement, somnolence 4)Anemia 5)A fib- on metop and amiodarone 6)DM2 I discussed with RN Aminta Villavicencio MD [facility] [phone] 05/12/16 15:49 Subjective: Feels ok today, pain controlled. RN reports decrease in UOP- getting IVF now. No n/v, sob. Objective: Vital Signs Temp Pulse Resp BP Pulse Ox 36.6 C 64 20 91/35 L 93 05/12/16 08:00 05/12/16 12:00 05/12/16 12:00 05/12/16 12:00 05/12/16 12:00 Laboratory Results 05/12/16 10:05 05/12/16 10:05 05/11/16 05/12/16 05/13/16 05:59 05:59 05:59 Intake Total 440 550 Output Total 4200 300 Balance -3760 250 PT 19.9 SEC (12.0-15.0) H 04/28/16 12:55 INR 1.69 (0.83-1.16) H 04/28/16 12:55 Physical Exam - Physical Exam General Appearance: alert, no apparent distress EENT: PERRL/EOMI, other (no icterus) Neck: supple Respiratory: lungs clear Cardiac/Chest: regular rate, rhythm, other (no rub) Abdomen: normal bowel sounds, non-tender, soft Skin: warm/dry Extremities: other (trace edema bilat, wound vac on L) Neuro/Psych: alert, oriented x 3 ICD10 Worksheet Patient Problems: Problems Problem Status Diagnosed Palliative care encounter Acute Paroxysmal atrial fibrillation Acute Urinary tract infection Acute
[2016-05-12] MEDS: AMIODARONE HCL 200 MG TAB PO SCH (16:16)
[2016-05-12] MEDS: ASPIRIN EC 81 MG TAB PO SCH (20:31)
[2016-05-12] MEDS: ATORVASTATIN CALCIUM 40 MG TAB PO SCH (21:46)
[2016-05-12] MEDS: INSULIN GLARGINE 100 UNITS/ML SYRINGE SC SCH (21:46)
[2016-05-12] MEDS ORDERED: NS BOLUS 500 ML (Wide open) IV ONE (22:05)
[2016-05-13 06:00] LABS: % IMMATURE GRANULYOCYTES 0.9 % (0.0-1.1); ABSOLUTE IMMATURE GRANULOCYTES 0.07 10^3/uL (0.00-0.10); ADD DIFF? NO; ADD MORPH? NO; ADD SCAN? NO; ATYPICAL LYMPHOCYTE FLAG 10 (0-99); FRAGMENT RBC FLAG 0 (0-99); HEMATOCRIT 24.1 % (38.0-47.0); HEMOGLOBIN 7.5 g/dL (12.6-16.3); LEFT SHIFT FLG 0 (0-99); LIPEMIA HEMOLYSIS FLAG 80 (0-99); MEAN CELL HEMOGLOBIN 30.1 pg (27.9-34.1); MEAN CELL HEMOGLOBIN CONCENTR. 31.1 g/dL (32.4-36.7); MEAN CELL VOLUME 96.8 fL (81.5-99.8); MEAN PLATELET VOLUME 10.9 fL (8.7-11.7); PLATELET CLUMPS FLAG 0 (0-99); PLATELET COUNT 250 10^3/uL (150-400); RED BLOOD CELL COUNT 2.49 10^6/uL (4.18-5.33); RED CELL DISTRIBUTION WIDTH 18.6 % (11.5-15.2)
[2016-05-13 06:17] LABS: ANION GAP 6 mEq/L (8-16); CALCIUM 7.3 mg/dL (8.5-10.4); CARBON DIOXIDE 35 mEq/l (22-31); CHLORIDE 99 mEq/L (97-110); CREATININE 2.5 mg/dL (0.6-1.0); GLOMERULAR FILTRATION RATE 19; GLUCOSE 107 mg/dL (70-100); POTASSIUM 3.5 mEq/L (3.5-5.2); SODIUM 140 mEq/L (134-144)
[2016-05-13] MEDS ORDERED: LIDOCAINE 2% 5 ML SDV ONE (07:56)
[2016-05-13] MEDS ORDERED: PROPOFOL 200 MG/20 ML VIAL ONE ×2 (07:56)
[2016-05-13] MEDS ORDERED: fentaNYL 100 MCG/2 ML INJ ONE (07:56)
[2016-05-13] MEDS ORDERED: SILVER NITRATE APPLICATOR 1 APPL TP ONE (08:30)
[2016-05-13] MEDS: oxyCODONE IR 5 MG TAB PO PRN ×2 (08:56→20:12)
--- NOTE | 2016-05-13 09:17 | GPN ---
[f rep st] PROCEDURE NOTE DATE OF PROCEDURE: 05/13/2016 ASSIST: Manish Jackson, PAC ANESTHESIA: Moncho Palacios MD, monitored anesthesia care with IV sedation. PREOPERATIVE DIAGNOSIS: Peripheral vascular disease with large ulcerations to the lower extremities. POSTOPERATIVE DIAGNOSIS: Peripheral vascular disease with large ulcerations to the lower extremities . PROCEDURE PERFORMED: Application of tissue dried skin substitute and application of wound VAC. FINDINGS: The wound on the lambert measured 19 x 12.5 x 0.4 cm on the left lower extremity and on the h eel, measures 5 x 3.7 x 1 cm. The Achilles tendon is exposed on the leg. She has healthy granulatio n tissue anteriorly and about 85% healthy granulation tissue on the heel. Aminofil 1000 mg [id number] with expiration January 04, 2021. INDICATION: The patient has severe peripheral vascular disease. She recently underwent femoral belo w-the-knee bypass with graft. Her pain is much improved. She has palpable pulse. Wound VAC change was indicated. Aminofil placed to accelerate wound healing. DESCRIPTION OF PROCEDURE: The patient was in the ICU at bedside. Dr. Palacios performed monitor ed anesthesia care with IV sedation. The wound VAC was removed. The skin was prepped. I wiped the wounds with coarse gauze. Hemostasis was achieved. I placed Aminofil 1000 mg over the wounds. The wound extends from the anterior part of her lambert, nearly circumferential, measuring 19 x 12.5 x 0.4, anteriorly it is 11.2 cm. The heel wound measures 5 x 3.7 x 1 cm. She does have some area of deep p ressure injury on the lower part of her heel, as well as by the 5th metatarsal joint. A barrier was placed over the Achilles and then black foam placed and wound VAC applied. She tolerated the procedu re well. She emerged from anesthesia. /[id number]/MODL
[2016-05-13] MEDS: INSULIN LISPRO 100 UNIT/ML SC SCH ×3 (09:52→17:21)
--- NOTE | 2016-05-13 09:58 | HOSPPROG ---
Hospitalist Progress Note Assessment/Plan: 70-year-old female admitted 04/2016 with a ischemic leg wound infection. Summary of her medical condition and problems are as follows: * left lower leg wound and infection due to ischemia * status post debridements, wound VAC in place * completed antibiotics * severe peripheral vascular disease * status post femoral artery bypass * seems to be doing well * acute renal failure due to ATN from hypotension during atrial fibrillation * improving slowly * was a little dry postoperative * Will defer to Renal reinstitution of Lasix * sacral decubitus ulceration stage II. Daily wound care * afib * went back into AFib intermittently yesterday. Has been reloaded with amiodarone. Today blood pressure is better and is in sinus rhythm * will complete reload with IV and then continue p.o. * protein calorie malnutrition * type 2 diabetes * blood sugars look at goal DVT prophylaxis * start heparin sc tid Subjective: Wound VAC changes morning. She has been in sinus rhythm all night. No new complaints Objective: Vital Signs Temp Pulse Resp BP Pulse Ox 36.3 C 62 16 112/49 L 96 05/13/16 04:00 05/13/16 04:00 05/13/16 04:00 05/13/16 04:00 05/13/16 04:00 Laboratory Results 05/13/16 05:45 05/13/16 05:45 05/12/16 05/13/16 05/14/16 05:59 05:59 05:59 Intake Total 550 2477 Output Total 300 715 Balance 250 1762 PT 19.9 SEC (12.0-15.0) H 04/28/16 12:55 INR 1.69 (0.83-1.16) H 04/28/16 12:55 tele personally reviewed interpreted normal sinus rhythm discussed with Cardiology - Physical Exam Constitutional: no apparent distress, appears nourished, not in pain Eyes: anicteric sclera, EOMI Ears, Nose, Mouth, Throat: moist mucous membranes, hearing normal Cardiovascular: regular rate and rhythym, edema ( left leg. No right edema) Respiratory: no respiratory distress, rhonchi ( slight) Gastrointestinal: normoactive bowel sounds, soft, non-tender abdomen, no palpable masses Skin: warm Neurologic: AAOx3 Psychiatric: interacting appropriately, not anxious, not encephalopathic, thought process linear ICD10 Worksheet Patient Problems: Problems Problem Status Diagnosed Palliative care encounter Acute Paroxysmal atrial fibrillation Acute Urinary tract infection Acute
--- NOTE | 2016-05-13 09:59 | SOAPPROG ---
SOAP Progress Note Assessment/Plan: Assessment: 70yo female with multiple left lower leg wounds, buttock ulcer, multiple medical problems including Afibb, diabetes, recent fever, UTI Palliative care meeting took place today, according to reports patient and family discussing options of bypass vs amputation vs hospice. PE awake alert Left leg dressing not removed, viewed yesterday. Pt has wounds over left lateral and left posterior leg. Ultrasound demonstrates veins adequate for bypass Plan: Dr Lamar left message with MD Tucker POA, awaiting call back to discuss options further 04/20/16 15:35 04/20/16 15:38 04/23/16 09:49 70yo female s/p wound debridement and VAC placement POD 1, sepsis likely from wound infections on daptomycin, DM, a-fibb on eliquis hypotensive this AM, undergoing fluid resuscitation per medicine, pain in leg well controlled per patient PE appears comfortable, alert Chest CTA B/L Left leg wound VAC in place over 3 wounds. no signs of leak, foot slightly cooler to touch than R foot. Plan continue fluids per medicine will need OR VAC change 1-2 days pt desires left leg bypass surgery if an option. 04/23/16 09:50 04/23/16 10:00 04/25/16 10:05 unable to angiogram yesterday due to renal failure will try to obtain films from [employer] called and faxed release to [phone] Phone, Fax 04/26/16 09:07 s/p bedside wound VAC change yesterday. Pain controlled, creatinine increased to 3.2 PE awake, alert, laying still in bed Left leg VAC in place over lower ext, no signs of leak, +doppler dorsalis pedis pulse weak. Plan saw pt with Dr Lamar will call [facility] to confirm angio films are on the way. If creatinine improves possible bypass surgery next week. 05/03/16 11:02 s/p VAC change bedside last night, significant area of necrosis over achilles noted, pt tolerated with sedation PE sleeping Left leg VAC in place, no leak, no significant discharge Plan to OR Saturday for VAC change, debridement 05/12/16 09:15 s/p surgery yesterday. Feels much better overall, pain controlled. PE awake alert Left leg VAC in place, bandages dry, DP present upon doppler exam. Foot warm to touch Plan Wound VAC change at bedside Saturday morning with anesthesia, 8am pt can be transferred to PCU but must be in PCU or ICU for bedisde change tomorrow, NOT MED SURG BED. 05/13/16 09:56 feel better everyday, was in a-fibb yesterday, n oSOB or chest pain this AM. VAC change at bedside today with anesthesia, pt tolerated well, see operative note PE awake alert (prior to procedure) Left leg bandages dry medial knee anterior left hip normal DP pulse to palpation, foot warm to touch. VAC in place Plan next VAC change should be Saturday, amnio/epi fix was placed on wound. ok to get into chair Objective: Vital Signs Temp Pulse Resp BP Pulse Ox 36.3 C 62 16 112/49 L 96 05/13/16 04:00 05/13/16 04:00 05/13/16 04:00 05/13/16 04:00 05/13/16 04:00 Laboratory Results 05/13/16 05:45 05/13/16 05:45 05/12/16 05/13/16 05/14/16 05:59 05:59 05:59 Intake Total 550 2477 Output Total 300 715 Balance 250 1762 PT 19.9 SEC (12.0-15.0) H 04/28/16 12:55 INR 1.69 (0.83-1.16) H 04/28/16 12:55 ICD10 Worksheet Patient Problems: Problems Problem Status Diagnosed Palliative care encounter Acute Paroxysmal atrial fibrillation Acute Urinary tract infection Acute
[2016-05-13] MEDS: SENNOSIDES/DOCUSATE SODIUM TAB PO SCH ×2 (10:00→20:12)
--- NOTE | 2016-05-13 10:16 | SOAPPROG ---
SOAP Progress Note Assessment/Plan: Assessment: 1)DAVID- suspected ATN, non-oliguric -UOP decreased yesterday, improved with IVF -Cr slowly improving down to 2.5 today- will give another liter IVF today, hold diuretics today -at risk for worsening with recent surgery- follow Cr (stable so far) 2)Chronic ischemic LLE wound s/p fem bypass, subsequent debridement,wound vac in (Dr. Dahl) -palliative care meetings to discuss goals of care ongoing 3)rising bicarb-?over-diuresis vs CO2 retention -will check blood gas now to better evaluate -would give back some IVF now 4)Anemia 5)A fib- on metop and amiodarone 6)DM2 I discussed with RN Aminta Villavicencio MD [facility] [phone] 05/13/16 10:56 Subjective: Feels well, hoping to be able to sit in recliner today. No sob, n/v, diarrhea. UOP improved overnight after IVF. Eating ok. Denies known history of REJI, does wear O2 at night at home. Objective: Vital Signs Temp Pulse Resp BP Pulse Ox 36.3 C 62 16 112/49 L 96 05/13/16 04:00 05/13/16 04:00 05/13/16 04:00 05/13/16 04:00 05/13/16 04:00 Laboratory Results 05/13/16 05:45 05/13/16 05:45 05/12/16 05/13/16 05/14/16 05:59 05:59 05:59 Intake Total 550 2477 Output Total 300 715 Balance 250 1762 PT 19.9 SEC (12.0-15.0) H 04/28/16 12:55 INR 1.69 (0.83-1.16) H 04/28/16 12:55 Physical Exam - Physical Exam General Appearance: alert, no apparent distress EENT: other (mmm) Neck: supple Respiratory: lungs clear (did not get good exam posterior armas) Cardiac/Chest: regular rate, rhythm, other (no m/r) Abdomen: normal bowel sounds, non-tender, soft Pelvic Exam: other (justice in, yellow urine) Skin: warm/dry Extremities: other (wound vac on L, +edema L leg, none on R, feet warm) Neuro/Psych: alert, normal mood/affect, oriented x 3 ICD10 Worksheet Patient Problems: Problems Problem Status Diagnosed Palliative care encounter Acute Paroxysmal atrial fibrillation Acute Urinary tract infection Acute
[2016-05-13] MEDS: METOPROLOL TARTRATE 25 MG TAB PO SCH ×2 (11:19→20:12)
[2016-05-13 11:21] LABS: PCO2 VENOUS 57 mmHg (40-44); PH VENOUS BLOOD 7.37 (7.31-7.42); PO2 VENOUS 35 mmHg (35-40); TCO2 VENOUS 34 mEq/L (23-27); VEN MEASURED OXYGEN SATURATION 59 % (65-75)
[2016-05-13] MEDS ORDERED: NS 1,000 ML IV SCH (12:00)
--- NOTE | 2016-05-13 13:42 | GCON ---
[f rep st] CONSULTATION CARDIOLOGY CONSULTATION DATE OF CONSULTATION: 05/13/2016 REFERRING PHYSICIAN: Fe Duffy MD REASON FOR CONSULTATION: Paroxysmal atrial fibrillation. HISTORY: Ms. Silva is a 70-year-old woman with morbid obesity, severe vascular disease, and history of paroxysmal atrial fibrillation. She was admitted approximately 4 weeks ago for a nonhealing ulcer on her left lower extremity based on severe peripheral vascular disease. She was being cared for by the wound care team, the hospitalist service, and Infectious Disease. She developed atrial fibrillation with a rapid ventricular response on April 23. This was associated with significant hypotension. She spontaneously returned to sinus rhythm while receiving intravenous amiodarone that had been recommended in an informal conversation between the hospitalist team and Dr. Mitchell from our group. The patient was transitioned to p.o. amiodarone and remained in normal sinus rhythm until yesterday. The day before yesterday, she underwent surgical revascularization of her left leg. As mentioned, she developed postoperative atrial fibrillation with a rapid ventricular response. Intravenous amiodarone was reinitiated and she returned to sinus rhythm overnight. This morning, she is stable and denies any cardiac symptoms. PAST CARDIOVASCULAR HISTORY AND TESTING: The patient had a CVA in 2010 which manifested as right hand weakness. She was discovered to have a critical left carotid stenosis and underwent carotid endarterectomy by Dr. Kye De León at [facility]. At that time, she also developed postoperative paroxysmal atrial fibrillation and spontaneously returned to sinus rhythm on medical therapy. She was seen in consultation at that time by Dr. Venu Rubio. An echocardiogram performed in January 2011 demonstrated normal left ventricular systolic function. She had mild biatrial enlargement, aortic sclerosis without stenosis, and trace tricuspid regurgitation. During her current hospital admission, she also underwent an echocardiogram on April. That study demonstrated an ejection fraction of 70-75%. She had mild to moderate concentric left ventricular hypertrophy with associated diastolic dysfunction. Her aortic valve demonstrated severe calcification with a peak/ mean pressure gradient of 13/7 mmHg. Pulmonary artery systolic pressure was not estimated. PAST MEDICAL HISTORY: 1. Morbid obesity. 2. Hypertension. 3. Hyperlipidemia. 4. Type 2 diabetes. 5. Vascular disease characterized by both carotid and lower extremity disease. 6. Prior CVA. 7. Chronic renal insufficiency. PAST SURGICAL HISTORY: Includes a left carotid endarterectomy and recent left lower extremity revascularization. SOCIAL HISTORY: She is . She resides in [place]. She does not smoke or consume alcohol. REVIEW OF SYSTEMS: Notable for her nonhealing left lower extremity wound, otherwise a 10-point review was negative. PHYSICAL EXAMINATION: VITAL SIGNS: Heart rate in the 60s with sinus rhythm on the monitor, blood pressure 154/54. GENERAL: Morbidly obese woman, in no acute distress. She is alert and oriented. HEAD AND NECK: No scleral icterus. Mucous membranes moist. Carotid pulses 2+ without bruits. CHEST: Lung armas clear anteriorly. CARDIAC: Regular rate and rhythm with normal S1 , S2. There is a systolic ejection murmur. ABDOMEN: Obese, soft, nontender with normal bowel sounds. EXTREMITIES: Surgical dressing on the left lower leg. No edema. LABORATORY STUDIES: Sodium 140, potassium 3.5, BUN and creatinine 37 and 2.5. CBC shows a white blood cell count of 7.85 with hemoglobin and hematocrit of 7.5 and 24.1, platelet count 250,000. ECG: An ECG performed earlier in this hospitalization demonstrated normal sinus rhythm. There were no Q-waves or conduction system disturbances. She had diffuse nonspecific ST-T wave abnormalities. IMPRESSION: This is a 70-year-old female with medical problems as outlined above. She has been demonstrating bouts of paroxysmal atrial fibrillation during this protracted hospital stay. Initially, she had stabilized on amiodarone but had a recurrence within the first 24 hours after her surgical procedure earlier this week. Yesterday, I had a conversation with the hospitalist service and intravenous amiodarone was restarted. She is now back in sinus rhythm. She has no cardiovascular complaints. Her [id number] score is 7 based on her gender, age, diabetes, hypertension, vascular disease, and prior CVA. Will defer systemic anticoagulation until any further invasive/ surgical procedures have been completed. PLAN: She will continue on her intravenous amiodarone until the protocol has been completed. She will then resume the 400 mg p.o. dose that she was receiving previously. As above, will address systemic anticoagulation prior to discharge. Will plan on having her follow up with us in the office as an outpatient. /[id number]/MODL MTDD
--- NOTE | 2016-05-13 17:17 | GOP ---
[f rep st] OPERATIVE REPORT DATE OF OPERATION: 05/11/2016 SURGEON: Salty Lamar MD DEICER REPAIRER PNEUMATIC: EMILIA Stroud ANESTHESIOLOGIST: Dr. Palm PREOPERATIVE DIAGNOSIS: Left leg ischemia, open foot ulcers. POSTOPERATIVE DIAGNOSIS: Left leg ischemia, open foot ulcers. PROCEDURE PERFORMED: Left femoral popliteal bypass with left profunda endarterectomy. FINDINGS: Patient was found to have calcified vessels at the origin of the left profunda and the shayy gin of the SFA, and she had calcifications throughout her arteries, but did have a Doppler-able pedal pulse after completion of the bypass. DESCRIPTION OF PROCEDURE: Patient was taken to the operating room, where she received satisfactory g eneral endotracheal anesthesia by Dr. Palm, placed in the supine position, and prepped and draped in the usual sterile fashion. Incision was made in the left groin. Dissection was carried down through the subcutaneous tissue and the common femoral artery was identified. It was dissected free and controlled with vessel loops, al parrish with the profunda femorals, and the superficial femoral artery and multiple large collaterals. A second incision was made at the medial aspect of the knee. Dissection extended down to the poplite al space and the distal popliteal artery was dissected free just above its bifurcation. A soft area was found in the popliteal artery. The vessel was encircled with vessel loops. Patient was systemically heparinized. Prior to that, the saphenous vein was exposed. It was dissect ed free superiorly and appeared to be adequate; however, distally it tapered down to a 2 mm vein whic h was really unusable, and it was elected to proceed with an Impra bypass graft rather than too small of a saphenous vein. End-to-side anastomosis was made at the popliteal artery with a running 6-0 Prolene suture. There wa s some backflow was present in the distal popliteal artery and the suture line appeared to be hemosta tic. A subsartorial tunnel was created back up to the groin underneath the hamstring muscles and the Impra graft was then passed from the popliteal space to the femoral space. The femoral artery was o pened. Common femoral appeared to be adequate; however, the profunda femoris had a large calcified p laque over it. Endarterectomy was performed removing this calcified plaque and the incision extended into the superficial femoral out over the profunda femoris. The graft was then fashioned in appropr iate manner and an end-to-side anastomosis was made to the common femoral and profunda femoris arteri es using again, a running 6-0 Prolene suture. All vessels were flushed prior to completion of the an astomosis. The flow was first established through the superficial femoral artery, then through the profunda femo ris artery, and then to the bypass graft. Good distal pulsations were palpable in the popliteal yulia ry distal to the anastomosis. Suture lines appeared to be hemostatic. The wounds were irrigated, in filtrated with 0.5% Marcaine, sprayed with some topical thrombin, and then closed in layers using 2-0 Vicryl for the fascia, 3-0 Vicryl for the subcu, and skin karine for the skin. All wounds were rhina ssed. She tolerated the procedure quite well. Blood loss from the procedure was less than 50 cc. There we re no complications. /[id number]/MODL
[2016-05-13] MEDS: HEPARIN 5,000 UNIT/0.5 ML SYR SC SCH ×2 (18:05→20:13)
[2016-05-13] MEDS: AMIODARONE HCL 200 MG TAB PO SCH (18:05)
[2016-05-13] MEDS: ASPIRIN EC 81 MG TAB PO SCH (20:12)
[2016-05-13] MEDS: ATORVASTATIN CALCIUM 40 MG TAB PO SCH (20:12)
[2016-05-13] MEDS: INSULIN GLARGINE 100 UNITS/ML SYRINGE SC SCH (20:13)
[2016-05-14 05:26] LABS: ANION GAP 7 mEq/L (8-16); CALCIUM 7.2 mg/dL (8.5-10.4); CARBON DIOXIDE 33 mEq/l (22-31); CHLORIDE 102 mEq/L (97-110); GLOMERULAR FILTRATION RATE 25; GLUCOSE 120 mg/dL (70-100); POTASSIUM 3.4 mEq/L (3.5-5.2); SODIUM 142 mEq/L (134-144)
[2016-05-14] MEDS: AMIODARONE HCL 200 MG TAB PO SCH (09:00)
[2016-05-14] MEDS ORDERED: oxyCODONE IR 5 MG TAB TUBE PRN (09:55)
[2016-05-14] MEDS ORDERED: LACTULOSE 20 GM/30 ML UDCUP TUBE PRN (09:55)
[2016-05-14] MEDS ORDERED: POTASSIUM CL 20 MEQ TAB PO ONE (10:05)
--- NOTE | 2016-05-14 10:07 | SOAPPROG ---
SOAP Progress Note Assessment/Plan: Assessment:Plan: ARF-baseline creatinine around 1 to 1.1 -improved from 2.5 to 2 overnite -peaked 4.7 05/03/2016 -now with good urine output -I/O = 1700/1350 -follow electrolyte and volume status closely -BP okay Hypokalemia-K 3.4 -will give KCl 40mEq x 1 today Edema-on lasix 40mg PO Bid -continue edema management to help with wound issues PVD-s/p LE bypasss and edarterectomy -wound vac due to leg wounds 05/14/16 10:05 Subjective: feeling better Objective: Vital Signs Temp Pulse Resp BP Pulse Ox 36.6 C 60 13 151/63 H 100 05/14/16 08:00 05/14/16 08:00 05/14/16 08:00 05/14/16 08:00 05/14/16 08:00 Laboratory Results 05/13/16 05:45 05/14/16 05:00 05/13/16 05/14/16 05/15/16 05:59 05:59 05:59 Intake Total 2477 1700 Output Total 715 1350 Balance 1762 350 PT 19.9 SEC (12.0-15.0) H 04/28/16 12:55 INR 1.69 (0.83-1.16) H 04/28/16 12:55 Physical Exam - Physical Exam General Appearance: alert, no apparent distress, obese EENT: normal ENT inspection Neck: normal inspection Respiratory: decreased breath sounds Cardiac/Chest: regular rate, rhythm, systolic murmur Abdomen: normal bowel sounds, non-tender Extremities: swelling, other (wound vac in place) ICD10 Worksheet Patient Problems: Problems Problem Status Diagnosed Palliative care encounter Acute Paroxysmal atrial fibrillation Acute Urinary tract infection Acute
[2016-05-14] MEDS: INSULIN LISPRO 100 UNIT/ML SC SCH ×3 (11:04→17:58)
[2016-05-14] MEDS ORDERED: METOPROLOL TARTRATE 25 MG TAB ONE ×2 (11:17→11:22)
[2016-05-14] MEDS ORDERED: SENNOSIDES/DOCUSATE SODIUM TAB PO ONE (11:17)
[2016-05-14] MEDS ORDERED: AMIODARONE HCL 200 MG TAB ONE (11:18)
[2016-05-14] MEDS: HEPARIN 5,000 UNIT/0.5 ML SYR SC SCH ×3 (11:20→20:49)
[2016-05-14] MEDS: SENNOSIDES/DOCUSATE SODIUM TAB PO SCH ×2 (11:20→20:45)
[2016-05-14] MEDS: METOPROLOL TARTRATE 25 MG TAB PO SCH ×2 (11:23→20:46)
[2016-05-14] MEDS ORDERED: oxyCODONE IR 5 MG TAB PO PRN (11:26)
[2016-05-14] MEDS ORDERED: LACTULOSE 20 GM/30 ML UDCUP PO PRN (11:26)
--- NOTE | 2016-05-14 12:19 | HOSPPROG ---
Hospitalist Progress Note Assessment/Plan: 70-year-old female admitted 04/2016 with a ischemic leg wound infection. Summary of her medical condition and problems are as follows: * left lower leg wound and infection due to ischemia * status post debridements, wound VAC in place * completed antibiotics * severe peripheral vascular disease * status post femoral artery bypass * seems to be doing well * acute renal failure due to ATN from hypotension during atrial fibrillation * improving slowly * Lasix restarted * sacral decubitus ulceration stage II. Daily wound care * afib * was back in AFib postoperatively and required reloading of IV amiodarone * defering full anticoagulation until outr of postoperative period. * protein calorie malnutrition * type 2 diabetes * blood sugars look at goal DVT prophylaxis * heparin sc tid Subjective: feeling well. No new complaints. Has remained in sinus rhythm overnight. Objective: Vital Signs Temp Pulse Resp BP Pulse Ox 36.7 C 58 L 12 132/49 H 96 05/14/16 11:50 05/14/16 11:50 05/14/16 11:50 05/14/16 11:50 05/14/16 11:50 Laboratory Results 05/13/16 05:45 05/14/16 05:00 05/13/16 05/14/16 05/15/16 05:59 05:59 05:59 Intake Total 2477 1700 Output Total 715 1350 Balance 1762 350 PT 19.9 SEC (12.0-15.0) H 04/28/16 12:55 INR 1.69 (0.83-1.16) H 04/28/16 12:55 Tele personally reviewed interpreted normal sinus rhythm discussed with Cardiology - Physical Exam Constitutional: no apparent distress, appears nourished, not in pain Eyes: anicteric sclera, EOMI Ears, Nose, Mouth, Throat: moist mucous membranes, hearing normal, ears appear normal Cardiovascular: regular rate and rhythym, systolic murmur Respiratory: no respiratory distress, no rales or rhonchi, clear to auscultation Gastrointestinal: normoactive bowel sounds, soft, non-tender abdomen, no palpable masses Skin: warm Musculoskeletal: other ( Left leg wound VAC with 1+ edema) Neurologic: AAOx3 Psychiatric: interacting appropriately, not anxious, not encephalopathic, thought process linear ICD10 Worksheet Patient Problems: Problems Problem Status Diagnosed Palliative care encounter Acute Paroxysmal atrial fibrillation Acute Urinary tract infection Acute
--- NOTE | 2016-05-14 12:57 | PDCARPN ---
Cardiology Progress Note Assessment/Plan: 05/14/16 12:58 Subjective: No complaints. Objective: Vital Signs (8 Hrs) Temp Pulse Resp BP Pulse Ox 05/14/16 11:50 36.7 C 58 L 12 132/49 H 96 05/14/16 11:23 61 133/49 H 05/14/16 08:55 132/49 H 96 05/14/16 08:00 36.6 C 60 13 151/63 H 100 Intake/Output (24 Hrs) 05/13/16 05/14/16 05/15/16 05:59 05:59 05:59 Intake Total 2477 1700 Output Total 715 1350 Balance 1762 350 Intake: Oral (ml) 550 1200 IV Intake (ml) 200 IV Infused (ml) 1927 300 Amiodarone HCl 100 ml @ 427 600 mls/hr IV ONCE ONE Rx #:[id number] Ns 500 ml @ Wide Open IV 500 ONCE ONE Rx#:[id number] Ns 500 ml @ Wide Open IV 1000 ONCE ONE Rx#:[id number] Amiodarone HCl 540 mg In 300 D5w 300 ml @ 16.667 mls/ hr IV ONCE ONE Rx#: [id number] Output: Urine (ml) 615 1350 Catheter 615 1350 Wound Drainage (ml) 100 Left Foot 100 Other: Weight 113.9 kg Number of Stools Incontinence 1 Result Diagrams: 05/13/16 05:45 05/14/16 05:00 ICD10 Worksheet Patient Problems: Problems Problem Status Diagnosed Palliative care encounter Acute Paroxysmal atrial fibrillation Acute Urinary tract infection Acute
--- NOTE | 2016-05-14 13:09 | PDCARPN ---
Cardiology Progress Note Assessment/Plan: Paroxysmal Atrial Fibrillation- maintaining sinus rhythm on current dose of amiodarone. [id number] score is 7 based on age, gender, diabetes, hypertension, vascular disease, prior CVA. Will defer systemic anticoagulation until it is clear the patient longer requires invasive/surgical procedures. Would eventually decrease her daily dose of amiodarone to 200 mg. Hypertension- adequately controlled at present. Hyperlipidemia- she continues on statin therapy. Peripheral Vascular Disease- s/p left lower extremity revascularization procedure. Disposition- no additional specific cardiac testing at this time. Will check in periodically. The office staff of [facility] has been instructed to contact the patient to arrange followup in our office after discharge. 05/14/16 13:05 Objective: Vital Signs (8 Hrs) Temp Pulse Resp BP Pulse Ox 05/14/16 11:50 36.7 C 58 L 12 132/49 H 96 05/14/16 11:23 61 133/49 H 05/14/16 08:55 132/49 H 96 05/14/16 08:00 36.6 C 60 13 151/63 H 100 Intake/Output (24 Hrs) 05/13/16 05/14/16 05/15/16 05:59 05:59 05:59 Intake Total 2477 1700 Output Total 715 1350 Balance 1762 350 Intake: Oral (ml) 550 1200 IV Intake (ml) 200 IV Infused (ml) 1927 300 Amiodarone HCl 100 ml @ 427 600 mls/hr IV ONCE ONE Rx #:[id number] Ns 500 ml @ Wide Open IV 500 ONCE ONE Rx#:[id number] Ns 500 ml @ Wide Open IV 1000 ONCE ONE Rx#:[id number] Amiodarone HCl 540 mg In 300 D5w 300 ml @ 16.667 mls/ hr IV ONCE ONE Rx#: [id number] Output: Urine (ml) 615 1350 Catheter 615 1350 Wound Drainage (ml) 100 Left Foot 100 Other: Weight 113.9 kg Number of Stools Incontinence 1 Result Diagrams: 05/13/16 05:45 05/14/16 05:00 - Physical Exam Constitutional: no apparent distress, obese Eyes: anicteric sclera Ears, Nose, Mouth, Throat: moist mucous membranes Cardiovascular: regular rate and rhythm, systolic murmur Respiratory: clear to auscultate bilat Gastrointestinal: normoactive bowel sounds, no masses Skin: other (wound vavc in place LLE) Neurologic: AAOx3 Psychiatric: interactive, not anxious ICD10 Worksheet Patient Problems: Problems Problem Status Diagnosed Palliative care encounter Acute Paroxysmal atrial fibrillation Acute Urinary tract infection Acute
--- NOTE | 2016-05-14 19:52 | SOAPPROG ---
SOAP Progress Note Assessment/Plan: Assessment: 70 DIABETIC FEMALE WITH MULTIPLE LEFT LEG ULCERATIONS AND NONHEALING WOUNDS EXACERBATED BY PVD CTA SHOWS ONLY ANT TIB RUNOFF BELOW OCCLUDED POP RISKS AND OPTIONS FULLY DISCUSSED Plan: EVAL FOR FEM-TIB BYPASS FOR LIMB SALVAGE 04/18/16 20:15 04/24/16 08:30 pt seems to want bypass if feasible/ afebrile/ plan catheter angio today 04/25/16 18:30 still awaiting angio disc but likely needs fem-tib bypass/ ? when to schedule 04/28/16 09:41 afebrile/ wound vac in place/ await medical stabilization for fem distal bypass 05/10/16 07:40 discussed yesterday with pt and son about option of fem-pop today, tomorrow or early next week/ they will discuss 05/14/16 19:51 doing well/ strong palpable pule/ wounds ok/ afebrile/ foot warm, pink/ spirits good Objective: Vital Signs Temp Pulse Resp BP Pulse Ox 36.9 C 62 17 143/63 H 100 05/14/16 15:54 05/14/16 15:54 05/14/16 15:54 05/14/16 15:54 05/14/16 15:54 Laboratory Results 05/13/16 05:45 05/14/16 05:00 05/13/16 05/14/16 05/15/16 05:59 05:59 05:59 Intake Total 2477 1700 1000 Output Total 715 1350 600 Balance 1762 350 400 PT 19.9 SEC (12.0-15.0) H 04/28/16 12:55 INR 1.69 (0.83-1.16) H 04/28/16 12:55 ICD10 Worksheet Patient Problems: Problems Problem Status Diagnosed Palliative care encounter Acute Paroxysmal atrial fibrillation Acute Urinary tract infection Acute
[2016-05-14] MEDS: ASPIRIN 81 MG CHEWABLE TAB PO SCH (20:44)
[2016-05-14] MEDS: ATORVASTATIN CALCIUM 40 MG TAB PO SCH (20:44)
[2016-05-14] MEDS: INSULIN GLARGINE 100 UNITS/ML SYRINGE SC SCH (20:47)
[2016-05-14] MEDS ORDERED: SENNOSIDES 17.6 MG/10 ML UDL TUBE SCH (21:00)
[2016-05-15 06:31] LABS: % IMMATURE GRANULYOCYTES 0.9 % (0.0-1.1); ABSOLUTE IMMATURE GRANULOCYTES 0.06 10^3/uL (0.00-0.10); ADD DIFF? NO; ADD MORPH? NO; ADD SCAN? NO; ATYPICAL LYMPHOCYTE FLAG 10 (0-99); FRAGMENT RBC FLAG 0 (0-99); HEMATOCRIT 25.2 % (38.0-47.0); HEMOGLOBIN 7.7 g/dL (12.6-16.3); LEFT SHIFT FLG 0 (0-99); LIPEMIA HEMOLYSIS FLAG 80 (0-99); MEAN CELL HEMOGLOBIN 30.1 pg (27.9-34.1); MEAN CELL HEMOGLOBIN CONCENTR. 30.6 g/dL (32.4-36.7); MEAN CELL VOLUME 98.4 fL (81.5-99.8); MEAN PLATELET VOLUME 11.3 fL (8.7-11.7); PLATELET CLUMPS FLAG 10 (0-99); PLATELET COUNT 208 10^3/uL (150-400); RED BLOOD CELL COUNT 2.56 10^6/uL (4.18-5.33); RED CELL DISTRIBUTION WIDTH 18.3 % (11.5-15.2)
[2016-05-15 06:49] LABS: ANION GAP 5 mEq/L (8-16); CALCIUM 7.5 mg/dL (8.5-10.4); CARBON DIOXIDE 35 mEq/l (22-31); CHLORIDE 104 mEq/L (97-110); CREATININE 1.9 mg/dL (0.6-1.0); GLOMERULAR FILTRATION RATE 26; GLUCOSE 95 mg/dL (70-100); POTASSIUM 3.7 mEq/L (3.5-5.2); SODIUM 144 mEq/L (134-144)
[2016-05-15] MEDS: AMIODARONE HCL 200 MG TAB PO SCH (09:20)
[2016-05-15] MEDS: HEPARIN 5,000 UNIT/0.5 ML SYR SC SCH ×3 (09:20→22:56)
[2016-05-15] MEDS: METOPROLOL TARTRATE 25 MG TAB PO SCH ×2 (09:20→22:56)
[2016-05-15] MEDS: INSULIN LISPRO 100 UNIT/ML SC SCH ×3 (09:27→17:22)
[2016-05-15] MEDS: SENNOSIDES/DOCUSATE SODIUM TAB PO SCH ×2 (09:39→23:03)
--- NOTE | 2016-05-15 13:59 | SOAPPROG ---
SOAP Progress Note Assessment/Plan: Assessment:Plan: ARF-baseline creatinine around 1 to 1.1 -improved from 2.5 to 2 now down to 1.9 overnite -peaked 4.7 05/03/2016 -now with good urine output -I/O = 1700/1350, 1200/1250 -follow electrolyte and volume status closely -BP okay Hypokalemia-K 3.4 -was given KCl 40mEq x 1 yesterday -K 3.7 today -will change to regular diet Edema-appears better -on lasix 40mg PO Bid -continue edema management to help with wound issues PVD-s/p LE bypasss and edarterectomy -wound vac due to leg wounds 05/15/16 13:59 Subjective: stable overnite Objective: Vital Signs Temp Pulse Resp BP Pulse Ox 36.9 C 61 16 125/48 H 98 05/15/16 11:31 05/15/16 11:31 05/15/16 11:31 05/15/16 11:31 05/15/16 11:31 Laboratory Results 05/15/16 06:10 05/15/16 06:10 05/14/16 05/15/16 05/16/16 05:59 05:59 05:59 Intake Total 1700 1200 Output Total 1350 1250 Balance 350 -50 PT 19.9 SEC (12.0-15.0) H 04/28/16 12:55 INR 1.69 (0.83-1.16) H 04/28/16 12:55 Physical Exam - Physical Exam General Appearance: WD/WN, alert, no apparent distress, obese EENT: normal ENT inspection Neck: normal inspection Respiratory: lungs clear, decreased breath sounds Cardiac/Chest: regular rate, rhythm, systolic murmur Abdomen: normal bowel sounds, non-tender Extremities: swelling (improved) ICD10 Worksheet Patient Problems: Problems Problem Status Diagnosed Palliative care encounter Acute Paroxysmal atrial fibrillation Acute Urinary tract infection Acute
--- NOTE | 2016-05-15 14:58 | SOAPPROG ---
SOAP Progress Note Assessment/Plan: Assessment/Plan: 70 Y F multiple comorbidities including DM, PVD, HTN, morbid obesity, chronic L LE wounds c hx cellulitis, s/p L fem-pop bypass c impra graft. Excellent pedal pulses. Wounds clean, dry, intact without erythema. Removed dressings. May leave off if dry. PT/OT. Needs conditioning. Continue wound care per Dr. Dahl's direction. 05/15/16 14:53 Subjective: "I have no pain." Backed off of walking yesterday bc she felt unsteady she says. Objective: Vital Signs Temp Pulse Resp BP Pulse Ox 36.9 C 61 16 125/48 H 98 05/15/16 11:31 05/15/16 11:31 05/15/16 11:31 05/15/16 11:31 05/15/16 11:31 Laboratory Results 05/15/16 06:10 05/15/16 06:10 05/14/16 05/15/16 05/16/16 05:59 05:59 05:59 Intake Total 1700 1200 Output Total 1350 1250 Balance 350 -50 PT 19.9 SEC (12.0-15.0) H 04/28/16 12:55 INR 1.69 (0.83-1.16) H 04/28/16 12:55 alert, nad no wob abd soft, nt inc cdi, no erythema palpable L DP and PT pulses, DP>PT vac in place ICD10 Worksheet Patient Problems: Problems Problem Status Diagnosed Palliative care encounter Acute Paroxysmal atrial fibrillation Acute Urinary tract infection Acute
--- NOTE | 2016-05-15 16:06 | HOSPPROG ---
Hospitalist Progress Note Assessment/Plan: 70-year-old female admitted 04/2016 with a ischemic leg wound infection. Summary of her medical condition and problems are as follows: * left lower leg wound and infection due to ischemia * status post debridements, wound VAC in place * completed antibiotics * severe peripheral vascular disease * status post femoral artery bypass * seems to be doing well * acute renal failure due to ATN from hypotension during atrial fibrillation * improving slowly * Lasix restarted * sacral decubitus ulceration stage II. Daily wound care * afib * was back in AFib postoperatively and required reloading of IV amiodarone * defering full anticoagulation until outr of postoperative period. * protein calorie malnutrition * type 2 diabetes * blood sugars look at goal DVT prophylaxis * heparin sc tid * disposition * could go to rehab in the next several days Subjective: No new complaints Objective: Vital Signs Temp Pulse Resp BP Pulse Ox 36.9 C 61 16 125/48 H 98 05/15/16 11:31 05/15/16 11:31 05/15/16 11:31 05/15/16 11:31 05/15/16 11:31 Laboratory Results 05/15/16 06:10 05/15/16 06:10 05/14/16 05/15/16 05/16/16 05:59 05:59 05:59 Intake Total 1700 1200 Output Total 1350 1250 Balance 350 -50 PT 19.9 SEC (12.0-15.0) H 04/28/16 12:55 INR 1.69 (0.83-1.16) H 04/28/16 12:55 tele personally viewed interpreted normal sinus rhythm - Physical Exam Constitutional: no apparent distress, appears nourished, not in pain Eyes: anicteric sclera, EOMI Ears, Nose, Mouth, Throat: moist mucous membranes Cardiovascular: regular rate and rhythym, edema ( 1+ edema) Respiratory: no respiratory distress, no rales or rhonchi, clear to auscultation Gastrointestinal: normoactive bowel sounds, soft, non-tender abdomen, no palpable masses Musculoskeletal: other ( wound VAC right leg) Neurologic: AAOx3 Psychiatric: interacting appropriately, not anxious, not encephalopathic, thought process linear ICD10 Worksheet Patient Problems: Problems Problem Status Diagnosed Palliative care encounter Acute Paroxysmal atrial fibrillation Acute Urinary tract infection Acute
[2016-05-15] MEDS: ASPIRIN 81 MG CHEWABLE TAB PO SCH (22:56)
[2016-05-15] MEDS: ATORVASTATIN CALCIUM 40 MG TAB PO SCH (22:56)
[2016-05-15] MEDS: INSULIN GLARGINE 100 UNITS/ML SYRINGE SC SCH (23:02)
[2016-05-16 04:30] LABS: % IMMATURE GRANULYOCYTES 1.1 % (0.0-1.1); ABSOLUTE IMMATURE GRANULOCYTES 0.09 10^3/uL (0.00-0.10); ADD DIFF? NO; ADD MORPH? NO; ADD SCAN? NO; ATYPICAL LYMPHOCYTE FLAG 10 (0-99); FRAGMENT RBC FLAG 0 (0-99); HEMATOCRIT 26.6 % (38.0-47.0); LEFT SHIFT FLG 10 (0-99); LIPEMIA HEMOLYSIS FLAG 80 (0-99); MEAN CELL HEMOGLOBIN 29.3 pg (27.9-34.1); MEAN CELL HEMOGLOBIN CONCENTR. 30.1 g/dL (32.4-36.7); MEAN CELL VOLUME 97.4 fL (81.5-99.8); MEAN PLATELET VOLUME 11.2 fL (8.7-11.7); PLATELET CLUMPS FLAG 10 (0-99); PLATELET COUNT 227 10^3/uL (150-400); RED BLOOD CELL COUNT 2.73 10^6/uL (4.18-5.33); RED CELL DISTRIBUTION WIDTH 18.6 % (11.5-15.2)
[2016-05-16 04:40] LABS: ANION GAP 7 mEq/L (8-16); CALCIUM 7.8 mg/dL (8.5-10.4); CARBON DIOXIDE 33 mEq/l (22-31); CHLORIDE 103 mEq/L (97-110); CREATININE 1.7 mg/dL (0.6-1.0); GLOMERULAR FILTRATION RATE 30; GLUCOSE 103 mg/dL (70-100); POTASSIUM 3.9 mEq/L (3.5-5.2); SODIUM 143 mEq/L (134-144)
[2016-05-16] MEDS: INSULIN LISPRO 100 UNIT/ML SC SCH ×3 (09:49→18:20)
[2016-05-16] MEDS: SENNOSIDES/DOCUSATE SODIUM TAB PO SCH ×2 (09:49→21:26)
[2016-05-16] MEDS: METOPROLOL TARTRATE 25 MG TAB PO SCH ×2 (09:50→20:25)
[2016-05-16] MEDS: AMIODARONE HCL 200 MG TAB PO SCH (09:57)
[2016-05-16] MEDS: HEPARIN 5,000 UNIT/0.5 ML SYR SC SCH ×3 (09:58→20:29)
[2016-05-16] MEDS: EPOETIN ALFA 10,000 UNIT/ML VIAL SC SCH (13:43)
--- NOTE | 2016-05-16 13:57 | HOSPPROG ---
Hospitalist Progress Note Assessment/Plan: Assessment/Plan: 70-year-old female admitted 04/2016 with a ischemic leg wound infection. * left lower leg wound and infection due to ischemia * status post debridements, wound VAC in place * completed antibiotics * severe peripheral vascular disease * status post femoral artery bypass * seems to be doing well * acute renal failure due to ATN from hypotension during atrial fibrillation * creatinine continues to trend down to 1.7 today * continue Lasix * sacral decubitus ulceration stage II. Daily wound care * afib * was back in AFib postoperatively and required reloading of IV amiodarone * will discuss starting anticoagulation with General surgery * protein calorie malnutrition * type 2 diabetes * blood sugars look at goal DVT prophylaxis * heparin sc tid * disposition * could go to rehab in the next several days Subjective: she is tolerating her diet. Denies any pain. Denies any fevers or chills. Objective: Vital Signs Temp Pulse Resp BP Pulse Ox 36.8 C 62 16 155/62 H 99 05/16/16 11:28 05/16/16 11:28 05/16/16 11:28 05/16/16 11:28 05/16/16 11:28 Laboratory Results 05/16/16 04:10 05/16/16 04:10 05/15/16 05/16/16 05/17/16 05:59 05:59 05:59 Intake Total 1200 600 Output Total 1250 575 Balance -50 25 PT 19.9 SEC (12.0-15.0) H 04/28/16 12:55 INR 1.69 (0.83-1.16) H 04/28/16 12:55 - Physical Exam Constitutional: no apparent distress, appears nourished, not in pain Cardiovascular: regular rate and rhythym, no murmur, rub, or gallop Respiratory: no respiratory distress, no rales or rhonchi, clear to auscultation Skin: other ( Wound VAC in place left lower leg) Neurologic: AAOx3, CN II-XII Intact, No facial droop ICD10 Worksheet Patient Problems: Problems Problem Status Diagnosed Palliative care encounter Acute Paroxysmal atrial fibrillation Acute Urinary tract infection Acute
--- NOTE | 2016-05-16 17:38 | SOAPPROG ---
SOAP Progress Note Assessment/Plan: Assessment: 1. DAVID. Creat improving, down to 1.7. B/l 1.1. Good UOP. Would like to d/c [facility] but unable due to decub ulcers and immobility. Will sign off at this point. Will schedule f/u in clinic in several weeks. Should get labs drawn q wk x 4 after d/c. 2. PVD. LLE nonhealing wound s/p feb-tib bypass. Continue wound vac. 3. AF/RVR. Rate controlled on amiodarone, metoprolol. 4. Dispo. To rehab soon. Plan: 05/16/16 17:35 05/16/16 17:36 05/16/16 17:38 05/16/16 17:38 Subjective: Feels like she is making progress. Anxious to d/c. Objective: Vital Signs Temp Pulse Resp BP Pulse Ox 36.2 C 59 L 14 147/64 H 100 05/16/16 16:00 05/16/16 16:00 05/16/16 16:00 05/16/16 16:00 05/16/16 16:00 Laboratory Results 05/16/16 04:10 05/16/16 04:10 05/15/16 05/16/16 05/17/16 05:59 05:59 05:59 Intake Total 1200 600 Output Total 1250 575 600 Balance -50 25 -600 PT 19.9 SEC (12.0-15.0) H 04/28/16 12:55 INR 1.69 (0.83-1.16) H 04/28/16 12:55 Obese, in bed, deconditioned but alert, comfortable RRR, II/ NADJA CTAB Abdom soft, nontender Justice in place 2+ LE pitting edema ICD10 Worksheet Patient Problems: Problems Problem Status Diagnosed Palliative care encounter Acute Paroxysmal atrial fibrillation Acute Urinary tract infection Acute
[2016-05-16] MEDS: ATORVASTATIN CALCIUM 40 MG TAB PO SCH (20:25)
[2016-05-16] MEDS: ASPIRIN 81 MG CHEWABLE TAB PO SCH (20:27)
[2016-05-16] MEDS: INSULIN GLARGINE 100 UNITS/ML SYRINGE SC SCH (20:29)
[2016-05-17 04:56] LABS: ABSOLUTE IMMATURE GRANULOCYTES 0.07 10^3/uL (0.00-0.10); ADD DIFF? NO; ADD MORPH? NO; ADD SCAN? NO; ATYPICAL LYMPHOCYTE FLAG 20 (0-99); FRAGMENT RBC FLAG 0 (0-99); HEMOGLOBIN 8.1 g/dL (12.6-16.3); LEFT SHIFT FLG 10 (0-99); LIPEMIA HEMOLYSIS FLAG 80 (0-99); MEAN CELL HEMOGLOBIN 29.9 pg (27.9-34.1); MEAN CELL VOLUME 99.6 fL (81.5-99.8); MEAN PLATELET VOLUME 11.4 fL (8.7-11.7); PLATELET CLUMPS FLAG 0 (0-99); PLATELET COUNT 208 10^3/uL (150-400); RED BLOOD CELL COUNT 2.71 10^6/uL (4.18-5.33); RED CELL DISTRIBUTION WIDTH 18.4 % (11.5-15.2)
[2016-05-17 05:10] LABS: ANION GAP 4 mEq/L (8-16); CALCIUM 7.8 mg/dL (8.5-10.4); CARBON DIOXIDE 34 mEq/l (22-31); CHLORIDE 104 mEq/L (97-110); CREATININE 1.5 mg/dL (0.6-1.0); GLOMERULAR FILTRATION RATE 34; GLUCOSE 119 mg/dL (70-100); POTASSIUM 3.7 mEq/L (3.5-5.2); SODIUM 142 mEq/L (134-144)
[2016-05-17] MEDS: INSULIN LISPRO 100 UNIT/ML SC SCH ×3 (09:55→19:30)
[2016-05-17] MEDS: METOPROLOL TARTRATE 25 MG TAB PO SCH ×2 (09:57→22:01)
[2016-05-17] MEDS: AMIODARONE HCL 200 MG TAB PO SCH (09:57)
[2016-05-17] MEDS: HEPARIN 5,000 UNIT/0.5 ML SYR SC SCH ×3 (09:57→22:00)
[2016-05-17] MEDS: SENNOSIDES/DOCUSATE SODIUM TAB PO SCH (09:58)
--- NOTE | 2016-05-17 12:41 | SOAPPROG ---
SOAP Progress Note Assessment/Plan: Assessment: 70yo female s/p left fem pop bypass, LLE wounds with VAC in place, DM, PVD, HTN feel much better overall, understands may be going to LTAC/SNF soon and little worried about that. PE awake alert LLE positive DP pulse to palpation, foot warm to touch, VAC in place, no sings of leak or significant drainage. Plan VAC change possibly Saturday. will likely need skin graft at later date to posterior leg wound. 05/17/16 12:37 Objective: Vital Signs Temp Pulse Resp BP Pulse Ox 36.3 C 69 18 105/59 L 98 05/17/16 12:00 05/17/16 12:00 05/17/16 12:00 05/17/16 12:00 05/17/16 12:00 Laboratory Results 05/17/16 04:30 05/17/16 04:30 05/16/16 05/17/16 05/18/16 05:59 05:59 05:59 Intake Total 600 880 Output Total 575 1150 Balance 25 -270 PT 19.9 SEC (12.0-15.0) H 04/28/16 12:55 INR 1.69 (0.83-1.16) H 04/28/16 12:55 ICD10 Worksheet Patient Problems: Problems Problem Status Diagnosed Palliative care encounter Acute Paroxysmal atrial fibrillation Acute Urinary tract infection Acute
--- NOTE | 2016-05-17 15:50 | HOSPPROG ---
Hospitalist Progress Note Assessment/Plan: Assessment/Plan: 70-year-old female admitted 04/2016 with a ischemic leg wound infection. * left lower leg wound and infection due to ischemia * status post debridements, wound VAC in place * completed antibiotics * will need skin graft at some point * severe peripheral vascular disease * status post femoral artery bypass * seems to be doing well * acute renal failure due to ATN from hypotension during atrial fibrillation * creatinine continues to trend down * continue Lasix * sacral decubitus ulceration stage II. Daily wound care * afib * was back in AFib postoperatively and required reloading of IV amiodarone * will start anticoagulation soon * protein calorie malnutrition * type 2 diabetes * blood sugars look at goal DVT prophylaxis * heparin sc tid * disposition * could go to rehab in the next several days Subjective: no new complaints. The patient was able stand today for the 1st time in 3 weeks. She is tolerating regular diet Objective: Vital Signs Temp Pulse Resp BP Pulse Ox 36.3 C 69 18 105/59 L 98 05/17/16 12:00 05/17/16 12:00 05/17/16 12:00 05/17/16 12:00 05/17/16 12:00 Laboratory Results 05/17/16 04:30 05/17/16 04:30 05/16/16 05/17/16 05/18/16 05:59 05:59 05:59 Intake Total 600 880 Output Total 575 1150 Balance 25 -270 PT 19.9 SEC (12.0-15.0) H 04/28/16 12:55 INR 1.69 (0.83-1.16) H 04/28/16 12:55 - Physical Exam Constitutional: no apparent distress, appears nourished, not in pain Cardiovascular: regular rate and rhythym, no murmur, rub, or gallop Respiratory: no respiratory distress, no rales or rhonchi, clear to auscultation Gastrointestinal: normoactive bowel sounds, soft, non-tender abdomen, no palpable masses Skin: no rashes or abrasions, no fluctuance, no induration ICD10 Worksheet Patient Problems: Problems Problem Status Diagnosed Palliative care encounter Acute Paroxysmal atrial fibrillation Acute Urinary tract infection Acute
[2016-05-17] MEDS: INSULIN GLARGINE 100 UNITS/ML SYRINGE SC SCH (22:00)
[2016-05-17] MEDS: ASPIRIN 81 MG CHEWABLE TAB PO SCH (22:00)
[2016-05-17] MEDS: ATORVASTATIN CALCIUM 40 MG TAB PO SCH (22:00)
[2016-05-18] MEDS: SENNOSIDES/DOCUSATE SODIUM TAB PO SCH ×3 (03:24→21:02)
[2016-05-18 06:36] LABS: % IMMATURE GRANULYOCYTES 0.8 % (0.0-1.1); ABSOLUTE IMMATURE GRANULOCYTES 0.06 10^3/uL (0.00-0.10); ADD DIFF? NO; ADD MORPH? NO; ADD SCAN? NO; ATYPICAL LYMPHOCYTE FLAG 0 (0-99); FRAGMENT RBC FLAG 0 (0-99); HEMATOCRIT 28.1 % (38.0-47.0); HEMOGLOBIN 8.4 g/dL (12.6-16.3); LEFT SHIFT FLG 0 (0-99); LIPEMIA HEMOLYSIS FLAG 70 (0-99); MEAN CELL HEMOGLOBIN 29.4 pg (27.9-34.1); MEAN CELL HEMOGLOBIN CONCENTR. 29.9 g/dL (32.4-36.7); MEAN CELL VOLUME 98.3 fL (81.5-99.8); MEAN PLATELET VOLUME 11.5 fL (8.7-11.7); PLATELET CLUMPS FLAG 40 (0-99); PLATELET COUNT 208 10^3/uL (150-400); RED BLOOD CELL COUNT 2.86 10^6/uL (4.18-5.33); RED CELL DISTRIBUTION WIDTH 18.3 % (11.5-15.2)
[2016-05-18 06:52] LABS: ANION GAP 5 mEq/L (8-16); CALCIUM 7.7 mg/dL (8.5-10.4); CARBON DIOXIDE 33 mEq/l (22-31); CHLORIDE 103 mEq/L (97-110); CREATININE 1.5 mg/dL (0.6-1.0); GLOMERULAR FILTRATION RATE 34; GLUCOSE 104 mg/dL (70-100); POTASSIUM 3.6 mEq/L (3.5-5.2); SODIUM 141 mEq/L (134-144)
[2016-05-18] MEDS: HEPARIN 5,000 UNIT/0.5 ML SYR SC SCH (08:41)
[2016-05-18] MEDS: INSULIN LISPRO 100 UNIT/ML SC SCH ×3 (08:41→18:28)
[2016-05-18] MEDS: AMIODARONE HCL 200 MG TAB PO SCH (08:42)
[2016-05-18] MEDS: METOPROLOL TARTRATE 25 MG TAB PO SCH ×2 (08:42→21:01)
[2016-05-18] MEDS ORDERED: fentaNYL 100 MCG/2 ML INJ ONE (12:20)
[2016-05-18] MEDS ORDERED: PROPOFOL/EMULSION 500 MG/50 ML BOTTLE IV ONE (12:20)
--- NOTE | 2016-05-18 12:21 | HOSPPROG ---
Hospitalist Progress Note Assessment/Plan: Assessment/Plan: 70-year-old female admitted 04/2016 with a ischemic leg wound infection. * left lower leg wound and infection due to ischemia * status post debridements, wound VAC in place * completed antibiotics * will need skin graft at some point * severe peripheral vascular disease * status post femoral artery bypass * seems to be doing well * acute renal failure due to ATN from hypotension during atrial fibrillation * creatinine continues to trend down * continue Lasix * sacral decubitus ulceration stage II. Daily wound care * afib * was back in AFib postoperatively and required reloading of IV amiodarone * I discussed anticoagulation with Dr. Noe and the patient who are in agreement to start Pradaxa * protein calorie malnutrition * type 2 diabetes * blood sugars look at goal DVT prophylaxis * Pradaxa started 05/18/16 * disposition * could go to rehab in the next several days Subjective: pain controlled. no palpatations. no sob Objective: Vital Signs Temp Pulse Resp BP Pulse Ox 37.3 C 54 L 18 134/61 H 93 05/18/16 11:33 05/18/16 11:33 05/18/16 11:33 05/18/16 11:33 05/18/16 11:33 Laboratory Results 05/18/16 06:20 05/18/16 06:20 05/17/16 05/18/16 05/19/16 05:59 05:59 05:59 Intake Total 880 780 Output Total 1150 875 Balance -270 -95 PT 19.9 SEC (12.0-15.0) H 04/28/16 12:55 INR 1.69 (0.83-1.16) H 04/28/16 12:55 - Physical Exam Constitutional: no apparent distress, appears nourished, not in pain Cardiovascular: regular rate and rhythym, no murmur, rub, or gallop Respiratory: no respiratory distress, no rales or rhonchi, clear to auscultation Gastrointestinal: normoactive bowel sounds, soft, non-tender abdomen, no palpable masses ICD10 Worksheet Patient Problems: Problems Problem Status Diagnosed Palliative care encounter Acute Paroxysmal atrial fibrillation Acute Urinary tract infection Acute
--- NOTE | 2016-05-18 13:44 | WOCRNPDOC ---
ALFONSO Advanced Assessment Note - Skin Integrity Problem, Advanced Assess Left Lower Leg Surgical Wound/Incision Dressing Type: Black Vac Foam, Contact Layer, Wound Vac Dressing Description: Clean/Dry, Intact Integumentary Issue Intervention: Dressing Changed Noemí Wound Tissue: Erythema, Macerated Wound Bed Color: Black, Brown, Skillman, Red, Yellow, Martínez, White Wound Bed Constitution: Granulation Tissue, Smooth Tissue, Tendon, Mixed Loose & Adhered Slough/Eschar Skin Integrity Problem Comment: Assisted Dr. Dahl and Deborah in Vac change of Pt's posterior left leg, left lateral leg and heel ulcer. Dr. Dahl applied 500 mg of amniofill under vac foam both to lateral and posterior wounds. The posterior achilles tendon exposed area was covered with adaptic touch prior to the placement of black foam. The skin noemí wound was draped and skin prepped. All wounds bridge and suction set on lateral wound. Vac restarted at - 125 mm Hg continous suction with no leaks. Please see Dr. Dahl's notes for measurements.
[2016-05-18] MEDS: DABIGATRAN ETEXILATE MESYL 150 MG CAP PO SCH (21:00)
[2016-05-18] MEDS: ATORVASTATIN CALCIUM 40 MG TAB PO SCH (21:00)
[2016-05-18] MEDS: ASPIRIN 81 MG CHEWABLE TAB PO SCH (21:00)
[2016-05-18] MEDS: INSULIN GLARGINE 100 UNITS/ML SYRINGE SC SCH (21:05)
[2016-05-19] MEDS: INSULIN LISPRO 100 UNIT/ML SC SCH ×3 (08:38→17:57)
[2016-05-19] MEDS: METOPROLOL TARTRATE 25 MG TAB PO SCH ×2 (09:36→20:25)
[2016-05-19] MEDS: DABIGATRAN ETEXILATE MESYL 150 MG CAP PO SCH ×2 (09:36→20:24)
[2016-05-19] MEDS: AMIODARONE HCL 200 MG TAB PO SCH (09:36)
[2016-05-19] MEDS: SENNOSIDES/DOCUSATE SODIUM TAB PO SCH ×2 (09:42→20:16)
--- NOTE | 2016-05-19 11:18 | SOAPPROG ---
SOAP Progress Note Assessment/Plan: Assessment: 70 yo with co-morbidities, wounds on the left lower extremity. S/P Fem pop S/P debridement and vac placement. 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 Struggling with balancing her 's needs, grieving for their relationship as he has advanced memory loss, and her needs May be able to do SNF with outpatient wound vac changes/SNF changes if can tolerate with po pain meds Otherwise LTAC S: Tearful O: Vac in place. Yesterday excellent granulation tissue anterior and posterior has gastroc and achilles visible. More granulation tissue than last week. Palpable pulse Plan: 04/21/16 11:31 04/21/16 11:31 04/26/16 10:21 05/10/16 09:39 05/19/16 11:16 Objective: Vital Signs Temp Pulse Resp BP Pulse Ox 36.7 C 64 16 159/69 H 96 05/19/16 08:04 05/19/16 08:04 05/19/16 08:04 05/19/16 08:04 05/19/16 08:04 Laboratory Results 05/18/16 06:20 05/18/16 06:20 05/18/16 05/19/16 05/20/16 05:59 05:59 05:59 Intake Total 780 1400 Output Total 875 1150 Balance -95 250 PT 19.9 SEC (12.0-15.0) H 04/28/16 12:55 INR 1.69 (0.83-1.16) H 04/28/16 12:55 ICD10 Worksheet Patient Problems: Problems Problem Status Diagnosed Palliative care encounter Acute Paroxysmal atrial fibrillation Acute Urinary tract infection Acute
--- NOTE | 2016-05-19 13:57 | HOSPPROG ---
Hospitalist Progress Note Assessment/Plan: Assessment/Plan: 70-year-old female admitted 04/2016 with a ischemic leg wound infection. * left lower leg wound and infection due to ischemia * status post debridements, wound VAC in place * completed antibiotics * will need skin graft at some point * severe peripheral vascular disease * status post femoral artery bypass * seems to be doing well * acute renal failure due to ATN from hypotension during atrial fibrillation * creatinine continues to trend down * continue Lasix * sacral decubitus ulceration stage II. Daily wound care * afib * was back in AFib postoperatively and required reloading of IV amiodarone * pradaxa restarted 05/18 * protein calorie malnutrition * type 2 diabetes * blood sugars look at goal DVT prophylaxis * Pradaxa started 05/18/16 * disposition * could go to rehab in the next several days Subjective: no new complaints Objective: Vital Signs Temp Pulse Resp BP Pulse Ox 36.6 C 56 L 17 111/49 L 99 05/19/16 11:21 05/19/16 11:21 05/19/16 11:21 05/19/16 11:21 05/19/16 11:21 Laboratory Results 05/18/16 06:20 05/18/16 06:20 05/18/16 05/19/16 05/20/16 05:59 05:59 05:59 Intake Total 780 1400 240 Output Total 875 1150 Balance -95 250 240 PT 19.9 SEC (12.0-15.0) H 04/28/16 12:55 INR 1.69 (0.83-1.16) H 04/28/16 12:55 gen nad cv rrr pulm clear abd soft ICD10 Worksheet Patient Problems: Problems Problem Status Diagnosed Palliative care encounter Acute Paroxysmal atrial fibrillation Acute Urinary tract infection Acute
--- NOTE | 2016-05-19 16:07 | GPN ---
[f rep st] PROCEDURE NOTE DATE OF PROCEDURE: 05/18/2016 ANESTHESIOLOGIST: Gilberto Bledsoe MD ANESTHESIA: Monitored anesthesia with IV sedation. PREOPERATIVE DIAGNOSIS: Peripheral vascular disease with a large lower extremity wound. POSTOPERATIVE DIAGNOSIS: Peripheral vascular disease with a large lower extremity wound. PROCEDURE PERFORMED: Application of tissue dry skin substitute and application of negative pressure wound therapy. FINDINGS: 1. The wound on the lambert measured 18.5 x 14 x 0.4 cm. 2. The distance on the anterior lambert was 11 cm. 3. The wound on the heel measured 3.8 x 4.5 x 0.7 cm. 4. Aminofil [id number] with expiration January 04, 2021; 500 mg was placed. INDICATIONS: The patient has severe peripheral vascular disease. She recently underwent femoral bel ow the knee bypass with graft her pain has improved. She has palpable pulses. Wound VAC change was indicated. Aminofil was placed last week. DESCRIPTION OF PROCEDURE: The patient was at bedside. Dr. Bledsoe performed monitored anesthesia car e with IV sedation. The wound VAC was removed. The wound was cleansed. There was healthy granulati on tissue. There was debridement of the heel wound sharply. The wound was prepped and the edges onesimo ped. 500 mg of Aminofil was placed. The wound extends from the anterior part of her lambert, nearly ci rcumferential. Posteriorly the gastroc and the Achilles tendon were exposed. She does have area of a deep pressure injury to the low portion of her heel, as well as to the metatarsal joint. A barrier Adaptic Touch was placed over the Achilles. Black foam with the wound VAC was applied. She tolerat ed the procedure well. /[id number]/MODL
[2016-05-19] MEDS: ASPIRIN 81 MG CHEWABLE TAB PO SCH (20:24)
[2016-05-19] MEDS: ATORVASTATIN CALCIUM 40 MG TAB PO SCH (20:24)
[2016-05-19] MEDS: INSULIN GLARGINE 100 UNITS/ML SYRINGE SC SCH (22:13)
[2016-05-20] MEDS: METOPROLOL TARTRATE 25 MG TAB PO SCH ×2 (08:54→20:16)
[2016-05-20] MEDS: DABIGATRAN ETEXILATE MESYL 150 MG CAP PO SCH ×2 (08:54→20:15)
[2016-05-20] MEDS: AMIODARONE HCL 200 MG TAB PO SCH (08:55)
[2016-05-20] MEDS: SENNOSIDES/DOCUSATE SODIUM TAB PO SCH ×2 (08:58→20:15)
[2016-05-20] MEDS: INSULIN LISPRO 100 UNIT/ML SC SCH ×3 (09:19→18:22)
--- NOTE | 2016-05-20 09:42 | SOAPPROG ---
SOAP Progress Note Assessment/Plan: Assessment: 70 yo with co-morbidities, wounds on the left lower extremity. S/P Fem pop S/P debridement and vac placement. Next vac change 05/25/2016 May be able to do SNF with outpatient wound vac changes/SNF changes if can tolerate with po pain meds Otherwise LTAC S: Happy today. Anxious about leaving O: Vac in place. 05/18 excellent granulation tissue anterior and posterior has gastroc and achilles visible. More granulation tissue than last week. Palpable pulse Plan: 04/21/16 11:31 04/21/16 11:31 04/26/16 10:21 05/10/16 09:39 05/19/16 11:16 05/20/16 09:42 Objective: Vital Signs Temp Pulse Resp BP Pulse Ox 36.4 C 65 18 154/69 H 98 05/20/16 08:00 05/20/16 08:00 05/20/16 08:00 05/20/16 08:00 05/20/16 08:00 Laboratory Results 05/18/16 06:20 05/18/16 06:20 05/19/16 05/20/16 05/21/16 05:59 05:59 05:59 Intake Total 1400 740 Output Total 1150 600 Balance 250 140 PT 19.9 SEC (12.0-15.0) H 04/28/16 12:55 INR 1.69 (0.83-1.16) H 04/28/16 12:55 ICD10 Worksheet Patient Problems: Problems Problem Status Diagnosed Palliative care encounter Acute Paroxysmal atrial fibrillation Acute Urinary tract infection Acute
--- NOTE | 2016-05-20 12:58 | HOSPPROG ---
Hospitalist Progress Note Assessment/Plan: Assessment/Plan: 70-year-old female admitted 04/2016 with a ischemic leg wound infection. * left lower leg wound and infection due to ischemia * status post debridements, wound VAC in place * completed antibiotics * will need skin graft at some point * severe peripheral vascular disease * status post femoral artery bypass * seems to be doing well * acute renal failure due to ATN from hypotension during atrial fibrillation * creatinine continues to trend down * continue Lasix * sacral decubitus ulceration stage II. Daily wound care * afib * was back in AFib postoperatively and required reloading of IV amiodarone * pradaxa restarted 05/18 * protein calorie malnutrition * type 2 diabetes * blood sugars look at goal DVT prophylaxis * Pradaxa started 05/18/16 * disposition * will send baseline labs 05/21 * dc to LTAC when placement obtained Subjective: no new complaints Objective: Vital Signs Temp Pulse Resp BP Pulse Ox 36.3 C 57 L 14 138/64 H 99 05/20/16 11:22 05/20/16 11:22 05/20/16 11:22 05/20/16 11:22 05/20/16 11:22 Laboratory Results 05/18/16 06:20 05/18/16 06:20 05/19/16 05/20/16 05/21/16 05:59 05:59 05:59 Intake Total 1400 740 240 Output Total 1150 600 Balance 250 140 240 PT 19.9 SEC (12.0-15.0) H 04/28/16 12:55 INR 1.69 (0.83-1.16) H 04/28/16 12:55 - Physical Exam Constitutional: no apparent distress, appears nourished, not in pain Cardiovascular: regular rate and rhythym, no murmur, rub, or gallop Respiratory: no respiratory distress, no rales or rhonchi, clear to auscultation Gastrointestinal: normoactive bowel sounds, No guarding, No rebound ICD10 Worksheet Patient Problems: Problems Problem Status Diagnosed Palliative care encounter Acute Paroxysmal atrial fibrillation Acute Urinary tract infection Acute
[2016-05-20] MEDS: ATORVASTATIN CALCIUM 40 MG TAB PO SCH (20:15)
[2016-05-20] MEDS: ASPIRIN 81 MG CHEWABLE TAB PO SCH (20:15)
[2016-05-20] MEDS: INSULIN GLARGINE 100 UNITS/ML SYRINGE SC SCH (21:08)
[2016-05-21 04:55] LABS: % IMMATURE GRANULYOCYTES 0.6 % (0.0-1.1); ABSOLUTE IMMATURE GRANULOCYTES 0.04 10^3/uL (0.00-0.10); ADD DIFF? NO; ADD MORPH? NO; ADD SCAN? NO; ATYPICAL LYMPHOCYTE FLAG 0 (0-99); FRAGMENT RBC FLAG 0 (0-99); HEMATOCRIT 28.6 % (38.0-47.0); HEMOGLOBIN 8.6 g/dL (12.6-16.3); LEFT SHIFT FLG 0 (0-99); LIPEMIA HEMOLYSIS FLAG 80 (0-99); MEAN CELL HEMOGLOBIN 30.1 pg (27.9-34.1); MEAN CELL HEMOGLOBIN CONCENTR. 30.1 g/dL (32.4-36.7); MEAN PLATELET VOLUME 11.4 fL (8.7-11.7); PLATELET CLUMPS FLAG 10 (0-99); PLATELET COUNT 207 10^3/uL (150-400); RED BLOOD CELL COUNT 2.86 10^6/uL (4.18-5.33); RED CELL DISTRIBUTION WIDTH 18.1 % (11.5-15.2)
[2016-05-21 05:04] LABS: ANION GAP 3 mEq/L (8-16); CALCIUM 7.6 mg/dL (8.5-10.4); CARBON DIOXIDE 36 mEq/l (22-31); CHLORIDE 102 mEq/L (97-110); CREATININE 1.4 mg/dL (0.6-1.0); GLOMERULAR FILTRATION RATE 37; GLUCOSE 88 mg/dL (70-100); SODIUM 141 mEq/L (134-144)
[2016-05-21] MEDS: INSULIN LISPRO 100 UNIT/ML SC SCH ×3 (08:51→17:58)
[2016-05-21] MEDS: DABIGATRAN ETEXILATE MESYL 150 MG CAP PO SCH ×2 (08:52→20:32)
[2016-05-21] MEDS: AMIODARONE HCL 200 MG TAB PO SCH (08:52)
[2016-05-21] MEDS: SENNOSIDES/DOCUSATE SODIUM TAB PO SCH ×2 (08:53→20:33)
[2016-05-21] MEDS: METOPROLOL TARTRATE 25 MG TAB PO SCH ×2 (08:55→20:32)
--- NOTE | 2016-05-21 10:03 | SOAPPROG ---
SOAP Progress Note Assessment/Plan: Assessment/Plan: 70 Y F multiple comorbidities including DM, PVD, HTN, morbid obesity, chronic L LE wounds c hx cellulitis, s/p L fem-pop bypass c impra graft. Doing well from surgery. Excellent pedal pulses. Wounds clean, dry, intact without erythema. Wound vac intact. PT/OT. Also seen and examined by Deborah Lao PA-C. Per Deborah and Dr. Dahl, patient should tolerate vac changes at SNF based on minimal pain with vac removal at last bedside change. SNF soon. Likely [facility]. Deborah to discuss expectations and timeline for healing/future surgeries with patient's son at patient's request. 05/21/16 09:58 Objective: Vital Signs Temp Pulse Resp BP Pulse Ox 36.8 C 60 17 146/66 H 98 05/21/16 08:00 05/21/16 08:00 05/21/16 08:00 05/21/16 08:00 05/21/16 08:00 Laboratory Results 05/21/16 04:20 05/21/16 04:20 05/20/16 05/21/16 05/22/16 05:59 05:59 05:59 Intake Total 740 940 Output Total 600 800 Balance 140 140 PT 19.9 SEC (12.0-15.0) H 04/28/16 12:55 INR 1.69 (0.83-1.16) H 04/28/16 12:55 alert, nad mmm no jaundice no wob abd soft, obese inc's cdi, no erythema palpable pedal pulses vac to good suction ICD10 Worksheet Patient Problems: Problems Problem Status Diagnosed Palliative care encounter Acute Paroxysmal atrial fibrillation Acute Urinary tract infection Acute
[2016-05-21] MEDS ORDERED: AMIODARONE HCL 200 MG TAB PO SCH (14:14)
--- NOTE | 2016-05-21 14:35 | PDCARPN ---
Cardiology Progress Note Chief Complaint: PVD/PAF Assessment/Plan: Assessment: 70-y/o F with PMH PVD, CVA 2011 s/p LCEA, morbid obesity, T2DM, htn, dyslipidemia, PAF, admitted 04/17/16 for LE wounds that were poorly healing. Upon arrival, she was noted to be in AF RVR. She was started on Amiodarone with spontaneous conversion. She was initially on IV and converted to PO amio. She proceeding to L leg fem-pop bypass 05/12/16. Postoperatively, she developed AF RVR with reinitiation of IV amiodarone which resulted in conversion to SR. Today , while working with therapy, she had a vagal episode without maude syncope. She was noted to be bradycardic and have a ventricular escape rhythm. #. Ventricular escape rhythm: this was brief and pt is now in SR decrease dose of Amiodarone to 200 daily continue to follow on tele reviewed with Dr. Vasquez #. PAF: high [id number] (htn, age, DM, stroke, vascular disease, female) started on Pradaxa has had very short and rare episodes of PAF upon review of telemetry will need to be followed as outpatient she is advised to see Dr. Noe or Ramiro (previous quality assurance manager) in 1 month #. htn: BP appears stable 3. PVD: being followed by our surgery service on Atorvastatin 05/21/16 14:26 Subjective: No further syncopal episodes or nausea. No cp/dyspnea. Reviewed/Discussed With: hospitalist (Dr. Warren) Objective: Vital Signs (8 Hrs) Temp Pulse Resp BP Pulse Ox 05/21/16 12:00 98.9 F 58 L 19 126/69 H 97 05/21/16 10:50 76 L 05/21/16 08:00 98.3 F 60 17 146/66 H 98 Intake/Output (24 Hrs) 05/20/16 05/21/16 05/22/16 05:59 05:59 05:59 Intake Total 740 940 Output Total 600 800 Balance 140 140 Intake: Oral (ml) 740 940 Output: Urine (ml) 600 800 Catheter 600 800 Other: Intake Quantity Yes Sufficient Result Diagrams: 05/21/16 04:20 05/21/16 04:20 Telemetry: reviewed Echocardiogram: reviewed: EF 70-75%, biatrial enlargement, aortic sclerosis without stenosis, trace TR (04/16/16) - Physical Exam Constitutional: no apparent distress, No general pain Eyes: PERRL Cardiovascular: regular rate and rhythm, systolic murmur Respiratory: clear to auscultate bilat (ant lung armas) Genitourinary: justice in urethra Skin: other (L leg/foot in splint) Neurologic: AAOx3 Psychiatric: cooperative, interactive ICD10 Worksheet Patient Problems: Problems Problem Status Diagnosed Palliative care encounter Acute Paroxysmal atrial fibrillation Acute Urinary tract infection Acute
--- NOTE | 2016-05-21 16:53 | HOSPPROG ---
Hospitalist Progress Note Assessment/Plan: * Ischemic LE wound with necrotic infection s/p debridement -abx complete -wound vac * PVD s/p fem/pop bypass -ASA, Lipitor * Vasovagal event -cardiology reconsulted - they agree with vasovagal etiology -amiodarone reduced * Afib -amiodarone, metoprolol -pradaxa * ARF due to ATN - improving * Sacral decub - stage II * Morbid obesity BMI 43 * DM II -lantus dose lower than home dose - follow closely -holding metformin due to ARF * CVA s/p left CEA Dispo - no LTAC acceptance - dispo will be to SNF Subjective: pain with wound vac change decreasing - brief vasovagal event today when up with PT Objective: Vital Signs Temp Pulse Resp BP Pulse Ox 37.2 C 58 L 19 126/69 H 97 05/21/16 12:00 05/21/16 12:00 05/21/16 12:00 05/21/16 12:00 05/21/16 12:00 Laboratory Results 05/21/16 04:20 05/21/16 04:20 05/20/16 05/21/16 05/22/16 05:59 05:59 05:59 Intake Total 740 940 Output Total 600 800 Balance 140 140 PT 19.9 SEC (12.0-15.0) H 04/28/16 12:55 INR 1.69 (0.83-1.16) H 04/28/16 12:55 d/w Marie Cervantes - PA - cards reconsulted given vasovagal event today with tele changes tele reviewed - ventricular escape rhythm during event - Physical Exam Constitutional: no apparent distress, appears nourished, not in pain Cardiovascular: regular rate and rhythym, no murmur, rub, or gallop Respiratory: no respiratory distress, no rales or rhonchi, clear to auscultation Gastrointestinal: normoactive bowel sounds, soft, non-tender abdomen, no palpable masses Skin: no rashes or abrasions, no fluctuance, no induration Neurologic: AAOx3, sensation intact bilaterally Psychiatric: interacting appropriately, not anxious, not encephalopathic, thought process linear ICD10 Worksheet Patient Problems: Problems Problem Status Diagnosed Palliative care encounter Acute Paroxysmal atrial fibrillation Acute Urinary tract infection Acute
[2016-05-21] MEDS ORDERED: oxyCODONE IR 5 MG TAB PO PRN (16:59)
[2016-05-21] MEDS ORDERED: LORazepam 0.5 MG TAB PO PRN (16:59)
[2016-05-21] MEDS: ASPIRIN 81 MG CHEWABLE TAB PO SCH (20:32)
[2016-05-21] MEDS: INSULIN GLARGINE 100 UNITS/ML SYRINGE SC SCH (20:32)
[2016-05-21] MEDS: ATORVASTATIN CALCIUM 40 MG TAB PO SCH (20:32)
[2016-05-21 22:53] VITALS: RESP 18
[2016-05-22 06:17] LABS: ANION GAP 6 mEq/L (8-16); CARBON DIOXIDE 33 mEq/l (22-31); CHLORIDE 102 mEq/L (97-110); CREATININE 1.3 mg/dL (0.6-1.0); GLOMERULAR FILTRATION RATE 40; GLUCOSE 105 mg/dL (70-100); SODIUM 141 mEq/L (134-144)
[2016-05-22] MEDS: INSULIN LISPRO 100 UNIT/ML SC SCH ×2 (07:38→12:35)
[2016-05-22 08:31] VITALS: BP 115/67; PULSE 58; TEMP 97.6
[2016-05-22] MEDS: DABIGATRAN ETEXILATE MESYL 150 MG CAP PO SCH (08:35)
[2016-05-22] MEDS: METOPROLOL TARTRATE 25 MG TAB PO SCH (08:35)
[2016-05-22] MEDS: SENNOSIDES/DOCUSATE SODIUM TAB PO SCH (08:36)
[2016-05-22] MEDS ORDERED: FUROSEMIDE 40 MG TAB PO SCH ×2 (09:00)
[2016-05-22] MEDS ORDERED: AMIODARONE HCL 200 MG TAB PO SCH (09:00)
[2016-05-22 09:31] VITALS: O2SAT 95
--- NOTE | 2016-05-22 09:55 | PDIAF ---
- Diagnosis Diagnosis: ischemic wound s/p fem/pop bypass Code Status: Full Code - Medication Management Discharge Medications: Medications to Continue on Transfer Acetaminophen [Acetaminophen Extra Strength] 500 mg PO HS 04/16/16 [Last Taken 04/15/16] Aspirin EC [Aspirin EC 81 mg (*)] 81 mg PO HS 04/16/16 [Last Taken 04/13/16] Atorvastatin Calcium [Lipitor 40 mg (*)] 40 mg PO HS 04/16/16 [Last Taken ] Novolin R 0 - 14 units SQ BID 04/16/16 [Last Taken 04/14/16] Amiodarone HCl [Pacerone (*)] 200 mg PO DAILY #0 tab 05/22/16 [Last Taken Unknown] Dabigatran Etexilate Mesyl [Pradaxa 150 MG (*)] 150 mg PO BID #60 cap 05/22/16 [ Last Taken Unknown] Furosemide [Lasix 40 MG (*)] 20 mg PO DAILY #30 tab 05/22/16 [Last Taken Unknown ] Insulin Glargine [Lantus 100 UNITS/ML (*)] 5 units SC HS #0 ml 05/22/16 [Last Taken Unknown] LORazepam [Ativan (*)] 0.5 mg PO PRN PRN #0 tab 05/22/16 [Last Taken Unknown] Metoprolol Tartrate [Lopressor 25 mg (*)] 12.5 mg PO BID #0 tab 05/22/16 [Last Taken Unknown] Sennosides/Docusate Sodium [Senokot-S] 1 - 2 tab PO BID #0 tab 05/22/16 [Last Taken Unknown] oxyCODONE IR [Oxycodone Ir (*)] 5 - 10 mg PO Q4HRS PRN #0 tab 05/22/16 [Last Taken Unknown] Discharge Medications: Refer to the Discharge Home Medication list for PRN reason. - Orders Diet Recommendation: no restrictions on diet Wound Care Instructions: wound vac per Dr. Dahl Activity/Weight Bearing Restrictions: Stage II sacral decub Additional: Watch glucose closely as her insulin has been reduced from 40 units per to 5 units per day due to hypoglycemia. May need to re-uptitrate her insulin if glucose goes up. - Labs/Radiology BMP Date: 05/28/16 Other Lab Name, Date and Time: Okay to restart metformin when creatinine normalized. Imaging Orders: Follow-up with [facility] to enroll in amiodarone clinic for monitoring - Follow Up Care Current Providers and Referrals: Ashleigh Dahl MD [Medical Doctor] - NONE *PRIMARY CARE P,. [Primary Care Provider] - David Noe MD [Medical Doctor] - 05/30/16 10:00 am (Your appointment with Dr. Noe on May 30 is in the [place] office of [facility].)
--- NOTE | 2016-05-22 10:50 | PDIAF ---
- Diagnosis Diagnosis: ischemic wound s/p fem/pop bypass Code Status: Full Code - Medication Management Discharge Medications: Medications to Continue on Transfer Acetaminophen [Acetaminophen Extra Strength] 500 mg PO HS 04/16/16 [Last Taken 04/15/16] Aspirin EC [Aspirin EC 81 mg (*)] 81 mg PO HS 04/16/16 [Last Taken 04/13/16] Atorvastatin Calcium [Lipitor 40 mg (*)] 40 mg PO HS 04/16/16 [Last Taken ] Novolin R 0 - 14 units SQ BID 04/16/16 [Last Taken 04/14/16] Amiodarone HCl [Pacerone (*)] 200 mg PO DAILY #0 tab 05/22/16 [Last Taken Unknown] Dabigatran Etexilate Mesyl [Pradaxa 150 MG (*)] 150 mg PO BID #60 cap 05/22/16 [ Last Taken Unknown] Furosemide [Lasix 40 MG (*)] 20 mg PO DAILY #30 tab 05/22/16 [Last Taken Unknown ] Insulin Glargine [Lantus 100 UNITS/ML (*)] 5 units SC HS #0 ml 05/22/16 [Last Taken Unknown] LORazepam [Ativan (*)] 0.5 mg PO PRN PRN #0 tab 05/22/16 [Last Taken Unknown] Metoprolol Tartrate [Lopressor 25 mg (*)] 12.5 mg PO BID #0 tab 05/22/16 [Last Taken Unknown] Sennosides/Docusate Sodium [Senokot-S] 1 - 2 tab PO BID #0 tab 05/22/16 [Last Taken Unknown] oxyCODONE IR [Oxycodone Ir (*)] 5 - 10 mg PO Q4HRS PRN #0 tab 05/22/16 [Last Taken Unknown] Discharge Medications: Refer to the Discharge Home Medication list for PRN reason. - Orders Diet Recommendation: no restrictions on diet Wound Care Instructions: wound vac per Dr. Dahl Sutures/Iqra Site: may remove remainder of iqra on 05/28/16. please apply steri strips afterwards Activity/Weight Bearing Restrictions: Stage II sacral decub Additional: Watch glucose closely as her insulin has been reduced from 40 units per to 5 units per day due to hypoglycemia. May need to re-uptitrate her insulin if glucose goes up. - Labs/Radiology BMP Date: 05/28/16 Other Lab Name, Date and Time: Okay to restart metformin when creatinine normalized. Imaging Orders: Follow-up with [facility] to enroll in amiodarone clinic for monitoring - Follow Up Care Current Providers and Referrals: Ashleigh Dahl MD [Medical Doctor] - NONE *PRIMARY CARE P,. [Primary Care Provider] - David Noe MD [Medical Doctor] - 05/30/16 10:00 am (Your appointment with Dr. Noe on May 30 is in the [place] office of [facility].) Salty Lamar MD [Medical Doctor] - follow up in 2 weeks ()
--- NOTE | 2016-05-22 19:55 | GDS ---
[f rep st] DISCHARGE SUMMARY DISCHARGE DIAGNOSES: 1. Ischemic lower extremity wound with necrotic infection, status post debridement. 2. Peripheral vascular disease, status post femoral-popliteal bypass. 3. Atrial fibrillation. 4. Acute renal failure due to acute tubular necrosis. 5. Stage 2 decubitus ulcer. 6. Morbid obesity, BMI 43. 7. Diabetes type 2. 8. History of stroke, status post previous left carotid endarterectomy. HISTORY: The patient is a 70-year-old female, who developed a lower extremity wound with necrotic in fection. This was ischemic and she was not getting good perfusion to the legs. She underwent debrid ement of the infection and then subsequently a femoral-popliteal bypass to revascularize and improve blood flow to the area. She was treated with a full course of antibiotics during this hospitalizatio n and is off antibiotics at this time. She has a wound VAC in place. Peripheral vascular disease be ing treated adequately with aspirin and Lipitor. She also had new onset atrial fibrillation and is now on amiodarone and metoprolol per cardiology con sultation. Pradaxa for stroke prevention. She needs followup with Cardiology for enrollment in the r amiodarone monitoring program. She developed acute renal failure due to ATN, that is improved and her creatinine is down to 1.3 at h ospital discharge. Typically it is normal. She is a known diabetic but was having hypoglycemia during this hospitalization. We did have to redu ce her Lantus dose significantly. We also held her metformin due to acute renal failure. At the abdullahi e of hospital discharge, she is only on 5 units of Lantus at night, which is much lower than her need s when she came in. Some of this might have been her infection that was causing hyperglycemia. I th ink diabetes management needs to be [facility] with titration of medications as indicated. DISCHARGE MEDICATIONS: Please see computer record for full detailed list. New medications: 1. Insulin decreased to 5 units subcutaneous q.h.s. 2. Lasix 20 mg p.o. daily. 3. Metoprolol 12.5 mg p.o. b.i.d. 4. Amiodarone 200 mg daily. 5. Pradaxa 150 mg b.i.d. 6. Oxycodone 5-10 mg every 4 hours as needed. DISCHARGE INSTRUCTIONS: 1. Wound VAC management per Dr. Dahl. 2. Removal of karine on May 28, and apply Steri-Strips. 3. Management wound care for stage 2 sacral decubitus ulcer. 4. Close monitoring of glucose and diabetes, as anticipate will need some dose adjustments in the fu ture. 5. Okay to restart metformin when creatinine has normalized. 6. Follow up with [facility] to enroll in amiodarone monitoring program. Appointment is schedule d with Dr. Noe on May 30 at 10:00 a.m. 7. Follow up with Dr. Lamar in 2 weeks. Greater than 30 minutes of time was spent arranging this discharge. Patient seen and examined by me on the date of discharge. /[id number]/MODL
== END 2016-05-22 14:27 | DRG 252 ==
LOC: INTOOBSV 15:07 → F2W 15:53 → OBSVTOIN 04-17 16:34 → F2W 04-17 16:41 → UNDODISIN 05-09 20:05 → F2N 05-11 19:24 → F2W 05-15 16:09
PROVIDERS: ADMIT Internal Medicine; ATTEND Internal Medicine
PROC: 02HV33Z Insertion of Infusion Device into Superior Vena Cava, Percutaneous Approach (ICD-10-PCS; 2016-04-18)
PROC: 0J8P0ZZ Division of Left Lower Leg Subcutaneous Tissue and Fascia, Open Approach (ICD-10-PCS; 2016-04-22 10:59)
PROC: 0JB90ZZ Excision of Buttock Subcutaneous Tissue and Fascia, Open Approach (ICD-10-PCS; 2016-04-22 10:59)
PROC: 2W0MX6Z Change Pressure Dressing on Left Lower Extremity (ICD-10-PCS; 2016-04-22 10:59)
PROC: 0JBR0ZZ Excision of Left Foot Subcutaneous Tissue and Fascia, Open Approach (ICD-10-PCS; 2016-04-22 10:59)
PROC: 2W0MX6Z Change Pressure Dressing on Left Lower Extremity (ICD-10-PCS; 2016-04-25)
PROC: 2W0MX6Z Change Pressure Dressing on Left Lower Extremity (ICD-10-PCS; 2016-04-27)
PROC: 2W0MX6Z Change Pressure Dressing on Left Lower Extremity (ICD-10-PCS; 2016-05-02)
PROC: 0LBW0ZZ Excision of Left Foot Tendon, Open Approach (ICD-10-PCS; 2016-05-04)
PROC: 2W0MX6Z Change Pressure Dressing on Left Lower Extremity (ICD-10-PCS; 2016-05-04)
PROC: 2W0MX6Z Change Pressure Dressing on Left Lower Extremity (ICD-10-PCS; 2016-05-08)
PROC: 0HDLXZZ Extraction of Left Lower Leg Skin, External Approach (ICD-10-PCS; 2016-05-08)
PROC: 041L0JL Bypass Left Femoral Artery to Popliteal Artery with Synthetic Substitute, Open Approach (ICD-10-PCS; principal; 2016-05-11 13:30)
PROC: 04CL0ZZ Extirpation of Matter from Left Femoral Artery, Open Approach (ICD-10-PCS; principal; 2016-05-11 13:30)
PROC: 2W0MX6Z Change Pressure Dressing on Left Lower Extremity (ICD-10-PCS; 2016-05-13)
PROC: 0HRLXK4 Replacement of Left Lower Leg Skin with Nonautologous Tissue Substitute, Partial Thickness, External Approach (ICD-10-PCS; 2016-05-13)
PROC: 2W0MX6Z Change Pressure Dressing on Left Lower Extremity (ICD-10-PCS; 2016-05-18)
PROC: 0HRNXK4 Replacement of Left Foot Skin with Nonautologous Tissue Substitute, Partial Thickness, External Approach (ICD-10-PCS; 2016-05-18)
DX: I70.242 Atherosclerosis of native arteries of left leg with ulceration of calf (principal); L97.223 Non-pressure chronic ulcer of left calf with necrosis of muscle; L03.116 Cellulitis of left lower limb; B96.89 Other specified bacterial agents as the cause of diseases classified elsewhere; E11.621 Type 2 diabetes mellitus with foot ulcer; L97.421 Non-pressure chronic ulcer of left heel and midfoot limited to breakdown of skin; L89.312 Pressure ulcer of right buttock, stage 2; L89.322 Pressure ulcer of left buttock, stage 2; N39.0 Urinary tract infection, site not specified; B96.20 Unspecified Escherichia coli [E. coli] as the cause of diseases classified elsewhere; I48.0 Paroxysmal atrial fibrillation; I95.89 Other hypotension; N17.0 Acute kidney failure with tubular necrosis; E87.6 Hypokalemia; T50.2X5A Adverse effect of carbonic-anhydrase inhibitors, benzothiadiazides and other diuretics, initial encounter; E83.39 Other disorders of phosphorus metabolism; E46 Unspecified protein-calorie malnutrition; D63.8 Anemia in other chronic diseases classified elsewhere; E11.649 Type 2 diabetes mellitus with hypoglycemia without coma; E66.01 Morbid (severe) obesity due to excess calories; Z68.41 Body mass index [BMI] 40.0-44.9, adult; I10 Essential (primary) hypertension; Z86.73 Personal history of transient ischemic attack (TIA), and cerebral infarction without residual deficits; Z23 Encounter for immunization
CPT/HCPCS: 82947-QW; 85520-90; 96374; 97001-GP; 97003-GO; 97110-GO; 97110-GP; 97168-GO; 97530-GO; 97530-GP; 97535-GO; C1751; C1768; G0378; G8978-GP-CL; G8978-GP-CM; G8979-GP-CJ; G8979-GP-CK; G8987-GO-CM; G8988-GO-CK; G8988-GO-CL; J0171; J0282; J0690; J0696; J0878; J0885; J1100; J1160; J1170; J1335; J1644; J1815; J2001; J2250; J2370; J2405; J2440; J2543; J2704; J2720; J2997; J3010; J3370; J3490; Q9961; Q9967

== ENCOUNTER 2016-05-31 18:02 | Emergency (ER) | payer OTHER ==
--- NOTE | 2016-05-31 18:24 | EDPHY ---
H & P Stated Complaint: bleeding lesion Time Seen by Provider: 05/31/16 18:04 HPI/ROS: CHIEF COMPLAINT: Bleeding from wound VAC HISTORY OF PRESENT ILLNESS: The patient presents to the emergency department after she developed bleeding from a lower extremity wound VAC. 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 She was recently hospitalized. She is not a candidate for surgical revascularization at this point time. She reportedly is anticoagulated with Pradaxa. The patient developed an accumulation of blood underneath the wound VAC following changing at the facility earlier today. The patient reportedly has had no recent medication dosage adjustments of her anticoagulants. She denies additional acute complaints. REVIEW OF SYSTEMS: A comprehensive 10 point review of systems is otherwise negative aside from elements mentioned in the history of present illness. Source: Patient Exam Limitations: No limitations - Personal History Current Tetanus Diphtheria and Acellular Pertussis (TDAP): Unsure - Medical/Surgical History Hx Asthma: No Hx Chronic Respiratory Disease: No Hx Diabetes: Yes Hx Cardiac Disease: Yes Hx Renal Disease: No Hx Cirrhosis: No Hx Alcoholism: No Hx HIV/AIDS: No Hx Splenectomy or Spleen Trauma: No Other PMH: DM2, HTN, "hoof and mouth disease surgery L upper thigh", diabetic ulcers to left leg-being seen at [facility] wound clinic 09/18-current - Social History Smoking Status: Never smoked - Physical Exam Exam: General Appearance: Elderly female, deconditioned Eyes: Pupils equal and round no pallor or injection ENT, Mouth: Mucous membranes moist Respiratory: There are no retractions, lungs are clear to auscultation Cardiovascular: Regular rate and rhythm, 2/6 systolic ejection murmur Gastrointestinal: Abdomen is soft and nontender, no masses, bowel sounds normal Neurological: A&O, normal motor function, normal sensory exam, normal cranial nerves Skin: Lower extremity stasis dermatitis Musculoskeletal: Neck is supple nontender Extremities: Wound VAC in place to left lower extremity with chronic ulcers noted Constitutional: Initial Vital Signs Temperature (C) 36.6 C 05/31/16 18:10 Heart Rate 83 05/31/16 18:10 Respiratory Rate 15 05/31/16 18:10 Blood Pressure 86/57 L 05/31/16 18:10 O2 Sat (%) 93 05/31/16 18:10 O2 Delivery Mode Room Air O2 (L/minute) 2 Allergies/Adverse Reactions: sandyl cream Allergy (Uncoded 04/16/16 12:59) tape Allergy (Uncoded 04/16/16 15:29) Home Medications: Medication Instructions Recorded Acetaminophen [Acetaminophen Extra 500 mg PO HS 04/16/16 Strength] Aspirin EC [Aspirin EC 81 mg (*)] 81 mg PO HS 04/16/16 Atorvastatin Calcium [Lipitor 40 40 mg PO HS 04/16/16 mg (*)] Novolin R 0 - 14 units SQ BID 04/16/16 Amiodarone HCl [Pacerone (*)] 200 mg PO DAILY #0 tab 05/22/16 Dabigatran Etexilate Mesyl 150 mg PO BID #60 cap 05/22/16 [Pradaxa 150 MG (*)] Furosemide [Lasix 40 MG (*)] 20 mg PO DAILY #30 tab 05/22/16 Insulin Glargine [Lantus 100 5 units SC HS #0 ml 05/22/16 UNITS/ML (*)] LORazepam [Ativan (*)] 0.5 mg PO PRN PRN #0 tab 05/22/16 Metoprolol Tartrate [Lopressor 25 12.5 mg PO BID #0 tab 05/22/16 mg (*)] Sennosides/Docusate Sodium 1 - 2 tab PO BID #0 tab 05/22/16 [Senokot-S] oxyCODONE IR [Oxycodone Ir (*)] 5 - 10 mg PO Q4HRS PRN #0 tab 05/22/16 Medical Decision Making ED Course/Re-evaluation: The patient's wound VAC was taken down in the emergency department. She did have some oozing from the posterior ulcer on her lower leg. The patient did have a Adaptic dressing applied to the area. Sterile gauze and a Abelardo wrap was then applied. The patient was observed in the ED without evidence of significant bleeding. The patient's INR is currently 2.4. I did vijay Lamar who evaluated the patient briefly. At this point time the patient will be discharged back to her intermediate facility. She will keep her dressing on this evening. The nursing staff will reapply the wound VAC tomorrow. Should the patient continue to have problems with bleeding she should return to the ED. The patient is noted to be hemodynamically stable in the emergency department with a stable hematocrit. Patient is comfortable being discharged home at this point time. Differential Diagnosis: Differential diagnosis considered includes supratherapeutic anticoagulation, cellulitis, arterial hemorrhage, venous hemorrhage - Data Points Laboratory Results: Laboratory Results 05/31/16 18:30 05/31/16 18:30 05/31/16 18:30 WBC 8.78 10^3/uL (3.80-9.50) RBC 3.46 L 10^6/uL (4.18-5.33) Hgb 10.7 L g/dL (12.6-16.3) Hct 34.3 L % (38.0-47.0) MCV 99.1 fL (81.5-99.8) MCH 30.9 pg (27.9-34.1) MCHC 31.2 L g/dL (32.4-36.7) RDW 15.9 H % (11.5-15.2) Plt Count 278 10^3/uL (150-400) MPV 11.5 fL (8.7-11.7) Neut % (Auto) 60.4 % (39.3-74.2) Lymph % (Auto) 21.4 % (15.0-45.0) [place] % (Auto) 12.3 % (4.5-13.0) Eos % (Auto) 4.1 % (0.6-7.6) Baso % (Auto) 1.3 % (0.3-1.7) Nucleat RBC Rel Count 0.0 % (0.0-0.2) Absolute Neuts (auto) 5.31 10^3/uL (1.70-6.50) Absolute Lymphs (auto) 1.88 10^3/uL (1.00-3.00) Absolute Monos (auto) 1.08 H 10^3/uL (0.30-0.80) Absolute Eos (auto) 0.36 10^3/uL (0.03-0.40) Absolute Basos (auto) 0.11 H 10^3/uL (0.02-0.10) Absolute Nucleated RBC 0.00 10^3/uL (0-0.01) Immature Gran % 0.5 % (0.0-1.1) Immature Gran # 0.04 10^3/uL (0.00-0.10) PT 26.4 H SEC (12.0-15.0) INR 2.40 H (0.83-1.16) APTT 63.9 H SEC (23.0-38.0) Sodium 136 mEq/L (134-144) Potassium 4.5 mEq/L (3.5-5.2) Chloride 97 mEq/L (97-110) Carbon Dioxide 31 mEq/l (22-31) Anion Gap 8 mEq/L (8-16) BUN 25 H mg/dL (7-23) Creatinine 1.7 H mg/dL (0.6-1.0) Estimated GFR 30 Glucose 177 H mg/dL (70-100) Calcium 8.1 L mg/dL (8.5-10.4) Medications Given: Discontinued Medications Fentanyl (Sublimaze) 50 mcg IVP EDNOW ONE Stop: 05/31/16 19:00 Last Admin: 05/31/16 19:13 Dose: 50 mcg Sodium Chloride (Ns) 1,000 mls @ 0 mls/hr IV ONCE ONE PRN Reason: Wide Open Stop: 05/31/16 19:20 Last Admin: 05/31/16 19:21 Dose: 1,000 mls Ondansetron HCl (Zofran) 4 mg IVP EDNOW ONE Stop: 05/31/16 19:00 Last Admin: 05/31/16 19:05 Dose: 4 mg Departure - Departure Disposition: Home, Routine, Self-Care Clinical Impression: Peripheral vascular disease, Ulcer of lower extremity Condition: Fair Instructions: Peripheral Vascular Disease (ED) Additional Instructions: 1. Please keep dressing on leg this evening. Please have nursing staff replace the wound VAC tomorrow. 2. Please return to the ED for any ongoing bleeding, signs of acute infection such as swelling, redness or fever or additional concerns. Referrals: Ashleigh Dahl MD [Medical Doctor] - As per Instructions
[2016-05-31 18:46] LABS: % IMMATURE GRANULYOCYTES 0.5 % (0.0-1.1); ABSOLUTE IMMATURE GRANULOCYTES 0.04 10^3/uL (0.00-0.10); ADD DIFF? NO; ADD MORPH? NO; ADD SCAN? NO; ATYPICAL LYMPHOCYTE FLAG 10 (0-99); FRAGMENT RBC FLAG 0 (0-99); HEMATOCRIT 34.3 % (38.0-47.0); HEMOGLOBIN 10.7 g/dL (12.6-16.3); LEFT SHIFT FLG 0 (0-99); LIPEMIA HEMOLYSIS FLAG 80 (0-99); MEAN CELL HEMOGLOBIN 30.9 pg (27.9-34.1); MEAN CELL HEMOGLOBIN CONCENTR. 31.2 g/dL (32.4-36.7); MEAN CELL VOLUME 99.1 fL (81.5-99.8); MEAN PLATELET VOLUME 11.5 fL (8.7-11.7); PLATELET CLUMPS FLAG 0 (0-99); PLATELET COUNT 278 10^3/uL (150-400); RED BLOOD CELL COUNT 3.46 10^6/uL (4.18-5.33); RED CELL DISTRIBUTION WIDTH 15.9 % (11.5-15.2)
[2016-05-31] MEDS ORDERED: fentaNYL 100 MCG/2 ML INJ IVP ONE (18:59)
[2016-05-31] MEDS ORDERED: ONDANSETRON 4 MG/2 ML VIAL IVP ONE (18:59)
[2016-05-31 19:00] LABS: INR 2.4 (0.83-1.16); PROTIME(PATIENT) 26.4 SEC (12.0-15.0)
[2016-05-31] MEDS ORDERED: fentaNYL 100 MCG/2 ML INJ ONE (19:01)
[2016-05-31] MEDS ORDERED: ONDANSETRON 4 MG/2 ML VIAL ONE (19:01)
[2016-05-31 19:02] LABS: APTT 63.9 SEC (23.0-38.0)
[2016-05-31] MEDS ORDERED: NS 1,000 ML IV ONE (19:19)
[2016-05-31 19:22] LABS: ANION GAP 8 mEq/L (8-16); CALCIUM 8.1 mg/dL (8.5-10.4); CARBON DIOXIDE 31 mEq/l (22-31); CHLORIDE 97 mEq/L (97-110); CREATININE 1.7 mg/dL (0.6-1.0); GLOMERULAR FILTRATION RATE 30; GLUCOSE 177 mg/dL (70-100); POTASSIUM 4.5 mEq/L (3.5-5.2); SODIUM 136 mEq/L (134-144)
[2016-05-31 21:19] VITALS: BP 115/67; PULSE 85; RESP 18; TEMP 98.6; O2SAT 93
== END 2016-05-31 21:16 | disposition home or self-care (01) ==
LOC: EDUNIT#
DX: L97.929 Non-pressure chronic ulcer of unspecified part of left lower leg with unspecified severity (principal); I73.9 Peripheral vascular disease, unspecified; E11.9 Type 2 diabetes mellitus without complications; I10 Essential (primary) hypertension; Z79.82 Long term (current) use of aspirin; Z79.4 Long term (current) use of insulin
CPT/HCPCS: 96361; 96374; 96375; 99284; J2405; J3010

== ENCOUNTER 2016-06-18 11:10 | Inpatient (IN) | payer OTHER ==
--- NOTE | 2016-06-18 11:25 | EDPHY ---
H & P Time Seen by Provider: 06/18/16 11:15 HPI/ROS: CHIEF COMPLAINT: altered mental status HISTORY OF PRESENT ILLNESS: Patient is a 70-year-old female with a history of altered mental status the presents to the emergency department via EMS. The patient is a care home resident. Staff noted that she was hallucinating people in front of her they were there. Patient is currently treated with vancomycin with a wound VAC. She also has a history of diabetes and atrial fibrillation. The patient is without complaints. She has no chest pain or shortness of breath. No nausea or vomiting. No abdominal pain. The patient states she has bad wounds. Patient does report seeing someone in front of her and swears I saw someone. REVIEW OF SYSTEMS: My complete review of systems is negative except as mentioned in the HPI. Of note, patient denies all Past Medical/Surgical History: Includes diabetes, diabetic peripheral angiopathy with gangrene, hypertension, atrial fibrillation, malnutrition, hyperlipidemia, anxiety, wound ulcer, pneumonia, peripheral vascular disease Past surgical history: Eye surgery for cellulitis, multiple attempts at angioplasty of left leg Social: Patient is a care home resident. Social History: Patient is a care home resident. She does not smoke Smoking Status: Never smoked Physical Exam: Vitals noted GENERAL: No acute distress, alert. HEENT: Eyes normal to inspection, normal pharynx, no signs of dehydration. NECK: No thyromegaly, no lymphadenopathy, supple. RESPIRATORY: Clear to auscultation bilaterally, no rales, rhonchi or wheezing. CVS: Irregular tachycardia, no rubs, murmurs, or gallops. ABDOMEN: Soft, nontender, nondistended, no organomegaly. BACK: Normal to inspection, no CVA tenderness. SKIN: Normal color, no rash, warm, dry. No pallor. EXTREMITIES: patient has a wound VAC on her left lower extremity. Mild bilateral pedal edema.. NEURO/PSYCH: [Alert and oriented to name, normal mood and affect, normal motor sensory exam. No obvious cranial nerve deficit. Constitutional: Initial Vital Signs Temperature (C) 36.4 C 06/18/16 11:12 Heart Rate 160 H 06/18/16 11:12 Respiratory Rate 20 06/18/16 11:12 Blood Pressure 56/40 L 06/18/16 11:12 O2 Sat (%) 89 L 06/18/16 11:12 O2 Delivery Mode Nasal Cannula O2 (L/minute) 4 Allergies/Adverse Reactions: sandyl cream Allergy (Uncoded 04/16/16 12:59) tape Allergy (Uncoded 04/16/16 15:29) Home Medications: Medication Instructions Recorded Acetaminophen [Acetaminophen Extra 500 mg PO HS 04/16/16 Strength] Aspirin EC [Aspirin EC 81 mg (*)] 81 mg PO HS 04/16/16 Atorvastatin Calcium [Lipitor 40 40 mg PO HS 04/16/16 mg (*)] Novolin R 0 - 14 units SQ BID 04/16/16 Amiodarone HCl [Pacerone (*)] 200 mg PO DAILY #0 tab 05/22/16 Dabigatran Etexilate Mesyl 150 mg PO BID #60 cap 05/22/16 [Pradaxa 150 MG (*)] Furosemide [Lasix 40 MG (*)] 20 mg PO DAILY #30 tab 05/22/16 Insulin Glargine [Lantus 100 5 units SC HS #0 ml 05/22/16 UNITS/ML (*)] LORazepam [Ativan (*)] 0.5 mg PO PRN PRN #0 tab 05/22/16 Metoprolol Tartrate [Lopressor 25 12.5 mg PO BID #0 tab 05/22/16 mg (*)] Sennosides/Docusate Sodium 1 - 2 tab PO BID #0 tab 05/22/16 [Senokot-S] oxyCODONE IR [Oxycodone Ir (*)] 5 - 10 mg PO Q4HRS PRN #0 tab 05/22/16 Medical Decision Making Procedures: Procedure: Central line placement Indication: No access, hypotension Ultrasound guidance: Using the linear probe covered in a sterile sheath, a short axis of the vein was obtained. The vein was completely compressible and was identified as separate from the adjacent non-compressible arterial structure. Under real-time guidance, the introducer needle was observed up to the vein, and then punctured it. These images were saved on the database. Central line placement: The indication for the procedure was hypotension and no vascular access. After verbal informed consent from patient; the risks were explained including bleeding, infection, and collapsed lung. Maximal sterile barrier technique was uses including cap, gown, sterile gloves, large sheet, hand washing and chlorhexidine prep. The area anesthetized with 1% lidocaine. The was punctured with a 19 gauge finder needle, then a wire introducer was placed, a was placed using Seldinger technique. There were no complications. Blood return low pressure, dark blood. The patient tolerated procedure well. CXR results: Showed good placement of the central line with no pneumothorax as interpreted by myself. Radiologist interpretation is pending. The procedure was performed by myself. ED Course/Re-evaluation: In the emergency department I met EMS on arrival. I took report from the colors custodian. Discussed the plan with the patient and answered all her questions. Laboratory studies, x-ray and blood cultures were obtained. Upon arrival is concerned with possible sepsis. The patient was tachycardic and hypotensive. However, the patient is in atrial fibrillation. She has a known leg and buttock wound being treated with vancomycin. She was afebrile on arrival. It was unclear the exact etiology for hypertension. These could include sepsis, atrial fibrillation, dehydration, ACS IV patient is studies from the nursing care facility. She had blood drawn on . She had a positive C diff screening. At that time she had a sodium 134 potassium 3.2 chloride 93, CO2 of 30 to glucose is 74 creatinine of 1.5. Her white count was elevated at 13.5 her hct was low at 28.6 The patient does have a MOST form. She wants no CPR. Comfort focus treatment. EKG shows sinus tachycardia at 171. Normal axis. Normal intervals. Mild ST depression in II, V3-V6 I rechecked the patient on numerous occasions and spent time attempting to obtain access. Multiple attempts were made at IV access. I contacted interventional Radiology for possible PICC line placement in considered central line placement. Although the patient had noted tachycardia and hypotension she was mentating well. She answered all my questions appropriately. She did not feel lightheaded or dizzy. She had no chest pain. I considered cardioversion for her atrial fibrillation. It was unclear if she is always in atrial fibrillation or if this is paroxysmal atrial fibrillation. It is unclear the timing of her onset of atrial fibrillation and she does not have any anticoagulation listed on her medications. I contacted Dr. Victorino House to inform the patient was in the emergency department. He did not recommend any additional antibiotic at this time until we have a more certain source. He recommended influenza swab. The patient was consented for central line. I ordered norepinephrine from the pharmacy. Patient tolerated the procedure well. Blood was obtained and sent to the laboratory. Patient was given 2 L of normal saline for hydration. Portable chest x-ray: The central line appears in good placement. No pneumothorax. There is poor inspiratory effort. The patient has findings consistent with CHF/poor inspiration/infiltrate. I discussed this with Dr. Moncho Melendez. Patient was given digoxin 0.5 mg IV 1325: The patient's pressure was 113/73 after receiving a fluid bolus. Her heart rate was 128. 1335: Still awaiting further laboratory results. The patient is noted to have a normal sodium. Chloride is low. Patient's elevated creatinine at 2.2. Patient was noted to have an elevated troponin of 0.111. Laboratory was contacted to ensure they are running the blood test. 1340: Pt's pressure is now 73/57 with afib at 150s. I rechecked the patient at this time. She is alert and oriented. She has no complaints. She is feeling well. She is sitting up in bed smiling. She has no complaints of lightheadedness or dizziness. I again considered cardio conversion. The patient 's family is present at the bedside. They do not know if she has a wheeze in atrial fibrillation or not. There are unsure she is on any anticoagulation medicine. Norepinephrine att started at 4 micrograms/minute. 1343: Noted that LA not pending in lab. Laboratory again contacted. On recheck, pt afebrile. Patient states I feel great." She has no complaints. She does not seem confused. 1349: I received a call from the lab. They did not run the lactic acid. They requested a 2nd sample. This was sent to the lab. I ordered a cardiac echo. I spoke with the hospitalist service regarding the patient's condition for admission. I spoke with Dr. Victorino House regarding the patient's presentation. At this time , based on the limited information the patient will be treated with ertapenem 5 mg IV. Patient was noted to have an elevated creatinine of 2.2. This raised consideration of severe sepsis. However differential also includes atrial fibrillation with hypotension, viral illness, dehydration. At this time I treated the patient for multiple pathways including but not limited to severe sepsis and cardiac causes 1353: Cardiac echo arrived in the emergency department. 1400: Still awaiting CBC, LA. Paged [facility] to inform them that the echo was being performed at this time. 1405: Patient is answering questions appropriately. Blood pressure 105/83, heart rate 133. Echo is being performed. 14 15: Patient has a noted elevated white count 20860. She is anemic with hematocrit 31 platelet platelets are normal. Patient's lactic acid came back at 1.9. BNP is elevated at greater than 5000. I discussed the case with Dr. Manley from the ICU. After discussion a dose of Cardizem will be given to attempt to control patient's ventricular rate. I discussed the plan with the nurse. 14 40: I discussed case with Dr. Cholo Pettit from Cardiology. He states there is no clot. He feels patient has diastolic dysfunction. Previous echo showed the patient atrial fibrillation. He feels this is chronic. Differential Diagnosis: My differential includes but is not limited to ACS, acute OK, atrial fibrillation with rapid ventricular response, dysrhythmia, wound infection, bacteremia, sepsis, pneumonia, urinary tract infection, medication reaction, psychosis, pneumonia, CHF Critical Care Time: Patient required 60 minutes of critic care time. This was exclusive of any unbundled procedure. This was due to the requirement for frequent rechecks, instability, multiple consultations with Cardiology, Infectious Disease, internal Medicine, and the bead maker. I spent considerable time at the bedside.. - Data Points Laboratory Results: Laboratory Results 06/18/16 11:30 06/18/16 06/18/16 06/18/16 14:09 12:58 12:55 VBG Lactic Acid 1.9 mmol/L REJ (0.7-2.1) Sodium Potassium Chloride Carbon Dioxide Anion Gap BUN Creatinine Estimated GFR Glucose Calcium Total Bilirubin Troponin I NT-Pro-B Natriuret Pep 5790 H pg/mL (0-125) Influenza Typ A,B (DFA) NEGATIVE FOR FLU (NEGATIVE) 06/18/16 11:30 VBG Lactic Acid Sodium 134 mEq/L (134-144) Potassium 3.7 mEq/L (3.5-5.2) Chloride 90 L mEq/L (97-110) Carbon Dioxide 28 mEq/l (22-31) Anion Gap 16 mEq/L (8-16) BUN 46 H mg/dL (7-23) Creatinine 2.2 H mg/dL (0.6-1.0) Estimated GFR 22 Glucose 152 H mg/dL (70-100) Calcium 8.5 mg/dL (8.5-10.4) Total Bilirubin 0.6 mg/dL (0.1-1.4) Troponin I 0.111 H ng/mL (0-0.034) NT-Pro-B Natriuret Pep Influenza Typ A,B (DFA) Medications Given: Discontinued Medications Digoxin (Lanoxin Injections) 500 mcg IVP EDNOW ONE Stop: 06/18/16 13:15 Last Admin: 06/18/16 13:14 Dose: 500 mcg Sodium Chloride (Ns) 1,000 mls @ 0 mls/hr IV ONCE ONE PRN Reason: Wide Open Stop: 06/18/16 11:33 Last Admin: 06/18/16 13:19 Dose: 1,000 mls Norepinephrine 4 mg/ Sodium (Chloride) 504 mls @ 0 mls/hr IV EDNOW ONE; Titrate PRN Reason: Protocol Stop: 06/18/16 12:59 Last Admin: 06/18/16 13:52 Dose: 504 mls Sodium Chloride (Ns) 1,000 mls @ 0 mls/hr IV ONCE ONE PRN Reason: Wide Open Stop: 06/18/16 13:21 Last Admin: 06/18/16 13:20 Dose: 1,000 mls Departure - Departure Disposition: [facility] Clinical Impression: Hypotension Anemia Qualifiers: Anemia type: other cause Atrial fibrillation Qualifiers: Atrial fibrillation type: persistent Qualifier Code: (I48.1) Persistent atrial fibrillation Condition: Good
[2016-06-18] MEDS ORDERED: NS 1,000 ML IV ONE ×3 (11:32→16:05)
[2016-06-18 12:25] LABS: ANION GAP 16 mEq/L (8-16); BILIRUBIN,TOTAL 0.6 mg/dL (0.1-1.4); CALCIUM 8.5 mg/dL (8.5-10.4); CARBON DIOXIDE 28 mEq/l (22-31); CHLORIDE 90 mEq/L (97-110); CREATININE 2.2 mg/dL (0.6-1.0); GLOMERULAR FILTRATION RATE 22; GLUCOSE 152 mg/dL (70-100); POTASSIUM 3.7 mEq/L (3.5-5.2); SODIUM 134 mEq/L (134-144)
--- NOTE | 2016-06-18 12:27 | CPEKG ---
Heart Rate: 171 RR Interval: 351 P-R Interval: 204 QRSD Interval: 76 QT Interval: 296 QTC Interval: 500 P Drayton: 0 QRS Drayton: 31 T Wave Drayton: 177 EKG Severity - ABNORMAL ECG - EKG Impression: SUPRAVENTRICULAR TACHYCARDIA EKG Impression: VENTRICULAR PREMATURE COMPLEX EKG Impression: REPOLARIZATION ABNORMALITY, PROB RATE RELATED Electronically Signed By: Chaya Grant 18-Jun-2016 14:59:13
[2016-06-18] MEDS ORDERED: NOREPINEPHRINE BITARTRATE 4 MG in NS 500 ML IV ONE (12:58)
[2016-06-18] MEDS ORDERED: DIGOXIN 500 MCG/2 ML AMP ONE (13:01)
[2016-06-18 13:02] LABS: TROPONIN I 0.111 ng/mL (0-0.034)
[2016-06-18] MEDS ORDERED: DIGOXIN 500 MCG/2 ML AMP IVP ONE (13:14)
[2016-06-18 13:47] LABS: ADD DIFF? YES; ADD MORPH? NO; ADD SCAN? NO; ATYPICAL LYMPHOCYTE FLAG 0 (0-99); FRAGMENT RBC FLAG 0 (0-99); HEMATOCRIT 31.1 % (38.0-47.0); HEMOGLOBIN 9.8 g/dL (12.6-16.3); LEFT SHIFT FLG 30 (0-99); LIPEMIA HEMOLYSIS FLAG 80 (0-99); MEAN CELL HEMOGLOBIN 29.5 pg (27.9-34.1); MEAN CELL HEMOGLOBIN CONCENTR. 31.5 g/dL (32.4-36.7); MEAN CELL VOLUME 93.7 fL (81.5-99.8); MEAN PLATELET VOLUME 12.2 fL (8.7-11.7); PLATELET CLUMPS FLAG 10 (0-99); PLATELET COUNT 332 10^3/uL (150-400); RED BLOOD CELL COUNT 3.32 10^6/uL (4.18-5.33); RED CELL DISTRIBUTION WIDTH 14.6 % (11.5-15.2)
[2016-06-18 13:56] LABS: INR 2.39 (0.83-1.16); PROTIME(PATIENT) 26.3 SEC (12.0-15.0)
[2016-06-18 13:57] LABS: APTT 76.8 SEC (23.0-38.0)
[2016-06-18] MEDS ORDERED: ERTAPENEM 0.5 GM in NS 100 ML IV ONE (13:57)
--- NOTE | 2016-06-18 14:33 | DX ---
Portable chest x-ray 1311 hours. History: Central line placement. Dyspnea. Findings: Comparison to 04/16/2016. There is poor inspiration with compressive changes at the lung bases. There is prominence of perihila r interstitial markings and peribronchial cuffing. Central vascular catheter from right IJ approach i s in good position with the tip in the SVC. There is no pneumothorax. Heart size remains mildly enlar ged. Pulmonary vasculature is prominent centrally. There are no areas of consolidation or significant effusion. Osseous structures are unchanged. Impression: 1. Poor inspiration with compressive changes at the lung bases. 2. Prominence of the pulmonary vasculature centrally with some peribronchial thickening and perihilar prominent interstitial markings. Rule out fluid overload. Consider follow-up chest x-ray with improv ed inspiration. 3. Central vascular catheter in good position. No pneumothorax.
[2016-06-18 14:41] LABS: PLATELET ESTIMATE ADEQUATE (ADEQ)
[2016-06-18] MEDS ORDERED: DILTIAZEM 125 MG in D5W 125 ML IV ONE (14:41)
[2016-06-18] MEDS ORDERED: DILTIAZEM 25 MG/5 ML VIAL IVP ONE ×2 (14:42→15:30)
[2016-06-18 14:43] LABS: LARGE PLATELETS PRESENT
[2016-06-18] MEDS ORDERED: DILTIAZEM 25 MG/5 ML VIAL IVP SCH (15:00)
--- NOTE | 2016-06-18 15:58 | PDGENHP ---
History and Physical History and Physical: HISTORY AND PHYSICAL ADMISSION NOTE CC: Sent to ER from nursing facility because rapid heart rate hypotension HISTORY: This history comes partly from the patient herself and partly from her hospital records and review of records sent from the nursing facility This patient who had been in this hospital in April with a gangrenous leg and foot has been recovering at a local nursing center where she is getting wound care with wound VAC and ongoing treatment for her leg wound. She is sent here today because of a new finding of hypotension and tachycardia, and this was apparently associated with confusion and hallucinations at the nursing center today. She is feeling comfortable when I asked her now and does not refer call having any significant pain or others new symptoms today. She says that for 2 weeks he has been having a lot of nausea and is capped almost no food or fluids down. Also she started having diarrhea although I am unable to get her to clarify how much and when it started. She has never heard of C difficile, and does not think she was being treated for an intestinal infection , however looking at her medicines from the nursing facility, oral vancomycin has been started since she left the hospital on May 22. She denies nausea or abdominal pain, fever symptoms, shortness of breath, lightheadedness, chest pain, palpitations, new pain in her leg or problems with her wound. Of note her previous hospital stay was complicated by acute tubular necrosis with creatinine that went up to 4.7 but had come back down to less than 1.5 by time of discharge. In the ER she was found to be hypotensive with rapid atrial fibrillation. She was given 2.5 L of saline and still had some low blood pressures so was started on a norepinephrine drip Note that her memory is not great and so some of the history is obtained from her may have some inaccuracies or missing items. 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, ongoing treatment with wound VAC after previous debridements Diabetes mellitus Peripheral vascular disease with a fem-pop bypass attempt Hypertension Malnutrition Anxiety Pneumonia Acute tubular necrosis occurred during the previous hospital stay Stroke Carotid endarterectomy FAMILY MEDICAL HISTORY: SOCIAL HISTORY: lives locally with her but has been staying at a local nursing facility do to her leg wound recently MEDICATIONS: Her medicine list from the nursing facility has been reconciled by our pharmacist into our electronic record and I have reviewed this list and ordered appropriate medicines PHYSICAL EXAMINATION: Vital Signs: Initially very hypotensive in tachycardic with no fever and respirations good Her CVP is I measure that on arrival to ICU is low at 3 Genetic Coordinator: Rapid atrial fibrillation, and I notice some ST segment down sloping depression on 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 Examination: General: alert, oriented to person, place, situation, day of week, month and year, some memory lapses but otherwise good mentation, very relaxed Skin: warm, dry, good color; there is a 10+ cm area of severe erythema with a 3 cm diameter opening on her sacral area, with no drainage HEENT: normal Neck: no mass or jvd Resps: relaxed Lungs: clear breath sounds Heart: regular, no murmur Abdomen: Obese but otherwise soft, nondistended, nontender, +BS, no mass Upper Extremities: normal Lower Extremities: She has a wound VAC on her left ankle and foot which is functioning well, otherwise no edema, warm but pulses are diminished greatly No Bleeding or bruising Neurologic: normal speech/language, normal customs officer, no focal weakness; she is not hallucinating at all at this time IV site: New 3 lumen central line has been placed, and is well secured in good position LABORATORY DATA: Lactic acid is normal RADIOLOGY STUDIES: Chest x-ray, my personal review of images: No heart failure or pneumonia or fluid collections ASSESSMENT: # acute hypotension probably due to hypovolemia and rapid AFib # GI fluid losses with vomiting and diarrhea, suspect C diff but will have to get information from the nursing facility # Rapid atrial fibrillation, unclear to me if this is old or new but she is on anticoagulation so I suspect it may be old, needs better rate control # acute renal failure, likely hemodynamic etiology # large decubitus ulcers in the sacral area present on admission # acute encephalopathy due to all the above # A borderline elevation of troponin is likely due to her hypotension and rapid heart rate, and I do not suspect acute coronary syndrome and will not evaluate it further unless there is higher suspicion PLANS: -continue aggressive IV fluid hydration to CVP closer to 10 from current 3 -attempt to wean off norepinephrine as able with better fluid resuscitation -Try to confirm her C diff diagnosis from the nursing facility but will check a C diff here and continue p.o. Vanco -if she remains in rapid atrial fibrillation for the moment would use amiodarone due to her low blood pressures -follow renal function closely -Continue anticoagulation- -Skin scare nurse consultation -Antiemetics and watch her vomiting closely, may need further evaluation for the cause of persistent vomiting I have reviewed the patient's case in detail with Dr. Chaya Grant and Kye Manley I have reviewed the patient's past medical records as part of this assessment, including
[2016-06-18] MEDS ORDERED: LIDOCAINE HCL 4% TOPICAL SOLN 50ML TP PRN (16:03)
[2016-06-18] MEDS ORDERED: HYDROmorphONE/DILAUDID 1 MG/ML SYR ONE (16:46)
[2016-06-18] MEDS ORDERED: HYDROmorphONE/DILAUDID 1 MG/ML SYR IVP PRN (17:06)
--- NOTE | 2016-06-18 17:11 | SOAPPROG ---
SOAP Progress Note Assessment/Plan: Assessment: 70yo F well known to our service for LLE chronic wound, s/p revascularization and debridement during previous admission Was scheduled for outpatient split-thickness skin graft of anterior lambert with debridement of posterior leg Wound vac in place on admit - I was called by Carmen firer glost kiln to assist with vac change Pain with dressing removal, required IV dilaudid LLE anterior wound CDI with 100% granulation tissue Posterior wound with tendon exposed with significant slough Lateral heel wound with significant slough Lateral 5th metatarsal eschar Leave vac off overnight for Dr. Dahl to evaluate in am. Likely debridement in OR when medically stable Objective: Vital Signs Temp Pulse Resp BP Pulse Ox 36.6 C 125 H 20 97/68 L 100 06/18/16 15:30 06/18/16 15:45 06/18/16 15:45 06/18/16 15:45 06/18/16 15:45 Laboratory Results 06/18/16 Unknown 06/17/16 06/18/16 06/19/16 05:59 05:59 05:59 Intake Total 2200 Balance 2200 PT 26.3 SEC (12.0-15.0) H 06/18/16 Unknown INR 2.39 (0.83-1.16) H 06/18/16 Unknown ICD10 Worksheet Patient Problems: Problems Problem Status Diagnosed Anemia Acute Atrial fibrillation Acute Hypotension Acute Palliative care encounter Acute Paroxysmal atrial fibrillation Acute Urinary tract infection Acute
--- NOTE | 2016-06-18 17:47 | WOCRNPDOC ---
SEANCRJamil Advanced Assessment Note - Skin Integrity Problem, Advanced Assess Left Lateral Metatarsal Head Dressing Type: Open to Air Wound Bed Constitution: Stable Eschar Site Measurement - Head-to-Toe Length X Width X Depth (cm): 1.3x1.2x0 Left Lateral Heel Dressing Type: Black Vac Foam Exudate Amount: Scant Exudate Characteristic(s): Serosanguinous Integumentary Issue Intervention: Dressing Changed Wound Bed Constitution: Granulation Tissue (30%), Adhered Slough (70%) Wound Edges: Attached Site Measurement - Head-to-Toe Length X Width X Depth (cm): 4.3x4.3x1.4 Skin Integrity Problem Comment: Flushed with ns. Hydrofera blue ready applied to wound bed. Left Lower Leg Surgical Wound/Incision Dressing Type: Black Vac Foam, Wound Vac Dressing Description: Intact Exudate Amount: Moderate Exudate Characteristic(s): Bloody Integumentary Issue Intervention: Dressing Changed Wound Bed Constitution: Granulation Tissue (50%), Smooth Tissue (40%), Tendon ( Tendon exposed laterally 4 cm, Entire Achilles exposed and somewhat shredded ( 13 cm)), Adhered Slough (10% along new wound noted at posterior heel) Site Odor: Strong, Musky Site Measurement - Head-to-Toe Length X Width X Depth (cm): Anterior Wound: 10.8x 14.5x1. Posterior/Lateral wound: 26x14.5x1. The wound spans from anterior to posterior leg, measurements of width are the same as it is one large wound with the measurement of the height denoting the difference between the height of the anterior vs posterior portion of the wound. Skin Integrity Problem Comment: Vac dressing removed with Deborah NIETO. Large portions of black foam were adhered to the achilles tendon, shredding it during removal. Posterior heel now portion of the wound covered with a thin layer of adhered slough. Other areas of the wound appeared healthy and granulating. Vac dressing was not reapplied in anticipation of Dr. Dahl needing to visualize wound bed tomorrow. Flushed with ns. Wound gel applied to all tendon and wound beds. Tendon covered with versatel contact layer. Then hydrofera blue ready applied and secured with kerlix and steri strips. Left Sacrum Pressure Injury Dressing Type: AllevINETCO Systems Limited Life Dressing Description: Clean/Dry, Intact Integumentary Issue Intervention: Dressing Changed Noemí Wound Tissue: Blanching, Erythema Wound Bed Color: Red, Yellow Wound Bed Constitution: Granulation Tissue (20%), Adhered Slough (80% thin layer ) Wound Edges: Not Attached Site Measurement - Head-to-Toe Length X Width X Depth (cm): 3.5x2.5x0.3 Pressure Injury Stage: Unstageable Pressure Injury Present on Admit: Yes Skin Integrity Problem Comment: Flushed with ns. Wound gel applied to wound bed. Covered with xl allevyn life sacral dressing. Althea NAVA in room for all care. Right Medial Thigh Pressure Injury Dressing Type: Open to Air Wound Bed Constitution: Smooth Tissue, Scab Wound Edges: Attached Site Measurement - Head-to-Toe Length X Width X Depth (cm): 7x1x0.1 Pressure Injury Stage: Stage 2, Chemist Food Related Pressure Injury (Kirk tubing) Pressure Injury Present on Admit: Yes
[2016-06-18] MEDS: NS 1,000 ML IV SCH ×2 (17:59→23:41)
[2016-06-18] MEDS: ONDANSETRON 4 MG/2 ML VIAL IVP PRN (19:52)
[2016-06-18] MEDS ORDERED: ASPIRIN 81 MG CHEWABLE TAB PO SCH (21:00)
[2016-06-18] MEDS ORDERED: DABIGATRAN ETEXILATE MESYL 150 MG CAP PO SCH (21:00)
[2016-06-18] MEDS ORDERED: PROMETHAZINE HCL 25 MG/ML INJ IVP PRN (21:40)
[2016-06-18] MEDS: VANCOMYCIN 125 MG/2.5 ML UDL PO SCH (21:41)
--- NOTE | 2016-06-18 21:43 | HOSPPROG ---
Hospitalist Progress Note Assessment/Plan: Called by RN 21:40. Patient with nausea and bright red blood mixed with stool. A&P: 1. Check stat H/H, Type/screen. Has normal saline @125cc/hr. 2. Hold ASA, Pradaxa 3. Added PRN Phenergan. Objective: Vital Signs Temp Pulse Resp BP Pulse Ox 36.3 C 85 17 103/53 L 100 06/18/16 20:00 06/18/16 21:00 06/18/16 20:00 06/18/16 21:00 06/18/16 20:00 Laboratory Results 06/18/16 Unknown 06/17/16 06/18/16 06/19/16 05:59 05:59 05:59 Intake Total 3822 Output Total 201 Balance 3621 PT 26.3 SEC (12.0-15.0) H 06/18/16 Unknown INR 2.39 (0.83-1.16) H 06/18/16 Unknown ICD10 Worksheet Patient Problems: Problems Problem Status Diagnosed Anemia Acute Atrial fibrillation Acute Hypotension Acute Palliative care encounter Acute Paroxysmal atrial fibrillation Acute Urinary tract infection Acute
[2016-06-18 21:59] LABS: HEMATOCRIT 26.4 % (38.0-47.0); HEMOGLOBIN 8.4 g/dL (12.6-16.3)
[2016-06-18] MEDS: ATORVASTATIN CALCIUM 40 MG TAB PO SCH (23:10)
[2016-06-18] MEDS: INSULIN GLARGINE 100 UNITS/ML SYRINGE SC SCH (23:41)
--- NOTE | 2016-06-19 00:52 | GCON ---
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 REASON FOR CONSULTATION: Atrial fib with rapid response shock. The patient is a 70-year-old white female with an extensive past medical history including non-insulin diabetes, left lower extremity wound, for which she has as a wound VAC in place, peripheral vascular disease, previous severe cellulitis, and hypertension. She presented to the emergency room with complaints of feeling unwell. She was also found to be markedly hypotensive. In the emergency room, workup . She was found to be in atrial fibrillation with a rapid response. In discussion with the patient, she states that she has had nausea and vomiting for the last several weeks and is unable to keep anything down. This includes food and liquids. Apparently, at the [place] [facility] she was somewhat confused. PAST MEDICAL HISTORY: Significant for diabetes, peripheral vascular disease, atrial fibrillation, hyperlipidemia, hypertension, and severe cellulitis. ALLERGIES: To tape. SOCIAL HISTORY: No history of tobacco use. No history of alcohol use. Her has dementia. She resides at a [place] [facility]. PHYSICAL EXAM: VITAL SIGNS: Blood pressure is 86/73, pulse 110, respirations 20, temp she is afebrile. Oxygen saturation 97% on 4 L. GENERAL: She is a morbidly obese, elderly white female, who is resting comfortably in no acute distress. HEENT: Eyes LILLIE EOMI. Throat shows no erythema or tonsillar hypertrophy. NECK: Supple. There is no cervical adenopathy. HEART: Irregularly irregular with a 2/6 systolic murmur at the left sternal border without radiation. She is mildly tachycardic. LUNGS: Diminished breath sounds , but no wheeze. ABDOMEN: Soft, nontender. Bowel sounds are present. EXTREMITIES: No clubbing, cyanosis. She has 1+ lower extremity edema. Her left foot is bandaged. LABORATORY DATA: White count is 18.8, hemoglobin 9.8, hematocrit 31, platelet count 332. INR 2.39. Sodium 134, potassium , chloride 90, CO2 is 28 , BUN is 46, creatinine 2.2, glucose is 152. BNP is elevated at 5790. Influenza A and B are negative. Chest x-ray shows mild fluid overload. IMPRESSION: 1. Atrial fibrillation with rapid response. 2. Hypovolemia. 3. Shock. 4. Cellulitis. 5. Diabetes. 6. Hypertension. 7. Morbid obesity. RECOMMENDATIONS: 1. Agree with rapid hydration. 2. Agree with amiodarone. 3. DVT and PE prophylaxis. 4. Stress ulcer prophylaxis. 5. Would not adjust antibiotics at this time. 6. Continue the majority of her home medication. 7. Aggressive blood sugar control. /[id number]/MODL MTDD
[2016-06-19] MEDS ORDERED: NOREPINEPHRINE BITARTRATE 4 MG in D5W 500 ML IV SCH (02:00)
[2016-06-19] MEDS: ONDANSETRON 4 MG/2 ML VIAL IVP PRN ×3 (04:00→19:48)
[2016-06-19 06:19] LABS: ALANINE AMINOTRANSFERASE 35 IU/L (9-52); ALBUMIN 1.8 g/dL (3.5-5.0); ALKALINE PHOSPHATASE 68 IU/L (38-126); ANION GAP 8 mEq/L (8-16); ASPARTATE AMINOTRANSFERASE 37 IU/L (14-46); BILIRUBIN,TOTAL 0.3 mg/dL (0.1-1.4); CALCIUM 6.9 mg/dL (8.5-10.4); CARBON DIOXIDE 25 mEq/l (22-31); CHLORIDE 103 mEq/L (97-110); CREATININE 1.5 mg/dL (0.6-1.0); GLOMERULAR FILTRATION RATE 34; GLUCOSE 130 mg/dL (70-100); MAGNESIUM 1.3 mg/dL (1.6-2.3); SODIUM 136 mEq/L (134-144); TOTAL PROTEIN 4.6 g/dL (6.3-8.2)
[2016-06-19 06:58] LABS: % IMMATURE GRANULYOCYTES 1.8 % (0.0-1.1); ABSOLUTE IMMATURE GRANULOCYTES 0.27 10^3/uL (0.00-0.10); ADD DIFF? NO; ADD MORPH? NO; ADD SCAN? NO; ATYPICAL LYMPHOCYTE FLAG 0 (0-99); FRAGMENT RBC FLAG 10 (0-99); HEMATOCRIT 25.8 % (38.0-47.0); HEMOGLOBIN 8.2 g/dL (12.6-16.3); LEFT SHIFT FLG 10 (0-99); LIPEMIA HEMOLYSIS FLAG 80 (0-99); MEAN CELL HEMOGLOBIN 30.8 pg (27.9-34.1); MEAN CELL HEMOGLOBIN CONCENTR. 31.8 g/dL (32.4-36.7); MEAN PLATELET VOLUME 11.4 fL (8.7-11.7); PLATELET CLUMPS FLAG 20 (0-99); PLATELET COUNT 274 10^3/uL (150-400); RED BLOOD CELL COUNT 2.66 10^6/uL (4.18-5.33); RED CELL DISTRIBUTION WIDTH 14.8 % (11.5-15.2)
[2016-06-19] MEDS: VANCOMYCIN 125 MG/2.5 ML UDL PO SCH ×4 (07:10→21:04)
[2016-06-19] MEDS: NS 1,000 ML IV SCH ×3 (07:42→21:04)
[2016-06-19] MEDS ORDERED: PROTOCOL POTASSIUM 1 DOSE MISC PRN (08:38)
[2016-06-19] MEDS ORDERED: PROTOCOL MAGNESIUM 1 DOSE IV PRN (08:38)
[2016-06-19] MEDS ORDERED: MAGNESIUM SULF 2 GM/WATER 50 ML IV ONE (08:45)
[2016-06-19] MEDS ORDERED: NS 1,000 ML IV ONE ×3 (08:49→13:30)
[2016-06-19] MEDS: AMIODARONE HCL 200 MG TAB PO SCH ×2 (09:03→09:10)
--- NOTE | 2016-06-19 09:14 | HOSPPROG ---
Hospitalist Progress Note Assessment/Plan: DIAGNOSIS: # acute hypotension probably due to hypovolemia and rapid AFib; -remains on pressor today but still with low CVP # C diff with GI fluid losses with vomiting and diarrhea; -suspect she is not absorbing her vancomycin well due to vomiting # Rapid atrial fibrillation, unclear to me if this is old or new but she is on anticoagulation so I suspect it may be old -on anticoagulation -Now converted spontaneously to sinus rhythm # acute renal failure, likely hemodynamic etiology; -improving with resuscitation so far # large decubitus ulcers in the sacral area present on admission # large area sacral decubitus ulcer present on admission # acute encephalopathy due to all the above # is elevated TSH, possible hypothyroidism versus illness it induced lab change # A borderline elevation of troponin is likely due to her hypotension and rapid heart rate, and I do not suspect acute coronary syndrome and will not evaluate it further unless there is higher suspicion PLANS: -further fluid boluses and attempt to wean off IVpressor -Electrolyte replacements -Will add IV vancomycin for better coverage of C diff -avoid sedating medicines -Wound care for her sacral decubitus or -Dr. Dahl will evaluate her leg and foot, suspect she needs debridement -recheck TSH along with T3 and T4 -Follow INR daily here SUBJECTIVE: States she feels well but still having vomiting and diarrhea, no abdominal pain , no chills, no chest pain or palpitations No short of breath OBJECTIVE Vitals reviewed: Blood pressure and pulse now normalized but remains on IV norepinephrine, CVP still a bit low at 6 supply chain coordinator: Sinus rhythm on my review Exam: alert better oriented, but still a bit off skin warm dry color ok resps not labored lungs clear BSs heart regular abd soft nondistended nontender, bowel sounds present limbs warm, no edema, leg with little drainage but needs probable debridement in deep tissue sites iv site ok Objective: Vital Signs Temp Pulse Resp BP Pulse Ox 36.4 C 77 12 97/55 L 100 06/19/16 08:00 06/19/16 08:00 06/19/16 08:00 06/19/16 08:00 06/19/16 08:00 Laboratory Results 06/19/16 04:30 06/19/16 04:30 06/18/16 06/19/16 06/20/16 06:59 06:59 06:59 Intake Total 5642 Output Total 251 Balance 5391 PT 26.3 SEC (12.0-15.0) H 06/18/16 Unknown INR 2.39 (0.83-1.16) H 06/18/16 Unknown ICD10 Worksheet Patient Problems: Problems Problem Status Onset Anemia Acute Atrial fibrillation Acute Hypotension Acute Palliative care encounter Acute Paroxysmal atrial fibrillation Acute Urinary tract infection Acute
--- NOTE | 2016-06-19 09:44 | PDINTPN ---
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 Still with nausea and vomiting Objective: Vital Signs Temp Pulse Resp BP Pulse Ox 36.4 C 80 12 90/63 L 100 06/19/16 08:00 06/19/16 09:00 06/19/16 09:00 06/19/16 09:00 06/19/16 09:00 Laboratory Results 06/19/16 04:30 06/19/16 04:30 06/18/16 06/19/16 06/20/16 05:59 05:59 05:59 Intake Total 5642 Output Total 251 Balance 5391 PT 26.3 SEC (12.0-15.0) H 06/18/16 Unknown INR 2.39 (0.83-1.16) H 06/18/16 Unknown Physical Exam - Physical Exam General Appearance: alert, obese EENT: PERRL/EOMI, normal ENT inspection Neck: non-tender, full range of motion, supple, normal inspection Respiratory: chest non-tender, lungs clear, normal breath sounds Cardiac/Chest: regular rate, rhythm, other (distant) Abdomen: normal bowel sounds, non-tender, soft Pelvic Exam: deferred Rectal: deferred Skin: normal color, warm/dry Neuro/Psych: no motor/sensory deficits, alert, normal mood/affect, oriented x 3 ICD10 Worksheet Patient Problems: Problems Problem Status Onset Anemia Acute Atrial fibrillation Acute Hypotension Acute Palliative care encounter Acute Paroxysmal atrial fibrillation Acute Urinary tract infection Acute
[2016-06-19] MEDS: POTASSIUM Cl (KCl) 50 ML IV SCH ×4 (09:53→20:00)
--- NOTE | 2016-06-19 09:55 | ECHO ---
[id number] + + [address] : : [place] [address] : : [phone] + + Adult Echocardiographic Report + ------+ :Name: MONTSE JAMES LStudy Date: 06/18/2016 02:10 PM : : Hospital Admission Number: [id number] Locatio n: ER2: :: 1945 Gender: Female : :Age: 70 yrs Race: WH : :Reason For Study: Eval LV Fx, Apical Thrombus : :History: New onset A-fib, 140 BPM, Hypotension 78/56 : + ------+ MMode/2D Measurements \T\ Calculations IVSd: 1.3 cm LVIDd: 4.0 cm FS: 44.0 % Ao root diam: 3.0 cm LVPWd: 1.3 cm LVIDs: 2.3 cm EDV(Teich): 70.8 ml ESV(Teich): 17.1 ml EF(Teich): 75.8 % Normal Measurement Values: + + :LVIDd (3.5-5.7cm) IVSd (0.6-1.1cm) LVPWd (0.6-1.1cm) Aortic Root (2.0-3.7cm)Left Atrium (1.5-4.0cm): :LV Vol(d) (76-115ml) LV Vol(s) (29-48ml) Ejec Fraction (50-65%)PV Gómez (0.6- 1.2m/s) TV Gómez (0.4-1.0m/s) : :MV E Gómez (0.8-1.0m/s)MV A Gómez (0.3-1.0m/s)LVOT Gómze (0.7-1.2m/s) Asc Ao Gómez ( 0.9-1.8m/s) : + + Doppler Measurements \T\ Calculations Ao V2 max: 212.0 cm/sec LV V1 max: 71.1 cm/sec TR max gómez: 363.0 cm/sec Ao max P.6 mmHg LV V1 max P.0 mmHg TR max P.7 mmHg RAP systole: 10.0 mmHg RVSP(TR): 62.7 mmHg Left Ventricle There is mild concentric left ventricular hypertrophy. The left ventricular ejection fraction is normal. Ejection Fraction = 75%. The left ventricle is hyperdynamic. The rhythm is atrial fibrilation. There is no obvious LV thrombus. There is Doppler evidence for diastolic dysfunction. No regional wall motion abnormalities noted. Right Ventricle The right ventricle is normal in size and function. Atria The left atrial size is normal. Right atrial size is normal. Mitral Valve There is mild to moderate mitral annular calcification. There is no mitral valve stenosis. Tricuspid Valve There is trace to mild tricuspid regurgitation. Aortic Valve There is moderate to severe aortic valve calcification. Aortic valve gradients on 04/17/2016 were a mean gradient of 7 mmHg. Consider limited echo to evaluate Aortic Valve gradients in sinus rhythm. Pulmonic Valve The pulmonic valve is not well visualized. Great Vessels The aortic root is normal size. Pericardium/Pleural There is no pericardial effusion. Conclusion A complete two-dimensional transthoracic echocardiogram was performed (2D, M-mode, Doppler and color flow Doppler). The left ventricular ejection fraction is normal. Ejection Fraction = 75%. The left ventricle is hyperdynamic. The rhythm is atrial fibrilation. There is no obvious LV thrombus. There is Doppler evidence for diastolic dysfunction. No regional wall motion abnormalities noted. The right ventricle is normal in size and function. The left atrial size is normal. Right atrial size is normal. There is mild to moderate mitral annular calcification. There is trace to mild tricuspid regurgitation. There is moderate to severe aortic valve calcification. Aortic valve gradients on 04/17/2016 were a mean gradient of 7 mmHg. Consider limited echo to evaluate Aortic Valve gradients in sinus rhythm. There is no pericardial effusion. There is mild concentric left ventricular hypertrophy. Final Reading Physician: Jasmin Mcintyre signed on 06/19/2016 09:54 AM Ordering Physician: PRAKASH ARMENTA Performed By: Sriram Bonner, KAYLACS
[2016-06-19 15:01] LABS: COLOR YELLOW; LEUKOCYTE ESTERASE,URINE 3+ (NEGATIVE); NITRITE,URINE NEGATIVE (NEGATIVE)
[2016-06-19 15:26] LABS: BACTERIA 1+ /hpf (NONE SEEN); HYALINE CASTS 15-25 /lpf (0-1); MUCUS TRACE /lpf (NONE-1+); WBC,URINE 50-182 /hpf (0-3); YEAST PRESENT /hpf (NONE SEEN)
[2016-06-19 18:19] LABS: HEMATOCRIT 23.3 % (38.0-47.0); HEMOGLOBIN 7.2 g/dL (12.6-16.3)
[2016-06-19 19:09] LABS: POTASSIUM 3.1 mEq/L (3.5-5.2)
[2016-06-19] MEDS: INSULIN GLARGINE 100 UNITS/ML SYRINGE SC SCH (23:19)
[2016-06-19] MEDS: ATORVASTATIN CALCIUM 40 MG TAB PO SCH (23:19)
[2016-06-20 00:09] LABS: HEMATOCRIT 23.7 % (38.0-47.0); HEMOGLOBIN 7.4 g/dL (12.6-16.3)
[2016-06-20 04:05] LABS: HEMOGLOBIN 7.1 g/dL (12.6-16.3); MEAN CELL HEMOGLOBIN 30.2 pg (27.9-34.1); MEAN CELL HEMOGLOBIN CONCENTR. 30.9 g/dL (32.4-36.7); MEAN CELL VOLUME 97.9 fL (81.5-99.8); RED BLOOD CELL COUNT 2.35 10^6/uL (4.18-5.33); RED CELL DISTRIBUTION WIDTH 15.1 % (11.5-15.2)
[2016-06-20 04:15] LABS: INR 2.11 (0.83-1.16); PROTIME(PATIENT) 23.8 SEC (12.0-15.0)
[2016-06-20 04:20] LABS: MAGNESIUM 1.6 mg/dL (1.6-2.3); POTASSIUM 3.4 mEq/L (3.5-5.2)
[2016-06-20] MEDS: VANCOMYCIN 125 MG/2.5 ML UDL PO SCH ×4 (05:20→21:12)
[2016-06-20] MEDS ORDERED: MAGNESIUM SULF 1 GM/DEXTROSE 100 ML IV ONE (05:21)
[2016-06-20] MEDS: POTASSIUM Cl (KCl) 50 ML IV SCH ×2 (05:50→07:16)
[2016-06-20] MEDS: NS 1,000 ML IV SCH (08:13)
[2016-06-20] MEDS: AMIODARONE HCL 200 MG TAB PO SCH (08:48)
[2016-06-20] MEDS ORDERED: D50W 25 GM/50 ML SYR IVP PRN (08:53)
[2016-06-20] MEDS: D5W NS 1,000 ML IV SCH ×2 (08:59→17:49)
--- NOTE | 2016-06-20 09:15 | HOSPPROG ---
Hospitalist Progress Note Assessment/Plan: DIAGNOSIS: # acute hypotension probably due to hypovolemia and rapid AFib; -blood pressure is now stable off pressor blood pressure is now stable off pressor # C diff with GI fluid losses with vomiting and diarrhea; -suspect she is not absorbing her vancomycin well due to vomiting -still with diarrhea so will continue Flagyl and what vancomycin we can get in # anemia, multifactorial -Notably worse today after some bleeding yesterday which was likely from her C diff -transfusion is currently indicated given her overall state # Rapid atrial fibrillation, -on anticoagulation -Now spontaneously to sinus rhythm # acute renal failure, likely hemodynamic etiology; -improving with resuscitation so far # large decubitus ulcers in the sacral area present on admission # ongoing open wound after prior major debridement for ischemic injury to her left leg and foot -This will require further debridement at this time, Dr. Dahl following # acute encephalopathy persists, due to all the above # elevated TSH, possible hypothyroidism versus illness induced lab change # A borderline elevation of troponin is likely due to her hypotension and rapid heart rate, and I do not suspect acute coronary syndrome and will not evaluate it further unless there is higher suspicion PLANS: -Electrolyte replacements -continue IV Flagyl, along with attempt sigmoid get in p.o. vancomycin for better coverage of C diff -avoid sedating medicines -will transfuse 1 unit red blood cells today -Wound care for her sacral decubitus or -Dr. Dahl will evaluate her leg and foot, suspect she needs debridement -Follow INR daily here SUBJECTIVE: Says she feels comfortable No vomiting so far this morning has kept in small amounts of p.o. fluids so far Still with ongoing diarrhea, had some bleeding with that yesterday but none so far today No abdominal pain Little pain in her foot OBJECTIVE Vitals reviewed: Blood pressure and pulse now normalized off norepinephrine head trimmer: Sinus rhythm on my review Exam: alert better oriented, though nurse's notes she is still intermittently having hallucinations skin warm dry color ok resps not labored lungs clear BSs heart regular abd soft nondistended nontender, bowel sounds present limbs warm, no edema, leg with little drainage but needs probable debridement in deep tissue sites iv site ok Objective: Vital Signs Temp Pulse Resp BP Pulse Ox 36.5 C 73 22 H 108/74 100 06/20/16 08:00 06/20/16 08:00 06/20/16 08:00 06/20/16 08:00 06/20/16 08:00 Laboratory Results 06/20/16 03:56 06/20/16 03:56 06/19/16 06/20/16 06/21/16 06:59 06:59 06:59 Intake Total 5642 4427 Output Total 251 700 Balance 5391 3727 PT 23.8 SEC (12.0-15.0) H 06/20/16 03:56 INR 2.11 (0.83-1.16) H 06/20/16 03:56 ICD10 Worksheet Patient Problems: Problems Problem Status Onset Urinary tract infection Acute Paroxysmal atrial fibrillation Acute Palliative care encounter Acute Anemia Acute Hypotension Acute Atrial fibrillation Acute
--- NOTE | 2016-06-20 09:25 | PDINTPN ---
Dimension Mill Worker Progress Note Assessment/Plan: Assessment/Plan: * Afib-resolved * N/V-none for 24 hours * C-dif * Hypotension-off pressors * Acute Renal Failure * Hypovolemia-secondary to vomiting * Obesity * Large decub-present on admit * Foot cellulitis-wound care and surgery to see * Dispo-okay for floor Subjective: Looks and feels better. No further nausea Objective: Vital Signs Temp Pulse Resp BP Pulse Ox 36.5 C 73 22 H 108/74 100 06/20/16 08:00 06/20/16 08:00 06/20/16 08:00 06/20/16 08:00 06/20/16 08:00 Laboratory Results 06/20/16 03:56 06/20/16 03:56 06/19/16 06/20/16 06/21/16 05:59 05:59 05:59 Intake Total 5642 4427 Output Total 251 700 Balance 5391 3727 PT 23.8 SEC (12.0-15.0) H 06/20/16 03:56 INR 2.11 (0.83-1.16) H 06/20/16 03:56 Physical Exam - Physical Exam General Appearance: alert, no apparent distress EENT: PERRL/EOMI, normal ENT inspection Neck: non-tender, full range of motion, supple, normal inspection Respiratory: crackles (few), No respiratory distress, No stridor, No wheezing Cardiac/Chest: normal peripheral pulses, regular rate, rhythm Peripheral Pulses: 2+: carotid (R), carotid (L), femoral (R), femoral (L), dorsalis-pedis (R), dorsalis-pedis (L) Abdomen: normal bowel sounds, non-tender, soft Pelvic Exam: deferred Rectal: deferred Skin: normal color, warm/dry Extremities: normal range of motion, non-tender, normal inspection, normal capillary refill Neuro/Psych: no motor/sensory deficits, alert, normal mood/affect, oriented x 3 ICD10 Worksheet Patient Problems: Problems Problem Status Onset Anemia Acute Atrial fibrillation Acute Hypotension Acute Palliative care encounter Acute Paroxysmal atrial fibrillation Acute Urinary tract infection Acute
[2016-06-20] MEDS: oxyCODONE IR 5 MG TAB PO PRN (14:56)
--- NOTE | 2016-06-20 15:35 | WOCRNPDOC ---
WOCRN Advanced Assessment Note - Skin Integrity Problem, Advanced Assess Left Sacrum Pressure Injury Dressing Type: Allevyn Life Dressing Description: Soiled (w/ stool) Exudate Amount: Scant Exudate Color: Reddish/Yellow Exudate Characteristic(s): Serosanguinous Integumentary Issue Intervention: Dressing Changed, Hydrogel Applied Noemí Wound Tissue: Erythema, Denuded, Scarred Noemí Wound Swelling: Mild Wound Bed Color: Red, Yellow Wound Bed Constitution: Granulation Tissue, Adhered Slough Site Odor: None Site Measurement - Head-to-Toe Length X Width X Depth (cm): 3.4cmx2.5cmx0.2cm Pressure Injury Stage: Unstageable Pressure Injury Present on Admit: Yes Skin Integrity Problem Comment: Slough-filled, full-thickness wound noted on L sacrum, 10% granulation and 90% adhered slough. Patient is well-known to wound care, and was admitted to hospital with this injury. Noemí-wound skin remains fragile and denuded, r/t C-diff and frequent stools. Applied Hydrogel and Mepilex sacral dressing. When patient's stools become less frequent, autolytic debridement using hydrocolloid dressing has been effective in past at removing necrotic tissue. Will continue to assess site ongoing. Report given to Dr. hdez.
[2016-06-20 17:54] LABS: HEMATOCRIT 26.5 % (38.0-47.0); HEMOGLOBIN 8.1 g/dL (12.6-16.3)
[2016-06-20 18:14] LABS: POTASSIUM 3.7 mEq/L (3.5-5.2)
[2016-06-20] MEDS ORDERED: POTASSIUM Cl (KCl) 50 ML IV ONE (18:16)
--- NOTE | 2016-06-20 18:40 | GCON ---
[f rep st] CONSULTATION WOUND HEALING CONSULTATION. DATE OF CONSULTATION: 06/20/2016 CHIEF COMPLAINT: Follow up left lower extremity wound. HISTORY OF PRESENT ILLNESS: The patient is a 70-year-old woman who was recently admitted to [facility] in April for severe infection of her left lower extremity. She was taken to the operating room on several occasions for debridement of skin and soft tissue. She also went unde rwent femoral and popliteal bypass. She completed IV antibiotics. The wound has been treated with a wound VAC. She re-presented to the hospital with diarrhea and dehydration. She is also on presso rs. Her pressors have been discontinued. PAST MEDICAL HISTORY: Peripheral vascular disease, atrial fibrillation, renal failure, obesity, typ e 2 diabetes, history of stroke. PAST SURGICAL HISTORY: Left thigh exploration for possible necrotizing fasciitis in 2010, multiple attempts at an angioplasty left leg, femoral and popliteal bypass and debridement. SOCIAL HISTORY: Prior to this admission she lived at home with her . 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 She is currently at [facility]. She denies tobacco, alcohol or recreational drug use. FAMILY HISTORY: Noncontributory. REVIEW OF SYSTEMS: She is feeling much improved today. She is still having difficulty ambulating a nd she is still having loose stools. PHYSICAL EXAM: GENERAL: Well developed, well nourished, obese woman. She is sitting in the bed. She is pleasant and cooperative and not in any distress. HEENT: Normocephalic, atraumatic. No angelic ss hearing deficits. Pupils equal and round. No scleral icterus. Mucous membranes moist. NECK: Trachea midline. LUNGS: Clear to auscultation bilaterally. No increased work of breathing. CARDI AC: Regular rate. SKIN: The anterior wound on her left lower extremity is healthy. The posterior area there is some necrotic tendon that is very large. She also has some necrosis of her heel. IMPRESSION AND PLAN: The patient is a 70-year-old with a very large left lower extremity wound. I will be able to skin graft the anterior aspect on the posterior aspect. I will debride the necrotic tendon and I will place Integra to cover it followed by a wound VAC. The wound VAC will be in plac e for 1 week after surgery. Currently her surgery time is June 22 around noon, n.p.o. at [facility] on the . /[id number]/MODL
[2016-06-20] MEDS: ATORVASTATIN CALCIUM 40 MG TAB PO SCH (21:12)
[2016-06-21 04:36] LABS: % IMMATURE GRANULYOCYTES 0.8 % (0.0-1.1); ABSOLUTE IMMATURE GRANULOCYTES 0.07 10^3/uL (0.00-0.10); ABSOLUTE NRBC COUNT 0.02 10^3/uL (0-0.01); ADD DIFF? NO; ADD MORPH? NO; ADD SCAN? NO; ATYPICAL LYMPHOCYTE FLAG 0 (0-99); FRAGMENT RBC FLAG 10 (0-99); HEMATOCRIT 29.8 % (38.0-47.0); HEMOGLOBIN 9.3 g/dL (12.6-16.3); LEFT SHIFT FLG 0 (0-99); LIPEMIA HEMOLYSIS FLAG 80 (0-99); MEAN CELL HEMOGLOBIN 30.2 pg (27.9-34.1); MEAN CELL HEMOGLOBIN CONCENTR. 31.2 g/dL (32.4-36.7); MEAN CELL VOLUME 96.8 fL (81.5-99.8); MEAN PLATELET VOLUME 10.9 fL (8.7-11.7); NRBC-AUTO% 0.2 % (0.0-0.2); PLATELET CLUMPS FLAG 20 (0-99); PLATELET COUNT 281 10^3/uL (150-400); RED BLOOD CELL COUNT 3.08 10^6/uL (4.18-5.33); RED CELL DISTRIBUTION WIDTH 15.9 % (11.5-15.2)
[2016-06-21 04:44] LABS: ANION GAP 6 mEq/L (8-16); CALCIUM 7.5 mg/dL (8.5-10.4); CARBON DIOXIDE 21 mEq/l (22-31); CHLORIDE 112 mEq/L (97-110); CREATININE 0.8 mg/dL (0.6-1.0); GLOMERULAR FILTRATION RATE > 60; GLUCOSE 87 mg/dL (70-100); MAGNESIUM 1.6 mg/dL (1.6-2.3); POTASSIUM 3.5 mEq/L (3.5-5.2); SODIUM 139 mEq/L (134-144)
[2016-06-21] MEDS ORDERED: POTASSIUM Cl (KCl) 50 ML IV ONE (04:51)
[2016-06-21 04:55] LABS: INR 1.68 (0.83-1.16); PROTIME(PATIENT) 19.8 SEC (12.0-15.0)
[2016-06-21] MEDS: VANCOMYCIN 125 MG/2.5 ML UDL PO SCH ×4 (05:14→20:35)
[2016-06-21] MEDS: POTASSIUM Cl (KCl) 50 ML IV SCH ×2 (05:14→05:15)
[2016-06-21] MEDS: D5W NS 1,000 ML IV SCH (05:20)
[2016-06-21] MEDS ORDERED: MAGNESIUM SULF 1 GM/DEXTROSE 100 ML IV ONE (08:30)
[2016-06-21] MEDS: AMIODARONE HCL 200 MG TAB PO SCH (11:06)
[2016-06-21] MEDS: oxyCODONE IR 5 MG TAB PO PRN (12:45)
[2016-06-21] MEDS ORDERED: OLANZapine 2.5 MG TAB PO ONE (17:37)
--- NOTE | 2016-06-21 17:37 | HOSPPROG ---
Hospitalist Progress Note Assessment/Plan: DIAGNOSIS: # acute hypotension probably due to hypovolemia and rapid AFib; -blood pressure is now stable off pressor # C diff with GI fluid losses with vomiting and diarrhea; -suspect she is not absorbing her vancomycin well due to vomiting -Diarrhea now starting to resolve # anemia, multifactorial, status post 1 unit red blood cell transfusion this admission - will follow closely and transfuse further if indicated # Rapid atrial fibrillation, -on anticoagulation -Now spontaneously to sinus rhythm # acute renal failure, likely hemodynamic etiology; -improving with resuscitation so far # large decubitus ulcers in the sacral area present on admission # ongoing open wound after prior major debridement for ischemic injury to her left leg and foot POA -This will require further debridement at this time, Dr. Dahl planned surgery tomorrow # acute encephalopathy due to all the above - today she is still having significant hallucinations but more problematic she is beginning to pull at IVs and environmental health manager wires and to decline recommended treatments -Will continue to minimize sedating medicines, trying keep her nutrition up and treat her infection, real orientation, other measures; she has not slept well the last couple nights so will work on sleep for her; at this point as she is becoming a dangerous herself will give a single dose of Zyprexa and see if that helps # elevated TSH, possible hypothyroidism versus illness induced lab change # A borderline elevation of troponin is likely due to her hypotension and rapid heart rate, and I do not suspect acute coronary syndrome and will not evaluate it further unless there is higher suspicion PLANS: -Electrolyte replacements -continue IV Flagyl, along with attempt sigmoid get in p.o. vancomycin for better coverage of C diff -avoid sedating medicines -Wound care for her sacral decubitus or - to OR tomorrow with Dr. Dahl -Follow INR daily here SUBJECTIVE: the patient denies any pain or discomfort. However she is clearly uncomfortable in the seems mostly related to her still having hallucinations Nurses have noted that her stools are much less frequent are now becoming formed OBJECTIVE Vitals reviewed: Blood pressure and pulse Remain normalized off norepinephrine environmental health manager: Sinus rhythm on my review Exam: alert oriented to place and diagnosis, not the day, though she is having more hallucinations and is mildly agitated skin warm dry color ok resps not labored lungs clear BSs heart regular abd soft nondistended nontender, bowel sounds present limbs warm, no edema, leg with little drainage but needs probable debridement in deep tissue sites iv site ok Objective: Vital Signs Temp Pulse Resp BP Pulse Ox 36.6 C 76 19 175/77 H 98 06/21/16 14:34 06/21/16 16:58 06/21/16 14:34 06/21/16 14:34 06/21/16 14:34 Laboratory Results 06/21/16 04:15 06/21/16 04:15 06/20/16 06/21/16 06/22/16 06:59 06:59 06:59 Intake Total 4427 3601 372 Output Total 700 Balance 3727 3601 372 PT 19.8 SEC (12.0-15.0) H 06/21/16 04:15 INR 1.68 (0.83-1.16) H 06/21/16 04:15 ICD10 Worksheet Patient Problems: Problems Problem Status Onset Anemia Acute Atrial fibrillation Acute Hypotension Acute Palliative care encounter Acute Paroxysmal atrial fibrillation Acute Urinary tract infection Acute
[2016-06-21] MEDS: ATORVASTATIN CALCIUM 40 MG TAB PO SCH (20:35)
[2016-06-21] MEDS ORDERED: POTASSIUM CL 20 MEQ TAB PO ONE (23:36)
[2016-06-22] MEDS: VANCOMYCIN 125 MG/2.5 ML UDL PO SCH ×4 (06:02→20:39)
[2016-06-22 06:25] LABS: INR 1.65 (0.83-1.16); PROTIME(PATIENT) 19.6 SEC (12.0-15.0)
[2016-06-22 06:30] LABS: % IMMATURE GRANULYOCYTES 0.6 % (0.0-1.1); ABSOLUTE IMMATURE GRANULOCYTES 0.05 10^3/uL (0.00-0.10); ADD DIFF? NO; ADD MORPH? NO; ADD SCAN? NO; ATYPICAL LYMPHOCYTE FLAG 0 (0-99); FRAGMENT RBC FLAG 0 (0-99); HEMOGLOBIN 8.5 g/dL (12.6-16.3); LEFT SHIFT FLG 10 (0-99); LIPEMIA HEMOLYSIS FLAG 80 (0-99); MEAN CELL HEMOGLOBIN CONCENTR. 31.5 g/dL (32.4-36.7); MEAN CELL VOLUME 95.4 fL (81.5-99.8); MEAN PLATELET VOLUME 11.1 fL (8.7-11.7); PLATELET CLUMPS FLAG 0 (0-99); PLATELET COUNT 246 10^3/uL (150-400); RED BLOOD CELL COUNT 2.83 10^6/uL (4.18-5.33); RED CELL DISTRIBUTION WIDTH 15.9 % (11.5-15.2)
[2016-06-22 07:42] LABS: ANION GAP 6 mEq/L (8-16); CALCIUM 7.3 mg/dL (8.5-10.4); CARBON DIOXIDE 23 mEq/l (22-31); CHLORIDE 111 mEq/L (97-110); CREATININE 0.6 mg/dL (0.6-1.0); GLOMERULAR FILTRATION RATE > 60; GLUCOSE 96 mg/dL (70-100); MAGNESIUM 1.3 mg/dL (1.6-2.3); POTASSIUM 3.5 mEq/L (3.5-5.2); SODIUM 140 mEq/L (134-144)
[2016-06-22] MEDS: AMIODARONE HCL 200 MG TAB PO SCH (08:35)
[2016-06-22] MEDS ORDERED: THROMBIN (RECOMBINANT) 20,000 UNIT SPRAY TP ONE (11:19)
[2016-06-22] MEDS ORDERED: BUPIVACAINE 0.5% 30 ML SDV ONE (11:19)
[2016-06-22] MEDS ORDERED: LIDOCAINE 1% 30 ML SDV ONE (11:19)
[2016-06-22] MEDS ORDERED: MINERAL OIL 10 ML VIAL TP ONE (11:20)
[2016-06-22] MEDS ORDERED: ERTAPENEM 1 GM in NS 100 ML IV ONE (11:47)
--- NOTE | 2016-06-22 12:38 | HOSPPROG ---
Hospitalist Progress Note Assessment/Plan: This patient was here recently with an ischemic wound of her left ankle and foot which had been extensively debrided by Dr. Dahl. This is a diabetic disease. She also had at that time revascularization to that left leg. She had multiple complications including acute renal failure at that time. She was eventually transferred to [facility] where she had been getting ongoing wound care. This time she comes back because of hallucinations and diarrhea was found to have an acute encephalopathy as well as C difficile colitis. She had been started on vancomycin at the [facility] for the C diff but was having significant vomiting over the few days prior to her transfer here and likely was not getting the vancomycin in. Here she has been resuscitated with fluids and IV Flagyl has been added and she is now having a good response with her diarrhea and is eating again. Should go to the operating room today for her foot with Dr. Dahl for further debridement of necrotic tissue DIAGNOSIS: # acute hypotension probably due to hypovolemia and rapid AFib; -blood pressure is now stable off pressor # C diff with GI fluid losses with vomiting and diarrhea; -suspect she was not absorbing her vancomycin well due to vomiting -Diarrhea now resolving # anemia, multifactorial, status post 1 unit red blood cell transfusion this admission - will follow closely and transfuse further if indicated # Rapid atrial fibrillation, -on chronic anticoagulation -Now spontaneously to sinus rhythm # acute renal failure, likely hemodynamic etiology; -improved with resuscitation # large decubitus ulcers in the sacral area present on admission # ongoing open wound after prior major debridement for ischemic injury to her left leg and foot POA -This will require further debridement at this time, Dr. Dahl planned surgery today # acute encephalopathy due to all the above - today she is still having significant hallucinations and delusions -Will continue to minimize sedating medicines, trying keep her nutrition up and treat her infection, real orientation, other measures; she has not slept well the last couple nights so will work on sleep for her # elevated TSH, possible hypothyroidism versus illness induced lab change # A borderline elevation of troponin is likely due to her hypotension and rapid heart rate, and I do not suspect acute coronary syndrome and will not evaluate it further unless there is higher suspicion # type 2 diabetes currently reasonably controlled # ongoing Ikrk catheter drainage, pyuria was present earlier of uncertain significance will recheck urinalysis and urine culture PLANS: -continue IV Flagyl, along with attempt sigmoid get in p.o. vancomycin for better coverage of C diff -avoid sedating medicines -Wound care for her sacral decubitus or - to OR today with Dr. Dahl -Follow INR daily here -Repeat UA and urine culture will be done SUBJECTIVE: the patient denies any pain or discomfort. Nurses have noted that her stools are much less frequent are now becoming formed OBJECTIVE Vitals reviewed: Blood pressure and pulse Remain normalized off norepinephrine case monitor: Sinus rhythm on my review Exam: alert Very delusional and disoriented with hallucinations skin warm dry color ok resps not labored lungs clear BSs heart regular abd soft nondistended nontender, bowel sounds present limbs warm, no edema, leg with little drainage but needs probable debridement in deep tissue sites iv site ok Objective: Vital Signs Temp Pulse Resp BP Pulse Ox 36.4 C 90 20 146/79 H 89 L 06/22/16 11:00 06/22/16 11:00 06/22/16 11:00 06/22/16 11:00 06/22/16 11:00 Laboratory Results 06/22/16 06:00 06/22/16 06:00 06/21/16 06/22/16 06/23/16 06:59 06:59 06:59 Intake Total 3601 967 Balance 3601 967 PT 19.6 SEC (12.0-15.0) H 06/22/16 06:00 INR 1.65 (0.83-1.16) H 06/22/16 06:00 ICD10 Worksheet Patient Problems: Problems Problem Status Onset Anemia Acute Atrial fibrillation Acute Hypotension Acute Palliative care encounter Acute Paroxysmal atrial fibrillation Acute Urinary tract infection Acute
[2016-06-22] MEDS ORDERED: fentaNYL 100 MCG/2 ML INJ ONE ×2 (13:39→15:43)
[2016-06-22] MEDS ORDERED: PROPOFOL/EMULSION 500 MG/50 ML BOTTLE IV ONE (13:41)
[2016-06-22] MEDS ORDERED: REMIFENTANIL HCL 1 MG VIAL ONE (13:43)
[2016-06-22] MEDS ORDERED: PHENYLEPHRINE HCL 100 MCG/ML SYR ONE ×2 (14:02→14:37)
[2016-06-22] MEDS ORDERED: MAGNESIUM SULF 2 GM/WATER 50 ML IV ONE (15:29)
--- NOTE | 2016-06-22 15:56 | POSTOPPROG ---
Post Op Note Date of Operation: 06/22/16 Surgeon: Ashleigh Dahl Warehouse Selector: gabriel Anesthesiologist: kashif Anesthesia: GET(General Endotracheal) Pre-op Diagnosis: chronic wound LLE Post-op Diagnosis: same Indication: 70yo F with chronic pressure wound LLE and PVD Procedure: debridement skin/st/tendon with STSG L anterior leg, placement integra + wv Findings: Necrotic tendon, calcaneous palpable in base of wound Inf/Abcess present in the surg proc area at time of surgery?: Yes Depth: Superfical (Skin SQ) EBL: Minimal Complications: none Drains: Wound Vac Specimen(s): none
[2016-06-22] MEDS: D5W NS 1,000 ML IV SCH (17:26)
[2016-06-22 18:40] LABS: COLOR YELLOW; LEUKOCYTE ESTERASE,URINE 3+ (NEGATIVE); NITRITE,URINE NEGATIVE (NEGATIVE)
[2016-06-22 18:58] LABS: MUCUS TRACE /lpf (NONE-1+); RBC,URINE 25-50 /hpf (0-3); WBC,URINE 50-182 /hpf (0-3); YEAST PRESENT /hpf (NONE SEEN)
[2016-06-22] MEDS: ATORVASTATIN CALCIUM 40 MG TAB PO SCH (20:39)
[2016-06-22 21:08] LABS: POTASSIUM 3.7 mEq/L (3.5-5.2)
[2016-06-22] MEDS ORDERED: POTASSIUM CL 10 MEQ TAB PO ONE (21:20)
[2016-06-22] MEDS: ACETAMINOPHEN 325 MG TAB PO PRN (22:01)
[2016-06-23] MEDS: D5W NS 1,000 ML IV SCH (03:00)
[2016-06-23 05:08] LABS: INR 1.67 (0.83-1.16); PROTIME(PATIENT) 19.7 SEC (12.0-15.0)
[2016-06-23 05:12] LABS: MAGNESIUM 1.6 mg/dL (1.6-2.3); POTASSIUM 3.7 mEq/L (3.5-5.2)
[2016-06-23] MEDS: VANCOMYCIN 125 MG/2.5 ML UDL PO SCH ×4 (05:30→20:11)
[2016-06-23] MEDS ORDERED: MAGNESIUM SULF 1 GM/DEXTROSE 100 ML IV ONE (09:17)
[2016-06-23] MEDS: AMIODARONE HCL 200 MG TAB PO SCH (10:05)
--- NOTE | 2016-06-23 10:41 | SOAPPROG ---
SOAP Progress Note Assessment/Plan: Assessment: POD # 1 s/p debridement skin soft tissue tendon and bone with anterior skin graft and Primatrix ( bovine dermis) posterior and to heel. Wound Vac until 06/29/2016. Do not change. Call [facility] if questions Change dressing on thigh as needed NWB as much as possible LLE Will continue to follow S: Sometimes appropriate othertimes still hallucinating O: Thigh dressing with appropriate staining Vac intact. Oriented to person and place. but still confused Plan: 06/23/16 10:38 Objective: Vital Signs Temp Pulse Resp BP Pulse Ox 36.3 C 82 16 100/50 L 96 06/23/16 08:00 06/23/16 08:00 06/23/16 08:00 06/23/16 08:00 06/23/16 08:00 Laboratory Results 06/22/16 06:00 06/23/16 04:45 06/22/16 06/23/16 06/24/16 05:59 05:59 05:59 Intake Total 967 2436 Output Total 15 Balance 967 2421 PT 19.7 SEC (12.0-15.0) H 06/23/16 04:45 INR 1.67 (0.83-1.16) H 06/23/16 04:45 ICD10 Worksheet Patient Problems: Problems Problem Status Onset Anemia Acute Atrial fibrillation Acute Hypotension Acute Palliative care encounter Acute Paroxysmal atrial fibrillation Acute Urinary tract infection Acute
--- NOTE | 2016-06-23 11:07 | PDINTPN ---
Electrical Logging Engineer Progress Note Assessment/Plan: Assessment/Plan: * Afib-resolved * N/V-none for 24 hours * C-dif * Hypotension-off pressors * Acute Renal Failure-resolved * Hypovolemia-resolved * Obesity * Large decub-present on admit * Leg pressure wound-S/P debridement -per surgery * Confusion-likely multifactorial. Subjective: Up with PT, dangling side of bed. Alert Objective: Vital Signs Temp Pulse Resp BP Pulse Ox 36.3 C 82 16 100/50 L 96 06/23/16 08:00 06/23/16 08:00 06/23/16 08:00 06/23/16 08:00 06/23/16 08:00 Laboratory Results 06/22/16 06:00 06/23/16 04:45 06/22/16 06/23/16 06/24/16 05:59 05:59 05:59 Intake Total 967 2436 Output Total 15 Balance 967 2421 PT 19.7 SEC (12.0-15.0) H 06/23/16 04:45 INR 1.67 (0.83-1.16) H 06/23/16 04:45 Physical Exam - Physical Exam General Appearance: alert, other (confused) EENT: PERRL/EOMI, normal ENT inspection Neck: non-tender, full range of motion, supple, normal inspection Respiratory: crackles (few), No respiratory distress, No wheezing Cardiac/Chest: normal peripheral pulses, regular rate, rhythm, systolic murmur Peripheral Pulses: 2+: carotid (R), carotid (L), femoral (R), femoral (L), dorsalis-pedis (R), dorsalis-pedis (L) Abdomen: normal bowel sounds, non-tender, soft Pelvic Exam: deferred Rectal: deferred ICD10 Worksheet Patient Problems: Problems Problem Status Onset Anemia Acute Atrial fibrillation Acute Hypotension Acute Palliative care encounter Acute Paroxysmal atrial fibrillation Acute Urinary tract infection Acute
--- NOTE | 2016-06-23 14:38 | HOSPPROG ---
Hospitalist Progress Note Assessment/Plan: # acute hypotension probably due to hypovolemia and rapid AFib (resolved) -blood pressure is now stable off pressor # C diff with GI fluid losses with vomiting and diarrhea; -suspect she was not absorbing her vancomycin well due to vomiting -Diarrhea now resolving -will dc IV flagyl # anemia, multifactorial, status post 1 unit red blood cell transfusion this admission - will follow closely and transfuse further if indicated # Rapid atrial fibrillation, -on chronic anticoagulation -Now spontaneously to sinus rhythm #diabetic foot infection s/p debridement by Dr. Dahl on 06/22 -cont wound care # acute renal failure, likely hemodynamic etiology; -improved with resuscitation # large decubitus ulcers in the sacral area present on admission # ongoing open wound after prior major debridement for ischemic injury to her left leg and foot POA -This will require further debridement at this time, Dr. Dahl planned surgery today #delirium/ acute encephalopathy due to all the above - today she is still having significant hallucinations and delusions -Will continue to minimize sedating medicines, trying keep her nutrition up and treat her infection, real orientation, other measures; she has not slept well the last couple nights so will work on sleep for her # elevated TSH, possible hypothyroidism versus illness induced lab change # A borderline elevation of troponin is likely due to her hypotension and rapid heart rate, and I do not suspect acute coronary syndrome and will not evaluate it further unless there is higher suspicion # type 2 diabetes currently reasonably controlled # ongoing Kirk catheter drainage, pyuria was present earlier of uncertain significance will recheck urinalysis and urine culture Subjective: pt is confused Objective: Vital Signs Temp Pulse Resp BP Pulse Ox 36.3 C 82 17 118/57 L 96 06/23/16 08:00 06/23/16 11:55 06/23/16 11:55 06/23/16 11:55 06/23/16 11:55 Laboratory Results 06/22/16 06:00 06/23/16 04:45 06/22/16 06/23/16 06/24/16 05:59 05:59 05:59 Intake Total 967 2436 Output Total 15 Balance 967 2421 PT 19.7 SEC (12.0-15.0) H 06/23/16 04:45 INR 1.67 (0.83-1.16) H 06/23/16 04:45 - Physical Exam Constitutional: obese Cardiovascular: regular rate and rhythym, no murmur, rub, or gallop Respiratory: no respiratory distress, no rales or rhonchi, clear to auscultation , No respiratory distress Gastrointestinal: normoactive bowel sounds, soft, non-tender abdomen, no palpable masses, No guarding, No rebound Skin: other (wound vacs in place) Neurologic: other ([id number]) ICD10 Worksheet Patient Problems: Problems Problem Status Onset Urinary tract infection Acute Paroxysmal atrial fibrillation Acute Palliative care encounter Acute Anemia Acute Hypotension Acute Atrial fibrillation Acute
[2016-06-23 17:57] LABS: POTASSIUM 3.6 mEq/L (3.5-5.2)
[2016-06-23] MEDS: ATORVASTATIN CALCIUM 40 MG TAB PO SCH (20:11)
[2016-06-24 01:11] LABS: POTASSIUM 3.4 mEq/L (3.5-5.2)
[2016-06-24] MEDS: POTASSIUM Cl (KCl) 50 ML IV SCH ×3 (02:28→04:21)
[2016-06-24] MEDS: D5W NS 1,000 ML IV SCH (04:21)
[2016-06-24] MEDS: VANCOMYCIN 125 MG/2.5 ML UDL PO SCH ×4 (06:30→20:39)
[2016-06-24 07:10] LABS: INR 1.71 (0.83-1.16); PROTIME(PATIENT) 20.1 SEC (12.0-15.0)
[2016-06-24 07:40] LABS: MAGNESIUM 1.6 mg/dL (1.6-2.3); POTASSIUM 3.8 mEq/L (3.5-5.2)
[2016-06-24] MEDS ORDERED: POTASSIUM CL 10 MEQ TAB PO ONE ×3 (08:30→19:12)
[2016-06-24] MEDS ORDERED: MAGNESIUM SULF 1 GM/DEXTROSE 100 ML IV ONE (08:31)
--- NOTE | 2016-06-24 09:14 | PDINTPN ---
Windows Laptop Technician Progress Note Assessment/Plan: Assessment/Plan: * Afib-resolved * N/V-none for 24 hours * C-dif * Hypotension-off pressors * Acute Renal Failure-resolved * Hypovolemia-resolved * Obesity * Large decub-present on admit * Leg pressure wound-S/P debridement -per surgery * Confusion-likely multifactorial. This occurred last admission * Dispo-likely okay for floor. Subjective: Awake, alert, conversant, but pleasantly confused Objective: Vital Signs Temp Pulse Resp BP Pulse Ox 36.3 C 79 18 116/66 99 06/24/16 08:50 06/24/16 08:50 06/24/16 08:50 06/24/16 08:50 06/24/16 08:50 Laboratory Results 06/22/16 06:00 06/24/16 06:30 06/23/16 06/24/16 06/25/16 05:59 05:59 05:59 Intake Total 2436 3195 Output Total 15 1226 Balance 2421 1969 PT 20.1 SEC (12.0-15.0) H 06/24/16 06:30 INR 1.71 (0.83-1.16) H 06/24/16 06:30 Physical Exam - Physical Exam General Appearance: alert, other (confused) EENT: PERRL/EOMI, normal ENT inspection Neck: non-tender, full range of motion Respiratory: chest non-tender, lungs clear, normal breath sounds Cardiac/Chest: normal peripheral pulses, regular rate, rhythm, systolic murmur Peripheral Pulses: 2+: carotid (R), carotid (L), femoral (R), femoral (L), dorsalis-pedis (R), dorsalis-pedis (L) Abdomen: normal bowel sounds, non-tender, soft Pelvic Exam: deferred Rectal: deferred Skin: normal color, warm/dry Extremities: non-tender ICD10 Worksheet Patient Problems: Problems Problem Status Onset Anemia Acute Atrial fibrillation Acute Hypotension Acute Palliative care encounter Acute Paroxysmal atrial fibrillation Acute Urinary tract infection Acute
[2016-06-24] MEDS: AMIODARONE HCL 200 MG TAB PO SCH (11:14)
--- NOTE | 2016-06-24 12:23 | SOAPPROG ---
SOAP Progress Note Assessment/Plan: Assessment: POD # 2 s/p debridement skin soft tissue tendon and bone with anterior skin graft and Primatrix ( bovine dermis) posterior and to heel. Wound Vac until 06/29/2016. Do not change. Call Hesham if questions Change dressing on thigh as needed NWB as much as possible LLE Yeast in Urine - I am comfortable with transfer to floor Will continue to follow S: Making more sense today but convinced others are playing tricks on her. O: Thigh dressing with appropriate staining Vac intact. Plan: 06/23/16 10:38 06/24/16 12:21 Objective: Vital Signs Temp Pulse Resp BP Pulse Ox 36.3 C 79 18 116/66 99 06/24/16 08:50 06/24/16 08:50 06/24/16 08:50 06/24/16 08:50 06/24/16 08:50 Laboratory Results 06/22/16 06:00 06/24/16 06:30 06/23/16 06/24/16 06/25/16 05:59 05:59 05:59 Intake Total 2436 3195 Output Total 15 1226 Balance 2421 1969 PT 20.1 SEC (12.0-15.0) H 06/24/16 06:30 INR 1.71 (0.83-1.16) H 06/24/16 06:30 ICD10 Worksheet Patient Problems: Problems Problem Status Onset Anemia Acute Atrial fibrillation Acute Hypotension Acute Palliative care encounter Acute Paroxysmal atrial fibrillation Acute Urinary tract infection Acute
--- NOTE | 2016-06-24 13:39 | HOSPPROG ---
Hospitalist Progress Note Assessment/Plan: # acute hypotension probably due to hypovolemia and rapid AFib (resolved) -blood pressure is now stable off pressor # C diff with GI fluid losses with vomiting and diarrhea; -suspect she was not absorbing her vancomycin well due to vomiting -Diarrhea now resolving -will dc IV flagyl # anemia, multifactorial, status post 1 unit red blood cell transfusion this admission - will follow closely and transfuse further if indicated # Rapid atrial fibrillation, -resume pradaxa -Now spontaneously to sinus rhythm #diabetic foot infection s/p debridement by Dr. Dahl on 06/22 -cont wound vac # acute renal failure, likely hemodynamic etiology; -improved with resuscitation # large decubitus ulcers in the sacral area present on admission # ongoing open wound after prior major debridement for ischemic injury to her left leg and foot POA -This will require further debridement at this time, Dr. Dahl planned surgery today #delirium/ acute encephalopathy due to all the above - today she is still having significant hallucinations and delusions -Will continue to minimize sedating medicines, trying keep her nutrition up and treat her infection, real orientation, other measures; she has not slept well the last couple nights so will work on sleep for her # elevated TSH with nml t4 and low t3 suspect subclinical hypothyroidism -repeat tsh 4-6 # A borderline elevation of troponin is likely due to her hypotension and rapid heart rate, and I do not suspect acute coronary syndrome and will not evaluate it further unless there is higher suspicion # type 2 diabetes currently reasonably controlled # ongoing Kirk catheter drainage with yeast in urine Subjective: confused and hallucinating. no fevers or chills Objective: Vital Signs Temp Pulse Resp BP Pulse Ox 36.3 C 79 18 116/66 99 06/24/16 08:50 06/24/16 08:50 06/24/16 08:50 06/24/16 08:50 06/24/16 08:50 Laboratory Results 06/22/16 06:00 06/24/16 06:30 06/23/16 06/24/16 06/25/16 05:59 05:59 05:59 Intake Total 2436 3195 Output Total 15 1226 Balance 2421 1969 PT 20.1 SEC (12.0-15.0) H 06/24/16 06:30 INR 1.71 (0.83-1.16) H 02/19/17 06:30 - Physical Exam Constitutional: no apparent distress, appears nourished, not in pain, obese Cardiovascular: regular rate and rhythym, no murmur, rub, or gallop Respiratory: no respiratory distress, No expiratory wheeze, No inspiratory crackles Gastrointestinal: normoactive bowel sounds, soft, non-tender abdomen, no palpable masses Neurologic: other (aaox0) Psychiatric: encephalopathic ICD10 Worksheet Patient Problems: Problems Problem Status Onset Urinary tract infection Acute Paroxysmal atrial fibrillation Acute Palliative care encounter Acute Anemia Acute Hypotension Acute Atrial fibrillation Acute
[2016-06-24 14:32] LABS: % IMMATURE GRANULYOCYTES 0.5 % (0.0-1.1); ABSOLUTE IMMATURE GRANULOCYTES 0.05 10^3/uL (0.00-0.10); ADD DIFF? NO; ADD MORPH? NO; ADD SCAN? NO; ATYPICAL LYMPHOCYTE FLAG 20 (0-99); FRAGMENT RBC FLAG 0 (0-99); HEMATOCRIT 25.2 % (38.0-47.0); HEMOGLOBIN 7.9 g/dL (12.6-16.3); LEFT SHIFT FLG 0 (0-99); LIPEMIA HEMOLYSIS FLAG 80 (0-99); MEAN CELL HEMOGLOBIN 29.7 pg (27.9-34.1); MEAN CELL HEMOGLOBIN CONCENTR. 31.3 g/dL (32.4-36.7); MEAN CELL VOLUME 94.7 fL (81.5-99.8); MEAN PLATELET VOLUME 10.5 fL (8.7-11.7); PLATELET CLUMPS FLAG 0 (0-99); PLATELET COUNT 221 10^3/uL (150-400); RED BLOOD CELL COUNT 2.66 10^6/uL (4.18-5.33); RED CELL DISTRIBUTION WIDTH 16.5 % (11.5-15.2)
[2016-06-24 14:51] LABS: ANION GAP 4 mEq/L (8-16); CALCIUM 7.2 mg/dL (8.5-10.4); CARBON DIOXIDE 22 mEq/l (22-31); CHLORIDE 117 mEq/L (97-110); CREATININE 0.6 mg/dL (0.6-1.0); GLOMERULAR FILTRATION RATE > 60; GLUCOSE 160 mg/dL (70-100); POTASSIUM 3.9 mEq/L (3.5-5.2); SODIUM 143 mEq/L (134-144)
--- NOTE | 2016-06-24 15:03 | GOP ---
[f rep st] OPERATIVE REPORT DATE OF OPERATION: 06/22/2016 SURGEON: Ashleigh Dahl MD REFUSE LABORER: MIRIAM Julio ANESTHESIA: General. ANESTHESIOLOGIST: Timothy Keith DO PREOPERATIVE DIAGNOSIS: Peripheral vascular disease with chronic wounds related to diabetes mellitus, peripheral vascular disease and pressure to her left lower extremity. POSTOPERATIVE DIAGNOSIS: Peripheral vascular disease with chronic wounds related to diabetes mellitus, peripheral vascular disease and pressure to her left lower extremity. PROCEDURE PERFORMED: Debridement skin, soft tissue, tendon and bone with split- thickness skin graft and application of bovine dermal skin substitute, and wound vacuum-assisted closure placement. FINDINGS: Necrotic soft tissue, tendon and bone SPECIMENS: None. ESTIMATED BLOOD LOSS: 20 cc. INDICATIONS: The patient is a 70-year-old woman with an extensive past medical history including diabetes, peripheral vascular disease, status post femoral- popliteal bypass, and severe deconditioning. She was admitted previously and a femoral-popliteal bypass and multiple debridements of her wound occurred. She was discharged to a intermediate facility, and a wound VAC was placed. She was readmitted due to atrial fibrillation with rapid response shock. There was concern that her leg was contributing to this. DESCRIPTION OF PROCEDURE: The patient was brought into the operating room, placed supine on the table, and general anesthesia was administered. Her left leg was prepped from the toes to the thigh circumferentially. I used Movileonix ultrasonic debrider to debride the soft tissue anteriorly. I debrided the soft tissue, tendon and part of the calcaneal bone posteriorly. I also debrided a stage III ulcer on her left heel. The wound on her leg entirely measured 25 x 16 x 2 cm. Anteriorly, the wound measured 11 x 6 x 0.4 cm. The wound on her heel measured 4.5 x 3.5 x 0.8 cm. The wound on her toe was 1 x 1 x 0.5 cm. After adequate debridement occurred, hemostasis was achieved. I then obtained a split-thickness skin graft from her left anterior thigh at 1/ 12,000 inch. This was hand pie-crusted and placed anteriorly on her leg. I stapled it into place. I then placed PriMatrix, which I meshed 2:1, on the posterior aspect of her leg, as well as on her heel. This was stapled into place. An epinephrine soaked sponge was placed on her thigh. A wound VAC was placed over her leg. I placed a small piece of Hydrofera Blue on her toe. Hemostasis was achieved on her thigh with electrocautery. I then placed a Mepilex transfer, followed by a Tegaderm. She was awakened in the operating room, extubated, and transferred to PACU in stable condition. /[id number]/MODL MTDD
[2016-06-24 18:53] LABS: POTASSIUM 3.7 mEq/L (3.5-5.2)
[2016-06-24] MEDS: ACETAMINOPHEN 325 MG TAB PO PRN (20:38)
[2016-06-24] MEDS: DABIGATRAN ETEXILATE MESYL 150 MG CAP PO SCH (20:38)
[2016-06-24] MEDS: ATORVASTATIN CALCIUM 40 MG TAB PO SCH (20:39)
[2016-06-24] MEDS ORDERED: HALOPERIDOL 2 MG TAB PO ONE (23:34)
[2016-06-25] MEDS: VANCOMYCIN 125 MG/2.5 ML UDL PO SCH ×4 (06:31→22:15)
[2016-06-25 06:52] LABS: % IMMATURE GRANULYOCYTES 0.4 % (0.0-1.1); ABSOLUTE IMMATURE GRANULOCYTES 0.03 10^3/uL (0.00-0.10); ADD DIFF? NO; ADD MORPH? NO; ADD SCAN? NO; ATYPICAL LYMPHOCYTE FLAG 10 (0-99); FRAGMENT RBC FLAG 0 (0-99); HEMATOCRIT 22.5 % (38.0-47.0); LEFT SHIFT FLG 0 (0-99); LIPEMIA HEMOLYSIS FLAG 80 (0-99); MEAN CELL HEMOGLOBIN 30.3 pg (27.9-34.1); MEAN CELL HEMOGLOBIN CONCENTR. 31.1 g/dL (32.4-36.7); MEAN CELL VOLUME 97.4 fL (81.5-99.8); MEAN PLATELET VOLUME 11.4 fL (8.7-11.7); PLATELET CLUMPS FLAG 10 (0-99); PLATELET COUNT 199 10^3/uL (150-400); RED BLOOD CELL COUNT 2.31 10^6/uL (4.18-5.33); RED CELL DISTRIBUTION WIDTH 16.9 % (11.5-15.2)
[2016-06-25 07:36] LABS: ANION GAP 3 mEq/L (8-16); CALCIUM 6.9 mg/dL (8.5-10.4); CARBON DIOXIDE 23 mEq/l (22-31); CHLORIDE 117 mEq/L (97-110); CREATININE 0.6 mg/dL (0.6-1.0); GLOMERULAR FILTRATION RATE > 60; GLUCOSE 147 mg/dL (70-100); MAGNESIUM 1.6 mg/dL (1.6-2.3); POTASSIUM 3.8 mEq/L (3.5-5.2); SODIUM 143 mEq/L (134-144)
--- NOTE | 2016-06-25 08:25 | WOCRNPDOC ---
WOCRN Advanced Assessment Note - Skin Integrity Problem, Advanced Assess Left Sacrum Pressure Injury Dressing Type: Allevyn Life Dressing Description: Clean/Dry, Intact Exudate Amount: None Integumentary Issue Intervention: Dressing Changed Alana Wound Tissue: Erythema Alana Wound Swelling: None Wound Bed Color: [place], Red Wound Bed Constitution: Granulation Tissue (50%), Smooth Tissue (50%) Site Measurement - Head-to-Toe Length X Width X Depth (cm): 3.3x3.5x0.3 Pressure Injury Stage: Stage 3 Pressure Injury Present on Admit: Yes Skin Integrity Problem Comment: Cleaned with gauze. Skin prep applied copiously alana wound. Wound gel to wound bed and covered with allevyn life sacral dressing. Reitterated to ELIJAH Moore who was in the room for the care to please inform wound care if dressing is needing to be changed more than once a day. The wound has not devolved, however as the slough has mostly been removed it can now be staged as a stage 3 rather than unstagable.
[2016-06-25] MEDS: AMIODARONE HCL 200 MG TAB PO SCH (09:49)
[2016-06-25] MEDS: DABIGATRAN ETEXILATE MESYL 150 MG CAP PO SCH ×2 (09:49→22:15)
[2016-06-25] MEDS ORDERED: POTASSIUM CL 10 MEQ TAB PO ONE (09:52)
--- NOTE | 2016-06-25 10:29 | SOAPPROG ---
SOAP Progress Note Assessment/Plan: 70yo F POD #3 s/p debridement skin soft tissue tendon and bone with anterior skin graft and Primatrix ( bovine dermis) posterior and to heel. Wound Vac until 06/29/2016. Do not change. Call Hesham or Tashia if questions Change dressing on thigh as needed NWB as much as possible LLE Appreciate hospitalist management of comorbidities S: Sleeping during evaluation O: Laying in bed, comfortable, NAD No increased WOB Thigh dressing CDI LLE vac intact to suction. Prevlon boots. Objective: Vital Signs Temp Pulse Resp BP Pulse Ox 36.3 C 77 18 120/79 100 06/25/16 09:40 06/25/16 09:40 06/25/16 09:40 06/25/16 09:40 06/25/16 09:40 Laboratory Results 06/25/16 06:30 06/25/16 06:30 06/24/16 06/25/16 06/26/16 05:59 05:59 05:59 Intake Total 3195 3213 Output Total 1226 1350 Balance 1969 1863 PT 20.1 SEC (12.0-15.0) H 06/24/16 06:30 INR 1.71 (0.83-1.16) H 06/24/16 06:30 ICD10 Worksheet Patient Problems: Problems Problem Status Onset Anemia Acute Atrial fibrillation Acute Hypotension Acute Palliative care encounter Acute Paroxysmal atrial fibrillation Acute Urinary tract infection Acute
--- NOTE | 2016-06-25 14:16 | HOSPPROG ---
Hospitalist Progress Note Assessment/Plan: #diabetic foot infection s/p debridement by Dr. Dahl on 06/22 -cont wound vac # acute hypotension probably due to hypovolemia and rapid AFib (resolved) -blood pressure is now stable off pressor # C diff with GI fluid losses with vomiting and diarrhea; -suspect she was not absorbing her vancomycin well due to vomiting -Diarrhea now resolving # anemia, multifactorial, status post 1 unit red blood cell transfusion this admission - will follow closely and transfuse further if indicated # Rapid atrial fibrillation, -resume pradaxa -Now spontaneously to sinus rhythm # acute renal failure, likely hemodynamic etiology; -improved with resuscitation # large decubitus ulcers in the sacral area present on admission # ongoing open wound after prior major debridement for ischemic injury to her left leg and foot POA -This will require further debridement at this time, Dr. Dahl planned surgery today #delirium/ acute encephalopathy due to all the above - will add a little bit of Zyprexa at night to help sleep # elevated TSH with nml t4 and low t3 suspect subclinical hypothyroidism -repeat tsh 4-6 # A borderline elevation of troponin is likely due to her hypotension and rapid heart rate, and I do not suspect acute coronary syndrome and will not evaluate it further unless there is higher suspicion # type 2 diabetes currently reasonably controlled # ongoing Kirk catheter drainage with yeast in urine Subjective: more sleepy today. Apparently she did not sleep very well last night but Haldol helped Objective: Vital Signs Temp Pulse Resp BP Pulse Ox 36.3 C 77 18 120/79 100 06/25/16 09:40 06/25/16 09:40 06/25/16 09:40 06/25/16 09:40 06/25/16 09:40 Laboratory Results 06/25/16 06:30 06/25/16 06:30 06/24/16 06/25/16 06/26/16 05:59 05:59 05:59 Intake Total 3195 3213 Output Total 1226 1350 Balance 1969 1863 PT 20.1 SEC (12.0-15.0) H 06/24/16 06:30 INR 1.71 (0.83-1.16) H 06/24/16 06:30 - Physical Exam Constitutional: no apparent distress, appears nourished, not in pain Eyes: anicteric sclera, EOMI Ears, Nose, Mouth, Throat: moist mucous membranes, hearing normal Cardiovascular: regular rate and rhythym, no murmur, rub, or gallop, edema ( 1+) Respiratory: no respiratory distress, no rales or rhonchi Gastrointestinal: normoactive bowel sounds, soft, non-tender abdomen, no palpable masses Skin: warm Neurologic: AAOx3, other ( sleeping but arousable) Psychiatric: interacting appropriately, not anxious, not encephalopathic, thought process linear ICD10 Worksheet Patient Problems: Problems Problem Status Onset Anemia Acute Atrial fibrillation Acute Hypotension Acute Palliative care encounter Acute Paroxysmal atrial fibrillation Acute Urinary tract infection Acute
--- NOTE | 2016-06-25 14:59 | PDINTPN ---
Manager Learning Progress Note Assessment/Plan: Assessment: * afib - stable * Cdiff- no changes * cellulitis- s/p debridement 06/24 * obesity- needs sleep study as outpatient Subjective: no complaints but somnolent today Objective: Vital Signs Temp Pulse Resp BP Pulse Ox 36.3 C 77 18 120/79 100 06/25/16 09:40 06/25/16 09:40 06/25/16 09:40 06/25/16 09:40 06/25/16 09:40 Laboratory Results 06/25/16 06:30 06/25/16 06:30 06/24/16 06/25/16 06/26/16 05:59 05:59 05:59 Intake Total 3195 3213 Output Total 1226 1350 Balance 1969 1863 PT 20.1 SEC (12.0-15.0) H 06/24/16 06:30 INR 1.71 (0.83-1.16) H 06/24/16 06:30 Physical Exam - Physical Exam General Appearance: other (lethargic but arousable) EENT: PERRL/EOMI Neck: full range of motion, supple Respiratory: lungs clear, normal breath sounds, No respiratory distress Cardiac/Chest: normal peripheral pulses, regular rate, rhythm, No edema Abdomen: non-tender, soft, No distended Skin: normal color, warm/dry, No cyanosis, No rash Lymphatic: no adenopathy Extremities: non-tender, other (dressing clean and dry) Neuro/Psych: oriented x 3, No abnormal binding cementer french cord II-XII ICD10 Worksheet Patient Problems: Problems Problem Status Onset Anemia Acute Atrial fibrillation Acute Hypotension Acute Palliative care encounter Acute Paroxysmal atrial fibrillation Acute Urinary tract infection Acute
[2016-06-25] MEDS: ATORVASTATIN CALCIUM 40 MG TAB PO SCH (22:16)
[2016-06-25] MEDS: OLANZapine 2.5 MG TAB PO SCH (22:16)
[2016-06-26] MEDS: VANCOMYCIN 125 MG/2.5 ML UDL PO SCH ×4 (06:20→23:08)
[2016-06-26] MEDS: D5W NS 1,000 ML IV SCH (06:23)
[2016-06-26 06:51] LABS: % IMMATURE GRANULYOCYTES 0.6 % (0.0-1.1); ABSOLUTE IMMATURE GRANULOCYTES 0.04 10^3/uL (0.00-0.10); ADD DIFF? NO; ADD MORPH? NO; ADD SCAN? NO; ATYPICAL LYMPHOCYTE FLAG 0 (0-99); FRAGMENT RBC FLAG 0 (0-99); HEMATOCRIT 24.5 % (38.0-47.0); HEMOGLOBIN 7.5 g/dL (12.6-16.3); LEFT SHIFT FLG 0 (0-99); LIPEMIA HEMOLYSIS FLAG 80 (0-99); MEAN CELL HEMOGLOBIN 30.1 pg (27.9-34.1); MEAN CELL HEMOGLOBIN CONCENTR. 30.6 g/dL (32.4-36.7); MEAN CELL VOLUME 98.4 fL (81.5-99.8); MEAN PLATELET VOLUME 11.6 fL (8.7-11.7); PLATELET CLUMPS FLAG 0 (0-99); PLATELET COUNT 222 10^3/uL (150-400); RED BLOOD CELL COUNT 2.49 10^6/uL (4.18-5.33); RED CELL DISTRIBUTION WIDTH 16.9 % (11.5-15.2)
[2016-06-26 06:58] LABS: ANION GAP 1 mEq/L (8-16); CALCIUM 7.1 mg/dL (8.5-10.4); CARBON DIOXIDE 24 mEq/l (22-31); CHLORIDE 117 mEq/L (97-110); CREATININE 0.6 mg/dL (0.6-1.0); GLOMERULAR FILTRATION RATE > 60; GLUCOSE 149 mg/dL (70-100); MAGNESIUM 1.3 mg/dL (1.6-2.3); POTASSIUM 3.9 mEq/L (3.5-5.2); SODIUM 142 mEq/L (134-144)
[2016-06-26] MEDS ORDERED: POTASSIUM CL 10 MEQ TAB PO ONE ×2 (08:10→22:02)
[2016-06-26] MEDS ORDERED: MAGNESIUM SULF 2 GM/WATER 50 ML IV ONE (08:59)
[2016-06-26] MEDS: AMIODARONE HCL 200 MG TAB PO SCH (11:12)
[2016-06-26] MEDS: DABIGATRAN ETEXILATE MESYL 150 MG CAP PO SCH ×2 (11:17→22:25)
--- NOTE | 2016-06-26 12:39 | SOAPPROG ---
SOAP Progress Note Assessment/Plan: 70yo F POD #4 s/p debridement skin soft tissue tendon and bone with anterior skin graft and Primatrix ( bovine dermis) posterior and to heel. Wound Vac until 06/29/2016. Do not change. Call Hesham or Tashia if questions Change dressing on thigh as needed NWB as much as possible LLE Appreciate hospitalist management of comorbidities S: Doing well. Just worked with PT and dangled legs off edge of bed. No pain O: Laying in bed, comfortable, NAD, daughter in law at bedside No increased WOB Thigh dressing CDI LLE vac intact to suction. Prevlon boots. 06/26/16 12:38 Objective: Vital Signs Temp Pulse Resp BP Pulse Ox 36.9 C 90 20 128/82 H 96 06/26/16 11:45 06/26/16 11:45 06/26/16 11:45 06/26/16 11:45 06/26/16 11:45 Microbiology 06/22/16 18:30 Urine Culture - Final Urine,Catheterized Yeast, Not Ciera Albicans Laboratory Results 06/26/16 06:25 06/26/16 06:25 06/25/16 06/26/16 06/27/16 05:59 05:59 05:59 Intake Total 3213 1915 Output Total 1350 1175 100 Balance 1863 740 -100 PT 20.1 SEC (12.0-15.0) H 06/24/16 06:30 INR 1.71 (0.83-1.16) H 06/24/16 06:30 ICD10 Worksheet Patient Problems: Problems Problem Status Onset Anemia Acute Atrial fibrillation Acute Hypotension Acute Palliative care encounter Acute Paroxysmal atrial fibrillation Acute Urinary tract infection Acute
[2016-06-26] MEDS: ACETAMINOPHEN 325 MG TAB PO PRN ×2 (14:14→22:22)
--- NOTE | 2016-06-26 14:17 | HOSPPROG ---
Hospitalist Progress Note Assessment/Plan: #diabetic foot infection s/p debridement by Dr. Dahl on 06/22 -cont wound vac # acute hypotension probably due to hypovolemia and rapid AFib (resolved) -blood pressure is now stable off pressor # C diff with GI fluid losses with vomiting and diarrhea; -suspect she was not absorbing her vancomycin well due to vomiting -Diarrhea now resolving # anemia, multifactorial, status post 1 unit red blood cell transfusion this admission - will follow closely and transfuse further if indicated # Rapid atrial fibrillation, -resume pradaxa -Now spontaneously to sinus rhythm # acute renal failure, likely hemodynamic etiology; -improved with resuscitation # large decubitus ulcers in the sacral area present on admission # ongoing open wound after prior major debridement for ischemic injury to her left leg and foot POA -This will require further debridement at this time, Dr. Dahl planned surgery today #delirium/ acute encephalopathy due to all the above - will add a little bit of Zyprexa at night to help sleep # elevated TSH with nml t4 and low t3 suspect subclinical hypothyroidism -repeat tsh 4-6 # A borderline elevation of troponin is likely due to her hypotension and rapid heart rate, and I do not suspect acute coronary syndrome and will not evaluate it further unless there is higher suspicion # type 2 diabetes currently reasonably controlled # ongoing Kirk catheter drainage with yeast in urine Subjective: seems to be more awake today. I believe that she slept better last night Objective: Vital Signs Temp Pulse Resp BP Pulse Ox 36.9 C 90 20 128/82 H 96 06/26/16 11:45 06/26/16 11:45 06/26/16 11:45 06/26/16 11:45 06/26/16 11:45 Microbiology 06/22/16 18:30 Urine Culture - Final Urine,Catheterized Yeast, Not Ciera Albicans Laboratory Results 06/26/16 06:25 06/26/16 06:25 06/25/16 06/26/16 06/27/16 05:59 05:59 05:59 Intake Total 3213 1915 Output Total 1350 1175 100 Balance 1863 740 -100 PT 20.1 SEC (12.0-15.0) H 06/24/16 06:30 INR 1.71 (0.83-1.16) H 06/24/16 06:30 - Physical Exam Constitutional: no apparent distress, appears nourished, not in pain Eyes: anicteric sclera, EOMI Ears, Nose, Mouth, Throat: moist mucous membranes, hearing normal, ears appear normal Cardiovascular: regular rate and rhythym, no murmur, rub, or gallop Respiratory: no respiratory distress, no rales or rhonchi Gastrointestinal: normoactive bowel sounds, soft, non-tender abdomen, no palpable masses Neurologic: AAOx3 Psychiatric: interacting appropriately, not anxious, not encephalopathic, thought process linear ICD10 Worksheet Patient Problems: Problems Problem Status Onset Anemia Acute Atrial fibrillation Acute Hypotension Acute Palliative care encounter Acute Paroxysmal atrial fibrillation Acute Urinary tract infection Acute
[2016-06-26 19:49] LABS: POTASSIUM 3.7 mEq/L (3.5-5.2)
[2016-06-26] MEDS: OLANZapine 2.5 MG TAB PO SCH (22:22)
[2016-06-26] MEDS: ATORVASTATIN CALCIUM 40 MG TAB PO SCH (22:23)
[2016-06-27] MEDS: VANCOMYCIN 125 MG/2.5 ML UDL PO SCH ×4 (05:01→22:05)
[2016-06-27 05:53] LABS: MAGNESIUM 1.6 mg/dL (1.6-2.3); POTASSIUM 3.7 mEq/L (3.5-5.2)
[2016-06-27] MEDS ORDERED: POTASSIUM CL 10 MEQ TAB PO ONE (07:34)
[2016-06-27] MEDS ORDERED: MAGNESIUM SULF 1 GM/DEXTROSE 100 ML IV ONE (07:54)
[2016-06-27] MEDS: AMIODARONE HCL 200 MG TAB PO SCH (10:26)
[2016-06-27] MEDS: DABIGATRAN ETEXILATE MESYL 150 MG CAP PO SCH ×2 (10:26→22:04)
[2016-06-27] MEDS ORDERED: HYDROmorphONE/DILAUDID 1 MG/ML SYR IVP PRN (11:50)
--- NOTE | 2016-06-27 16:07 | HOSPPROG ---
Hospitalist Progress Note Assessment/Plan: #diabetic foot infection s/p debridement by Dr. Dahl on 06/22 -cont wound vac # acute hypotension probably due to hypovolemia and rapid AFib (resolved) -blood pressure is now stable off pressor * edema * will diurese * thigh wound seems weeping due to edema # C diff with GI fluid losses with vomiting and diarrhea; -suspect she was not absorbing her vancomycin well due to vomiting -Diarrhea now resolving # anemia, multifactorial, status post 1 unit red blood cell transfusion this admission - will follow closely and transfuse further if indicated # Rapid atrial fibrillation, -resume pradaxa -Now spontaneously to sinus rhythm # acute renal failure, likely hemodynamic etiology; -improved with resuscitation # large decubitus ulcers in the sacral area present on admission # ongoing open wound after prior major debridement for ischemic injury to her left leg and foot POA -This will require further debridement at this time, Dr. Dahl planned surgery today #delirium/ acute encephalopathy due to all the above - better with Zyprexa # elevated TSH with nml t4 and low t3 suspect subclinical hypothyroidism -repeat tsh 4-6 # A borderline elevation of troponin is likely due to her hypotension and rapid heart rate, and I do not suspect acute coronary syndrome and will not evaluate it further unless there is higher suspicion # type 2 diabetes currently reasonably controlled # ongoing Kirk catheter drainage with yeast in urine Subjective: no new complaints Objective: Vital Signs Temp Pulse Resp BP Pulse Ox 36.6 C 82 18 142/84 H 99 06/27/16 13:19 06/27/16 13:19 06/27/16 13:19 06/27/16 13:19 06/27/16 13:19 Laboratory Results 06/26/16 06:25 06/27/16 05:00 06/26/16 06/27/16 06/28/16 05:59 05:59 05:59 Intake Total 1915 1550 400 Output Total 1175 1125 Balance 740 425 400 PT 20.1 SEC (12.0-15.0) H 06/24/16 06:30 INR 1.71 (0.83-1.16) H 06/24/16 06:30 - Physical Exam Constitutional: no apparent distress, appears nourished, not in pain Eyes: anicteric sclera, EOMI Ears, Nose, Mouth, Throat: moist mucous membranes, hearing normal Cardiovascular: edema ( 2+) Respiratory: no respiratory distress, no rales or rhonchi, clear to auscultation Skin: warm Neurologic: AAOx3 Psychiatric: interacting appropriately, not anxious, not encephalopathic, thought process linear ICD10 Worksheet Patient Problems: Problems Problem Status Onset Anemia Acute Atrial fibrillation Acute Hypotension Acute Palliative care encounter Acute Paroxysmal atrial fibrillation Acute Urinary tract infection Acute
[2016-06-27] MEDS: FUROSEMIDE 40 MG/4 ML VIAL IVP SCH (17:03)
[2016-06-27] MEDS: OLANZapine 2.5 MG TAB PO SCH (22:04)
[2016-06-27] MEDS: ATORVASTATIN CALCIUM 40 MG TAB PO SCH (22:05)
[2016-06-28 05:21] LABS: MAGNESIUM 1.5 mg/dL (1.6-2.3); POTASSIUM 3.9 mEq/L (3.5-5.2)
[2016-06-28] MEDS: VANCOMYCIN 125 MG/2.5 ML UDL PO SCH ×4 (06:08→21:22)
[2016-06-28] MEDS ORDERED: MAGNESIUM SULF 1 GM/DEXTROSE 100 ML IV ONE (07:24)
--- NOTE | 2016-06-28 09:09 | SOAPPROG ---
SOAP Progress Note Assessment/Plan: Assessment: POD # 6 s/p debridement skin soft tissue tendon and bone with anterior skin graft and Primatrix ( bovine dermis) posterior and to heel. Wound Vac until 06/29/2016. Do not change. Call Hesham if questions Change dressing on thigh as needed NWB as much as possible LLE Will continue to follow S: sleeping soundly O: staining on thigh dressing Vac intact. Plan: 06/23/16 10:38 06/24/16 12:21 06/28/16 09:08 Objective: Vital Signs Temp Pulse Resp BP Pulse Ox 36.3 C 83 16 172/90 H 100 06/28/16 08:00 06/28/16 08:00 06/28/16 08:00 06/28/16 08:00 06/28/16 08:00 Laboratory Results 06/26/16 06:25 06/28/16 04:35 06/27/16 06/28/16 06/29/16 05:59 05:59 05:59 Intake Total 1550 500 Output Total 1125 2600 Balance 425 -2100 PT 20.1 SEC (12.0-15.0) H 06/24/16 06:30 INR 1.71 (0.83-1.16) H 06/24/16 06:30 ICD10 Worksheet Patient Problems: Problems Problem Status Onset Anemia Acute Atrial fibrillation Acute Hypotension Acute Palliative care encounter Acute Paroxysmal atrial fibrillation Acute Urinary tract infection Acute
[2016-06-28] MEDS: DABIGATRAN ETEXILATE MESYL 150 MG CAP PO SCH ×2 (09:43→21:21)
[2016-06-28] MEDS: AMIODARONE HCL 200 MG TAB PO SCH (09:43)
[2016-06-28] MEDS: FUROSEMIDE 40 MG/4 ML VIAL IVP SCH ×2 (09:43→16:01)
--- NOTE | 2016-06-28 14:17 | HOSPPROG ---
Hospitalist Progress Note Assessment/Plan: #diabetic foot infection s/p debridement by Dr. Dahl on 06/22 -cont wound vac # acute hypotension probably due to hypovolemia and rapid AFib (resolved) -blood pressure is now stable off pressor * edema * continue diurese * thigh wound seems weeping due to edema * check ultrasound of left upper extremity # C diff with GI fluid losses with vomiting and diarrhea; -suspect she was not absorbing her vancomycin well due to vomiting -Diarrhea now resolving # anemia, multifactorial, status post 1 unit red blood cell transfusion this admission - will follow closely and transfuse further if indicated # Rapid atrial fibrillation, -resume pradaxa -Now spontaneously to sinus rhythm # acute renal failure, likely hemodynamic etiology; -improved with resuscitation # large decubitus ulcers in the sacral area present on admission # ongoing open wound after prior major debridement for ischemic injury to her left leg and foot POA -This will require further debridement at this time, Dr. Dahl planned surgery today #delirium/ acute encephalopathy due to all the above - better with Zyprexa # elevated TSH with nml t4 and low t3 suspect subclinical hypothyroidism -repeat tsh 4-6 # A borderline elevation of troponin is likely due to her hypotension and rapid heart rate, and I do not suspect acute coronary syndrome and will not evaluate it further unless there is higher suspicion # type 2 diabetes currently reasonably controlled # ongoing Kirk catheter drainage with yeast in urine Subjective: complains of new left upper extremity swelling. Otherwise no new complaints Objective: Vital Signs Temp Pulse Resp BP Pulse Ox 36.3 C 83 16 172/90 H 100 06/28/16 08:00 06/28/16 08:00 06/28/16 08:00 06/28/16 08:00 06/28/16 08:00 Laboratory Results 06/26/16 06:25 06/28/16 04:35 06/27/16 06/28/16 06/29/16 05:59 05:59 05:59 Intake Total 1550 500 Output Total 1125 2600 1450 Balance 425 -2100 -1450 PT 20.1 SEC (12.0-15.0) H 06/24/16 06:30 INR 1.71 (0.83-1.16) H 06/24/16 06:30 - Physical Exam Constitutional: no apparent distress, appears nourished, not in pain Eyes: anicteric sclera, EOMI Ears, Nose, Mouth, Throat: moist mucous membranes, hearing normal, ears appear normal Cardiovascular: regular rate and rhythym, no murmur, rub, or gallop, edema ( mild left upper extremity edema, 1+ lower extremity) Respiratory: no respiratory distress, no rales or rhonchi, clear to auscultation Gastrointestinal: normoactive bowel sounds, soft, non-tender abdomen, no palpable masses Skin: warm Neurologic: AAOx3 Psychiatric: interacting appropriately, not anxious, not encephalopathic, thought process linear ICD10 Worksheet Patient Problems: Problems Problem Status Onset Anemia Acute Atrial fibrillation Acute Hypotension Acute Palliative care encounter Acute Paroxysmal atrial fibrillation Acute Urinary tract infection Acute
[2016-06-28] MEDS: oxyCODONE IR 5 MG TAB PO PRN (16:26)
[2016-06-28] MEDS: ATORVASTATIN CALCIUM 40 MG TAB PO SCH (21:21)
[2016-06-28] MEDS: OLANZapine 2.5 MG TAB PO SCH (21:22)
[2016-06-29] MEDS: VANCOMYCIN 125 MG/2.5 ML UDL PO SCH ×4 (05:41→21:21)
[2016-06-29 06:38] LABS: POTASSIUM 3.7 mEq/L (3.5-5.2)
[2016-06-29] MEDS: FUROSEMIDE 40 MG/4 ML VIAL IVP SCH ×2 (09:29→14:51)
[2016-06-29] MEDS: DABIGATRAN ETEXILATE MESYL 150 MG CAP PO SCH ×2 (09:29→21:21)
[2016-06-29] MEDS: AMIODARONE HCL 200 MG TAB PO SCH (09:29)
[2016-06-29] MEDS: oxyCODONE IR 5 MG TAB PO PRN ×3 (11:37→21:21)
[2016-06-29] MEDS ORDERED: MAGNESIUM SULF 2 GM/WATER 50 ML IV ONE ×2 (12:41→13:55)
--- NOTE | 2016-06-29 16:15 | HOSPPROG ---
Hospitalist Progress Note Assessment/Plan: #diabetic foot infection s/p debridement by Dr. Dahl on 06/22 -cont wound vac # acute hypotension probably due to hypovolemia and rapid AFib (resolved) -blood pressure is now stable off pressor * edema * continue diurese * thigh wound seems weeping due to edema # C diff with GI fluid losses with vomiting and diarrhea; - continue vancomycin - day 11 # anemia, multifactorial, status post 1 unit red blood cell transfusion this admission - will follow closely and transfuse further if indicated # Rapid atrial fibrillation, - pradaxa -Now spontaneously to sinus rhythm # acute renal failure, likely hemodynamic etiology; -improved with resuscitation # large decubitus ulcers in the sacral area present on admission # ongoing open wound after prior major debridement for ischemic injury to her left leg and foot POA -This will require further debridement at this time, Dr. Dahl planned surgery today #delirium/ acute encephalopathy due to all the above - better with Zyprexa # elevated TSH with nml t4 and low t3 suspect subclinical hypothyroidism -repeat tsh 4-6 # A borderline elevation of troponin is likely due to her hypotension and rapid heart rate, and I do not suspect acute coronary syndrome and will not evaluate it further unless there is higher suspicion # type 2 diabetes currently reasonably controlled # ongoing Kirk catheter drainage with yeast in urine Subjective: left arm swelling better Objective: Vital Signs Temp Pulse Resp BP Pulse Ox 36.8 C 80 18 172/77 H 100 06/29/16 08:00 06/29/16 08:00 06/29/16 08:00 06/29/16 08:00 06/29/16 08:00 Laboratory Results 06/26/16 06:25 06/29/16 05:45 06/28/16 06/29/16 06/30/16 05:59 05:59 05:59 Intake Total 500 900 250 Output Total 2600 3250 Balance -2100 -2350 250 PT 20.1 SEC (12.0-15.0) H 06/24/16 06:30 INR 1.71 (0.83-1.16) H 06/24/16 06:30 - Physical Exam Constitutional: no apparent distress, appears nourished, not in pain Eyes: anicteric sclera, EOMI Ears, Nose, Mouth, Throat: moist mucous membranes Cardiovascular: regular rate and rhythym, edema ( improving but still continued) Respiratory: no respiratory distress, no rales or rhonchi, clear to auscultation Gastrointestinal: normoactive bowel sounds, soft, non-tender abdomen, no palpable masses Skin: warm Neurologic: AAOx3 Psychiatric: interacting appropriately, not anxious, not encephalopathic, thought process linear ICD10 Worksheet Patient Problems: Problems Problem Status Onset Anemia Acute Atrial fibrillation Acute Hypotension Acute Palliative care encounter Acute Paroxysmal atrial fibrillation Acute Urinary tract infection Acute
--- NOTE | 2016-06-29 16:56 | SOAPPROG ---
SOAP Progress Note Assessment/Plan: 70yo F POD #7 s/p debridement skin soft tissue tendon and bone with anterior skin graft and Primatrix ( bovine dermis) posterior and to heel. Wound Vac changed today. Leave in place x 1 week (until 07/06). Call [facility] or T[facility] if questions Change dressing on thigh as needed NWB as much as possible LLE Appreciate hospitalist management of comorbidities S: Doing well. Tolerated dressing change well. O: Laying in bed, comfortable, NAD No increased WOB Thigh donor site CDI LLE wound CDI, graft site will 25% take, tissue intact and healthy. Posterior leg improving. tendon exposed but improved. Objective: Vital Signs Temp Pulse Resp BP Pulse Ox 36.4 C 94 19 94/61 L 100 06/29/16 16:00 06/29/16 16:00 06/29/16 16:00 06/29/16 16:00 06/29/16 16:00 Laboratory Results 06/26/16 06:25 06/29/16 05:45 06/28/16 06/29/16 06/30/16 05:59 05:59 05:59 Intake Total 500 900 250 Output Total 2600 3250 1775 Balance -2100 -2350 -1525 PT 20.1 SEC (12.0-15.0) H 06/24/16 06:30 INR 1.71 (0.83-1.16) H 06/24/16 06:30 ICD10 Worksheet Patient Problems: Problems Problem Status Onset Anemia Acute Atrial fibrillation Acute Hypotension Acute Palliative care encounter Acute Paroxysmal atrial fibrillation Acute Urinary tract infection Acute
[2016-06-29] MEDS: OLANZapine 2.5 MG TAB PO SCH (21:21)
[2016-06-29] MEDS: ATORVASTATIN CALCIUM 40 MG TAB PO SCH (21:21)
[2016-06-29] MEDS: INSULIN GLARGINE 100 UNITS/ML SYRINGE SC SCH (21:54)
[2016-06-30] MEDS: VANCOMYCIN 125 MG/2.5 ML UDL PO SCH ×4 (05:14→21:26)
[2016-06-30 05:46] LABS: % IMMATURE GRANULYOCYTES 0.5 % (0.0-1.1); ABSOLUTE IMMATURE GRANULOCYTES 0.04 10^3/uL (0.00-0.10); ADD DIFF? NO; ADD MORPH? NO; ADD SCAN? NO; ATYPICAL LYMPHOCYTE FLAG 10 (0-99); FRAGMENT RBC FLAG 0 (0-99); HEMATOCRIT 23.3 % (38.0-47.0); HEMOGLOBIN 7.3 g/dL (12.6-16.3); LEFT SHIFT FLG 0 (0-99); LIPEMIA HEMOLYSIS FLAG 80 (0-99); MEAN CELL HEMOGLOBIN 30.3 pg (27.9-34.1); MEAN CELL HEMOGLOBIN CONCENTR. 31.3 g/dL (32.4-36.7); MEAN CELL VOLUME 96.7 fL (81.5-99.8); MEAN PLATELET VOLUME 11.6 fL (8.7-11.7); PLATELET CLUMPS FLAG 0 (0-99); PLATELET COUNT 207 10^3/uL (150-400); RED BLOOD CELL COUNT 2.41 10^6/uL (4.18-5.33); RED CELL DISTRIBUTION WIDTH 16.2 % (11.5-15.2)
[2016-06-30 06:38] LABS: ANION GAP 2 mEq/L (8-16); CALCIUM 7.3 mg/dL (8.5-10.4); CARBON DIOXIDE 33 mEq/l (22-31); CHLORIDE 104 mEq/L (97-110); GLOMERULAR FILTRATION RATE 55; GLUCOSE 78 mg/dL (70-100); POTASSIUM 3.7 mEq/L (3.5-5.2); SODIUM 139 mEq/L (134-144)
[2016-06-30] MEDS: FUROSEMIDE 40 MG/4 ML VIAL IVP SCH (09:46)
--- NOTE | 2016-06-30 09:53 | HOSPPROG ---
Hospitalist Progress Note Assessment/Plan: # left lower extremity soft tissue wound status post debridement, POD#8; no evidence infection currently - d/t DM and arterial disease s/p fem-pop bipass 05/11 - wound vac in place, remove /[address] Dahl # hypotension - resolved, off pressors; d/t hypovolemia/a-fib RVR # a-fib with RVR - now rate controlled - cont amiodarone, pradaxa # DAVID - SCr up today - hold lasix and follow daily # c. dif - cont vanc PO, day#12 # peripheral edema - better, hold Lasix today # anemia, status post 1 unit of PRBC # large sacral decubitus ulcers, POA # delirium/encephalopathy - Zyprexa # subclinical hypothyroid - repeat TSH 6 weeks # mild troponin elevation - d/t demand; no further w/u at this point # DM2 - controlled, cont glargine 3 # justice - cont given decubitus ulcers and immobility # DNR ## chart reviewed US and CXR reviewed Subjective: No diarrhea overnight; some left foot pain Objective: Vital Signs Temp Pulse Resp BP Pulse Ox 37.3 C 88 18 112/54 L 97 06/30/16 00:00 06/30/16 00:00 06/30/16 00:00 06/30/16 00:00 06/30/16 02:28 Laboratory Results 06/30/16 05:30 06/30/16 05:30 06/29/16 06/30/16 07/01/16 05:59 05:59 05:59 Intake Total 900 1280 Output Total 3250 2475 Balance -2350 -1195 PT 20.1 SEC (12.0-15.0) H 06/24/16 06:30 INR 1.71 (0.83-1.16) H 06/24/16 06:30 Vitals reviewed Pleasant, no acute distress; obese Regular rate and rhythm, no murmurs rubs or gallops No respiratory distress, lungs clear to auscultation bilaterally, no wheezes or rales Abdomen soft nontender, nondistended, no hepatosplenomegaly Left foot with wound VAC in place, no surrounding erythema, initially wrapped in Abelardo bandage ICD10 Worksheet Patient Problems: Problems Problem Status Onset Urinary tract infection Acute Paroxysmal atrial fibrillation Acute Palliative care encounter Acute Anemia Acute Hypotension Acute Atrial fibrillation Acute
[2016-06-30] MEDS: AMIODARONE HCL 200 MG TAB PO SCH (10:23)
[2016-06-30] MEDS: DABIGATRAN ETEXILATE MESYL 150 MG CAP PO SCH ×2 (10:23→21:26)
[2016-06-30] MEDS: ONDANSETRON 4 MG/2 ML VIAL IVP PRN (13:32)
[2016-06-30] MEDS ORDERED: NS 250 ML IV ONE (15:04)
[2016-06-30] MEDS: ATORVASTATIN CALCIUM 40 MG TAB PO SCH (21:26)
[2016-06-30] MEDS: INSULIN GLARGINE 100 UNITS/ML SYRINGE SC SCH (21:26)
[2016-06-30] MEDS: OLANZapine 2.5 MG TAB PO SCH (21:26)
[2016-06-30] MEDS: oxyCODONE IR 5 MG TAB PO PRN (23:00)
[2016-07-01] MEDS: VANCOMYCIN 125 MG/2.5 ML UDL PO SCH ×4 (05:00→21:16)
[2016-07-01 05:20] LABS: % IMMATURE GRANULYOCYTES 0.5 % (0.0-1.1); ABSOLUTE IMMATURE GRANULOCYTES 0.03 10^3/uL (0.00-0.10); ADD DIFF? NO; ADD MORPH? YES; ADD SCAN? NO; ATYPICAL LYMPHOCYTE FLAG 10 (0-99); FRAGMENT RBC FLAG 0 (0-99); HEMATOCRIT 21.2 % (38.0-47.0); LEFT SHIFT FLG 0 (0-99); LIPEMIA HEMOLYSIS FLAG 80 (0-99); MEAN CELL HEMOGLOBIN 30.3 pg (27.9-34.1); MEAN CELL HEMOGLOBIN CONCENTR. 31.6 g/dL (32.4-36.7); MEAN CELL VOLUME 95.9 fL (81.5-99.8); MEAN PLATELET VOLUME 11.6 fL (8.7-11.7); PLATELET CLUMPS FLAG 0 (0-99); PLATELET COUNT 191 10^3/uL (150-400); RED BLOOD CELL COUNT 2.21 10^6/uL (4.18-5.33); RED CELL DISTRIBUTION WIDTH 16.5 % (11.5-15.2)
[2016-07-01 05:22] LABS: HEMOGLOBIN 6.7 g/dL (12.6-16.3)
[2016-07-01 05:31] LABS: ANION GAP 2 mEq/L (8-16); CALCIUM 7.3 mg/dL (8.5-10.4); CARBON DIOXIDE 32 mEq/l (22-31); CHLORIDE 104 mEq/L (97-110); CREATININE 0.9 mg/dL (0.6-1.0); GLOMERULAR FILTRATION RATE > 60; GLUCOSE 85 mg/dL (70-100); MAGNESIUM 1.8 mg/dL (1.6-2.3); POTASSIUM 3.5 mEq/L (3.5-5.2); SODIUM 138 mEq/L (134-144)
[2016-07-01] MEDS ORDERED: MAGNESIUM SULF 1 GM/DEXTROSE 100 ML IV ONE (05:56)
[2016-07-01 06:07] LABS: PLATELET ESTIMATE ADEQUATE (ADEQ)
[2016-07-01 06:10] LABS: HYPOCHROMIA 2+; POLYCHROMASIA 1+
--- NOTE | 2016-07-01 09:06 | SOAPPROG ---
SOAP Progress Note Assessment/Plan: Assessment/Plan - VAC was taken down and replaced Sat. Site looked good at that time. Surrounding area without erythema and VAC holding suction appropriately. Cont care as ordered, Dr Dahl to assess next week at next VAC change, call with VAC issues but surgical service will change. 07/01/16 09:05 Subjective: No complaints, no pain when not moving Objective: Vital Signs Temp Pulse Resp BP Pulse Ox 36.8 C 88 20 112/62 92 06/30/16 19:36 06/30/16 19:36 06/30/16 19:36 06/30/16 19:36 06/30/16 19:36 Laboratory Results 07/01/16 04:45 07/01/16 04:45 06/30/16 07/01/16 07/02/16 05:59 05:59 05:59 Intake Total 1280 1150 Output Total 2475 240 Balance -1195 910 PT 20.1 SEC (12.0-15.0) H 06/24/16 06:30 INR 1.71 (0.83-1.16) H 06/24/16 06:30 ICD10 Worksheet Patient Problems: Problems Problem Status Onset Anemia Acute Atrial fibrillation Acute Hypotension Acute Palliative care encounter Acute Paroxysmal atrial fibrillation Acute Urinary tract infection Acute
[2016-07-01] MEDS: AMIODARONE HCL 200 MG TAB PO SCH (09:13)
[2016-07-01] MEDS: DABIGATRAN ETEXILATE MESYL 150 MG CAP PO SCH ×2 (09:14→21:16)
[2016-07-01] MEDS: oxyCODONE IR 5 MG TAB PO PRN ×2 (10:32→21:16)
[2016-07-01] MEDS ORDERED: FUROSEMIDE 40 MG/4 ML VIAL IVP ONE ×2 (12:38→21:00)
[2016-07-01] MEDS ORDERED: POTASSIUM CL 20 MEQ TAB PO ONE ×2 (12:40→17:00)
[2016-07-01] MEDS ORDERED: LACTULOSE 20 GM/30 ML UDCUP PO PRN (12:44)
[2016-07-01] MEDS ORDERED: BISACODYL 10 MG SUPP PR PRN (12:44)
[2016-07-01] MEDS ORDERED: POLYETHYLENE GLYCOL 3350 17 GM PKT PO PRN (12:44)
[2016-07-01] MEDS ORDERED: MAGNESIUM HYDROXIDE 30 ML UDCUP PO PRN (12:44)
--- NOTE | 2016-07-01 12:48 | HOSPPROG ---
Hospitalist Progress Note Assessment/Plan: # left lower extremity soft tissue wound status post debridement, POD#9; no evidence infection currently - d/t DM and arterial disease s/p fem-pop bipass 05/11 - wound vac in place, remove /[address] Dahl # hypotension - resolved, off pressors; d/t hypovolemia/a-fib RVR # a-fib with RVR - now rate controlled - cont amiodarone, pradaxa # anemia - transfuse today, follow with lasix IV # DAVID - SCr better - will restart lasix tomorrow at previous outpatient dose # c. dif - cont vanc PO, day#13 # peripheral edema - better, restart lasix tomorrow # large sacral decubitus ulcers, POA # delirium/encephalopathy - Zyprexa # subclinical hypothyroid - repeat TSH 6 weeks # mild troponin elevation - d/t demand; no further w/u at this point # DM2 - controlled, cont glargine 3 # justice - cont given decubitus ulcers and immobility # DNR ## high risk needing transfusion Subjective: no BM for 2 days Objective: Vital Signs Temp Pulse Resp BP Pulse Ox 37.0 C 79 14 139/90 H 96 07/01/16 12:32 07/01/16 12:32 07/01/16 12:32 07/01/16 12:32 07/01/16 12:32 Laboratory Results 07/01/16 04:45 07/01/16 04:45 06/30/16 07/01/16 07/02/16 05:59 05:59 05:59 Intake Total 1280 1150 Output Total 2475 240 Balance -1195 910 PT 20.1 SEC (12.0-15.0) H 06/24/16 06:30 INR 1.71 (0.83-1.16) H 06/24/16 06:30 - Physical Exam Constitutional: no apparent distress, appears nourished, not in pain Cardiovascular: regular rate and rhythym, systolic murmur, No diastolic murmur, No tachycardia, No bradycardia Respiratory: no respiratory distress, no rales or rhonchi, clear to auscultation Gastrointestinal: normoactive bowel sounds, soft, non-tender abdomen, no palpable masses ICD10 Worksheet Patient Problems: Problems Problem Status Onset Urinary tract infection Acute Paroxysmal atrial fibrillation Acute Palliative care encounter Acute Anemia Acute Hypotension Acute Atrial fibrillation Acute
[2016-07-01] MEDS: INSULIN GLARGINE 100 UNITS/ML SYRINGE SC SCH (21:15)
[2016-07-01] MEDS: ATORVASTATIN CALCIUM 40 MG TAB PO SCH (21:16)
[2016-07-01] MEDS: OLANZapine 2.5 MG TAB PO SCH (21:16)
[2016-07-01] MEDS: SENNOSIDES/DOCUSATE SODIUM TAB PO SCH (21:16)
[2016-07-02] MEDS: VANCOMYCIN 125 MG/2.5 ML UDL PO SCH ×4 (05:37→21:29)
[2016-07-02 06:11] LABS: % IMMATURE GRANULYOCYTES 0.3 % (0.0-1.1); ABSOLUTE IMMATURE GRANULOCYTES 0.02 10^3/uL (0.00-0.10); ADD DIFF? NO; ADD MORPH? NO; ADD SCAN? NO; ATYPICAL LYMPHOCYTE FLAG 0 (0-99); FRAGMENT RBC FLAG 0 (0-99); HEMATOCRIT 30.5 % (38.0-47.0); HEMOGLOBIN 9.8 g/dL (12.6-16.3); LEFT SHIFT FLG 0 (0-99); LIPEMIA HEMOLYSIS FLAG 80 (0-99); MEAN CELL HEMOGLOBIN 30.3 pg (27.9-34.1); MEAN CELL HEMOGLOBIN CONCENTR. 32.1 g/dL (32.4-36.7); MEAN CELL VOLUME 94.4 fL (81.5-99.8); MEAN PLATELET VOLUME 11.5 fL (8.7-11.7); PLATELET CLUMPS FLAG 0 (0-99); PLATELET COUNT 191 10^3/uL (150-400); RED BLOOD CELL COUNT 3.23 10^6/uL (4.18-5.33); RED CELL DISTRIBUTION WIDTH 16.3 % (11.5-15.2)
[2016-07-02 06:28] LABS: ANION GAP 1 mEq/L (8-16); CALCIUM 7.6 mg/dL (8.5-10.4); CARBON DIOXIDE 36 mEq/l (22-31); CHLORIDE 102 mEq/L (97-110); CREATININE 0.8 mg/dL (0.6-1.0); GLOMERULAR FILTRATION RATE > 60; GLUCOSE 65 mg/dL (70-100); MAGNESIUM 1.7 mg/dL (1.6-2.3); POTASSIUM 3.5 mEq/L (3.5-5.2); SODIUM 139 mEq/L (134-144)
[2016-07-02] MEDS ORDERED: MAGNESIUM SULF 1 GM/DEXTROSE 100 ML IV ONE (06:32)
--- NOTE | 2016-07-02 11:05 | WOCRNPDOC ---
WOCRN Advanced Assessment Note - Skin Integrity Problem, Advanced Assess Left Sacrum Pressure Injury Dressing Type: Allevyn Life Dressing Description: Clean/Dry, Intact Exudate Amount: Scant Exudate Characteristic(s): Serosanguinous Integumentary Issue Intervention: Dressing Changed, Dressing Initialed & Dated Noemí Wound Tissue: Erythema Wound Bed Constitution: Granulation Tissue (50%), Smooth Tissue (50%) Wound Edges: Epithelizing Site Measurement - Head-to-Toe Length X Width X Depth (cm): 5x3x0.2 Pressure Injury Stage: Stage 3 Pressure Injury Present on Admit: Yes Skin Integrity Problem Comment: Healing, though border on one side seems slightly wider, wound is filling in. Patient with liquid stool on assessment. Continue with plan of care. Will visualize again in one week.
[2016-07-02] MEDS: ONDANSETRON 4 MG/2 ML VIAL IVP PRN (11:10)
[2016-07-02] MEDS: SENNOSIDES/DOCUSATE SODIUM TAB PO SCH ×2 (11:15→21:29)
[2016-07-02] MEDS: AMIODARONE HCL 200 MG TAB PO SCH (11:15)
[2016-07-02] MEDS: DABIGATRAN ETEXILATE MESYL 150 MG CAP PO SCH ×2 (11:15→21:29)
[2016-07-02] MEDS: FUROSEMIDE 20 MG TAB PO SCH (11:15)
--- NOTE | 2016-07-02 12:45 | HOSPPROG ---
Hospitalist Progress Note Assessment/Plan: # left lower extremity soft tissue wound status post debridement, POD#10; no evidence infection currently - d/t DM and arterial disease s/p fem-pop bipass 05/11 - wound vac in place, remove 07/[address] Dahl # hypotension - resolved, off pressors; d/t hypovolemia/a-fib RVR # a-fib with RVR - now rate controlled - cont amiodarone, pradaxa # anemia - s/p transfusion yesterday, good hgb response # DAVID - SCr better - will restart lasix tomorrow at previous outpatient dose # c. dif - cont vanc PO, day#14 - dc tomorrow # peripheral edema - better, lasix at outpt dose # large sacral decubitus ulcers, POA - better # delirium/encephalopathy - Zyprexa # subclinical hypothyroid - repeat TSH 6 weeks # mild troponin elevation - d/t demand; no further w/u at this point # DM2 with hypoglycemia - hold glargine tonight # justice - cont given decubitus ulcers and immobility # DNR ## discussed with Dr Dunlap - change wound vac later this week Subjective: Lovell a little nauseous after breakfast Objective: Vital Signs Temp Pulse Resp BP Pulse Ox 36.6 C 83 14 125/70 H 96 07/02/16 07:43 07/02/16 07:43 07/02/16 07:43 07/02/16 11:00 07/02/16 07:43 Laboratory Results 07/02/16 05:30 07/02/16 05:30 07/01/16 07/02/16 07/03/16 05:59 05:59 05:59 Intake Total 1150 1100 Output Total 240 3200 Balance 910 -2100 PT 20.1 SEC (12.0-15.0) H 06/24/16 06:30 INR 1.71 (0.83-1.16) H 06/24/16 06:30 Vitals reviewed Pleasant, no acute distress Regular rate and rhythm, no murmurs rubs or gallops No respiratory distress, lungs clear to auscultation bilaterally, no wheezes or rales Abdomen soft nontender, nondistended, no hepatosplenomegaly Left foot with a boot on, wound VAC underneath ICD10 Worksheet Patient Problems: Problems Problem Status Onset Urinary tract infection Acute Paroxysmal atrial fibrillation Acute Palliative care encounter Acute Anemia Acute Hypotension Acute Atrial fibrillation Acute
[2016-07-02] MEDS: OLANZapine 2.5 MG TAB PO SCH (21:29)
[2016-07-02] MEDS: ATORVASTATIN CALCIUM 40 MG TAB PO SCH (21:29)
[2016-07-03 04:59] LABS: % IMMATURE GRANULYOCYTES 0.2 % (0.0-1.1); ABSOLUTE IMMATURE GRANULOCYTES 0.01 10^3/uL (0.00-0.10); ADD DIFF? NO; ADD MORPH? NO; ADD SCAN? NO; ATYPICAL LYMPHOCYTE FLAG 10 (0-99); FRAGMENT RBC FLAG 0 (0-99); HEMATOCRIT 31.7 % (38.0-47.0); HEMOGLOBIN 10.1 g/dL (12.6-16.3); LEFT SHIFT FLG 0 (0-99); LIPEMIA HEMOLYSIS FLAG 80 (0-99); MEAN CELL HEMOGLOBIN 29.7 pg (27.9-34.1); MEAN CELL HEMOGLOBIN CONCENTR. 31.9 g/dL (32.4-36.7); MEAN CELL VOLUME 93.2 fL (81.5-99.8); MEAN PLATELET VOLUME 11.4 fL (8.7-11.7); PLATELET CLUMPS FLAG 10 (0-99); PLATELET COUNT 202 10^3/uL (150-400); RED CELL DISTRIBUTION WIDTH 15.9 % (11.5-15.2)
[2016-07-03 05:01] LABS: ANION GAP 3 mEq/L (8-16); CALCIUM 7.6 mg/dL (8.5-10.4); CARBON DIOXIDE 36 mEq/l (22-31); CHLORIDE 97 mEq/L (97-110); CREATININE 0.8 mg/dL (0.6-1.0); GLOMERULAR FILTRATION RATE > 60; GLUCOSE 78 mg/dL (70-100); MAGNESIUM 1.5 mg/dL (1.6-2.3); POTASSIUM 3.5 mEq/L (3.5-5.2); SODIUM 136 mEq/L (134-144)
[2016-07-03] MEDS: VANCOMYCIN 125 MG/2.5 ML UDL PO SCH ×2 (06:27→12:30)
[2016-07-03] MEDS ORDERED: MAGNESIUM SULF 1 GM/DEXTROSE 100 ML IV ONE (08:48)
[2016-07-03] MEDS: FUROSEMIDE 20 MG TAB PO SCH (09:20)
[2016-07-03] MEDS: AMIODARONE HCL 200 MG TAB PO SCH (09:20)
[2016-07-03] MEDS: DABIGATRAN ETEXILATE MESYL 150 MG CAP PO SCH ×2 (09:20→23:07)
[2016-07-03] MEDS: SENNOSIDES/DOCUSATE SODIUM TAB PO SCH ×2 (09:21→23:10)
--- NOTE | 2016-07-03 14:46 | HOSPPROG ---
Hospitalist Progress Note Assessment/Plan: # left lower extremity soft tissue wound status post debridement, POD#11; no evidence infection currently - d/t DM and vascular disease s/p fem-pop bipass 05/11 - wound vac in place, remove / per Dr Dahl # hypotension - resolved, off pressors; d/t hypovolemia/a-fib RVR # a-fib with RVR - now rate controlled - cont amiodarone, pradaxa # anemia - s/p transfusion yesterday, good hgb response # DAVID - SCr better # volume status: Close to euvolemic - continue outpatient dose of Lasix # c. dif - s/p 14 days of vanc PO with resolution of diarrhea # large sacral decubitus ulcers, POA - better # delirium/encephalopathy - Zyprexa # subclinical hypothyroid - repeat TSH 6 weeks # mild troponin elevation - d/t demand; no further w/u at this point # DM2 with hypoglycemia - normoglycemic with no insulin # justice - cont given decubitus ulcers and immobility # DNR ## mod risk Subjective: Has been getting nauseous when she takes oral vancomycin Objective: Vital Signs Temp Pulse Resp BP Pulse Ox 37.1 C 79 18 112/67 95 07/03/16 12:38 07/03/16 12:38 07/03/16 12:38 07/03/16 12:38 07/03/16 12:38 Laboratory Results 07/03/16 04:20 07/03/16 04:20 07/02/16 07/03/16 07/04/16 05:59 05:59 05:59 Intake Total 1100 600 Output Total 3200 1675 Balance -2100 -1075 PT 20.1 SEC (12.0-15.0) H 06/24/16 06:30 INR 1.71 (0.83-1.16) H 06/24/16 06:30 Vitals reviewed Pleasant, no acute distress; obese Regular rate and rhythm, no murmurs rubs or gallops No respiratory distress, lungs clear to auscultation bilaterally, no wheezes or rales Abdomen soft nontender, nondistended, no hepatosplenomegaly Left foot with wound VAC ICD10 Worksheet Patient Problems: Problems Problem Status Onset Urinary tract infection Acute Paroxysmal atrial fibrillation Acute Palliative care encounter Acute Anemia Acute Hypotension Acute Atrial fibrillation Acute
[2016-07-03] MEDS ORDERED: PROTOCOL POTASSIUM 1 DOSE MISC PRN (15:46)
[2016-07-03] MEDS ORDERED: POTASSIUM CL 10 MEQ TAB PO ONE (16:06)
[2016-07-03] MEDS: OLANZapine 2.5 MG TAB PO SCH (23:07)
[2016-07-03] MEDS: ATORVASTATIN CALCIUM 40 MG TAB PO SCH (23:07)
[2016-07-04 05:29] LABS: % IMMATURE GRANULYOCYTES 0.3 % (0.0-1.1); ABSOLUTE IMMATURE GRANULOCYTES 0.02 10^3/uL (0.00-0.10); ADD DIFF? NO; ADD MORPH? NO; ADD SCAN? NO; ATYPICAL LYMPHOCYTE FLAG 10 (0-99); FRAGMENT RBC FLAG 0 (0-99); HEMATOCRIT 33.8 % (38.0-47.0); HEMOGLOBIN 10.7 g/dL (12.6-16.3); LEFT SHIFT FLG 0 (0-99); LIPEMIA HEMOLYSIS FLAG 80 (0-99); MEAN CELL HEMOGLOBIN 30.3 pg (27.9-34.1); MEAN CELL HEMOGLOBIN CONCENTR. 31.7 g/dL (32.4-36.7); MEAN CELL VOLUME 95.8 fL (81.5-99.8); MEAN PLATELET VOLUME 11.5 fL (8.7-11.7); PLATELET CLUMPS FLAG 0 (0-99); PLATELET COUNT 203 10^3/uL (150-400); RED BLOOD CELL COUNT 3.53 10^6/uL (4.18-5.33); RED CELL DISTRIBUTION WIDTH 15.5 % (11.5-15.2)
[2016-07-04 06:06] LABS: ANION GAP 3 mEq/L (8-16); CALCIUM 7.7 mg/dL (8.5-10.4); CARBON DIOXIDE 36 mEq/l (22-31); CHLORIDE 97 mEq/L (97-110); CREATININE 0.8 mg/dL (0.6-1.0); GLOMERULAR FILTRATION RATE > 60; GLUCOSE 77 mg/dL (70-100); MAGNESIUM 1.6 mg/dL (1.6-2.3); POTASSIUM 3.7 mEq/L (3.5-5.2); SODIUM 136 mEq/L (134-144)
[2016-07-04] MEDS ORDERED: POTASSIUM CL 10 MEQ TAB PO ONE ×2 (09:22→20:11)
[2016-07-04] MEDS ORDERED: MAGNESIUM SULF 1 GM/DEXTROSE 100 ML IV ONE ×2 (09:23→09:24)
[2016-07-04] MEDS: DABIGATRAN ETEXILATE MESYL 150 MG CAP PO SCH ×2 (10:54→21:20)
[2016-07-04] MEDS: FUROSEMIDE 20 MG TAB PO SCH (10:54)
[2016-07-04] MEDS: AMIODARONE HCL 200 MG TAB PO SCH (10:54)
[2016-07-04] MEDS: SENNOSIDES/DOCUSATE SODIUM TAB PO SCH ×2 (11:00→23:04)
--- NOTE | 2016-07-04 12:38 | SOAPPROG ---
SOAP Progress Note Assessment/Plan: 70yo F s/p debridement skin soft tissue tendon and bone with anterior skin graft and Primatrix ( bovine dermis) posterior and to heel. Wound Vac intact, we will remove prior to discharge Change dressing on thigh as needed NWB as much as possible LLE Appreciate hospitalist management of comorbidities Likely SNF tomorrow Follow-up with Dr. Dahl 1 week after [facility] S: Increased pain in L foot today O: Laying in bed, comfortable, NAD No increased WOB Thigh donor site CDI LLE wound vac intact Distal L 5th MT wound clean, dressing replaced 07/04/16 12:38 Objective: Vital Signs Temp Pulse Resp BP Pulse Ox 36.4 C 80 14 142/83 H 100 07/04/16 08:00 07/04/16 08:00 07/04/16 08:00 07/04/16 08:00 07/04/16 08:00 Laboratory Results 07/04/16 05:00 07/04/16 05:00 07/03/16 07/04/16 07/05/16 05:59 05:59 05:59 Intake Total 600 150 Output Total 1675 1350 Balance -1075 -1200 PT 20.1 SEC (12.0-15.0) H 06/24/16 06:30 INR 1.71 (0.83-1.16) H 06/24/16 06:30 ICD10 Worksheet Patient Problems: Problems Problem Status Onset Anemia Acute Atrial fibrillation Acute Hypotension Acute Palliative care encounter Acute Paroxysmal atrial fibrillation Acute Urinary tract infection Acute
--- NOTE | 2016-07-04 12:38 | SOAPPROG ---
SOAP Progress Note Assessment/Plan: 70yo F s/p debridement skin soft tissue tendon and bone with anterior skin graft and Primatrix ( bovine dermis) posterior and to heel. Wound Vac intact, we will remove prior to discharge Change dressing on thigh as needed NWB as much as possible LLE Appreciate hospitalist management of comorbidities Likely SNF tomorrow S: Increased pain in L foot today O: Laying in bed, comfortable, NAD No increased WOB Thigh donor site CDI LLE wound vac intact Distal L 5th MT wound clean, dressing replaced Objective: Vital Signs Temp Pulse Resp BP Pulse Ox 36.4 C 80 14 142/83 H 100 07/04/16 08:00 07/04/16 08:00 07/04/16 08:00 07/04/16 08:00 07/04/16 08:00 Laboratory Results 07/04/16 05:00 07/04/16 05:00 07/03/16 07/04/16 07/05/16 05:59 05:59 05:59 Intake Total 600 150 Output Total 1675 1350 Balance -1075 -1200 PT 20.1 SEC (12.0-15.0) H 06/24/16 06:30 INR 1.71 (0.83-1.16) H 06/24/16 06:30 ICD10 Worksheet Patient Problems: Problems Problem Status Onset Anemia Acute Atrial fibrillation Acute Hypotension Acute Palliative care encounter Acute Paroxysmal atrial fibrillation Acute Urinary tract infection Acute
--- NOTE | 2016-07-04 15:06 | HOSPPROG ---
Hospitalist Progress Note Assessment/Plan: # left lower extremity soft tissue wound status post debridement, POD#12; no evidence infection currently - d/t DM and vascular disease s/p fem-pop bipass 05/11 - wound vac in place, remove likely tomorrow per Dr Dahl # hypotension - resolved, off pressors; d/t hypovolemia/a-fib RVR # a-fib with RVR - now rate controlled - cont amiodarone, pradaxa # anemia - s/p 3 U PRBC, stable hgb for 72 hrs # DAVID - SCr better # volume status: Close to euvolemic - continue outpatient dose of Lasix # c. dif - s/p 14 days of vanc PO - mild loose stools do not seem c/w c. dif # large sacral decubitus ulcers, POA - better # delirium/encephalopathy - Zyprexa # subclinical hypothyroid - repeat TSH 6 weeks # mild troponin elevation - d/t demand; no further w/u at this point # DM2 with hypoglycemia - normoglycemic with no insulin # justice - cont given decubitus ulcers and immobility # DNR # dispo - likely tomorrow to SNF - working on options ## discussed with Dr Dahl - likely dc tomorrow Subjective: no BMs today Objective: Vital Signs Temp Pulse Resp BP Pulse Ox 36.4 C 80 14 142/83 H 100 07/04/16 08:00 07/04/16 08:00 07/04/16 08:00 07/04/16 08:00 07/04/16 08:00 Laboratory Results 07/04/16 05:00 07/04/16 05:00 07/03/16 07/04/16 07/05/16 05:59 05:59 05:59 Intake Total 600 150 Output Total 1675 1350 Balance -1075 -1200 PT 20.1 SEC (12.0-15.0) H 06/24/16 06:30 INR 1.71 (0.83-1.16) H 06/24/16 06:30 - Physical Exam Constitutional: no apparent distress, appears nourished, obese Cardiovascular: regular rate and rhythym, no murmur, rub, or gallop Respiratory: no respiratory distress, no rales or rhonchi, clear to auscultation Gastrointestinal: normoactive bowel sounds, soft, non-tender abdomen, no palpable masses ICD10 Worksheet Patient Problems: Problems Problem Status Onset Urinary tract infection Acute Paroxysmal atrial fibrillation Acute Palliative care encounter Acute Anemia Acute Hypotension Acute Atrial fibrillation Acute
[2016-07-04 19:57] LABS: POTASSIUM 3.9 mEq/L (3.5-5.2)
[2016-07-04] MEDS: ATORVASTATIN CALCIUM 40 MG TAB PO SCH (21:20)
[2016-07-04] MEDS: OLANZapine 2.5 MG TAB PO SCH (21:20)
[2016-07-05 05:10] LABS: % IMMATURE GRANULYOCYTES 0.2 % (0.0-1.1); ABSOLUTE IMMATURE GRANULOCYTES 0.01 10^3/uL (0.00-0.10); ADD DIFF? NO; ADD MORPH? NO; ADD SCAN? NO; ATYPICAL LYMPHOCYTE FLAG 0 (0-99); FRAGMENT RBC FLAG 0 (0-99); HEMATOCRIT 32.1 % (38.0-47.0); LEFT SHIFT FLG 0 (0-99); LIPEMIA HEMOLYSIS FLAG 80 (0-99); MEAN CELL HEMOGLOBIN 30.6 pg (27.9-34.1); MEAN CELL HEMOGLOBIN CONCENTR. 31.2 g/dL (32.4-36.7); MEAN CELL VOLUME 98.2 fL (81.5-99.8); MEAN PLATELET VOLUME 11.4 fL (8.7-11.7); PLATELET CLUMPS FLAG 10 (0-99); PLATELET COUNT 178 10^3/uL (150-400); RED BLOOD CELL COUNT 3.27 10^6/uL (4.18-5.33); RED CELL DISTRIBUTION WIDTH 15.4 % (11.5-15.2)
[2016-07-05 05:25] LABS: MAGNESIUM 1.8 mg/dL (1.6-2.3); POTASSIUM 3.9 mEq/L (3.5-5.2)
[2016-07-05] MEDS: oxyCODONE IR 5 MG TAB PO PRN ×2 (06:10→14:43)
[2016-07-05] MEDS ORDERED: POTASSIUM CL 10 MEQ TAB PO ONE (07:55)
[2016-07-05] MEDS ORDERED: MAGNESIUM SULF 1 GM/DEXTROSE 100 ML BAG IV ONE (08:45)
[2016-07-05] MEDS: AMIODARONE HCL 200 MG TAB PO SCH (08:51)
[2016-07-05] MEDS: DABIGATRAN ETEXILATE MESYL 150 MG CAP PO SCH ×2 (08:51→21:50)
[2016-07-05] MEDS: SENNOSIDES/DOCUSATE SODIUM TAB PO SCH ×2 (08:58→21:49)
[2016-07-05] MEDS ORDERED: MAGNESIUM SULF 1 GM/DEXTROSE 100 ML IV ONE (09:00)
[2016-07-05] MEDS: FUROSEMIDE 20 MG TAB PO SCH (09:07)
--- NOTE | 2016-07-05 12:12 | HOSPPROG ---
Hospitalist Progress Note Assessment/Plan: # left lower extremity soft tissue wound status post debridement, POD#13; no evidence infection currently - d/t DM and vascular disease s/p fem-pop bipass 05/11 - wound vac in place, remove likely today per Dr Dahl # hypotension - resolved, off pressors; d/t hypovolemia/a-fib RVR # a-fib with RVR - now rate controlled - cont amiodarone, pradaxa # anemia - s/p 3 U PRBC, stable hgb for 72 hrs # DAVID - SCr better # volume status: Close to euvolemic - continue outpatient dose of Lasix # c. dif - s/p 14 days of vanc PO - mild loose stools do not seem c/w c. dif # large sacral decubitus ulcers, POA - better # delirium/encephalopathy - Zyprexa # subclinical hypothyroid - repeat TSH 6 weeks # mild troponin elevation - d/t demand; no further w/u at this point # DM2 with hypoglycemia - normoglycemic with no insulin # justice - cont given decubitus ulcers and immobility # DNR # dispo -possible dc later today pending wound vac removal and placement secured Subjective: no new complaints. no chest pain. no sob Objective: Vital Signs Temp Pulse Resp BP Pulse Ox 36.7 C 75 16 166/100 H 97 07/05/16 08:01 07/05/16 08:01 07/05/16 04:00 07/05/16 08:01 07/05/16 08:01 Laboratory Results 07/05/16 04:40 07/05/16 04:40 07/04/16 07/05/16 07/06/16 05:59 05:59 05:59 Intake Total 150 920 105 Output Total 1350 1000 Balance -1200 -80 105 PT 20.1 SEC (12.0-15.0) H 06/24/16 06:30 INR 1.71 (0.83-1.16) H 06/24/16 06:30 - Physical Exam Constitutional: no apparent distress, appears nourished, not in pain Cardiovascular: regular rate and rhythym, no murmur, rub, or gallop, edema ( bilat legs) Gastrointestinal: normoactive bowel sounds, soft, non-tender abdomen, no palpable masses Genitourinary: justice in urethra Skin: no rashes or abrasions, no fluctuance, no induration Neurologic: AAOx3, sensation intact bilaterally ICD10 Worksheet Patient Problems: Problems Problem Status Onset Urinary tract infection Acute Paroxysmal atrial fibrillation Acute Palliative care encounter Acute Anemia Acute Hypotension Acute Atrial fibrillation Acute
[2016-07-05 20:24] LABS: POTASSIUM 3.5 mEq/L (3.5-5.2)
[2016-07-05] MEDS: OLANZapine 2.5 MG TAB PO SCH (21:48)
[2016-07-05] MEDS: ATORVASTATIN CALCIUM 40 MG TAB PO SCH (21:48)
[2016-07-05] MEDS ORDERED: POTASSIUM CL 20 MEQ TAB PO ONE (21:52)
[2016-07-06 06:54] LABS: MAGNESIUM 1.7 mg/dL (1.6-2.3); POTASSIUM 4.1 mEq/L (3.5-5.2)
[2016-07-06 06:55] LABS: % IMMATURE GRANULYOCYTES 0.2 % (0.0-1.1); ABSOLUTE IMMATURE GRANULOCYTES 0.01 10^3/uL (0.00-0.10); ADD DIFF? NO; ADD MORPH? NO; ADD SCAN? NO; ATYPICAL LYMPHOCYTE FLAG 10 (0-99); FRAGMENT RBC FLAG 0 (0-99); HEMATOCRIT 31.7 % (38.0-47.0); HEMOGLOBIN 9.7 g/dL (12.6-16.3); LEFT SHIFT FLG 0 (0-99); LIPEMIA HEMOLYSIS FLAG 80 (0-99); MEAN CELL HEMOGLOBIN 29.8 pg (27.9-34.1); MEAN CELL HEMOGLOBIN CONCENTR. 30.6 g/dL (32.4-36.7); MEAN CELL VOLUME 97.2 fL (81.5-99.8); PLATELET CLUMPS FLAG 0 (0-99); PLATELET COUNT 183 10^3/uL (150-400); RED BLOOD CELL COUNT 3.26 10^6/uL (4.18-5.33)
[2016-07-06 09:39] VITALS: BP 138/65; PULSE 74; RESP 12; TEMP 98.2; O2SAT 98
[2016-07-06] MEDS: DABIGATRAN ETEXILATE MESYL 150 MG CAP PO SCH (10:13)
[2016-07-06] MEDS: FUROSEMIDE 20 MG TAB PO SCH (10:13)
[2016-07-06] MEDS: AMIODARONE HCL 200 MG TAB PO SCH (10:13)
[2016-07-06] MEDS: oxyCODONE IR 5 MG TAB PO PRN ×2 (10:30→14:01)
--- NOTE | 2016-07-06 11:35 | PDIAF ---
- Diagnosis Diagnosis: lower extremity wound Code Status: Do Not Resuscitate - Medication Management Discharge Medications: Medications to Continue on Transfer Acetaminophen [Tylenol ES 500 mg (*)] 500 mg PO HS 06/18/16 [Last Taken Unknown] Amiodarone HCl [Pacerone (*)] 200 mg PO DAILY 06/18/16 [Last Taken Unknown] Aspirin [Aspirin 81mg (*)] 81 mg PO HS 06/18/16 [Last Taken Unknown] Atorvastatin Calcium [Lipitor 40 mg (*)] 40 mg PO HS 06/18/16 [Last Taken Unknown] Dabigatran Etexilate Mesyl [Pradaxa 150 MG (*)] 150 mg PO BID 06/18/16 [Last Taken Unknown] Furosemide [Lasix 20 MG (*)] 20 mg PO DAILY 06/18/16 [Last Taken Unknown] Herbals/Supplements -Info Only 1 ea PO DAILY 06/18/16 [Last Taken Unknown] Lidocaine HCl [Lidocaine HCl 4% Topical Soln (*)] 1 eula TP AD PRN 06/18/16 [ Last Taken Unknown] Ondansetron Odt [Zofran Odt 4 mg (*)] 4 mg PO Q4H PRN 06/18/16 [Last Taken Unknown] oxyCODONE IR [Oxycodone Ir (*)] 5 mg PO Q4H PRN 06/18/16 [Last Taken Unknown] Acetaminophen [Tylenol 325mg (*)] 650 mg PO Q4HRS PRN #0 tab 07/06/16 [Last Taken Unknown] OLANZapine [ZyPREXA 2.5 mg (*)] 2.5 mg PO HS #0 tab 07/06/16 [Last Taken Unknown ] Polyethylene Glycol 3350 [Miralax 17 gm (*)] 17 gm PO DAILY PRN #0 pkt 07/06/16 [Last Taken Unknown] Discharge Medications: Refer to the Discharge Home Medication list for PRN reason. - Orders Diet Recommendation: ADA 1800 consistent carb Additional: check blood sugars ac/hs - Follow Up Care Current Providers and Referrals: NONE *PRIMARY CARE P,. [Unknown] - As per Instructions
[2016-07-06] MEDS ORDERED: MAGNESIUM SULF 1 GM/DEXTROSE 100 ML IV ONE (11:48)
--- NOTE | 2016-07-06 12:31 | SOAPPROG ---
SOAP Progress Note Assessment/Plan: Assessment: POD # 13 s/p debridement skin soft tissue tendon and bone with anterior skin graft and Primatrix ( bovine dermis) posterior and to heel. Change dressing on thigh as needed Change dressing to LLE with adaptic and kerlix 3x per week and as needed NWB as much as possible LLE F/U [facility] 2 weeks S: awake, pleasant. O: thigh dressing clean Removed dressing LLE. Graft anterior with good take. Iqra removed. No signs of infection Posterior wound measures 21x12. Excellend granulation tissue At the distal aspect, small amount of calcaneous is palpable. Heel wound measures 5.5x4x1 cm. Debrided. 80% healthy gran. Hydorfera blue ready placed 5th metatarsal 1.5x1x0.4 with tendon visible . Hydrofera blue ready placed. Plan: 06/23/16 10:38 06/24/16 12:21 06/28/16 09:08 07/06/16 12:28 Objective: Vital Signs Temp Pulse Resp BP Pulse Ox 36.8 C 74 12 138/65 H 98 07/06/16 09:35 07/06/16 09:35 07/06/16 09:35 07/06/16 09:35 07/06/16 09:35 Laboratory Results 07/06/16 06:30 07/06/16 06:30 07/05/16 07/06/16 07/07/16 05:59 05:59 05:59 Intake Total 920 795 Output Total 1000 1300 Balance -80 -505 PT 20.1 SEC (12.0-15.0) H 06/24/16 06:30 INR 1.71 (0.83-1.16) H 06/24/16 06:30 ICD10 Worksheet Patient Problems: Problems Problem Status Onset Anemia Acute Atrial fibrillation Acute Hypotension Acute Palliative care encounter Acute Paroxysmal atrial fibrillation Acute Urinary tract infection Acute
--- NOTE | 2016-07-06 14:53 | GDS ---
DISCHARGE DIAGNOSES: 1. Left lower extremity soft tissue wound, status post debridement, postoperative day 14. 2. Resolved hypotension. 3. Atrial fibrillation with rapid ventricular response. 4. Treated Clostridium difficile colitis. 5. Anemia. 6. Acute kidney injury. 7. Large sacral decubitus ulcer, present on admission. 8. Resolved delirium and encephalopathy. 9. Subclinical hypothyroidism. 10. Mild troponin elevation. 11. Diabetes mellitus type 2 with hypoglycemia. CONSULTANTS: Dr. Ashleigh Dahl, General Surgery. Dr. Jhonny Manley, Pulmonary Critical Care. HOSPITAL COURSE: Lower extremity wounds: The patient was admitted on 06/18/2016 from the [facility] after she was found to be in atrial fibrillation and hypotensive. The patient was subsequently placed in the intensive care unit where she was placed on pressors and given IV fluids. It was thou ght that she was hypovolemic from diarrhea in the setting of Clostridium difficile colitis. On initial presentation, she was found to have a large decubitus ulcer. She was also found to have lower extremity wounds. She was seen by Dr. Dahl on 06/23/2016, where she underwent soft tissue te ndon and bone debridement. Wound VAC was placed and was ultimately kept on until 07/05/2016. The patient's hospital course has been prolonged due to her need for aggressive wound care. She fin ished 14 days of oral vancomycin. During this hospital stay, she required 3 units of packed red blo od cells for anemia, which was most likely bleeding from her wounds. Her atrial fibrillation has been rate controlled with amiodarone and she has been anticoagulated wit h Pradaxa. The patient presented to the hospital on a very low-dose of insulin. She has had problems with hypo glycemia and has been off insulin during this hospital stay. She should have further monitoring of her blood sugars to treat her diabetes as indicated. PHYSICAL EXAM: VITAL SIGNS: On day of discharge, blood pressure 138/65, pulse 74, respiratory rate 12, O2 saturation 98% on 2 L, temperature afebrile. GENERAL: No acute distress. HEART: S1, S2. LUNGS: Clear. EXTREMITIES: Dressings are in place. The wound VAC has been removed. PROCEDURES: Done this hospital stay: Skin debridement with soft-tissue, tendon and bone with split -thickness skin graft and application of bovine dermal skin substitute and wound VAC assisted sandie chester done by Dr. Dahl on 06/22/2016. DISCHARGE MEDICATIONS: Please refer to discharge medication reconciliation in [facility]. DISCHARGE INSTRUCTIONS: The patient will be discharged to [facility] facility for further reha bilitation. She should follow up with Dr. Dahl in 1 week at the [facility]. /[id number]/MODL
== END 2016-07-06 14:05 | DRG 628 ==
LOC: EDUNIT# → F2N 14:57 → F2W 06-21 14:39 → F2N 06-22 16:59 → F2W 06-25 20:54
PROVIDERS: ADMIT Internal Medicine; ATTEND Internal Medicine
PROC: 02HV33Z Insertion of Infusion Device into Superior Vena Cava, Percutaneous Approach (ICD-10-PCS; 2016-06-18)
PROC: 30233N1 Transfusion of Nonautologous Red Blood Cells into Peripheral Vein, Percutaneous Approach (ICD-10-PCS; 2016-06-21)
PROC: 0YU Anatomical Regions, Lower Extremities, Supplement (ICD-10-PCS; principal; 2016-06-22 11:30)
PROC: 0QBM0ZZ Excision of Left Tarsal, Open Approach (ICD-10-PCS; principal; 2016-06-22 11:30)
DX: E11.621 Type 2 diabetes mellitus with foot ulcer (principal); L89.623 Pressure ulcer of left heel, stage 3; I95.9 Hypotension, unspecified; I48.2 Chronic atrial fibrillation; G93.49 Other encephalopathy; A04.7 Enterocolitis due to Clostridium difficile; L89.892 Pressure ulcer of other site, stage 2; L89.153 Pressure ulcer of sacral region, stage 3; L03.116 Cellulitis of left lower limb; N17.9 Acute kidney failure, unspecified; E86.1 Hypovolemia; E11.649 Type 2 diabetes mellitus with hypoglycemia without coma; E11.51 Type 2 diabetes mellitus with diabetic peripheral angiopathy without gangrene; I73.9 Peripheral vascular disease, unspecified; E02 Subclinical iodine-deficiency hypothyroidism; D50.0 Iron deficiency anemia secondary to blood loss (chronic); E78.5 Hyperlipidemia, unspecified; E66.01 Morbid (severe) obesity due to excess calories; Z68.38 Body mass index [BMI] 38.0-38.9, adult; Z79.4 Long term (current) use of insulin; Z79.01 Long term (current) use of anticoagulants; Z66 Do not resuscitate; Z87.01 Personal history of pneumonia (recurrent)
CPT/HCPCS: 84481-90; 96374; 97110-GO; 97110-GP; 97162-GP; 97166-GO; 97530-GO; 97530-GP; 97535-GO; G8978-GP-CM; G8979-GP-CK; G8979-GP-CL; J0171; J1160; J1170; J1335; J1815; J2370; J2405; J2704; J3010; J3475; P9016

== ENCOUNTER 2016-07-26 11:35 | Inpatient (IN) | payer OTHER ==
[2016-07-26 12:35] LABS: % IMMATURE GRANULYOCYTES 0.7 % (0.0-1.1); ADD DIFF? NO; ADD MORPH? NO; ADD SCAN? NO; ATYPICAL LYMPHOCYTE FLAG 0 (0-99); FRAGMENT RBC FLAG 0 (0-99); HEMATOCRIT 40.6 % (38.0-47.0); HEMOGLOBIN 12.9 g/dL (12.6-16.3); LEFT SHIFT FLG 10 (0-99); LIPEMIA HEMOLYSIS FLAG 80 (0-99); MEAN CELL HEMOGLOBIN 30.3 pg (27.9-34.1); MEAN CELL HEMOGLOBIN CONCENTR. 31.8 g/dL (32.4-36.7); MEAN CELL VOLUME 95.3 fL (81.5-99.8); MEAN PLATELET VOLUME 11.8 fL (8.7-11.7); PLATELET CLUMPS FLAG 0 (0-99); PLATELET COUNT 367 10^3/uL (150-400); RED BLOOD CELL COUNT 4.26 10^6/uL (4.18-5.33); RED CELL DISTRIBUTION WIDTH 15.1 % (11.5-15.2)
--- NOTE | 2016-07-26 12:39 | EDPHY ---
H & P Time Seen by Provider: 07/26/16 12:32 HPI/ROS: CHIEF COMPLAINT: Syncope, altered mental status HISTORY OF PRESENT ILLNESS: Patient is a 70-year-old female who presents to the emergency department from wound Care Clinic. While she was being evaluated by Dr. Dahl in in the wound care clinic she had an episode of syncope/altered mental status. They noticed that the patient was on a nasal cannula but the oxygen tank and ran out of oxygen. The patient was altered and minimally responsive. Patient had an episode of emesis. By the time EMS arrived to the clinic and she was placed on the prior am the patient's mental status had returned to baseline per Dr. Dahl. Patient states that she has a vague memory of the event. Patient felt herself passing out but then would open her eyes to see black dots. She denies any symptoms of pain, shortness of breath or chest discomfort. At this time the patient has no specific complaints. She states she is scheduled for surgery next week for her wound graft and ulcer. REVIEW OF SYSTEMS: My complete review of systems is negative except as mentioned in the HPI. Past Medical/Surgical History: Includes diabetes, hypertension, diabetic ulcers Past surgical history: Includes wound graft Smoking Status: Never smoked Physical Exam: Vitals noted. 36.4, 78/56, 100, 20, 100% on room air GENERAL: Well-appearing, in no acute distress, alert. Obese. HEENT: Eyes normal to inspection, normal pharynx, no signs of dehydration. NECK: No thyromegaly, no lymphadenopathy, supple. RESPIRATORY: Clear to auscultation bilaterally, no rales, rhonchi or wheezing. CVS: Regular rate and rhythm, no rubs, murmurs, or gallops. ABDOMEN: Soft, nontender, nondistended, no organomegaly. BACK: Normal to inspection, no CVA tenderness. SKIN: Normal color, no rash, warm, dry. No pallor. EXTREMITIES: Patient's left foot and ankle are wrapped with Coban dressing. Surrounding skin does not appear erythematous. There is no significant edema. NEURO/PSYCH: Alert and oriented x3, normal mood and affect, normal motor sensory exam. No obvious cranial nerve deficit. Constitutional: Initial Vital Signs Temperature (C) 36.4 C 07/26/16 11:45 Heart Rate 100 07/26/16 11:45 Respiratory Rate 20 07/26/16 11:45 Blood Pressure 78/56 L 07/26/16 11:45 O2 Sat (%) 100 07/26/16 11:45 O2 Delivery Mode Nasal Cannula O2 (L/minute) 4 Allergies/Adverse Reactions: sandyl cream Allergy (Uncoded 04/16/16 12:59) tape Allergy (Uncoded 04/16/16 15:29) Home Medications: Medication Instructions Recorded Acetaminophen [Tylenol ES 500 mg 500 mg PO HS 06/18/16 (*)] Amiodarone HCl [Pacerone (*)] 200 mg PO DAILY 06/18/16 Aspirin [Aspirin 81mg (*)] 81 mg PO HS 06/18/16 Atorvastatin Calcium [Lipitor 40 40 mg PO HS 06/18/16 mg (*)] Dabigatran Etexilate Mesyl 150 mg PO BID 06/18/16 [Pradaxa 150 MG (*)] Furosemide [Lasix 20 MG (*)] 20 mg PO DAILY 06/18/16 Herbals/Supplements -Info Only 1 ea PO DAILY 06/18/16 Lidocaine HCl [Lidocaine HCl 4% 1 eula TP AD PRN 06/18/16 Topical Soln (*)] Ondansetron Odt [Zofran Odt 4 mg 4 mg PO Q4H PRN 06/18/16 (*)] oxyCODONE IR [Oxycodone Ir (*)] 5 mg PO Q4H PRN 06/18/16 Acetaminophen [Tylenol 325mg (*)] 650 mg PO Q4HRS PRN #0 tab 07/06/16 OLANZapine [ZyPREXA 2.5 mg (*)] 2.5 mg PO HS #0 tab 07/06/16 Polyethylene Glycol 3350 [Miralax 17 gm PO DAILY PRN #0 pkt 07/06/16 17 gm (*)] Medical Decision Making ED Course/Re-evaluation: I discussed the case with Dr. Dahl in the emergency department. She showed me pictures from the patient's wound evaluation earlier today. I discussed the plan with the patient. I answered all her questions. I reviewed the patient's laboratory studies. Patient was noted to have elevated white count at 14,000. Sodium is slightly low sodium at 135, creatinine is 1.3. Troponin is 0.045. After the initial laboratory studies were obtained the IV infiltrated. The patient was unable to receive further normal saline. Multiple attempts were made at placing an IV. She ultimately had a left EJ placed. The remainder of cultures and laboratory studies were drawn. Differential Diagnosis: My differential includes but is not limited to ACS, acute NM, dysrhythmia, electrolyte abnormality, sugar abnormality, CVA, bacteremia, sepsis, electrolyte abnormality, sugar abnormality - Data Points Laboratory Results: Laboratory Results 07/26/16 12:29 07/26/16 12:07 07/26/16 07/26/16 07/26/16 13:21 12:29 12:07 WBC 14.29 10^3/uL H 10^3/uL (3.80-9.50) RBC 4.26 10^6/uL 10^6/uL (4.18-5.33) Hgb 12.9 g/dL g/dL (12.6-16.3) Hct 40.6 % % (38.0-47.0) MCV 95.3 fL fL (81.5-99.8) MCH 30.3 pg pg (27.9-34.1) MCHC 31.8 g/dL L g/dL (32.4-36.7) RDW 15.1 % % (11.5-15.2) Plt Count 367 10^3/uL 10^3/uL (150-400) MPV 11.8 fL H fL (8.7-11.7) Neut % (Auto) 79.2 % H % (39.3-74.2) Lymph % (Auto) 13.5 % L % (15.0-45.0) [place] % (Auto) 5.9 % % (4.5-13.0) Eos % (Auto) 0.3 % L % (0.6-7.6) Baso % (Auto) 0.4 % % (0.3-1.7) Nucleat RBC Rel Count 0.0 % % (0.0-0.2) Absolute Neuts (auto) 11.32 10^3/uL H 10^3/uL (1.70-6.50) Absolute Lymphs (auto) 1.93 10^3/uL 10^3/uL (1.00-3.00) Absolute Monos (auto) 0.84 10^3/uL H 10^3/uL (0.30-0.80) Absolute Eos (auto) 0.04 10^3/uL 10^3/uL (0.03-0.40) Absolute Basos (auto) 0.06 10^3/uL 10^3/uL (0.02-0.10) Absolute Nucleated RBC 0.00 10^3/uL 10^3/uL (0-0.01) Immature Gran % 0.7 % % (0.0-1.1) Immature Gran # 0.10 10^3/uL 10^3/uL (0.00-0.10) PT 23.6 SEC H SEC (12.0-15.0) INR 2.09 H (0.83-1.16) APTT 54.8 SEC H SEC (23.0-38.0) VBG Lactic Acid 2.9 mmol/L H mmol/L (0.7-2.1) Sodium Potassium Chloride Carbon Dioxide Anion Gap BUN Creatinine Estimated GFR Glucose Calcium Troponin I 07/26/16 12:07 WBC RBC Hgb Hct MCV MCH MCHC RDW Plt Count MPV Neut % (Auto) Lymph % (Auto) [place] % (Auto) Eos % (Auto) Baso % (Auto) Nucleat RBC Rel Count Absolute Neuts (auto) Absolute Lymphs (auto) Absolute Monos (auto) Absolute Eos (auto) Absolute Basos (auto) Absolute Nucleated RBC Immature Gran % Immature Gran # PT INR APTT VBG Lactic Acid Sodium 135 mEq/L mEq/L (134-144) Potassium 4.1 mEq/L mEq/L (3.5-5.2) Chloride 98 mEq/L mEq/L (97-110) Carbon Dioxide 26 mEq/l mEq/l (22-31) Anion Gap 11 mEq/L mEq/L (8-16) BUN 35 mg/dL H mg/dL (7-23) Creatinine 1.3 mg/dL H mg/dL (0.6-1.0) Estimated GFR 40 Glucose 130 mg/dL H mg/dL (70-100) Calcium 8.1 mg/dL L mg/dL (8.5-10.4) Troponin I 0.045 ng/mL H ng/mL (0-0.034) Medications Given: Discontinued Medications Sodium Chloride (Ns) 1,000 mls @ 0 mls/hr IV ONCE ONE PRN Reason: Wide Open Stop: 07/26/16 13:40 Last Admin: 07/26/16 13:30 Dose: 1,000 mls Sodium Chloride (Ns) 500 mls @ 0 mls/hr IV ONCE ONE PRN Reason: As Directed Stop: 07/26/16 14:07 Last Admin: 07/26/16 14:07 Dose: 500 mls Departure - Departure Disposition: [facility] Acute Clinical Impression: Syncope Qualifiers: Syncope type: unspecified Qualified Code(s): R55 - Syncope and collapse Altered mental status Qualifiers: Altered mental status type: unspecified Qualified Code(s): R41.82 - Altered mental status, unspecified Leg wound, left Qualifiers: Encounter type: initial encounter Qualified Code(s): S81.802A - Unspecified open wound, left lower leg, initial encounter Condition: Fair
[2016-07-26 12:43] LABS: INR 2.09 (0.83-1.16); PROTIME(PATIENT) 23.6 SEC (12.0-15.0)
[2016-07-26 12:44] LABS: APTT 54.8 SEC (23.0-38.0)
--- NOTE | 2016-07-26 12:49 | CPEKG ---
Heart Rate: 99 RR Interval: 606 P-R Interval: 184 QRSD Interval: 80 QT Interval: 372 QTC Interval: 478 P [place]: 41 QRS [place]: 3 T Wave [place]: 157 EKG Severity - ABNORMAL ECG - EKG Impression: SINUS TACHYCARDIA EKG Impression: ATRIAL PREMATURE COMPLEX EKG Impression: NONSPECIFIC T ABNORMALITIES, LATERAL LEADS Electronically Signed By: Chaya Grant 26-Jul-2016 15:18:44
[2016-07-26 12:55] LABS: ANION GAP 11 mEq/L (8-16); CALCIUM 8.1 mg/dL (8.5-10.4); CARBON DIOXIDE 26 mEq/l (22-31); CHLORIDE 98 mEq/L (97-110); CREATININE 1.3 mg/dL (0.6-1.0); GLOMERULAR FILTRATION RATE 40; GLUCOSE 130 mg/dL (70-100); POTASSIUM 4.1 mEq/L (3.5-5.2); SODIUM 135 mEq/L (134-144)
[2016-07-26 13:06] LABS: TROPONIN I 0.045 ng/mL (0-0.034)
[2016-07-26] MEDS ORDERED: NS 1,000 ML IV ONE (13:39)
[2016-07-26] MEDS ORDERED: VANCOMYCIN HCL/NORMAL SALINE 250 ML IV ONE (14:06)
[2016-07-26] MEDS ORDERED: NS 500 ML IV ONE (14:06)
[2016-07-26] MEDS ORDERED: ACETAMINOPHEN 325 MG TAB PO PRN (15:29)
[2016-07-26] MEDS ORDERED: D50W 25 GM/50 ML SYR IVP PRN (15:52)
[2016-07-26 16:28] LABS: COLOR PALE YELLOW; LEUKOCYTE ESTERASE,URINE TRACE (NEGATIVE); NITRITE,URINE NEGATIVE (NEGATIVE)
--- NOTE | 2016-07-26 16:40 | GHP ---
[f rep st] HISTORY AND PHYSICAL DATE OF ADMISSION: 07/26/2016 CHIEF COMPLAINT: Syncope. HISTORY OF PRESENT ILLNESS: The patient is a 70-year-old female, who has been recently healing a la rge left leg wound. She was discharged from the hospital 3 weeks ago after getting a debridement. She was seeing Dr. Dahl in the [facility] today, when she had a syncopal episode in the clin ic. This was witnessed by staff. She had a maude syncopal event with altered mental status. She h ad an episode of vomiting. She is now back to her baseline mental status in the emergency room. Th ere is some question regarding her nasal cannula oxygen and whether or not she may not have had oxyg en in her tank. Patient states she felt herself passing out, but otherwise did not have any symptom s. Her wound is doing well. The front part is healed, and there is plan for grafting in the back n ext week. She denies any chest pain or shortness of breath. Upon further questioning, however, she does admit that she has had a 175-pound unintentional weight loss since April. She has absolutely no appetite, and frequently vomits after eating. She has h ad loose bowel movements for the last few weeks. She has never had a colonoscopy. She denies any a bdominal pain. She is just really unable to eat, and so therefore, has been getting dehydrated. PAST MEDICAL HISTORY: 1. Atrial fibrillation. 2. Recent C diff colitis. 3. Sacral decubitus ulcer. 4. Diabetes type 2. 5. Peripheral vascular disease, status post fem-pop bypass. 6. Morbid obesity. 7. Stroke, status post left carotid endarterectomy. 8. Chronic respiratory failure, 2-4 L of oxygen. 9. 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 MEDICATIONS: Please see computer record for full detailed list. ALLERGIES: To tape. SOCIAL HISTORY: No smoking. No alcohol. She lives with her . Her has advanced dem entia. She is currently at [facility]. REVIEW OF SYSTEMS: Complete review of systems obtained. Review of systems is negative on constitut ional, HEENT, GI, pulmonary, cardiovascular, , hematology, skin, musculoskeletal, endocrine, psych , except for positives and negatives as noted in HPI. FAMILY HISTORY: Reviewed, noncontributory to the presenting complaint. PHYSICAL EXAMINATION: GENERAL: Well-developed, well-nourished female, in no acute distress. VITAL SIGNS: Temperature is 36.7, pulse 88, blood pressure 118/80, saturating 100% 4 L. EYES: Normal c onjunctivae. Pupils react to light. ENT: Normal ears and nose. Hearing intact. Normal teeth. O ropharynx moist. NECK: Trachea midline. No thyromegaly. CHEST: Normal respiratory effort. LUNG S: Clear to auscultation bilaterally. CARDIOVASCULAR SYSTEM: Regular rate, rhythm. No murmur. N o lower extremity edema. ABDOMEN: Soft, obese. Nontender. No hepatosplenomegaly. SKIN: Warm, d ry, intact. No rash. MUSCULOSKELETAL: No cyanosis or clubbing. Strength 5/5 bilateral upper and lower extremities. NEURO: Cranial nerves intact. Normal sensation to light touch. PSYCHIATRIC: Alert and oriented x3. Normal mood and affect. Normal judgment and insight. Normal memory. LABS: White count 14.29, hematocrit 40.6, platelets 367. Sodium 135, potassium 4.1, chloride 198, bicarb 26, BUN 35, creatinine 1.3, glucose 130. INR is 2.09, but she is on Pradaxa. Troponin is 0. 045. Lactate is 2.9. EKG viewed by me, my personal interpretation is sinus rhythm, no ST or T-wave changes. Chest x-ray is negative. Head CT is negative. ASSESSMENT/PLAN: 1. Syncope. I suspect hypovolemia versus oxygen tank malfunctioning. Will hydrate with IV fluids, follow serial lactates, and watch her on telemetry. 2. Elevated troponin. She is a known severe vasculopath. She has never previously had a cardiac i schemic workup. Will follow serial troponins, check an echocardiogram, and check a stress test in t he morning. 3. Acute renal failure. Her baseline creatinine is 0.8. She is dry. I anticipate this will rapid ly reverse with IV fluids. 4. 175-pound unintentional weight loss, with chronic nausea and vomiting since last April. This is concerning for malignancy. She has never had a colonoscopy. We will check a CT scan of the abd omen and pelvis. 5. Lower extremity wounds. These are doing well. There is plan for graft to her heel next week wi Dr. Dahl. 6. Chronic Kirk catheter. She does have a leukocytosis with nausea and vomiting, so potential uri nary tract infection could be the source. We will check a urinalysis and urine culture. She was __ severe sepsis in the emergency room, and given ceftriaxone and vancomycin. Clinically, I a m not so sure that infection is the underlying source of her admission. Will hold further antibioti c pending cultures. 7. Atrial fibrillation. Continue amiodarone and Pradaxa. 8. Peripheral vascular disease. She has previously had a lower extremity bypass and a carotid enda rterectomy. We will continue her aspirin and statin. 9. Sacral decubitus ulcer, present on admission. We will consult Wound Care. 10. Morbid obesity. Despite her almost 200-pound weight loss, she still has a BMI greater than 40. 11. Diabetes type 2. We will place her on insulin sliding scale. 12. Chronic respiratory failure, 2-4 L baseline. I suspect obesity hypoventilation syndrome. CODE STATUS: Full. ADMISSION STATUS: Will admit to observation. Depending on workup above will determine whether or n ot further evaluation needs to be done as an inpatient. DVT PROPHYLAXIS: She is low risk given her chronic anticoagulation with Pradaxa. /[id number]/MODL
[2016-07-26 16:58] LABS: BACTERIA 2+ /hpf (NONE SEEN); MUCUS TRACE /lpf (NONE-1+)
[2016-07-26] MEDS: NS 1,000 ML IV SCH (17:07)
[2016-07-26] MEDS: oxyCODONE IR 5 MG TAB PO PRN (17:44)
[2016-07-26] MEDS: ONDANSETRON 4 MG/2 ML VIAL IVP PRN (17:44)
[2016-07-26] MEDS: INSULIN REGULAR HUMAN 100 UNIT/ML SC SCH ×2 (19:29→22:15)
[2016-07-26] MEDS: ACETAMINOPHEN 500 MG TAB PO SCH (22:14)
[2016-07-26] MEDS: OLANZapine 2.5 MG TAB PO SCH (22:15)
[2016-07-26] MEDS: ATORVASTATIN CALCIUM 40 MG TAB PO SCH (22:15)
[2016-07-26] MEDS: ASPIRIN 81 MG CHEWABLE TAB PO SCH (22:15)
[2016-07-27] MEDS: NS 1,000 ML IV SCH (05:08)
[2016-07-27 05:22] LABS: % IMMATURE GRANULYOCYTES 0.6 % (0.0-1.1); ABSOLUTE IMMATURE GRANULOCYTES 0.07 10^3/uL (0.00-0.10); ADD DIFF? NO; ADD MORPH? NO; ADD SCAN? NO; ATYPICAL LYMPHOCYTE FLAG 0 (0-99); FRAGMENT RBC FLAG 0 (0-99); HEMATOCRIT 29.9 % (38.0-47.0); HEMOGLOBIN 9.6 g/dL (12.6-16.3); LEFT SHIFT FLG 20 (0-99); LIPEMIA HEMOLYSIS FLAG 80 (0-99); MEAN CELL HEMOGLOBIN 29.9 pg (27.9-34.1); MEAN CELL HEMOGLOBIN CONCENTR. 32.1 g/dL (32.4-36.7); MEAN CELL VOLUME 93.1 fL (81.5-99.8); MEAN PLATELET VOLUME 11.2 fL (8.7-11.7); PLATELET CLUMPS FLAG 20 (0-99); PLATELET COUNT 233 10^3/uL (150-400); RED BLOOD CELL COUNT 3.21 10^6/uL (4.18-5.33); RED CELL DISTRIBUTION WIDTH 14.9 % (11.5-15.2)
[2016-07-27 05:35] LABS: ALANINE AMINOTRANSFERASE 30 IU/L (9-52); ALBUMIN 1.6 g/dL (3.5-5.0); ALKALINE PHOSPHATASE 98 IU/L (38-126); ANION GAP 7 mEq/L (8-16); ASPARTATE AMINOTRANSFERASE 34 IU/L (14-46); BILIRUBIN,TOTAL 0.4 mg/dL (0.1-1.4); BILIRUBIN-CONJUGATED 0.4 mg/dL (0.0-0.5); CALCIUM 6.7 mg/dL (8.5-10.4); CARBON DIOXIDE 28 mEq/l (22-31); CHLORIDE 103 mEq/L (97-110); CREATININE 1.1 mg/dL (0.6-1.0); GLOMERULAR FILTRATION RATE 49; GLUCOSE 78 mg/dL (70-100); SODIUM 138 mEq/L (134-144); TOTAL PROTEIN 4.1 g/dL (6.3-8.2)
[2016-07-27 06:12] LABS: POTASSIUM 2.6 mEq/L (3.5-5.2)
[2016-07-27] MEDS ORDERED: PROTOCOL POTASSIUM 1 DOSE MISC PRN (07:27)
[2016-07-27] MEDS ORDERED: PROTOCOL MAGNESIUM 1 DOSE IV PRN (07:27)
[2016-07-27] MEDS ORDERED: POTASSIUM CL 10 MEQ TAB PO ONE (07:45)
[2016-07-27] MEDS: AMIODARONE HCL 200 MG TAB PO SCH (08:55)
[2016-07-27] MEDS: PANTOPRAZOLE SODIUM 40 MG TAB PO SCH (08:56)
[2016-07-27] MEDS ORDERED: NON-FORMULARY NEW DRUG (Omeprazole [Prilosec 20 Mg] 20 MG) PO SCH (09:00)
[2016-07-27] MEDS: VANCOMYCIN 125 MG/2.5 ML UDL PO SCH ×4 (09:04→20:23)
--- NOTE | 2016-07-27 09:43 | SOAPPROG ---
SOAP Progress Note Assessment/Plan: Assessment: 70yo F well-known to our service for LLE chronic wounds. Seen at wound healing center yesterday, dressings changed, then admitted with syncope, dehydration and found to have C. diff Keep dressings in place. We will change prior to discharge She is scheduled for split-thickness skin graft on 08/03/16 Appreciate hospitalist management S: no complaints this morning. disappointed that she is back in the hospital O: laying in bed, comfortable, NAD No increased WOB No peripheral edema LLE dressing intact Objective: Vital Signs Temp Pulse Resp BP Pulse Ox 36.6 C 81 16 103/59 L 98 07/27/16 08:00 07/27/16 08:00 07/27/16 08:00 07/27/16 08:00 07/27/16 08:00 Microbiology 07/26/16 22:00 Gastrointestinal Tract Panel (PCR) - Final Stool Clostridium Difficile Detected Laboratory Results 07/27/16 05:08 07/27/16 05:08 07/26/16 07/27/16 07/28/16 05:59 05:59 05:59 Intake Total 1999 1200 Balance 2000 1200 PT 23.6 SEC (12.0-15.0) H 07/26/16 12:07 INR 2.09 (0.83-1.16) H 07/26/16 12:07 ICD10 Worksheet Patient Problems: Problems Problem Status Onset Altered mental status Acute C. difficile diarrhea Acute ~07/26/16 Leg wound, left Acute Syncope Acute Anemia Acute Atrial fibrillation Acute Hypotension Acute Palliative care encounter Acute Paroxysmal atrial fibrillation Acute Urinary tract infection Acute
[2016-07-27 10:12] LABS: MAGNESIUM 1.3 mg/dL (1.6-2.3)
[2016-07-27 10:33] LABS: POTASSIUM 2.6 mEq/L (3.5-5.2)
[2016-07-27] MEDS: INSULIN REGULAR HUMAN 100 UNIT/ML SC SCH ×4 (11:25→20:25)
[2016-07-27] MEDS: ONDANSETRON 4 MG/2 ML VIAL IVP PRN (12:11)
[2016-07-27] MEDS ORDERED: ALTEPLASE 2 MG VIAL IVP PRN (13:02)
--- NOTE | 2016-07-27 14:48 | ECHO ---
[id number] + + [address] : : [place] [address] : : [phone] + + Adult Echocardiographic Report + ------+ :Name: MONTSE JAMES LStudy Date: 07/27/2016 12:53 PM : : Hospital Admission Number: [id number] Locatio n: 206: :: 1945 Gender: Female Height: 64 in : :Age: 70 yrs Race: WH Weight: 240 lb : :Reason For Study: Syncope/positive troponin : : BSA: 2.1 meters 2 : + ------+ MMode/2D Measurements \T\ Calculations LVIDd: 4.6 cm EDV(Teich): 99.3 ml LA dimension: 3.0 cm Normal Measurement Values: + + :LVIDd (3.5-5.7cm) IVSd (0.6-1.1cm) LVPWd (0.6-1.1cm) Aortic Root (2.0-3.7cm)Left Atrium (1.5-4.0cm): :LV Vol(d) (76-115ml) LV Vol(s) (29-48ml) Ejec Fraction (50-65%)PV Gómez (0.6- 1.2m/s) TV Gómez (0.4-1.0m/s) : :MV E Gómez (0.8-1.0m/s)MV A Gómez (0.3-1.0m/s)LVOT Gómez (0.7-1.2m/s) Asc Ao Gómez ( 0.9-1.8m/s) : + + Doppler Measurements \T\ Calculations MV E max gómez: 54.3 cm/sec Ao V2 max: 142.5 cm/sec MV A max gómez: 86.9 cm/sec Ao max P.1 mmHg MV E/A: 0.63 Left Ventricle The left ventricle is normal in size. There is mild concentric left ventricular hypertrophy. The left ventricle is hyperdynamic. No regional wall motion abnormalities noted. Right Ventricle The right ventricle is normal size. Atria The left atrial size is normal. Right atrial size is normal. Mitral Valve There is mild to moderate mitral annular calcification. Tricuspid Valve Normal tricuspid valve. Aortic Valve Mild Aortic Valve Calcification. The aortic valve opens well. Pulmonic Valve The pulmonic valve is not well visualized. Great Vessels The aortic root is normal size. Pericardium/Pleural There is no pericardial effusion. Conclusion A complete two-dimensional transthoracic echocardiogram was performed (2D, M-mode, Doppler and color flow Doppler). The study was technically difficult. The study was technically limited. There is mild concentric left ventricular hypertrophy. The left ventricle is hyperdynamic. No regional wall motion abnormalities noted. There is mild to moderate mitral annular calcification. Mild Aortic Valve Calcification Final Reading Physician: Jasmin Licea signed on 07/27/2016 02:46 PM Ordering Physician: Liyah Warren Performed By: Socorro Holt RDCS
[2016-07-27] MEDS ORDERED: IOPAMIDOL (ISOVUE 370) 100 ML BTL IV ONE (16:08)
--- NOTE | 2016-07-27 17:15 | HOSPPROG ---
Hospitalist Progress Note Assessment/Plan: * Recurrent Cdiff -PO Vanco -consult ID as back to back episodes * Chronic N/V - unintentional weight loss -CT abd/pelvis pending * Possible UTI - chronic justice (POA) -IV invanz pending culture * Troponin elevation - severe vasculopathy - no previous ischemic eval -Lexiscan stress test in am * Severe PVD - LE bypass, CEA -ASA, statin * Difficult IV access -failed PICC line attempt - no veins -IJ placed by Dr. Castellanos -she recommends consider port * Syncope - due to hypovolemia * ARF - improved with IVF * LE wound - scheduled for skin graft with Dr. Dahl 08/03 -d/w Dr. Dahl - if medically stable before then can discharge and return for OP surgery * Afib -amiodarone, Pradaxa * Sacral decub - POA * Morbid obesity BMI 40 * Chronic respiratory failure 2-4L - Obesity Hypoventilation Syndrome * DM II Subjective: Nausea, no vomit Objective: Vital Signs Temp Pulse Resp BP Pulse Ox 36.6 C 78 20 98/58 L 99 07/27/16 11:55 07/27/16 11:55 07/27/16 11:55 07/27/16 11:55 07/27/16 11:55 PT 23.6 SEC (12.0-15.0) H 07/26/16 12:07 INR 2.09 (0.83-1.16) H 07/26/16 12:07 Laboratory Tests 07/27/16 07/27/16 07/27/16 05:08 05:08 05:08 WBC 12.53 H Hct 29.9 L D Plt Count 233 D VBG Lactic Acid 1.0 D Potassium 2.6 L* Creatinine 1.1 H Abd Xray - thickened bowel case d/w Dr. Dahl regarding wound surgery - Physical Exam Constitutional: no apparent distress, appears nourished, not in pain Cardiovascular: regular rate and rhythym, no murmur, rub, or gallop Respiratory: no respiratory distress, no rales or rhonchi, clear to auscultation Gastrointestinal: normoactive bowel sounds, soft, non-tender abdomen, no palpable masses Skin: no rashes or abrasions, no fluctuance, no induration Neurologic: AAOx3, sensation intact bilaterally Psychiatric: interacting appropriately, not anxious, not encephalopathic, thought process linear ICD10 Worksheet Patient Problems: Problems Problem Status Onset Altered mental status Acute C. difficile diarrhea Acute ~07/26/16 Leg wound, left Acute Syncope Acute Anemia Acute Atrial fibrillation Acute Hypotension Acute Palliative care encounter Acute Paroxysmal atrial fibrillation Acute Urinary tract infection Acute
--- NOTE | 2016-07-27 17:34 | WOCRNPDOC ---
WOCRN Advanced Assessment Note - Skin Integrity Problem, Advanced Assess Buttock Pressure Injury Dressing Type: Allevyn Life Dressing Description: Clean/Dry, Intact Site Measurement - Head-to-Toe Length X Width X Depth (cm): 2.2x2x0.2 Pressure Injury Stage: Stage 2 Pressure Injury Present on Admit: Yes Skin Integrity Problem Comment: Patient with diarrhea multiple times per day resulting in dresing being changed multiple times daily. Removed dressing and instructed staff to apply calazime instead of dressing. Specialty mattress ordered. Float heels.
[2016-07-27] MEDS: ERTAPENEM 1 GM in NS 100 ML IV SCH (17:37)
[2016-07-27 19:15] LABS: POTASSIUM 3.1 mEq/L (3.5-5.2)
[2016-07-27] MEDS: OLANZapine 2.5 MG TAB PO SCH (20:24)
[2016-07-27] MEDS: ASPIRIN 81 MG CHEWABLE TAB PO SCH (20:24)
[2016-07-27] MEDS: ACETAMINOPHEN 500 MG TAB PO SCH (20:24)
[2016-07-27] MEDS: ATORVASTATIN CALCIUM 40 MG TAB PO SCH (20:27)
[2016-07-27] MEDS: DABIGATRAN ETEXILATE MESYL 150 MG CAP PO SCH (20:27)
[2016-07-28] MEDS ORDERED: POTASSIUM CL 10 MEQ TAB PO ONE ×2 (00:36→08:09)
[2016-07-28] MEDS: VANCOMYCIN 125 MG/2.5 ML UDL PO SCH ×4 (06:04→20:08)
[2016-07-28 06:19] LABS: % IMMATURE GRANULYOCYTES 0.7 % (0.0-1.1); ABSOLUTE IMMATURE GRANULOCYTES 0.06 10^3/uL (0.00-0.10); ADD DIFF? NO; ADD MORPH? NO; ADD SCAN? NO; ATYPICAL LYMPHOCYTE FLAG 0 (0-99); FRAGMENT RBC FLAG 0 (0-99); HEMATOCRIT 28.3 % (38.0-47.0); HEMOGLOBIN 9.1 g/dL (12.6-16.3); LEFT SHIFT FLG 0 (0-99); LIPEMIA HEMOLYSIS FLAG 80 (0-99); MEAN CELL HEMOGLOBIN 30.5 pg (27.9-34.1); MEAN CELL HEMOGLOBIN CONCENTR. 32.2 g/dL (32.4-36.7); MEAN PLATELET VOLUME 10.8 fL (8.7-11.7); PLATELET CLUMPS FLAG 0 (0-99); PLATELET COUNT 249 10^3/uL (150-400); RED BLOOD CELL COUNT 2.98 10^6/uL (4.18-5.33)
[2016-07-28 07:40] LABS: ANION GAP 5 mEq/L (8-16); CALCIUM 7.3 mg/dL (8.5-10.4); CARBON DIOXIDE 27 mEq/l (22-31); CHLORIDE 104 mEq/L (97-110); CHOLESTEROL 65 mg/dL (140-220); GLOMERULAR FILTRATION RATE 55; GLUCOSE 62 mg/dL (70-100); HIGH DENSITY LIPOPROTEIN 21 mg/dL (40-85); LOW DENSITY LIPOPROTEIN 23 mg/dL (80-100); MAGNESIUM 1.3 mg/dL (1.6-2.3); NON-HIGH DENSITY LIPOPROTEIN 44 mg/dL (90-129); POTASSIUM 3.5 mEq/L (3.5-5.2); SODIUM 136 mEq/L (134-144); TRIGLYCERIDE 105 mg/dL (35-135); VERY LOW DENSITY LIPOPROTEINS 21 mg/dL (8-25)
[2016-07-28] MEDS ORDERED: MAGNESIUM SULF 2 GM/WATER 50 ML IV ONE (08:10)
[2016-07-28] MEDS: INSULIN REGULAR HUMAN 100 UNIT/ML SC SCH ×4 (08:11→20:09)
[2016-07-28] MEDS: ERTAPENEM 1 GM in NS 100 ML IV SCH (08:27)
[2016-07-28] MEDS: DABIGATRAN ETEXILATE MESYL 150 MG CAP PO SCH ×2 (08:27→20:08)
[2016-07-28] MEDS: AMIODARONE HCL 200 MG TAB PO SCH (08:27)
[2016-07-28] MEDS: PANTOPRAZOLE SODIUM 40 MG TAB PO SCH (08:27)
[2016-07-28] MEDS ORDERED: REGADENOSON 0.4 MG/5 ML SYR IVP ONE (09:52)
--- NOTE | 2016-07-28 11:31 | CPR ---
[f rep st] NONINVASIVE CARDIAC PROCEDURE REPORT STUDY: Nuclear stress test. The patient cannot exercise so we have done a pharmacologic nuclear stress test. The patient gave informed consent. Her baseline EKG on the monitor shows a low voltage, and she has some PVCs. She received the pharmacologic protocol and had no symptoms with that, tolerated it wel l, and had no EKG changes. Hemodynamics are attached. Nuclear images are pending. Complications were none. Condition at the end of study excellent. /[id number]/MODL
--- NOTE | 2016-07-28 11:46 | GCON ---
[f rep st] CONSULTATION DATE OF CONSULTATION: 07/28/2016 REASON FOR CONSULTATION: Recurrent C difficile. HISTORY OF PRESENT ILLNESS: A 70-year-old woman with a past medical history of diabetes and atrial fibrillation, with chronic sacral decubitus and left lower extremity chronic wound secondary to diab etes and peripheral vascular disease, who presented to W[facility] Care on 07/26/2016 and had an episode o f syncope. EMS was called, and patient was transferred to the emergency room. Subsequently, delbert pena was evaluated and found to be volume depleted with mild acute renal failure with a creatinine of 1 .3, as well as having leukocytosis. Once patient came to, she did report new onset of diarrhea and concern for recurrent C difficile. She denied associated abdominal pain. She did have 1 episode of vomiting. Interestingly, patient was evaluated 04/23/2016 for C difficile; that was negative. Doc umentation of past history of C difficile is not available at the time of my dictation. Patient rep orts that, despite initiation of p.o. vancomycin while in-house after GI panel tested positive for C difficile, she has no improvement in her diarrhea. She has been on therapy for only 1 day, though. PAST MEDICAL/SURGICAL HISTORY: 1. Atrial fibrillation. 2. C difficile colitis. 3. Sacral decubitus with history of debridements, last 05/02/2016 with wound VAC placement. 4. Type 2 diabetes. 5. Peripheral vascular disease status post a femoral-popliteal and left lower extremity skin debrid ement, tendon and bone split-thickness skin graft with application of bovine dermal skin substitute and VAC placement at that time; Now not in place with surgical report that skin grafts are taking. 6. Morbid obesity. 7. History of CVA with left carotid endarterectomy. 8. Chronic respiratory failure on 2-4 L O2 chronically. 9. 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 MEDICATIONS: Patient received ertapenem 1 g IV daily starting 07/26, and she was started on vancomy lianna 125 p.o. q.i.d. on 07/27/2016. She is also on flow amiodarone 200 mg daily, Lipitor, Pradaxa 150 twice daily, insulin, Zyprexa 2.5 mg at night, oxycodone as needed, and Zofran as neede d. ALLERGIES: To Santyl cream; otherwise no allergies. SOCIAL HISTORY: No tobacco. No alcohol. She is currently at [facility]. B y report, her has advanced dementia. REVIEW OF SYSTEMS: A complete 10-point review of systems was performed and is negative except as me ntioned in the HPI. FAMILY HISTORY: Reviewed and noncontributory to current presentation. PHYSICAL EXAMINATION: VITAL SIGNS: Blood pressure today 135/74, heart rate 77, respiratory rate 15 -20. Saturation is 100% on 4 L. GENERAL: This is a morbidly obese woman lying in bed in no acute distress. HEENT: Fair dentition. Moist mucous membranes. NECK: Thick, nontender. CARDIOVASCULA R: Seemed regular rate and rhythm with a systolic murmur. CHEST: Clear to auscultation bilaterall y. ABDOMEN: Morbidly obese, soft, nontender. EXTREMITIES: A dressing was in place on the left lo wer extremity and was not disturbed. PICC line in place in the left upper extremity. : Chronic Kirk was in place. Patient reports recent exchange at [facility]. LABORATORY DATA: White count on admission 14.2, today 8.8. Hematocrit 28 and on admission 40. Melonie telets of 249. 74 neutrophils. 11% lymphocytes. Creatinine 1.3, today 1.1. Urinalysis showed bridger e mild pyuria with 5-10 WBCs. Urine culture grew 100,000 Citrobacter. Blood cultures from 07/26 ar e no growth to date (2 sets). Imaging of the abdomen showed diffuse thickening of the colon, worse in the ascending colon and sigm oid, consistent with colitis. ASSESSMENT AND PLAN: This is a 70-year-old woman with multiple medical problems, who presented to [facility] emergency room urgently for an episode of syncope likely due to volume depletion from recurrent C lostridium difficile. 1. 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 2. 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 RECOMMENDATIONS: 1. Discontinue ertapenem. Suspect all patient's symptoms are due to C difficile and continued broa d-spectrum antibiotics will impair recovery from C difficile. 2. Agree with vancomycin 125 p.o. four times daily. In light of recurrence would consider tapering . First would complete 125 q.i.d. for 2 weeks, then t.i.d. x1 week, b.i.d. for 1 week, then daily for 1 week, then off. Thank you for this consultation. Will continue to follow along with you. /[id number]/MODL
--- NOTE | 2016-07-28 14:21 | HOSPPROG ---
Hospitalist Progress Note Assessment/Plan: Assessment: 70-year-old female presents with severe sepsis in the setting recurrent C difficile colitis Plan: 1. Severe sepsis. POA, evidenced by sepsis-2 criteria with leukocytosis (white blood cell count 75443), tachycardia (heart rate 100), hypotension (systolic blood pressure 78), identifiable source C difficile colitis, evidence of distant end-organ failure notably lactic acidosis (lactic acid 3.3) acute kidney injury, myocardial ischemia, demonstrating autonomic dysregulation in the setting of infection -status post IV fluids and appropriate antibiotic therapy -continue monitoring CBC 2. Recurrent C difficile colitis. Evidenced by CT demonstrating colitis, stool PCR demonstrating C diff, pervasive abdominal symptoms including nausea and vomiting with diarrhea -patient's nausea and poor oral intake persists -continue low rate IV fluids -discussed with Dr. Dc, will proceed with 2 weeks of oral vancomycin q.6 hours, then reduce to 3 times daily for a week, then 2 times daily for week, then once daily 3. Chronic Kirk catheter colonization. Patient has Citrobacter is most likely a colonizer and not a true infection, discontinue her dependent 4. Metabolic acidosis. Acute, secondary to lactic acid, secondary to severe sepsis and hypoperfusion, resolved 5. Acute kidney injury. Secondary to severe sepsis and acute hypovolemia, status post IV fluids, resolved 6. Troponin elevation. Acute, new problem this provider, further workup indicated. Secondary to myocardial ischemia in the setting of severe sepsis, may suggest underlying obstructive coronary disease, getting stress test today. -EKG demonstrates sinus tach with Q-wave in lead 3, personally interpreted 7. Severe PVD. LE bypass, CEA - cont ASA, statin 8. Syncope. Either secondary to hypovolemia, infection, hypoglycemia 9. Hypoglycemia. Acute, most likely secondary to impaired renal clearance of long-acting insulin as well as underlying infection -hold Lantus -continue on insulin sliding scale 10. Pressure injury. POA, located in the sacrum, appreciate wound care consultation 11. LE wound. Scheduled for skin graft with Dr. Dahl 08/03 12. Afib. Paroxysmal, continue on amiodarone and Pradaxa 13. Morbid obesity BMI 40 14. Chronic hypoxic respiratory failure. Most likely secondary to obesity hypoventilation syndrome, continue on 2-4 L Diet. Diabetic Prophylaxis. High risk patient, currently on Pradaxa Code. Full Disposition. Anticipated discharge uncertain this time, pending stabilization of the above. Subjective: Patient has ongoing diarrhea, she has ongoing nausea and poor oral intake, her last blood sugar was in the 60 Objective: Vital Signs Temp Pulse Resp BP Pulse Ox 36.4 C 87 14 93/69 L 100 07/28/16 12:16 07/28/16 12:16 07/28/16 12:16 07/28/16 12:16 07/28/16 12:16 Laboratory Results 07/28/16 06:00 07/28/16 06:00 07/27/16 07/28/16 07/29/16 05:59 05:59 05:59 Intake Total 1110 Output Total 475 Balance 635 PT 23.6 SEC (12.0-15.0) H 07/26/16 12:07 INR 2.09 (0.83-1.16) H 07/26/16 12:07 - Physical Exam Constitutional: not in pain, chronically ill appearing, obese (Morbidly), uncomfortable Cardiovascular: edema (1+ bilateral lower extremity), No systolic murmur, No irregularly irregular, No tachycardia Respiratory: no respiratory distress, no rales or rhonchi, clear to auscultation Gastrointestinal: normoactive bowel sounds, soft, non-tender abdomen, no palpable masses, distension (Obese), other (Stool is brown with pills) Skin: other (Pressure injury on coccyx) Neurologic: AAOx3 Psychiatric: interacting appropriately, not anxious, not encephalopathic, thought process linear ICD10 Worksheet Patient Problems: Problems Problem Status Onset Altered mental status Acute C. difficile diarrhea Acute ~07/26/16 Leg wound, left Acute Syncope Acute Anemia Acute Atrial fibrillation Acute Hypotension Acute Palliative care encounter Acute Paroxysmal atrial fibrillation Acute Urinary tract infection Acute
[2016-07-28] MEDS: NS W/ 20 KCl/L 1,000 ML IV SCH (17:10)
[2016-07-28] MEDS: OLANZapine 2.5 MG TAB PO SCH (20:08)
[2016-07-28] MEDS: ASPIRIN 81 MG CHEWABLE TAB PO SCH (20:08)
[2016-07-28] MEDS: ATORVASTATIN CALCIUM 40 MG TAB PO SCH (20:08)
[2016-07-28] MEDS: ACETAMINOPHEN 500 MG TAB PO SCH (20:10)
[2016-07-29] MEDS: VANCOMYCIN 125 MG/2.5 ML UDL PO SCH ×4 (05:54→21:17)
[2016-07-29 06:09] LABS: % IMMATURE GRANULYOCYTES 0.7 % (0.0-1.1); ABSOLUTE IMMATURE GRANULOCYTES 0.05 10^3/uL (0.00-0.10); ADD DIFF? NO; ADD MORPH? NO; ADD SCAN? NO; ATYPICAL LYMPHOCYTE FLAG 0 (0-99); FRAGMENT RBC FLAG 0 (0-99); HEMATOCRIT 28.8 % (38.0-47.0); HEMOGLOBIN 9.1 g/dL (12.6-16.3); LEFT SHIFT FLG 0 (0-99); LIPEMIA HEMOLYSIS FLAG 80 (0-99); MEAN CELL HEMOGLOBIN 29.9 pg (27.9-34.1); MEAN CELL HEMOGLOBIN CONCENTR. 31.6 g/dL (32.4-36.7); MEAN CELL VOLUME 94.7 fL (81.5-99.8); MEAN PLATELET VOLUME 10.8 fL (8.7-11.7); PLATELET CLUMPS FLAG 0 (0-99); PLATELET COUNT 250 10^3/uL (150-400); RED BLOOD CELL COUNT 3.04 10^6/uL (4.18-5.33); RED CELL DISTRIBUTION WIDTH 15.4 % (11.5-15.2)
[2016-07-29 06:43] LABS: ANION GAP 3 mEq/L (8-16); CALCIUM 7.5 mg/dL (8.5-10.4); CARBON DIOXIDE 27 mEq/l (22-31); CHLORIDE 107 mEq/L (97-110); CREATININE 0.9 mg/dL (0.6-1.0); GLOMERULAR FILTRATION RATE > 60; GLUCOSE 66 mg/dL (70-100); MAGNESIUM 1.9 mg/dL (1.6-2.3); POTASSIUM 4.1 mEq/L (3.5-5.2); SODIUM 137 mEq/L (134-144)
[2016-07-29] MEDS: INSULIN REGULAR HUMAN 100 UNIT/ML SC SCH ×4 (08:45→21:19)
--- NOTE | 2016-07-29 09:38 | PCMIDPN ---
Assessment/Plan: # Cdiff Colitis ?recurrent - I cannot find record of this, reviewed available records in [place] and dx listed at [facility]. CT here showed colitis. Symptomatically improved on PO vancomycin. WBC normalized, AF --continue vancomycin 125mg PO QID x 14day unless find record of recurrence # Bacteruria c Citrobacter- dc systemic antibiotics yesterday, suspect colonization from chronic justice # IV access: LUE access is midline, R IJ TLC. [place] to discuss with surgery team before removed. meds vancomycin 125mg PO QID, #2/ Microbiology 07/26 Blood cx (2) NGTD 07/26 UCx 100K Citrobacter Subjective: Only 2 BMs yesterday some persistent nausea Objective: Vital Signs Temp Pulse Resp BP Pulse Ox 36.5 C 77 20 113/71 100 07/29/16 07:46 07/29/16 07:46 07/29/16 07:46 07/29/16 07:46 07/29/16 07:46 Laboratory Results 07/29/16 06:00 07/29/16 06:00 07/28/16 07/29/16 07/30/16 05:59 05:59 05:59 Intake Total 1110 1200 Output Total 475 575 Balance 635 625 - Physical Exam General Appearance: alert, no apparent distress, obese EENT: poor dentition Respiratory: other (poor inspiratory effort, decreased bs bases) Neck: supple Cardiac/Chest: regular rate, rhythm Extremities: pedal edema, other (dressing in place LLE) Abdomen: non-tender, soft Pelvic Exam: justice Skin: pallor, No rash Neuro/Psych: alert, normal mood/affect, other (poor historian) - Line/s other Lines: other (L upper arm midline, blood saturating dressing; R TLC IJ, some blood under dressing as well), No drainage, No erythema ICD10 Worksheet Patient Problems: Problems Problem Status Onset Altered mental status Acute C. difficile diarrhea Acute ~07/26/16 Leg wound, left Acute Syncope Acute Anemia Acute Atrial fibrillation Acute Hypotension Acute Palliative care encounter Acute Paroxysmal atrial fibrillation Acute Urinary tract infection Acute
[2016-07-29] MEDS: PANTOPRAZOLE SODIUM 40 MG TAB PO SCH (10:49)
[2016-07-29] MEDS: AMIODARONE HCL 200 MG TAB PO SCH (10:50)
[2016-07-29] MEDS: DABIGATRAN ETEXILATE MESYL 150 MG CAP PO SCH ×2 (10:50→21:17)
--- NOTE | 2016-07-29 13:18 | HOSPPROG ---
Hospitalist Progress Note Assessment/Plan: Assessment: 70-year-old female presents with severe sepsis in the setting recurrent C difficile colitis Plan: 1. Severe sepsis. POA, evidenced by sepsis-2 criteria with leukocytosis (white blood cell count 09259), tachycardia (heart rate 100), hypotension (systolic blood pressure 78), identifiable source C difficile colitis, evidence of distant end-organ failure notably lactic acidosis (lactic acid 3.3) acute kidney injury, myocardial ischemia, demonstrating autonomic dysregulation in the setting of infection -status post IV fluids and appropriate antibiotic therapy -continue monitoring CBC 2. Recurrent C difficile colitis. Evidenced by CT demonstrating colitis, stool PCR demonstrating C diff, pervasive abdominal symptoms including nausea and vomiting with diarrhea -patient's nausea and poor oral intake persists -continue low rate IV fluids -discussed with Dr. Dc, recs we proceed with 2 weeks of oral vancomycin q.6 hours, then reduce to 3 times daily for a week, then 2 times daily for week, then once daily 3. Chronic Kirk catheter colonization. Patient has Citrobacter is most likely a colonizer and not a true infection, discontinue her dependent 4. Metabolic acidosis. Acute, secondary to lactic acid, secondary to severe sepsis and hypoperfusion, resolved 5. Acute kidney injury. Secondary to severe sepsis and acute hypovolemia, status post IV fluids, resolved 6. Troponin elevation. Acute, secondary to myocardial ischemia in the setting of severe sepsis, may suggest underlying obstructive coronary disease, getting resting portion of stress test today. -EKG demonstrates sinus tach with Q-wave in lead 3 -awaiting resting images for comparison 7. Severe PVD. LE bypass, CEA - cont ASA, statin 8. Syncope. Either secondary to hypovolemia, infection, hypoglycemia 9. Hypoglycemia. Acute, most likely secondary to impaired renal clearance of long-acting insulin as well as underlying infection -hold Lantus -continue on insulin sliding scale 10. Pressure injury. POA, located in the sacrum, appreciate wound care consultation 11. LE wound. Scheduled for skin graft with Dr. Dahl 08/03 12. Afib. Paroxysmal, continue on amiodarone and Pradaxa 13. Morbid obesity BMI 40 14. Chronic hypoxic respiratory failure. Most likely secondary to obesity hypoventilation syndrome, continue on 2-4 L Diet. Diabetic Prophylaxis. High risk patient, currently on Pradaxa Code. Full Disposition. Anticipated discharge 3/27, pending stabilization of the above. Subjective: Patient reports that her bowel movements have improved, nausea and poor oral intake persists, she is anxious about her upcoming surgery Objective: Vital Signs Temp Pulse Resp BP Pulse Ox 36.4 C 80 20 119/74 100 07/29/16 11:57 07/29/16 11:57 07/29/16 07:46 07/29/16 11:57 07/29/16 11:57 Laboratory Results 07/29/16 06:00 07/29/16 06:00 07/28/16 07/29/16 07/30/16 05:59 05:59 05:59 Intake Total 1110 1200 Output Total 475 575 Balance 635 625 PT 23.6 SEC (12.0-15.0) H 07/26/16 12:07 INR 2.09 (0.83-1.16) H 07/26/16 12:07 - Physical Exam Constitutional: not in pain, chronically ill appearing, obese, No uncomfortable Cardiovascular: regular rate and rhythym, no murmur, rub, or gallop, other ( distant), No edema Respiratory: no respiratory distress, no rales or rhonchi, clear to auscultation Gastrointestinal: soft, non-tender abdomen, no palpable masses, No normoactive bowel sounds (hyperactive bowel sounds), No distension Neurologic: AAOx3, weakness (motor bilat LE), No facial droop Psychiatric: interacting appropriately, not anxious, not encephalopathic, thought process linear ICD10 Worksheet Patient Problems: Problems Problem Status Onset C. difficile diarrhea Acute ~07/26/16 Urinary tract infection Acute Paroxysmal atrial fibrillation Acute Palliative care encounter Acute Anemia Acute Hypotension Acute Atrial fibrillation Acute Syncope Acute Altered mental status Acute Leg wound, left Acute
[2016-07-29] MEDS: ASPIRIN 81 MG CHEWABLE TAB PO SCH (21:17)
[2016-07-29] MEDS: ATORVASTATIN CALCIUM 40 MG TAB PO SCH (21:17)
[2016-07-29] MEDS: OLANZapine 2.5 MG TAB PO SCH (21:17)
[2016-07-29] MEDS: ACETAMINOPHEN 500 MG TAB PO SCH (21:19)
[2016-07-30] MEDS: VANCOMYCIN 125 MG/2.5 ML UDL PO SCH ×4 (05:34→20:48)
[2016-07-30 05:53] LABS: % IMMATURE GRANULYOCYTES 0.7 % (0.0-1.1); ABSOLUTE IMMATURE GRANULOCYTES 0.05 10^3/uL (0.00-0.10); ADD DIFF? NO; ADD MORPH? NO; ADD SCAN? NO; ATYPICAL LYMPHOCYTE FLAG 0 (0-99); FRAGMENT RBC FLAG 0 (0-99); HEMATOCRIT 26.1 % (38.0-47.0); HEMOGLOBIN 8.2 g/dL (12.6-16.3); LEFT SHIFT FLG 0 (0-99); LIPEMIA HEMOLYSIS FLAG 80 (0-99); MEAN CELL HEMOGLOBIN CONCENTR. 31.4 g/dL (32.4-36.7); MEAN CELL VOLUME 95.6 fL (81.5-99.8); MEAN PLATELET VOLUME 10.9 fL (8.7-11.7); PLATELET CLUMPS FLAG 0 (0-99); PLATELET COUNT 212 10^3/uL (150-400); RED BLOOD CELL COUNT 2.73 10^6/uL (4.18-5.33); RED CELL DISTRIBUTION WIDTH 15.5 % (11.5-15.2)
[2016-07-30 06:48] LABS: ANION GAP 2 mEq/L (8-16); CALCIUM 7.2 mg/dL (8.5-10.4); CARBON DIOXIDE 26 mEq/l (22-31); CHLORIDE 108 mEq/L (97-110); CREATININE 0.8 mg/dL (0.6-1.0); GLOMERULAR FILTRATION RATE > 60; GLUCOSE 71 mg/dL (70-100); MAGNESIUM 1.8 mg/dL (1.6-2.3); POTASSIUM 3.9 mEq/L (3.5-5.2); SODIUM 136 mEq/L (134-144)
[2016-07-30] MEDS: INSULIN REGULAR HUMAN 100 UNIT/ML SC SCH ×3 (09:01→18:00)
[2016-07-30] MEDS: AMIODARONE HCL 200 MG TAB PO SCH (09:34)
[2016-07-30] MEDS: DABIGATRAN ETEXILATE MESYL 150 MG CAP PO SCH ×2 (09:34→20:50)
[2016-07-30] MEDS: oxyCODONE IR 5 MG TAB PO PRN ×3 (09:34→20:49)
[2016-07-30] MEDS: PANTOPRAZOLE SODIUM 40 MG TAB PO SCH (09:35)
[2016-07-30] MEDS: ONDANSETRON 4 MG/2 ML VIAL IVP PRN (09:37)
--- NOTE | 2016-07-30 10:11 | SOAPPROG ---
SOAP Progress Note Assessment/Plan: Assessment: 70yo F well-known to our service for LLE chronic wounds. Admitted with sepsis, + c. diff colitis Dressing changed this morning - incisions healing well without evidence of infection She is scheduled for split-thickness skin graft on 08/03/16 Appreciate hospitalist management S: pain with dressing change. nausea O: laying in bed, comfortable, NAD No increased WOB No peripheral edema LLE wounds clean and dry, no evidence of active infection. Dressings reapplied - hydrofera blue ready, optilock, kerlix, DANTE and coban Objective: Vital Signs Temp Pulse Resp BP Pulse Ox 36.6 C 74 17 133/65 H 100 07/30/16 08:00 07/30/16 09:50 07/30/16 09:50 07/30/16 08:00 07/30/16 09:50 Laboratory Results 07/30/16 05:30 07/30/16 05:30 07/29/16 07/30/16 07/31/16 05:59 05:59 05:59 Intake Total 1200 860 389 Output Total 575 150 200 Balance 625 710 189 PT 23.6 SEC (12.0-15.0) H 07/26/16 12:07 INR 2.09 (0.83-1.16) H 07/26/16 12:07 ICD10 Worksheet Patient Problems: Problems Problem Status Onset Altered mental status Acute Leg wound, left Acute Syncope Acute Anemia Acute Atrial fibrillation Acute C. difficile diarrhea Acute ~07/26/16 Hypotension Acute Palliative care encounter Acute Paroxysmal atrial fibrillation Acute Urinary tract infection Acute
--- NOTE | 2016-07-30 10:34 | PCMIDPN ---
Assessment/Plan: Assessment: C diff colitis-this is her 1st recurrence. She is on day 3. Of oral vancomycin therapy at 125 mg q.6 hours. She is starting to notice that her stools are more formed. She denies significant abdominal pain. Plan to continue this for a full 14 day course. Discussion about mechanism of recurrence. Plan: 1. Continue oral vancomycin at current dose. 2. Duration of treatment 14 days. 3. Follow clinical improvement. 07/30/16 17:31 Subjective: Patient is doing fairly well. Notes that her diarrhea is starting to decrease. Denies fevers or chills. Objective: Oral vancomycin # 3 Vital Signs Temp Pulse Resp BP Pulse Ox 36.6 C 74 17 133/65 H 100 07/30/16 08:00 07/30/16 09:50 07/30/16 09:50 07/30/16 08:00 07/30/16 09:50 Laboratory Results 07/30/16 05:30 07/30/16 05:30 07/29/16 07/30/16 07/31/16 05:59 05:59 05:59 Intake Total 1200 860 389 Output Total 575 150 200 Balance 625 710 189 - Physical Exam General Appearance: WD/WN, alert, no apparent distress, non-toxic Respiratory: lungs clear, normal breath sounds, No respiratory distress Cardiac/Chest: regular rate, rhythm, No tachycardia Abdomen: non-tender, soft Skin: normal color, warm/dry, No rash Neuro/Psych: alert, normal mood/affect, oriented x 3 ICD10 Worksheet Patient Problems: Problems Problem Status Onset Altered mental status Acute Leg wound, left Acute Syncope Acute Anemia Acute Atrial fibrillation Acute C. difficile diarrhea Acute ~07/26/16 Hypotension Acute Palliative care encounter Acute Paroxysmal atrial fibrillation Acute Urinary tract infection Acute
[2016-07-30] MEDS: NS W/ 20 KCl/L 1,000 ML IV SCH ×2 (12:27)
[2016-07-30] MEDS ORDERED: PROMETHAZINE HCL 25 MG TAB PO PRN (12:47)
[2016-07-30] MEDS: ONDANSETRON DISINTEGRATING 4 MG TAB PO SCH ×2 (14:32→18:10)
--- NOTE | 2016-07-30 14:37 | HOSPPROG ---
Hospitalist Progress Note Assessment/Plan: Assessment: 70-year-old female presents with severe sepsis in the setting recurrent C difficile colitis Plan: 1. Severe sepsis. POA, evidenced by sepsis-2 criteria with leukocytosis (white blood cell count 85701), tachycardia (heart rate 100), hypotension (systolic blood pressure 78), identifiable source C difficile colitis, evidence of distant end-organ failure notably lactic acidosis (lactic acid 3.3) acute kidney injury, myocardial ischemia, demonstrating autonomic dysregulation in the setting of infection -status post IV fluids and appropriate antibiotic therapy -continue monitoring CBC 2. Recurrent C difficile colitis. Evidenced by CT demonstrating colitis, stool PCR demonstrating C diff, pervasive abdominal symptoms including nausea and vomiting with diarrhea -patient's nausea and poor oral intake persists, unable to maintain adequate hydration -continue low rate IV fluids (100cc/hr) -start scheduled zofran prior to meals, then PRN phenergan -outpt taper 2 weeks of oral vancomycin q.6 hours, then reduce to 3 times daily for a week, then 2 times daily for week, then once daily 3. Chronic Kirk catheter colonization. Patient has Citrobacter is most likely a colonizer and not a true infection 4. Metabolic acidosis. Acute, secondary to lactic acid, secondary to severe sepsis and hypoperfusion, resolved 5. Acute kidney injury. Secondary to severe sepsis and acute hypovolemia, status post IV fluids, resolved 6. CAD. Chronic, w/ acute ischemia in setting of sev sepsis -nuc stress w/ septal wall infarct but no inducible ischemia -cont ASA/statin 7. Severe PVD. LE bypass, CEA - cont ASA, statin 8. Syncope. Either secondary to hypovolemia, infection, hypoglycemia 9. Hypoglycemia. Acute, most likely secondary to impaired renal clearance of long-acting insulin as well as underlying infection -cont hold Lantus -continue on insulin sliding scale 10. Pressure injury. POA, located in the sacrum, appreciate wound care consultation 11. LE wound. Scheduled for skin graft with Dr. Dahl 08/03 12. Afib. Paroxysmal, continue on amiodarone and Pradaxa 13. Morbid obesity BMI 40 14. Chronic hypoxic respiratory failure. Most likely secondary to obesity hypoventilation syndrome, continue on 2-4 L Diet. Diabetic Prophylaxis. High risk patient, currently on Pradaxa Code. Full Disposition. Anticipated discharge 07/31, not maintaining oral intake today, risk of clinical worsening if discharged Subjective: Patient reports ongoing nausea, fear of nausea, bowel movements have slowed Objective: Vital Signs Temp Pulse Resp BP Pulse Ox 36.3 C 83 12 103/72 94 07/30/16 12:47 07/30/16 12:47 07/30/16 12:47 07/30/16 12:47 07/30/16 12:47 Laboratory Results 07/30/16 05:30 07/30/16 05:30 07/29/16 07/30/16 07/31/16 05:59 05:59 05:59 Intake Total 1200 860 389 Output Total 575 150 200 Balance 625 710 189 PT 23.6 SEC (12.0-15.0) H 07/26/16 12:07 INR 2.09 (0.83-1.16) H 07/26/16 12:07 - Time Spent With Patient Time Spent with Patient: greater than 35 minutes Time Spent with Patient: Greater than 35 minutes spent on this patients care, greater than 50% of time spent counseling, educating, and coordinating care regarding the above mentioned plan. - Pending Discharge Pending Discharge Within 24 Hours: Yes Pending Discharge Date: 07/31/16 Pending Discharge Time: 11:00 - Physical Exam Constitutional: not in pain, chronically ill appearing, obese, uncomfortable Cardiovascular: regular rate and rhythym, no murmur, rub, or gallop, No edema Respiratory: no respiratory distress, no rales or rhonchi, clear to auscultation Gastrointestinal: normoactive bowel sounds, other (Obese and distended), No tenderness Neurologic: AAOx3 Psychiatric: interacting appropriately, not anxious, not encephalopathic, thought process linear ICD10 Worksheet Patient Problems: Problems Problem Status Onset Altered mental status Acute Leg wound, left Acute Syncope Acute Anemia Acute Atrial fibrillation Acute C. difficile diarrhea Acute ~07/26/16 Hypotension Acute Palliative care encounter Acute Paroxysmal atrial fibrillation Acute Urinary tract infection Acute
[2016-07-30] MEDS: ACETAMINOPHEN 500 MG TAB PO SCH (20:49)
[2016-07-30] MEDS: ASPIRIN 81 MG CHEWABLE TAB PO SCH (20:49)
[2016-07-30] MEDS: OLANZapine 2.5 MG TAB PO SCH (20:49)
[2016-07-30] MEDS: ATORVASTATIN CALCIUM 40 MG TAB PO SCH (20:49)
[2016-07-31] MEDS: INSULIN REGULAR HUMAN 100 UNIT/ML SC SCH ×3 (00:03→12:23)
[2016-07-31] MEDS: oxyCODONE IR 5 MG TAB PO PRN ×2 (00:44→08:48)
[2016-07-31] MEDS: VANCOMYCIN 125 MG/2.5 ML UDL PO SCH ×3 (05:24→16:28)
[2016-07-31 06:20] LABS: ANION GAP 2 mEq/L (8-16); CALCIUM 7.3 mg/dL (8.5-10.4); CARBON DIOXIDE 26 mEq/l (22-31); CHLORIDE 110 mEq/L (97-110); CREATININE 0.8 mg/dL (0.6-1.0); GLOMERULAR FILTRATION RATE > 60; GLUCOSE 74 mg/dL (70-100); POTASSIUM 4.2 mEq/L (3.5-5.2); SODIUM 138 mEq/L (134-144)
[2016-07-31 08:28] VITALS: RESP 13
[2016-07-31] MEDS: ONDANSETRON DISINTEGRATING 4 MG TAB PO SCH ×2 (08:39→12:23)
[2016-07-31] MEDS: NS W/ 20 KCl/L 1,000 ML IV SCH (08:43)
[2016-07-31] MEDS: PANTOPRAZOLE SODIUM 40 MG TAB PO SCH (08:48)
[2016-07-31] MEDS: AMIODARONE HCL 200 MG TAB PO SCH (08:48)
[2016-07-31] MEDS: DABIGATRAN ETEXILATE MESYL 150 MG CAP PO SCH (08:48)
--- NOTE | 2016-07-31 09:34 | PDIAF ---
- Diagnosis Diagnosis: Severe sepsis 2/2 C. difficile colitis, nausea, lower extremity wound Code Status: Full Code - Medication Management Discharge Medications: Medications to Continue on Transfer Acetaminophen [Tylenol ES 500 mg (*)] 500 mg PO HS 06/18/16 [Last Taken Unknown] Amiodarone HCl [Pacerone (*)] 200 mg PO DAILY 06/18/16 [Last Taken Unknown] Aspirin [Aspirin 81mg (*)] 81 mg PO HS 06/18/16 [Last Taken Unknown] Atorvastatin Calcium [Lipitor 40 mg (*)] 40 mg PO HS 06/18/16 [Last Taken Unknown] Dabigatran Etexilate Mesyl [Pradaxa 150 MG (*)] 150 mg PO BID 06/18/16 [Last Taken Unknown] oxyCODONE IR [Oxycodone Ir (*)] 5 mg PO Q4H PRN 06/18/16 [Last Taken Unknown] Acetaminophen [Tylenol 325mg (*)] 650 mg PO Q4HRS PRN #0 tab 07/06/16 [Last Taken Unknown] OLANZapine [ZyPREXA 2.5 mg (*)] 2.5 mg PO HS #0 tab 07/06/16 [Last Taken Unknown ] Omeprazole [Prilosec 20 mg] 20 mg PO DAILY 07/26/16 [Last Taken Unknown] Ondansetron Odt [Zofran Odt 4 mg (*)] 4 mg PO AC tab 07/31/16 [Last Taken Unknown] Promethazine HCl [Phenergan 25mg (*)] 6.25 - 12.5 mg PO Q6HRS PRN #0 tab [Last Taken Unknown] Vancomycin [Vancocin Oral Liquid] 125 mg PO QID #48 udl 07/31/16 [Last Taken Unknown] Usp Antibiotics: Vancomycin 125mg PO q6h Usp Antibiotic Stop Date: 08/12/16 (continue until seen by Dr. Dc, then she will advise) Discharge Medications: Refer to the Discharge Home Medication list for PRN reason. PICC Care - Routine: Yes - Orders Services needed: Registered Nurse, Master Boiler Testing Technician, Physical Therapy, Occupational Therapy Oxygen: 4L chronically Diet Recommendation: no restrictions on diet Weigh Patient: weekly Kirk: Yes (chronic) Wound Care Instructions: per previously ordered wound care, under direction of Dr. Dahl Activity/Weight Bearing Restrictions: as tolerates - Labs/Radiology BMP Date: 08/02/16 CBC Date: 08/02/16 PT/INR Date: 08/02/16 Call or Fax Lab and Imaging Results to: Dr. Dahl, pre-op labs - Follow Up Care Current Providers and Referrals: Ashleigh Dahl MD [Medical Doctor] - Eugenia Dc MD [Medical Doctor] - follow up in 1 week Patient,NotPresent [Unknown] - As per Instructions
--- NOTE | 2016-07-31 09:44 | PDDCSUM ---
Discharge Summary Discharge Summary: DISCHARGE SUMMARY FOLLOW-UP ITEMS: Determine outpatient vancomycin course through Dr. Dc office DATE OF ADMISSION: 07/26/2016 DATE OF DISCHARGE: 07/31/2016 DISCHARGE DIAGNOSES: 1. Severe sepsis present on arrival 2. Recurrent C difficile colitis 3. Chronic Kirk catheter colonization 4. Acute metabolic acidosis 5. Acute kidney injury 6. Chronic coronary artery disease 7. Severe chronic peripheral vascular disease 8. Syncope 9. Acute hypoglycemia 10. Pressure injury present on arrival 11. Lower extremity wound present on arrival 12. Paroxysmal atrial fibrillation 13. Morbid obesity with BMI 40 14. Chronic hypoxic respiratory failure CONSULTATIONS: General surgery, Infectious Disease PROCEDURES / IMAGING: CT of the abdomen demonstrating colitis CHIEF COMPLAINT: Acute syncope SUBJECTIVE: Patient is feeling well at time of discharge, she is eating solid foods and drinking liquids with Zofran premedication, not having loose bowel movements any more PHYSICAL EXAM ON DISCHARGE: Systolic blood pressure is 1/10, heart rate 70, afebrile overnight, morbidly obese appearing, abdomen is soft nontender nondistended, bowel sounds are present LABS ON DISCHARGE: White blood cell count 7200, hemoglobin 8.2, creatinine 0.8, potassium 4.2 HOSPITAL COURSE BY PROBLEM: 1. Severe sepsis. UA, evidenced by sepsis-2 criteria with leukocytosis, tachycardia, hypotension, identifiable source of C difficile colitis, evidence of distant end-organ failure notably lactic acidosis, acute kidney injury, myocardial ischemia, demonstrating autonomic dysregulation in the setting of infection. Patient received empiric IV fluids and empiric antibiotic therapy. Her leukocytosis normalized as did her hemodynamics. 2. Recurrent C difficile colitis. Evidenced by CT demonstrating colitis with positive stool PCR for C diff. Patient received oral vancomycin and her diarrhea improved. She requires extended hospitalization secondary to pervasive abdominal symptoms including nausea and vomiting, exacerbated by oral intake. We scheduled Zofran prior to meals beginning on 07/30, and this allowed the patient to safely tolerate oral solids and liquids. Recommend ongoing use of Phenergan as needed and discontinuation of her scheduled Zofran once patient's nausea symptoms improved. I have discontinued patient's stool softeners and laxatives from her previous medication list. 3. Chronic Kirk catheter colonization. Patient had Citrobacter growing in her urine this most likely colonizer not a true infection. 4. Acute metabolic acidosis. Secondary to lactic acid, secondary to severe sepsis and hypoperfusion. This resolved with IV fluids. 5. Acute kidney injury. Secondary to severe sepsis and acute hypokalemia, status post IV fluids, resolved, creatinine at baseline at discharge. 6. Chronic coronary artery disease. Patient experienced acute ischemia in the setting of severe sepsis evidenced by elevated troponin level. She underwent nuclear medicine stress testing which demonstrated a septal wall infarct in the past but no inducible ischemia. She was continued on her aspirin and statin. 7. Severe chronic peripheral vascular disease. Patient is status post lower extremity bypass as well as CEA and she has been continued on aspirin and statin. 8. Syncope. Most likely secondary to hypovolemia in the setting of above. Patient has not had any further events during this hospitalization. 9. Hypoglycemia. This is most likely secondary to impaired renal clearance of long-acting insulin as well as underlying infection. Patient's Lantus was held she was placed on insulin sliding scale during this hospitalization. Her insulin is being resumed at her previous normal dosing at time of discharge now that she is safe tolerating oral intake. 10. Pressure injury present on arrival. This was located on her sacrum and she received wound care consultation during this hospitalization. Please see signed wound care evaluation note for full details. 11. Lower extremity wound. Patient is scheduled for a skin graft with Dr. Dahl on 08/03/2016. I have reached out to Dr. Dahl regarding port placement at that time given the patient has difficult intravenous access. The patient has a PICC line and an IJ line and we will discharge her with 1 of these lines today and hopefully patient can have her access cell changer to report on the . 12. Paroxysmal atrial fibrillation. Patient was continued on amiodarone and Pradaxa. 13. Morbid obesity with BMI of 40. Increase patient's risk of morbidity and/or mortality. 14. Chronic hypoxic respiratory failure. Patient most likely has obesity hypoventilation syndrome and she was continued on her home supplemental oxygen. DISCHARGE MEDICATIONS: Please see official discharge medication reconciliation sheet in chart , vancomycin 125 q.6 hours orally, to be seen by Dr. Dc to determine whether she should taper in the outpatient setting. DISCHARGE INSTRUCTIONS: Patient should have labs drawn preoperatively and then undergo surgery on the with outpatient follow up with Dr. Dc thereafter. TIME SPENT: Greater than 30 minutes were spent on direct patient care, as well as discharge planning and preparation.
[2016-07-31 11:37] VITALS: PULSE 85
--- NOTE | 2016-07-31 13:27 | PCMIDPN ---
Assessment/Plan: Assessment/Plan: 1. C. diff colitis: - Currently on oral vanco. On day #5/14 -Stools over improved. no bm's today. -wbc and labs noted. -Continue current therapy. 2. Bacteriuria with Citrobacter:colonization MEds vanco 125mg q6- 07/27/16 Subjective: Afebrile. Eating baked potato. states has some nausea. reports no BM's since yesterday. denies abd pain. denies sob, cough. Objective: Vital Signs Temp Pulse Resp BP Pulse Ox 36.9 C 85 13 106/73 100 07/31/16 11:33 07/31/16 11:33 07/31/16 11:33 07/31/16 11:33 07/31/16 11:33 Laboratory Results 07/30/16 05:30 07/31/16 05:25 07/30/16 07/31/16 08/01/16 05:59 05:59 05:59 Intake Total 860 3147 1449 Output Total 150 500 Balance 710 2647 1449 - Physical Exam General Appearance: alert, no apparent distress Respiratory: lungs clear Cardiac/Chest: regular rate, rhythm Abdomen: normal bowel sounds, non-tender, soft, No distended Skin: No erythema ICD10 Worksheet Patient Problems: Problems Problem Status Onset Altered mental status Acute Leg wound, left Acute Syncope Acute Anemia Acute Atrial fibrillation Acute C. difficile diarrhea Acute ~07/26/16 Hypotension Acute Palliative care encounter Acute Paroxysmal atrial fibrillation Acute Urinary tract infection Acute
[2016-07-31 15:42] VITALS: BP 113/68; TEMP 98.2; O2SAT 99
== END 2016-07-31 16:13 | DRG 872 ==
LOC: EDUNIT# → F3N 15:35 → OBSVTOIN 07-27 09:49 → F2W 07-27 11:50
PROVIDERS: ADMIT Internal Medicine; ATTEND Internal Medicine
PROC: 02HV33Z Insertion of Infusion Device into Superior Vena Cava, Percutaneous Approach (ICD-10-PCS; principal; 2016-07-27)
DX: A41.89 Other specified sepsis (principal); A04.7 Enterocolitis due to Clostridium difficile; N17.9 Acute kidney failure, unspecified; J96.10 Chronic respiratory failure, unspecified whether with hypoxia or hypercapnia; E87.2 Acidosis; E11.9 Type 2 diabetes mellitus without complications; I10 Essential (primary) hypertension; I25.10 Atherosclerotic heart disease of native coronary artery without angina pectoris; I73.9 Peripheral vascular disease, unspecified; R55 Syncope and collapse; L89.152 Pressure ulcer of sacral region, stage 2; R82.71 Bacteriuria; S81.802A Unspecified open wound, left lower leg, initial encounter; E66.2 Morbid (severe) obesity with alveolar hypoventilation; Z68.41 Body mass index [BMI] 40.0-44.9, adult; Z86.73 Personal history of transient ischemic attack (TIA), and cerebral infarction without residual deficits; Z99.81 Dependence on supplemental oxygen; Z98.890 Other specified postprocedural states
CPT/HCPCS: 96365; 97110-GO; 97110-GP; 97162-GP; 97166-GO; 97530-GP; 97535-GO; A9500; C1750; G0378; G8978-GP-CM; G8979-GP-CL; G8987-GO-CM; G8988-GO-CK; J0696; J1335; J1815; J2405; J2785; J2997; J3370; Q9967

== ENCOUNTER 2016-08-03 08:31 | Inpatient (IN) | payer OTHER ==
[2016-08-03] MEDS ORDERED: BUPIVACAINE 0.5% 30 ML SDV ONE (09:23)
[2016-08-03] MEDS ORDERED: MINERAL OIL 10 ML VIAL TP ONE (09:27)
[2016-08-03] MEDS ORDERED: PROPOFOL/EMULSION 500 MG/50 ML BOTTLE IV ONE (09:41)
[2016-08-03] MEDS ORDERED: fentaNYL 250 MCG/5 ML INJ ONE (09:41)
[2016-08-03] MEDS ORDERED: ONDANSETRON 4 MG/2 ML VIAL ONE ×2 (09:41→12:27)
[2016-08-03] MEDS ORDERED: ceFAZolin 1 GM VIAL ONE ×2 (09:42)
[2016-08-03] MEDS ORDERED: LIDOCAINE 2% 5 ML SDV ONE (09:42)
[2016-08-03] MEDS ORDERED: ROCURONIUM 50 MG/5 ML VIAL ONE (09:42)
[2016-08-03] MEDS ORDERED: ceFAZolin 2 GM/DEXTROSE 100 ML IV ONE (10:00)
[2016-08-03] MEDS ORDERED: EPINEPHrine 1 MG/10 ML SYR IVP ONE (10:07)
[2016-08-03] MEDS ORDERED: NEOSTIGMINE METHYLSULFATE 5 MG/5 ML SYR ONE (10:45)
[2016-08-03] MEDS ORDERED: GLYCOPYRROLATE 0.2 MG/1 ML VIAL ONE ×2 (10:45)
[2016-08-03] MEDS ORDERED: PHENYLEPHRINE HCL 100 MCG/ML SYR ONE (10:49)
[2016-08-03] MEDS ORDERED: LABETALOL HCL 50 MG/10 ML SYR ONE (11:31)
[2016-08-03] MEDS ORDERED: fentaNYL 100 MCG/2 ML INJ ONE ×2 (11:39→12:34)
[2016-08-03] MEDS ORDERED: diphenhydrAMINE 25 MG CAP PO PRN (11:55)
[2016-08-03] MEDS ORDERED: ACETAMINOPHEN 325 MG TAB PO PRN (11:55)
[2016-08-03] MEDS ORDERED: ONDANSETRON DISINTEGRATING 4 MG TAB PO PRN (11:55)
[2016-08-03] MEDS ORDERED: ONDANSETRON 4 MG/2 ML VIAL IVP PRN (11:55)
--- NOTE | 2016-08-03 11:59 | POSTOPPROG ---
Post Op Note Date of Operation: 08/03/16 Surgeon: Ashleigh Dahl Sampler First: lulu rios Anesthesiologist: geena esquivel Anesthesia: GET(General Endotracheal) Pre-op Diagnosis: LLE wounds, PVD Post-op Diagnosis: same Indication: 70yo F with LLE wounds d/t PVD Procedure: wound debridement with STSG and wound vac placement Findings: bone palpable in calcaneal wound Inf/Abcess present in the surg proc area at time of surgery?: No Depth: Superfical (Skin SQ) EBL: Minimal Complications: none immediately postoperatively Drains: Wound Vac Specimen(s): none
[2016-08-03] MEDS: HYDROmorphONE/DILAUDID 1 MG/ML SYR IVP PRN ×3 (13:21→22:43)
--- NOTE | 2016-08-03 14:28 | GOP ---
[f rep st] OPERATIVE REPORT DATE OF OPERATION: 08/03/2016 SURGEON: Ashleigh Dahl MD COCOA BEAN ROASTER: MIRIAM Julio ANESTHESIA: General. ANESTHESIOLOGIST: Vy Plunkett MD. PREOPERATIVE DIAGNOSIS: Severe peripheral vascular disease with chronic wound related to peripheral vascular disease, diabetes mellitus and pressure. POSTOPERATIVE DIAGNOSIS: Severe peripheral vascular disease with chronic wound related to periphera l vascular disease, diabetes mellitus and pressure. PROCEDURE PERFORMED: Debridement skin, soft tissue, tendon and bone, split-thickness skin graft and application of dermal substitute with wound VAC placement. FINDINGS: The posterior wound measures 34 x 9 x 1 cm. The wound on her left 5th lateral metatarsal head measures 2.4 x 1.8 x 0.5. ESTIMATED BLOOD LOSS: 25 cc. INDICATIONS: The patient is a 70-year-old woman who presented to the hospital with severe necrotic wounds and peripheral vascular disease. Her diabetes mellitus was uncontrolled and she was also dec onditioned. We have been debriding her wounds. I have already done a split-thickness skin graft an teriorly. She now presents for the posterior skin graft. DESCRIPTION OF PROCEDURE: The patient was brought into the operating room, placed supine on the tab le, and general anesthesia was administered. She was then placed in the prone position. All bony p rominences were padded. Her leg was prepped and draped in the usual sterile fashion. I debrided ne crotic tendon, a bit of bone and soft tissue, including the subcutaneous tissues. The posterior wou nd measured 34 x 9 x 1 cm. This was contiguous with the wound on her heel. The wound on her toe me asures 2.4 x 1.8 x 0.5 cm. Over her Achilles and her posterior calcaneus, I placed a piece of PriMa trix and stapled this into place. I also placed a bit of the PriMatrix by the 5th metatarsal head. I then obtained a split-thickness skin graft from her left lateral posterior thigh at 1:12,000 of a n inch. I performed hand pie crusting. I placed this on the wound and stapled it into place. Adap tic Touch was placed over the skin graft, as well as the PriMatrix. A barrier device was then used to separate the wound from her freshly healed graft anteriorly. A sponge was placed. A wound VAC w as placed. It sealed well. She tolerated the procedure well. She was then placed back into the jimenez pine position, awakened in the operating room, extubated, transferred to PACU in stable condition. /[id number]/MODL
[2016-08-03] MEDS ORDERED: ZOLPIDEM TARTRATE 5 MG TAB PO PRN (16:52)
[2016-08-03] MEDS ORDERED: LORazepam 0.5 MG TAB PO PRN (16:52)
[2016-08-03] MEDS ORDERED: LORazepam 2 MG/ML INJ IVP PRN (16:52)
--- NOTE | 2016-08-03 17:23 | GHP ---
[f rep st] HISTORY AND PHYSICAL DATE OF ADMISSION: 08/03/2016 CHIEF COMPLAINT: Left lower extremity wound status post debridement. HISTORY OF PRESENT ILLNESS: This is a 70-year-old female with known peripheral artery disease, alana pheral vascular disease of the left lower extremity who has an extensive history of wound care here at this facility and vascular care. She was hospitalized in April to May for vascular diseas e and wound care of her left lower extremity. At that time, underwent a femoral-popliteal bypass to improve the vascular flow to the wounds of her lower extremity. She has been under care in an exte [facility] care facility and returned here for debridement of her left lower extremity wound today. Posto peratively she was admitted for management of her multiple medical problems. The patient herself says that she feels things have been going well. She denies having any chest pa in, shortness of breath, nausea or vomiting. She says she is a little tired postoperatively at this time but has no other specific complaints. The surgical site is tender and painful and that is faraz ng approached with pain medication. She herself is unclear as to her diabetic management. It is useful to note that in the admission from 07/26/2016 the patient admitted that she had [address] unintentional weight loss since April of 2016. She reports also that she has very little appe tite and sometimes will vomit after eating. Her bowel function is unclear. Per that history she gonzalez s never had a colonoscopy but currently today she is denying abdominal pain. PAST MEDICAL HISTORY: 1. Atrial fibrillation noted in 04/2016 for which she is on anticoagulation and beta blockers along with the amiodarone. 2. History of C difficile but denies currently any diarrhea. 3. Known sacral decubitus ulcerations which will be further evaluated. These were present on admis traci and had been undergoing treatment on an outpatient basis. 4. Diabetes mellitus. Last hemoglobin A1c was noted at 8.1 in 05/2016. 5. Peripheral vascular disease, peripheral artery disease status post femoral-popliteal bypass in 06/2015. 6. Morbid obesity. 7. She is status post a stroke remotely and status post a left carotid endarterectomy. 8. She chronic respiratory failure, requiring 2-4 L of oxygen chronically. 9. She has a chronic Kirk catheter that has been placed since 04/24/2016. HOME MEDICATIONS: Will be recorded in the EMR and will be reconciled. ALLERGIES: To medical tape. SOCIAL HISTORY: No smoking. No alcohol. She lives with her normally. As I understand it she was in an extended care facility prior to this admission. She reports her has advanced dementia. REVIEW OF SYSTEMS: A 10-point review of systems except as noted in the HPI is negative. She specif ically denies having chest pain or any recent episode of a rapid heartbeat or weakness. She reports very poor appetite, and will move her bowels intermittently. She denies fever or cough or shortnes s of breath. FAMILY HISTORY: She denies much family history but a review of the EMR indicates that she does have a family history of diabetes mellitus and cancer. PHYSICAL EXAMINATION: GENERAL: This is a pleasant female who is slightly drowsy postoperatively. She is complaining of some discomfort in her back and thighs and pain at the surgical site. VITAL S IGNS: Show blood pressure is normal, heart rate is approximately 70 to 80 and appears regular, resp iratory rate 16, on supplemental oxygen of 2 L/min and 94% saturated. HEENT: Atraumatic. The mout h shows no lesions on the tongue or buccal mucosa. CHEST WALL: Nontender to palpation. She is lan te large and her inspiratory excursion appears normal. LUNGS: Seem clear, although there are very distant breath sounds due to her body habitus. HEART: Sounds are very soft also and cannot be kimberly acterized due to body habitus. ABDOMEN: Obese. Bowel sounds are present. She has no masses, tend erness or organomegaly. A Kirk catheter is in place. EXTREMITIES: Left lower extremity shows dharmesh gical dressings are in place along the left lateral thigh along with a wound VAC placed in the left lower leg laterally down to the calcaneus. Review of the debridement operation performed today indicates that she had extensive deep wounds cory n to the bone over the calcaneus where the wound VAC is currently placed. Review of prior microbiol ogy shows that she grew Clostridium difficile on 07/26/2016. A urine culture at that time grew Citr obacter. Blood culture at the time, also grew Gram positive cocci on 07/26. A urine culture on grew E coli. A leg wound culture on 04/24/2016 grew Morganella morganii. Which was sensiti ve to multiple antibiotics but resistant to ampicillin and Ancef. ASSESSMENT: 1. Left lower extremity wound debridement with a 70-year-old female with known peripheral vascular disease. She appears currently stable at this time regarding her wound care. Outpatient records in [facility] the patient has not been on an oral or IV antibiotic for her leg wound but is in fact on oral vancomycin for her Clostridium difficile treatment. ID will be consulted as to whether they want t o begin another IV antibiotic for this wound, although it is described as well debrided and healing well at this time. 2. Sacral decubitus. These have been under treatment for some time and we will continue so. Wound Care will be consulted regarding the management of these. 3. Clostridium difficile documented in 07/2016. The patient will be placed in isolation and we thad l continue her oral vancomycin. She is currently not complaining of diarrhea. The treatment course will be evaluated for an end date of her vancomycin as she seems to have resolved her diarrhea. 4. Diabetes mellitus. Her last known hemoglobin A1c was 8.18. She has by history lost significant weight and thus her diabetes may be easier to control. She will be placed on q.a.c. and h.s. gluco se checks and SSI insulin. 5. Anticoagulation for paroxysmal atrial fibrillation. She has been on Pradaxa and this will be co ntinued. 6. Paroxysmal atrial fibrillation. She currently appears to be in a stable rate. Cardiac monitori ng will be instituted for 24 hours to assess this. We will continue anticoagulation and her rate co ntrol medications. 7. Hypertension. This will be managed in the usual fashion. 8. Anemia. Her admission hemoglobin is 8.2, but it has been as high as 9.7. There is no history o f blood loss and we will just monitor her hemoglobin slowly. Iron studies will be obtained. 9. Chronic diagnoses are chronic respiratory failure requiring 2-4 L of oxygen per minute. Chronic Kirk catheter. Sacral decubitus ulceration. Chronic kidney disease has been listed as a chronic diagnosis with a creatinine of 1.3. Today her creatinine is 0.8 and this seems to have resolved. PLAN: Per above ID will be consulted for further care. Surgery will follow along in her wound care . /[id number]/MODL
[2016-08-03] MEDS ORDERED: D50W 25 GM/50 ML SYR IVP PRN (17:46)
[2016-08-03] MEDS: INSULIN LISPRO 100 UNIT/ML SC SCH (18:35)
[2016-08-03] MEDS ORDERED: STERILE WATER INJ 20 ML VIAL MISC ONE (19:00)
[2016-08-03] MEDS ORDERED: ALTEPLASE 2 MG VIAL IV ONE (19:00)
[2016-08-03] MEDS: DABIGATRAN ETEXILATE MESYL 150 MG CAP PO SCH (20:49)
[2016-08-03] MEDS: ATORVASTATIN CALCIUM 40 MG TAB PO SCH (20:49)
[2016-08-03] MEDS: OLANZapine 2.5 MG TAB PO SCH (20:49)
[2016-08-03] MEDS: VANCOMYCIN 125 MG/2.5 ML UDL PO SCH (20:50)
[2016-08-03] MEDS: IPRATROPIUM/ALBUTEROL 3 ML DEYVIAL IH SCH (22:24)
[2016-08-04] MEDS: NS W/ 20 KCl/L 1,000 ML IV SCH ×3 (03:02→20:51)
[2016-08-04] MEDS: IPRATROPIUM/ALBUTEROL 3 ML DEYVIAL IH SCH ×3 (04:48→15:56)
[2016-08-04] MEDS: VANCOMYCIN 125 MG/2.5 ML UDL PO SCH ×4 (05:53→20:51)
[2016-08-04] MEDS ORDERED: ALTEPLASE 2 MG VIAL ONE (08:41)
[2016-08-04] MEDS ORDERED: NON-FORMULARY NEW DRUG (Omeprazole [Prilosec 20 Mg] 20 MG) PO SCH (09:00)
[2016-08-04] MEDS: INSULIN LISPRO 100 UNIT/ML SC SCH ×3 (09:32→18:14)
[2016-08-04] MEDS: HYDROCODONE/APAP 5/325 TAB PO PRN (10:18)
[2016-08-04] MEDS: DABIGATRAN ETEXILATE MESYL 150 MG CAP PO SCH ×2 (10:19→20:51)
[2016-08-04] MEDS: MULTIVITAMINS 1 EACH TAB PO SCH (10:20)
[2016-08-04] MEDS: AMIODARONE HCL 200 MG TAB PO SCH (10:20)
[2016-08-04] MEDS: PANTOPRAZOLE SODIUM 40 MG TAB PO SCH ×2 (10:20→10:23)
[2016-08-04] MEDS: HYDROmorphONE/DILAUDID 1 MG/ML SYR IVP PRN (12:03)
--- NOTE | 2016-08-04 12:40 | SOAPPROG ---
SOAP Progress Note Assessment/Plan: Assessment: POD # 1 s/p stsg and primatrix to posterior wound Continue side to side. No direct pressure on posterior aspect of wound Consistent carb diet PT/OT - Ideally non weight bearing left lower extremity to protect graft but Shahida has not been able to stand recently. I am okay with short amounts of time S: Feeling okay WOund vac to suction Thigh dressing is dry Plan: 08/04/16 12:38 Objective: Vital Signs Temp Pulse Resp BP Pulse Ox 36.5 C 74 17 111/53 L 100 08/04/16 11:39 08/04/16 11:39 08/04/16 11:39 08/04/16 11:39 08/04/16 11:39 08/03/16 08/04/16 08/05/16 05:59 05:59 05:59 Intake Total 850 Output Total 400 Balance 450 ICD10 Worksheet Patient Problems: Problems Problem Status Onset Altered mental status Acute Anemia Acute Atrial fibrillation Acute C. difficile diarrhea Acute ~07/26/16 Hypotension Acute Leg wound, left Acute Palliative care encounter Acute Paroxysmal atrial fibrillation Acute Syncope Acute Urinary tract infection Acute
--- NOTE | 2016-08-04 16:37 | HOSPPROG ---
Hospitalist Progress Note Assessment/Plan: The patient is a 70 year old obese female with PMH AFib, diabetes, PVD who was admitted for left lower extremity gangrene/cellulitis, underwent wound debridement and wound VAC placement. ASSESSMENT/PLAN: Left lower extremity wound/gangrene, status post debridement/skin graft -wound VAC in place, suctioning. -postop day 1 -non weight-bearing left lower extremity to protect skin graft. -ID consulted Poor IV access -getting central line placed by Interventional Radiology. Chronic resp failure, on 2-4L O2 chronically -Pt does not like being on scheduled SVNs, changing to prn only. Atrial fibrillation -amio -Pradaxa for AC. Diarrhea, C. diff continued on po vanco, as this is recurrent -ID consulted - recs appreciated Diabetes mellitus -SSI HTN -BP controlled. Anemia -No evidence of acute bleeding -Cont to monitor Morbid obesity Sacral decubitus ulcer, unk stage, present on admission -Wound care, air mattress Chronic CVA Carotid Artery Stenosis, s/p L CEA VTE prophylaxis: Lovenox Code Status: DNR Disposition: [facility], inpatient status ____ SUBJECTIVE: Patient complains multiple loose stools. She has little appetite and feels like food just comes back up if she tries to eat more than a few bites. Pain is well controlled. OBJECTIVE: Physical Exam: General: The patient is a morbidly obese who is alert and in no acute distress. HEENT: normocephalic, extraocular movements intact, conjunctivae clear. Mucous membranes moist. Neck: trachea midline, no visible masses. Abd: soft and nondistended. Bowel sounds present. Non tender throughout. Musculoskeletal: Normal muscle tone/bulk. Wound VAC in place on left foot which is dressed in a cushioned boot. Neuro: cranial nerves II XII grossly intact. Intact gross motor and sensory function. Psych: Appropriate mood and flat affect. Skin: Mild pallor. No petechiae. Labs/Imaging/Other Tests: Personally reviewed/interpreted. Objective: Vital Signs Temp Pulse Resp BP Pulse Ox 36.5 C 81 12 104/58 L 92 08/04/16 15:00 08/04/16 15:00 08/04/16 15:00 08/04/16 15:00 08/04/16 15:00 0308/04/16 08/05/16 05:59 05:59 05:59 Intake Total 850 Output Total 400 Balance 450 ICD10 Worksheet Patient Problems: Problems Problem Status Onset Altered mental status Acute Anemia Acute Atrial fibrillation Acute C. difficile diarrhea Acute ~07/26/16 Hypotension Acute Leg wound, left Acute Palliative care encounter Acute Paroxysmal atrial fibrillation Acute Syncope Acute Urinary tract infection Acute
[2016-08-04] MEDS ORDERED: IPRATROPIUM/ALBUTEROL 3 ML DEYVIAL IH PRN (17:46)
[2016-08-04] MEDS: ATORVASTATIN CALCIUM 40 MG TAB PO SCH (20:51)
[2016-08-04] MEDS: OLANZapine 2.5 MG TAB PO SCH (20:52)
[2016-08-05] MEDS: NS W/ 20 KCl/L 1,000 ML IV SCH ×3 (04:11→21:03)
[2016-08-05] MEDS: VANCOMYCIN 125 MG/2.5 ML UDL PO SCH ×4 (04:54→21:04)
[2016-08-05] MEDS: HYDROCODONE/APAP 5/325 TAB PO PRN ×2 (08:45→21:03)
[2016-08-05] MEDS: MULTIVITAMINS 1 EACH TAB PO SCH (08:48)
[2016-08-05] MEDS: AMIODARONE HCL 200 MG TAB PO SCH (08:48)
[2016-08-05] MEDS: DABIGATRAN ETEXILATE MESYL 150 MG CAP PO SCH ×2 (08:48→21:03)
[2016-08-05 09:24] LABS: ANION GAP 0 mEq/L (8-16); CALCIUM 7.4 mg/dL (8.5-10.4); CARBON DIOXIDE 25 mEq/l (22-31); CHLORIDE 114 mEq/L (97-110); CREATININE 0.7 mg/dL (0.6-1.0); GLOMERULAR FILTRATION RATE > 60; GLUCOSE 73 mg/dL (70-100); SODIUM 139 mEq/L (134-144)
[2016-08-05 09:26] LABS: % IMMATURE GRANULYOCYTES 0.6 % (0.0-1.1); ABSOLUTE IMMATURE GRANULOCYTES 0.03 10^3/uL (0.00-0.10); ADD DIFF? NO; ADD MORPH? NO; ADD SCAN? NO; ATYPICAL LYMPHOCYTE FLAG 0 (0-99); FRAGMENT RBC FLAG 0 (0-99); HEMATOCRIT 24.1 % (38.0-47.0); HEMOGLOBIN 7.5 g/dL (12.6-16.3); LEFT SHIFT FLG 0 (0-99); LIPEMIA HEMOLYSIS FLAG 80 (0-99); MEAN CELL HEMOGLOBIN 30.2 pg (27.9-34.1); MEAN CELL HEMOGLOBIN CONCENTR. 31.1 g/dL (32.4-36.7); MEAN CELL VOLUME 97.2 fL (81.5-99.8); MEAN PLATELET VOLUME 11.2 fL (8.7-11.7); PLATELET CLUMPS FLAG 0 (0-99); PLATELET COUNT 222 10^3/uL (150-400); RED BLOOD CELL COUNT 2.48 10^6/uL (4.18-5.33); RED CELL DISTRIBUTION WIDTH 16.2 % (11.5-15.2)
--- NOTE | 2016-08-05 10:10 | WOCRNPDOC ---
WOCRN Advanced Assessment Note - Skin Integrity Problem, Advanced Assess Sacrum Pressure Injury Dressing Type: Allevyn Life Dressing Description: Intact Exudate Amount: Scant Exudate Color: Reddish/Yellow Exudate Characteristic(s): Serosanguinous Integumentary Issue Intervention: Dressing Changed, Lotion/Cream Applied (3M Durable barrier cream) Noemí Wound Tissue: Blanching, Erythema, Denuded, Scarred Noemí Wound Swelling: None Wound Bed Color: Red Wound Edges: Epithelizing Site Odor: None Site Measurement - Head-to-Toe Length X Width X Depth (cm): L sacrum: 1cmx0.9cmx0.1cm. R/medial sacrum: 0.5cmx0.3cmx0.1cm. R sacrum: 0.4cmx0.9cmx0.1cm Pressure Injury Stage: Stage 3 (all three wounds were previously full-thickness , and resume their previous staging regardless of current appearance.) Pressure Injury Present on Admit: Yes (Documented in H&P) Skin Integrity Problem Comment: Three, discrete pressure injuries on patient's sacrum. All of these wounds were previously full-thickness stage 3 wounds. Presently, their appearance is consistent w/ a stage 2 pressure injury, w/ partial-thickness tissue loss evident, no apparent necrosis. Epithelialization noted along all wound margins. There is scar tissue across entire sacrum related to the previous injury, now fully epithelialized and blanching. Patient is on a P500 low air loss bed because of the history of this wound. I applied a barrier cream across her sacrum and buttocks, wound gel to all three wound beds , and covered site w/ Allevyn Life sacral dressing. Patient repositioned on her L side to off-load sacrum and L posterior leg (graft site). coding specELIJAH Rodriguez present and assisting. Bilateral Pannus Dressing Type: Open to Air Exudate Amount: None Exudate Characteristic(s): None Noemí Wound Tissue: Denuded Wound Bed Color: [place], Red Skin Integrity Problem Comment: Denuded, raw skin noted throughout fold in pannus, consistent with intertriginous dermatitis r/t yeast/moisture/friction. Supplied coding specELIJAH Rodriguez w/ Interdry sheets for pannus, w/ orders to clean and apply QD.
--- NOTE | 2016-08-05 10:32 | SOAPPROG ---
SOAP Progress Note Assessment/Plan: Assessment: POD # 2 s/p stsg and primatrix to posterior wound Continue side to side. No direct pressure on posterior aspect of wound Consistent carb diet PT/OT - Ideally non weight bearing left lower extremity to protect graft but Shahida has not been able to stand recently. I am okay with short amounts of time May eventually need port. I am hesitant to put this in now as she has a high risk of getting it infected as her wounds are not closed yet S: Feeling okay Wound vac to suction Thigh dressing is dry Plan: 08/04/16 12:38 08/05/16 10:32 Objective: Vital Signs Temp Pulse Resp BP Pulse Ox 36.3 C 80 17 113/78 96 08/05/16 08:00 08/05/16 08:00 08/05/16 08:00 08/05/16 08:00 08/05/16 08:00 Laboratory Results 08/05/16 08:30 08/05/16 08:30 08/04/16 08/05/16 08/06/16 05:59 05:59 05:59 Intake Total 850 3599 Output Total 400 450 Balance 450 3149 ICD10 Worksheet Patient Problems: Problems Problem Status Onset Altered mental status Acute Anemia Acute Atrial fibrillation Acute C. difficile diarrhea Acute ~07/26/16 Hypotension Acute Leg wound, left Acute Palliative care encounter Acute Paroxysmal atrial fibrillation Acute Syncope Acute Urinary tract infection Acute
[2016-08-05] MEDS: INSULIN LISPRO 100 UNIT/ML SC SCH ×3 (11:17→17:43)
--- NOTE | 2016-08-05 17:17 | PCMIDPN ---
Assessment/Plan: Assessment/Plan: * Recurrent C difficile colitis: Clinically improved with oral vancomycin. No ongoing diarrhea or abdominal pain. Plan to complete 2 weeks of therapy with today being day 9. 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 Continue observation off systemic antibiotics. Ongoing wound care via Dr. Dahl. 08/05/16 17:14 Subjective: Asked to see patient regarding recurrent C difficile colitis and chronic left lower extremity wound. Patient seen by our service during recent hospitalization. Please see notes by Dr. Dc (07/29/16), Dr. House (07/30/16) , and Dr. Henning (07/31/16)for additional details. Currently is on oral vancomycin with resolution of diarrhea. No abdominal pain. Underwent skin grafting of chronic left lower extremity wounds by Dr. Dahl on 08/03/2016. Operative findings reviewed. Objective: Vital Signs Temp Pulse Resp BP Pulse Ox 36.7 C 80 18 103/60 95 08/05/16 15:25 08/05/16 15:25 08/05/16 15:25 08/05/16 15:25 08/05/16 15:25 Laboratory Results 08/05/16 08:30 08/05/16 08:30 08/04/16 08/05/16 08/06/16 05:59 05:59 05:59 Intake Total 850 3599 Output Total 400 450 Balance 450 3149 Oral vancomycin # 9/14 Status post cefazolin as perioperative prophylaxis at time of skin graft on 08/03 - Physical Exam General Appearance: alert, no apparent distress, obese EENT: pharynx normal, No scleral icterus Respiratory: lungs clear, No respiratory distress Cardiac/Chest: regular rate, rhythm, other (Distant heart tones) Extremities: inflammation (Left lower extremity with wound VAC in place over grafted site; no surrounding erythema) Abdomen: non-tender, No distended ICD10 Worksheet Patient Problems: Problems Problem Status Onset Altered mental status Acute Anemia Acute Atrial fibrillation Acute C. difficile diarrhea Acute ~07/26/16 Hypotension Acute Leg wound, left Acute Palliative care encounter Acute Paroxysmal atrial fibrillation Acute Syncope Acute Urinary tract infection Acute
--- NOTE | 2016-08-05 19:42 | HOSPPROG ---
Hospitalist Progress Note Assessment/Plan: The patient is a 70 year old obese female with PMH AFib, diabetes, PVD who was admitted for left lower extremity gangrene/cellulitis, underwent wound debridement and wound VAC placement. ASSESSMENT/PLAN: Left lower extremity wound/gangrene, status post debridement/skin graft -wound VAC in place, suctioning. -postop day 2 -non weight-bearing left lower extremity to protect skin graft. -ID consulted - no antibiotics recommended Poor IV access -getting central line placed by Interventional Radiology. Chronic resp failure, on 2-4L O2 chronically -Pt does not like being on scheduled SVNs, changing to prn only. Atrial fibrillation -amio -Pradaxa for AC. Diarrhea, C. diff - resolved -finishing course of po vanco -ID following. Diabetes mellitus -SSI (being held for lower BG) HTN -BP controlled. Anemia -No evidence of acute bleeding -Cont to monitor Morbid obesity Sacral decubitus ulcer, unk stage, present on admission -Wound care, air mattress Chronic CVA Carotid Artery Stenosis, s/p L CEA VTE prophylaxis: Lovenox Code Status: DNR Disposition: [facility], inpatient status ____ SUBJECTIVE: Patient feels tired. Denies diarrhea or BM today. She still has little appetite. Pain is well controlled. OBJECTIVE: Physical Exam: General: The patient is a morbidly obese who is alert and in no acute distress. HEENT: normocephalic, extraocular movements intact, conjunctivae clear. Mucous membranes moist. Neck: trachea midline, no visible masses. Abd: soft and nondistended. Bowel sounds present. Non tender throughout. Musculoskeletal: Normal muscle tone/bulk. Wound VAC in place on left foot which is dressed in a cushioned boot. Neuro: cranial nerves II XII grossly intact. Intact gross motor and sensory function. Psych: Appropriate mood and flat affect. Skin: Mild pallor. No petechiae. Labs/Imaging/Other Tests: Personally reviewed/interpreted. Objective: Vital Signs Temp Pulse Resp BP Pulse Ox 36.7 C 80 18 103/60 95 08/05/16 15:25 08/05/16 15:25 08/05/16 15:25 08/05/16 15:25 08/05/16 15:25 Laboratory Results 08/05/16 08:30 08/05/16 08:30 08/04/16 08/05/16 08/06/16 05:59 05:59 05:59 Intake Total 850 4805 177 Output Total 400 450 350 Balance 450 0857 1429 ICD10 Worksheet Patient Problems: Problems Problem Status Onset Altered mental status Acute Anemia Acute Atrial fibrillation Acute C. difficile diarrhea Acute ~07/26/16 Hypotension Acute Leg wound, left Acute Palliative care encounter Acute Paroxysmal atrial fibrillation Acute Syncope Acute Urinary tract infection Acute
[2016-08-05] MEDS: OLANZapine 2.5 MG TAB PO SCH (21:03)
[2016-08-05] MEDS: ATORVASTATIN CALCIUM 40 MG TAB PO SCH (21:03)
[2016-08-06] MEDS: NS W/ 20 KCl/L 1,000 ML IV SCH (04:45)
[2016-08-06] MEDS: VANCOMYCIN 125 MG/2.5 ML UDL PO SCH ×2 (04:45→13:56)
[2016-08-06] MEDS: HYDROCODONE/APAP 5/325 TAB PO PRN (07:14)
[2016-08-06 07:36] VITALS: BP 104/62; PULSE 80; RESP 18; TEMP 97.7; O2SAT 99
[2016-08-06] MEDS: INSULIN LISPRO 100 UNIT/ML SC SCH ×2 (08:06→15:32)
--- NOTE | 2016-08-06 10:58 | PDIAF ---
- Diagnosis Diagnosis: left foot cellulitis/abscess Code Status: Do Not Resuscitate - Medication Management Discharge Medications: Medications to Continue on Transfer Acetaminophen [Tylenol ES 500 mg (*)] 500 mg PO HS 06/18/16 [Last Taken Unknown] Amiodarone HCl [Pacerone (*)] 200 mg PO DAILY 06/18/16 [Last Taken Unknown] Aspirin [Aspirin 81mg (*)] 81 mg PO HS 06/18/16 [Last Taken Unknown] Atorvastatin Calcium [Lipitor 40 mg (*)] 40 mg PO HS 06/18/16 [Last Taken Unknown] Dabigatran Etexilate Mesyl [Pradaxa 150 MG (*)] 150 mg PO BID 06/18/16 [Last Taken Unknown] oxyCODONE IR [Oxycodone Ir (*)] 5 mg PO Q4H PRN 06/18/16 [Last Taken Unknown] Acetaminophen [Tylenol 325mg (*)] 650 mg PO Q4HRS PRN #0 tab 07/06/16 [Last Taken Unknown] OLANZapine [ZyPREXA 2.5 mg (*)] 2.5 mg PO HS #0 tab 07/06/16 [Last Taken Unknown ] Omeprazole [Prilosec 20 mg] 20 mg PO DAILY 07/26/16 [Last Taken Unknown] Promethazine HCl [Phenergan 25mg (*)] 6.25 - 12.5 mg PO Q6HRS PRN #0 tab [Last Taken Unknown] Bisacodyl [Dulcolax] 10 mg RC Q24H PRN 08/04/16 [Last Taken Unknown] Docusate Sodium [Colace 100 MG (*)] 200 mg PO HS 08/04/16 [Last Taken Unknown] Furosemide [Lasix 20 MG (*)] 20 mg PO DAILY 08/04/16 [Last Taken Unknown] Lidocaine [Lidocaine 4% cream] 1 eula TP Q4H PRN 08/04/16 [Last Taken Unknown] Ondansetron Odt [Zofran Odt 4 mg (*)] 4 mg PO Q4H PRN 08/04/16 [Last Taken Unknown] Polyethylene Glycol 3350 [Miralax 17 gm (*)] 17 gm PO DAILY PRN 08/04/16 [Last Taken Unknown] Vancomycin [Vancocin Oral Liquid] 125 mg PO QID #16 udl 08/06/16 [Last Taken Unknown] Teaching Fellow Antibiotics: Vancomyocin 125mg PO qid Halfway Antibiotic Stop Date: 08/10/16 Discharge Medications: Refer to the Discharge Home Medication list for PRN reason. - Orders Services needed: Physical Therapy, Occupational Therapy Diet Texture: Regular Texture Diet - Follow Up Care Current Providers and Referrals: [facility] [Clinic] - 08/13/16 1:00 pm Doctor Not,On Staff, [Primary Care Provider] -
--- NOTE | 2016-08-06 11:04 | SOAPPROG ---
SOAP Progress Note Assessment/Plan: Assessment: POD #3 s/p stsg and primatrix to posterior wound Continue side to side. No direct pressure on posterior aspect of wound Consistent carb diet PT/OT - Ideally non weight bearing left lower extremity to protect graft but Shahida has not been able to stand recently. OK with short amounts of time May eventually need port. I am hesitant to put this in now as she has a high risk of getting it infected as her wounds are not closed yet OK to d/c back to the [facility] if cleared by hospitalists. Will need to change to outpatient wound vac (came with patient on admission). Will f/u with Dr. Dahl on [facility] at 1300 for vac change S: Feeling okay. No complaints Wound vac to suction Thigh dressing is saturated - notified nurse to change Objective: Vital Signs Temp Pulse Resp BP Pulse Ox 36.5 C 80 18 104/62 99 08/06/16 07:33 08/06/16 07:33 08/06/16 07:33 08/06/16 07:33 08/06/16 07:33 Laboratory Results 08/05/16 08:30 08/05/16 08:30 08/05/16 08/06/16 08/07/16 05:59 05:59 05:59 Intake Total 3596 5730 Output Total 450 700 Balance 3141 3131 ICD10 Worksheet Patient Problems: Problems Problem Status Onset Altered mental status Acute Anemia Acute Atrial fibrillation Acute C. difficile diarrhea Acute ~07/26/16 Hypotension Acute Leg wound, left Acute Palliative care encounter Acute Paroxysmal atrial fibrillation Acute Syncope Acute Urinary tract infection Acute
[2016-08-06] MEDS: DABIGATRAN ETEXILATE MESYL 150 MG CAP PO SCH (11:05)
[2016-08-06] MEDS: MULTIVITAMINS 1 EACH TAB PO SCH (11:06)
[2016-08-06] MEDS: PANTOPRAZOLE SODIUM 40 MG TAB PO SCH (11:06)
[2016-08-06] MEDS: AMIODARONE HCL 200 MG TAB PO SCH (11:06)
[2016-08-06] MEDS ORDERED: MAGNESIUM HYDROXIDE 30 ML UDCUP PO ONE (11:28)
[2016-08-06] MEDS ORDERED: BISACODYL 10 MG SUPP PR ONE (11:28)
--- NOTE | 2016-08-06 12:05 | PDIAF ---
- Diagnosis Diagnosis: left foot cellulitis/abscess Code Status: Do Not Resuscitate - Medication Management Discharge Medications: Medications to Continue on Transfer Acetaminophen [Tylenol ES 500 mg (*)] 500 mg PO HS 06/18/16 [Last Taken Unknown] Amiodarone HCl [Pacerone (*)] 200 mg PO DAILY 06/18/16 [Last Taken Unknown] Aspirin [Aspirin 81mg (*)] 81 mg PO HS 06/18/16 [Last Taken Unknown] Atorvastatin Calcium [Lipitor 40 mg (*)] 40 mg PO HS 06/18/16 [Last Taken Unknown] Dabigatran Etexilate Mesyl [Pradaxa 150 MG (*)] 150 mg PO BID 06/18/16 [Last Taken Unknown] oxyCODONE IR [Oxycodone Ir (*)] 5 mg PO Q4H PRN 06/18/16 [Last Taken Unknown] Acetaminophen [Tylenol 325mg (*)] 650 mg PO Q4HRS PRN #0 tab 07/06/16 [Last Taken Unknown] OLANZapine [ZyPREXA 2.5 mg (*)] 2.5 mg PO HS #0 tab 07/06/16 [Last Taken Unknown ] Omeprazole [Prilosec 20 mg] 20 mg PO DAILY 07/26/16 [Last Taken Unknown] Promethazine HCl [Phenergan 25mg (*)] 6.25 - 12.5 mg PO Q6HRS PRN #0 tab [Last Taken Unknown] Bisacodyl [Dulcolax] 10 mg RC Q24H PRN 08/04/16 [Last Taken Unknown] Docusate Sodium [Colace 100 MG (*)] 200 mg PO HS 08/04/16 [Last Taken Unknown] Furosemide [Lasix 20 MG (*)] 20 mg PO DAILY 08/04/16 [Last Taken Unknown] Lidocaine [Lidocaine 4% cream] 1 eula TP Q4H PRN 08/04/16 [Last Taken Unknown] Ondansetron Odt [Zofran Odt 4 mg (*)] 4 mg PO Q4H PRN 08/04/16 [Last Taken Unknown] Polyethylene Glycol 3350 [Miralax 17 gm (*)] 17 gm PO DAILY PRN 08/04/16 [Last Taken Unknown] Vancomycin [Vancocin Oral Liquid] 125 mg PO QID #16 udl 08/06/16 [Last Taken Unknown] [employer]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 - Orders Services needed: Physical Therapy, Occupational Therapy Diet Recommendation: no restrictions on diet Diet Texture: Regular Texture Diet Wound Care Instructions: Do NOT change wound vac. If leak, please reinforce with drape. May change L thigh dressing PRN (mepilex transfer and tegaderm). May change L distal foot dressing PRN (mepilex border). - Follow Up Care Current Providers and Referrals: [facility] [Clinic] - 08/13/16 1:00 pm Doctor Not,On Staff, [Primary Care Provider] -
--- NOTE | 2016-08-06 12:05 | GDS ---
[f rep st] DISCHARGE SUMMARY DISCHARGE DIAGNOSES: 1. Left lower extremity wound debridement. 2. Peripheral vascular disease. 3. Type 2 diabetes. 4. Morbid obesity. 5. Atrial fibrillation. 6. Previous history of acute tubular necrosis. 7. Status post cerebrovascular accident and left carotid endarterectomy. 8. Chronic respiratory failure requiring 2-4 L of oxygen. 9. Chronic Kirk catheter was placed since April. HISTORY: This is a 70-year-old female who has been seeing Wound Care Outpatient for a chronic left lower extremity wound due to peripheral vascular disease and diabetes, who underwent selective debri stefany per Surgery. HOSPITAL COURSE: Patient did have debridement and wound VAC placement per Surgery. She did tolerat e this well. We did have Infectious Disease discuss. Patient did have C difficile colitis diagnosi s recently. We will continue vancomycin dosing for 4 more days to complete a 14 day course. She do es have a chronic indwelling Kirk, which I am going to replace before discharge because it has not been replaced for several months. She has poor venous access and an IJ was placed, which we will di scontinue on discharge as well. FOLLOWUP INSTRUCTIONS: She is instructed to follow up with wound care in 1 week. Wound Care Clinic in 1 week. TIME SPENT: Greater than 30 minutes were spent on discharge. /[id number]/MODL
== END 2016-08-06 15:27 | DRG 264 ==
LOC: F3E 08:31
PROVIDERS: ADMIT Surgery; ATTEND Surgery
PROC: 0QBP0ZZ Excision of Left Metatarsal, Open Approach (ICD-10-PCS; principal; 2016-08-03 10:00)
PROC: 0HRNXK3 Replacement of Left Foot Skin with Nonautologous Tissue Substitute, Full Thickness, External Approach (ICD-10-PCS; principal; 2016-08-03 10:00)
PROC: 02H633Z Insertion of Infusion Device into Right Atrium, Percutaneous Approach (ICD-10-PCS; 2016-08-04)
DX: E11.51 Type 2 diabetes mellitus with diabetic peripheral angiopathy without gangrene (principal); J96.10 Chronic respiratory failure, unspecified whether with hypoxia or hypercapnia; L97.529 Non-pressure chronic ulcer of other part of left foot with unspecified severity; E66.01 Morbid (severe) obesity due to excess calories; I48.91 Unspecified atrial fibrillation; Z86.73 Personal history of transient ischemic attack (TIA), and cerebral infarction without residual deficits; D64.9 Anemia, unspecified; L89.152 Pressure ulcer of sacral region, stage 2
CPT/HCPCS: 97161-GP; 97166-GO; 97530-GO; 97530-GP; C1750; J0171; J0690; J1170; J2370; J2405; J2704; J2710; J2997; J3010